=== PATIENT | female | born 1955 | race Caucasian/White ===

== ENCOUNTER 2023-03-18 09:25 | Outpatient (OUT) | payer BC, SELFPAY ==
--- NOTE | 2023-03-18 | MM_ITS ---
Patient: TERESSA BUI Exam Date: 03/18/2023 : 1955 Gender:F Ordering : DR Kevin Velasquez D.O. Admission #: [id number] Family : Order #: [id number] CLICK HERE TO VIEW EXAM RADIOLOGY REPORT PROCEDURE: MM TOMOSYNTHESIS SCREENING BI COMPARISON: MG MAMM SCREEN 3D ALBERT CAD, 03/15/2022. MG MAMM SCREEN 3D ALBERT CAD, 03/01/2021. MG MAMM SCREEN ALBERT W CAD, 02/28/2020. MG MAMM ALBERT SCRN W CAD DIG, 09/09/2013. INDICATIONS: Screening Z12.31 Calculator Name NCI Breast Cancer Risk Assessment Tool 5 Year Breast Cancer Risk 1.80% Lifetime Breast Cancer Risk 6.10% Personal Breast Cancer No Personal Ovarian Cancer No Treatments None Family Cancers Sister with endometrial cancer at age 65. LOCATION: The [facility] BREAST COMPOSITION: Scattered areas fibroglandular density. FINDINGS: DIAGNOSTIC CATEGORY 2--BENIGN FINDING: RIGHT BREAST: No significant suspicious finding. Scattered benign-appearing calcifications are present. No significant change has occurred. LEFT BREAST: No significant suspicious finding. Scattered benign-appearing calcifications are present. No significant change has occurred. RECOMMENDATIONS: ROUTINE MAMMOGRAM AND CLINICAL EVALUATION IN 12 MONTHS. PLEASE NOTE: A NORMAL MAMMOGRAM DOES NOT EXCLUDE THE POSSIBILITY OF BREAST CANCER. A CLINICALLY SUSPICIOUS PALPABLE LUMP SHOULD BE BIOPSIED. Dictated by: Javan Wright M.D. on 03/19/2023 at 12:51 Approved by: Javan Wright M.D. on 03/19/2023 at 12:54
[2023-03-18 09:50] LABS: Estimated Average Glucose 146 mg/dL; Glycohemoglobin A1C 6.7 % (4.5-6.2); Microalbumin Urine Random <1.3 mg/dL (<=30.0)
[2023-03-18 09:52] LABS: Basophils Percent Auto 0.5 % (0.2-2.0); Eosinophils Absolute Auto 0.1 10^3/uL (0.0-0.7); Eosinophils Percent Auto 2.5 % (0.9-7.0); Hematocrit 41.4 % (36.0-48.0); Hemoglobin 13.6 g/dL (12.0-16.0); Immature Granulocytes Abs Auto 0.01 10^3/uL (0.00-0.03); Immature Granulocytes Pct Auto 0.2 % (0.0-0.5); Lymphocytes Absolute Auto 2.4 10^3/uL (1.2-3.8); Lymphocytes Percent Auto 43.3 % (20.5-60.0); Mean Corpuscular HGB Conc 32.9 g/dL (29.9-35.2); Mean Corpuscular Volume 85.2 fL (81.0-99.0); Mean Platelet Volume 9.4 fL (9.5-13.5); Monocytes Absolute Auto 0.5 10^3/uL (0.3-0.8); Neutrophils Absolute Auto 2.6 10^3/uL (1.4-6.5); Neutrophils Percent Auto 45.5 % (43.0-75.0); Platelet Count 182 10^3/uL (150-450); Red Blood Count 4.86 10^6/uL (4.20-5.40); Red Cell Distribution Width 14.2 % (11.0-15.0); White Blood Count 5.6 10^3/uL (4.0-11.0)
[2023-03-18 10:01] LABS: Alanine Aminotransferase 50 U/L (14-59); Anion Gap 12.1; BUN Creatinine Ratio 16.4; Calcium 9.7 mg/dL (8.5-10.1); Carbon Dioxide 27.9 mmol/L (21.0-32.0); Chloride 100 mmol/L (98-107); Cholesterol 124 mg/dL (<=200); Estimated GFR (African America >60 (>=60); Estimated GFR (Non-African Ame >60 (>=60); Glucose 127 mg/dL (74-106); HDL Cholesterol 61 mg/dL (40-60); Sodium 136 mmol/L (136-145); Triglycerides 73 mg/dL (<=150); VLDL CHOLESTEROL 14.6 mg/dL
== END 2023-03-18 09:26 | disposition home or self-care (01) ==
LOC: LAB 09:25
PROVIDERS: PCP Internal Medicine; Visit Provider Internal Medicine
DX: Z12.31 Encounter for screening mammogram for malignant neoplasm of breast (principal); E11.65 Type 2 diabetes mellitus with hyperglycemia; E78.00 Pure hypercholesterolemia, unspecified; I10 Essential (primary) hypertension; Z80.8 Family history of malignant neoplasm of other organs or systems
CPT/HCPCS: 36415; 77063; 77067; 80048; 80061; 82043; 83036; 84460; 85025

== ENCOUNTER 2023-11-21 11:08 | Outpatient (OUT) | payer BC, SELFPAY ==
[2023-11-21 12:21] LABS: Estimated Average Glucose 151 mg/dL; Glycohemoglobin A1C 6.9 % (4.5-6.2)
== END 2023-11-21 11:09 | disposition home or self-care (01) ==
LOC: LAB 11:10
PROVIDERS: PCP Internal Medicine; Visit Provider Internal Medicine
DX: E11.65 Type 2 diabetes mellitus with hyperglycemia (principal)
CPT/HCPCS: 36415; 83036

== ENCOUNTER 2024-03-08 10:42 | Outpatient (OUT) | payer BC, SELFPAY ==
--- NOTE | 2024-03-08 11:10 | XR_ITS ---
The [address] [address] Patient Name: TERESSA BUI MRN: [facility]:[id number] date: 1955 Sex: F Assigned Patient Location: LAB Current Patient Location: Accession/Order Number: [id number] Exam Date: 03/08/2024 11:20 Report Date: 03/10/2024 06:56 At the request of: CLARENCE CARDENAS Procedure: XR lumbar spine 2-3V EXAMINATION: XR lumbar spine 2-3V HISTORY: Low Back Pain COMPARISON: No relevant comparison available. FINDINGS: BONES: No significant spondylosis, scoliosis, fracture, or visible bony lesion. DISC SPACES: No significant disc height narrowing, subluxation, or endplate abnormality. PARASPINOUS: Endovascular stenting of left common iliac artery. OTHER: Negative. XR/XR lumbar spine 2-3V IMPRESSION: 1. No appreciable acute abnormality. 2. Minimal degenerative changes of lumbar spine. Electronically authenticated by: SNOW DUENAS Date: 03/10/2024 06:56
[2024-03-08 11:25] LABS: Basophils Percent Auto 0.6 % (0.2-2.0); Eosinophils Absolute Auto 0.1 10^3/uL (0.0-0.7); Eosinophils Percent Auto 2.8 % (0.9-7.0); Hematocrit 40.6 % (36.0-48.0); Hemoglobin 13.3 g/dL (12.0-16.0); Immature Granulocytes Abs Auto 0.01 10^3/uL (0.00-0.03); Immature Granulocytes Pct Auto 0.2 % (0.0-0.5); Lymphocytes Percent Auto 42.1 % (20.5-60.0); Mean Corpuscular HGB Conc 32.8 g/dL (29.9-35.2); Mean Corpuscular Hemoglobin 28.6 pg (26.7-34.0); Mean Corpuscular Volume 87.3 fL (81.0-99.0); Mean Platelet Volume 9.6 fL (9.5-13.5); Monocytes Absolute Auto 0.5 10^3/uL (0.3-0.8); Monocytes Percent Auto 9.7 % (1.7-12.0); Neutrophils Absolute Auto 2.1 10^3/uL (1.4-6.5); Neutrophils Percent Auto 44.6 % (43.0-75.0); Platelet Count 156 10^3/uL (150-450); Red Blood Count 4.65 10^6/uL (4.20-5.40); Red Cell Distribution Width 13.5 % (11.0-15.0); White Blood Count 4.7 10^3/uL (4.0-11.0)
[2024-03-08 11:50] LABS: Estimated Average Glucose 143 mg/dL; Glycohemoglobin A1C 6.6 % (4.5-6.2)
[2024-03-08 12:22] LABS: Alanine Aminotransferase 61 U/L (14-59); Albumin Globulin Ratio 1.1; Albumin Level 3.8 g/dL (3.4-5.0); Alkaline Phosphatase 128 U/L (46-116); Anion Gap 9.5; Aspartate Amino Transferase 42 U/L (15-37); BUN Creatinine Ratio 17.7; Bilirubin Total 0.7 mg/dL (0.2-1.0); Calcium 9.4 mg/dL (8.5-10.1); Carbon Dioxide 29.8 mmol/L (21.0-32.0); Chloride 100 mmol/L (98-107); Cholesterol 121 mg/dL (<=200); Estimated GFR (African America >60 (>=60); Estimated GFR (Non-African Ame >60 (>=60); Globulin 3.6 g/dL; Glucose 123 mg/dL (74-106); HDL Cholesterol 61 mg/dL (40-60); Potassium 4.3 mmol/L (3.5-5.1); Sodium 135 mmol/L (136-145); Total Protein 7.4 g/dL (6.4-8.2); Triglycerides 90 mg/dL (<=150)
[2024-03-09 16:16] LABS: Microalbumin Urine Random <1.3 mg/dL (<=30.0)
== END 2024-03-08 10:43 | disposition home or self-care (01) ==
LOC: LAB 10:44
PROVIDERS: PCP Internal Medicine; Visit Provider Internal Medicine
DX: M54.50 Low back pain, unspecified (principal); E78.00 Pure hypercholesterolemia, unspecified; I10 Essential (primary) hypertension; E11.65 Type 2 diabetes mellitus with hyperglycemia
CPT/HCPCS: 36415; 72100; 80053; 80061; 82043; 83036; 85025

== ENCOUNTER 2024-03-19 07:52 | Outpatient (OUT) | payer BC, SELFPAY ==
--- NOTE | 2024-03-19 08:03 | US_ITS ---
The [address] [address] Patient Name: TERESSA BUI MRN: [id number] date: 1955 Sex: F Assigned Patient Location: US Current Patient Location: US Accession/Order Number: [id number] Exam Date: 03/19/2024 08:06 Report Date: 03/19/2024 09:10 At the request of: CLARENEC CARDENAS Procedure: US right upper quadrant EXAM: US right upper quadrant HISTORY: . Elevated Liver Enzymes, Metabolic Dysfunction . COMPARISON: None. TECHNIQUE: Dixon scale and color imaging was performed FINDINGS: The pancreas is grossly unremarkable. The liver is normal in size. There is mild increased echogenicity of liver consistent with fatty infiltration of the liver. Color-flow is noted in the portal and hepatic veins. The gallbladder appears normal with no stones or sludge identified. No gallbladder wall thickening is noted. Patient had no pain upon scanning over the gallbladder. Common bile duct measured 4 mm. Right kidney measures 10.1 x 3.9 x 5 cm. Color-flow is noted. No solid renal cortical masses or hydronephrosis is noted. No fluid is noted in the right upper quadrant. US/US right upper quadrant IMPRESSION: 1 increased echogenicity of liver consistent with fatty infiltration of liver. 2. The remainder of the right upper quadrant was unremarkable. Electronically authenticated by: GEOFFREY RUSH Date: 03/19/2024 09:10
--- NOTE | 2024-03-19 08:03 | MM_ITS ---
Patient Name: TERESSA BUI MR#: [id number] : 1955 Exam Date: 03/19/2024 Ordering Doctor: DR Kevin Velasquez D.O. RADIOLOGY REPORT PROCEDURE: MM TOMOSYNTHESIS SCREENING BI COMPARISON: MG MAMM SCREEN 3D ALBERT CAD, 03/15/2022. MM TOMOSYNTHESIS SCREENING BI, 03/18/2023. INDICATIONS: Screening Calculator Name NCI Breast Cancer Risk Assessment Tool 5 Year Breast Cancer Risk 1.80% Lifetime Breast Cancer Risk 5.90% Personal Breast Cancer No Personal Ovarian Cancer No Treatments None Family Cancers Sister with endometrial cancer at age 65. LOCATION: The [facility] BREAST COMPOSITION: There are scattered areas of fibroglandular density. FINDINGS: DIAGNOSTIC CATEGORY 2--BENIGN FINDING. NO CHANGE FROM COMPARISON. Scattered benign-appearing calcifications are present. Scattered benign-appearing lymph nodes are present. RIGHT BREAST: No significant suspicious finding. LEFT BREAST: No significant suspicious finding. RECOMMENDATIONS: ROUTINE MAMMOGRAM AND CLINICAL EVALUATION IN 12 MONTHS. PLEASE NOTE: A NORMAL MAMMOGRAM DOES NOT EXCLUDE THE POSSIBILITY OF BREAST CANCER. A CLINICALLY SUSPICIOUS PALPABLE LUMP SHOULD BE BIOPSIED. Dictated by: Flo Torres MD on 03/19/2024 at 11:13 Approved by: Flo Torres MD on 03/19/2024 at 11:14
--- OUTSIDE RECORDS SUMMARY | 2024-03-19 08:14 | XMS_ITS | CCD ---
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 Name Role Phone Dylan Calixto Unavailable [phone] Summer Decker Unavailable RON, DR LIMA Admitting Unavailable RON, DR LIMA Attending Unavailable RON, DR LIMA Primary Care Unavailable RON, DR LIMA Consulting Unavailable RON, DR LIMA Admitting Unavailable RON, DR LIMA Attending Unavailable RON, DR LIMA Primary Care Unavailable RON, DR LIMA Consulting Unavailable RON, DR LIMA Admitting Unavailable RON, DR LIMA Attending Unavailable RON, DR LIMA Primary Care Unavailable RON, DR LIMA Consulting Unavailable HENRIQUE, DR JAVAN Hooker Consulting Unavailable KEVIN VELASQUEZ Primary Care Physician Mariela MENCHACA Unavailable MD Dylan Calixto Attending Provider DO Kevin Velasquez Primary Care Provider [phone] Mariela MENCHACA Attending Unavailable Mariela MENCHACA Admitting Unavailable Kevin Velasquez Primary Care Unavailable Dylan Calixto Attending UnavailDylan Marte Admitting UnavailKevin Addison Unavailable Radha Correa Unavailable Kevin Velasquez MD Primary Care Provider MARIELA MENCHACA Attending Unavailable MARIELA MENCHACA Attending Unavailable Allergies Allergy Classification Reported Allergen(s) Allergy Type Date of Onset Reaction(s) Facility (7 sources) Lisinopril Drug Allergy 09-23-2017 Unknown [facility] Other Medications Current Medications Medication Drug Class(es) Dates Sig (Normalized) Sig (Original) aspirin 325 mg oral tablet (15 sources) Platelet Aggregation Inhibitor, Nonsteroidal Anti-inflammatory Drug Start: 08-12-2019 aspirin 325 mg Tab Refills(s) 0 Start Date: 08/12/19 Status: Ordered take 1 tablet by mouth once petra y Baby Aspirin 81 MG 1 tablet Orally Once a day Active atenolol 50 mg oral tablet (3 sources) beta-Adrenergic Ronda Start: 08-12-2019 atenol ol 50 mg Tab Refills(s) 0 Start Date: 08/12/19 Status: Ordered take 1 tablet by german every twenty-four hours Atenolol 25 MG 1 tablet Orally Once a da y for 30 day(s) Not-Taking atorvastatin 80 mg oral tablet (18 sources) HMG-CoA Reductase Inhibitor Start: 08-12-2019 atorvastatin 80 mg Tab Refills(s) 0 Start Date: 08/12/19 Status: Ordered clopidogrel 75 mg oral tablet (18 sources) P2Y12 Platelet Inhibitor Start: 04-25-2022 take 1 tablet by mouth once daily clopidogrel (Plavix) 75 MG tablet TAKE 1 TABLET BY MOUTH EVERY DAY FOR 30 DAYS 0 11/15/2022 Active doxycycline hyclate 100 mg oral capsule (1 source) Tetracycline-cla ss Drug Start: 06-26-2023 take 1 capsule by mouth every twelve hours Doxycycline Hyclate 100 MG 1 capsule Orally Twice a day for 7 days May, Active esomeprazole 40 mg delayed release oral capsule (4 sources) Proton Pump Inhibitor Start: 03-03-2023 take 1 capsule by mouth once daily Esomeprazole Magnesium 40 MG 1 capsule Orally Once a day, taken on empty stomach followed in 30 minutest by bkfst for 90 days Feb, Active take 1 capsule by mouth before m ealtime esomeprazole (NexIUM) [address] capsule Take 20 mg by mouth in the morning. Take before meals. Do not open capsule.. 0 Active estradiol 0.1 mg/ml vaginal cream (3 sources) Estrogen Start: 01-01-2023 End: 11-12-2023 estradiol (Estrace) 0.1 MG/GM vaginal cream Indications: Presence of pessary Insert 1 g into the vagina 3 (three) times a week. 45 g 2 01/01/2023 11/12/2023 Active losartan potassium 50 mg oral tablet (20 sources) Angiotensin 2 Receptor Ronda Start: 11-22-2022 take 1 tablet by mouth in the morning losartan (Cozaar) 50 MG tablet Take 50 mg by mouth in the morning. 0 11/22/2022 Active take 1 tablet by german th every twenty-four hours Losartan Potassium 25 MG 1 tablet Orally Once a day Active take 1 tablet by mouth once petra y Losartan Potassium 50 MG TAKE 1 TABLET BY MOUTH EVERY DAY for 90 Active metFORMIN hydrochloride 500 mg oral tablet (11 sources) Biguanide Start: 11-22-2022 take 1 tablet by mouth at mealtime metFORMIN (Glucophage) 500 MG tablet Take 500 mg by mouth. Take with food. 0 11/22/2022 Active mupirocin 0.02 mg/mg topical ointment (3 sources) RNA Synthetase Inhibitor Antibacterial Start: 04-08-2023 Mupirocin 2 % 1 application Externally Twice a day for 5 days Mar, Active omeprazole 40 mg delayed release oral capsule (2 sources) Proton Pump Inhibitor take 1 capsule by mouth once daily Omeprazole 40 MG 1 capsule 30 minutes before morning meal Orally Once a day for 90 days Active OneTouch Ultra - (9 sources) D1Guch Ultra - USE TO TEST ONCE A DAY for 30 Active pantoprazole 40 mg delayed release oral tablet (11 sources) Proton Pump Inhibitor Start: 03-06-2023 take 1 tablet by mouth once daily Pantoprazole Sodium 40 MG 1 tablet Orally Once a day on an empty stomach 30 minutes before bkfst for 30 days d/c Omeprazole Feb, Active Pantoprazole Sod ium Active SITagliptin 25 mg oral tablet (18 sources) Dipeptidyl Peptidase 4 Inhibitor Start: 02-04-2023 take 1 tablet by mouth in the morning Januvia 25 MG tablet Take 25 mg by mouth in the morning. 0 02/04/2023 Active Start: 08-26-2022 take 1 tablet by german th in the morning Januvia 50 MG tablet Take 50 mg by mouth in the morning. 0 08/26/2022 Active triamcinolone acetonide 5 mg/ml topical cream (6 sources) Corticosteroid Start: 03-04-2023 Triamcinolone Acetonide 0.5 % 1 application Externally bid as needed for rash for 30 days Feb, Active valACYclovir 1000 mg oral tablet (3 sources) Herpesvirus Nucleoside Analog DNA Polymerase Inhibitor, Herpes Simplex Virus Nucleoside Analog DNA Polymerase Inhibitor, Herpes Zoster Virus Nucleoside Analog DNA Polymerase Inhibitor Start: 04-08-2023 take 1 tablet by mouth every twelve hours valACYclovir HCl 1 GM 1 tablet Orally Twice a day for 7 days Mar, Active 24 hr verapamil hydrochloride 120 mg extended release oral capsule (20 sources) Calcium Channel Ronda Start: 08-12-2019 verapamil 120 mg Cap-ER Refills(s) 0 Start Date: 08/12/19 Status: Ordered take 1 capsule by mo [facility] every twenty-four hours in the morning verapamil ER (Verelan) 120 MG 24 hr capsule Take 120 mg by mouth in the morning. 0 Active Verapamil HCl ER Not-Taking Verapamil HCl ER Active Completed/Discontinued Medications Medication Drug Class(es) Dates Sig (Normalized) Sig (Original) azithromycin 250 mg oral tablet (8 sources) Macrolide Antimicrobial Start: 10-03-2022 Azithromycin 250 MG as directed Orally daily for 5 days Sep, Not-Taking calcium carbonate 1500 mg / cholecalciferol 200 unt oral tablet (2 sources) Vitamin D take 1 tablet by mouth once daily at mealtime Calcium + D 600-200 MG-UNIT 1 tablet with food Orally Once a day for 30 day(s) Not-Taking take 1 tablet by [facility] every twenty-four hours Calcium + D 600-200 MG-UNIT 1 tablet wit h food Orally Once a day for 30 day(s) Not-Taking Suprep Bowel Prep Kit 17.5-3.13-1.6 GM/180ML (2 sources) Start: 03-23-2019 Suprep Bowel P rep Kit 17.5-3.13-1.6 GM/180ML 177 ML DIRECTED AT 4 PM AND ONE AT 11 PM DAY PRIOR Orally Twice a day for 1 day(s) Feb, Not-Taking Problems Active Problems Problem Classification Problem Date Documented Date Episodic/Chronic Acute bronchitis (1 source) Acute bronchitis due to other specified organisms Episodic Allergic reactions (1 source) Dermatitis, unspecified Episodic Diabetes mellitus with complications (20 sources) Type 2 diabetes mellitus with hyperglycemia; Translations: [Type 2 diabetes mellitus] Onset: 07-03-2022 Chronic Disorders of lipid metabolism (11 sources) Hypercholesterolemia; Translations: [Pure hypercholesterolemia, unspecified] Chronic Esophageal disorders (14 sources) Gastro-esophageal reflux disease with esophagitis; Translations: [Gastroesophageal reflux disease with esophagitis without hemorrhage] Chronic Essential hypertension (11 sources) Essential hypertension; Translations: [Essential (primary) hypertension] Chronic Genitourinary symptoms and ill-defined conditions (2 sources) Vaginal pessary in situ; Translations: [Presence of urogenital implants] 09-09-2023 Chronic Headache; including migraine (11 sources) Ophthalmic migraine; Translations: [Migraine with aura, not intractable, without status migrainosus] Chronic Occlusion or stenosis of precerebral arteries (17 sources) Bilateral stenosis of carotid arteries; Translations: [Occlusion and stenosis of bilateral carotid arteries] Onset: 08-23-2021 Resolved: 08-23-2021 Chronic Other aftercare (1 source) Other long term care social worker (current) drug therapy Episodic Other circulatory disease (14 sources) Stenosis of left subclavian artery; Translations: [Stricture of artery] Chronic Other circulatory disease (3 sources) Stricture of artery Onset: 08-23-2021 Resolved: 08-23-2021 Chronic Other liver diseases (7 sources) Abnormal liver function; Translations: [Abnormal liver function] Chronic Other liver diseases (1 source) Fatty (change of) liver, not elsewhere classified; Translations: [FATTY CHANGE LIVER NEC] Onset: 03-18-2022 Chronic Other screening for suspected conditions (not mental disorders or infectious disease) (2 sources) Encounter for screening mammogram for malignant neoplasm of breast; Translations: [ENC SCR MAMMO MALIG NEOPLASM BREAST] Onset: 03-18-2022 Episodic Other upper respiratory infections (1 source) Acute maxillary sinusitis, unspecified Episodic Peripheral and visceral atherosclerosis (20 sources) Atherosclerosis of [place] arteries of extremities with intermittent claudication, left leg; Translations: [Peripheral vascular disease, unspecified] Onset: 08-23-2021 Resolved: 08-23-2021 Chronic Prolapse of female genital organs (2 sources) Relaxation of pelvic floor; Translations: [Other female genital prolapse] 09-09-2023 Chronic Skin and subcutaneous tissue infections (1 source) Impetigo, unspecified Episodic Superficial injury; contusion (1 source) Blister (nonthermal) of oral cavity, initial encounter Episodic Unclassified (1 source) Occlusion and stenosis of bilateral carotid arteries; Translations: [Occlusion and stenosis of bilateral carotid arteries] Onset: 09-04-2022 Past or Other Problems Problem Classification Problem Date Documented Da te Episodic/Chronic Esophageal disorders (2 sources) Esophageal disorders Residual codes; unclassified (1 source) Family history of malignant neoplasm of other organs or systems; Translations: [FAM HX MALIG NEOPLASM OTH ORGN/SYS] Onset: 03-18-2022 Episodic Results Test Name Value Interpretation Reference Range Facility [facility] Vaginitis (VG)on 08-28 A. vaginae DNA HARJEET+probe Ql (Vag fld) Low - [address] [facility] Comment on above: Performed By: #### 1 [id number] #### [facility] [address] [place] [address] Bacterial vaginosis associated bacterium 2 DNA HARJEET+probe Ql (Vag fld) Low - [address] [facility] Comment on above: Performed By: #### 1 [id number] #### [facility] [address] [place] [address] C. albicans DNA HARJEET+probe Ql (Vag fld) Negative Invalid Interpretation Code Negative [facility] Comment on above: Result Comment: This test was developed and its performance characteristics determined by [employer]. It has not been cleared or approved by the Food and Drug Administration. Performed By: #### 1 [id number] #### [facility] [address] [place] [address] C. glabrata DNA HARJEET+probe Ql (Vag fld) Negative Invalid Interpretation Code Negative [facility] Comment on above: Result Comment: This test was developed and its performance characteristics determined by [employer]. It has not been cleared or approved by the Food and Drug Administration. Performed By: #### 1 [id number] #### [facility] [address] [place] [address] Megasphaera sp type 1 DNA HARJEET+probe Ql (Vag fld) Low - [address] [facility] Comment on above: Result Comment: Calc ulate total score by adding the 3 individual bacterial vaginosis (BV) marker scores together. Total score is interpreted as follows: Total score 0-1: Indicates the absence of BV. Total score 2: Indeterminate for BV. Additional clinical data should be evaluated to establish a diagnosis. Total score 3-6: Indicates the presence of BV. This test was developed and its performance characteristics determined by [employer]. It has not been cleared or approved by the Food and Drug Administration. Performed By: #### 1 [id number] #### [facility] [address] [place] [address] T. vaginalis DNA HARJEET+probe Ql (Vag fld) Negative Invalid Interpretation Code Negative [facility] Comment on above: Result Comment: Perf ormed at: =G [facility] [address] [place] Arthur [id number] MD Jj Sagastume Performed By: #### 1 [id number] #### [facility] [address] [place] [address] US ankle/arm indiceson 09-06 US ankle/arm indices [facility] [place] [address] Ultrasound Report Signed Patient: Teressa Bui MR#: [id number] [id number] : 1955 Acct:[id number] Age/Sex: 66 / F ADM Date: 09/04/22 Loc: Room: Type: [facility] Attending Dr: Dylan Calixto MD Ordering Provider: Dylan Calixto MD Date of Service: 09/04/22 US/US ankle/arm indices: I65.23 Copies to: Dylan Calixto MD LOWER EXTREMITY SEGMENTAL ARTERIAL DOPSCAN (PVR) INDICATION: Known peripheral vascular occlusive disease PROCEDURE: Right arm blood pressure is 149 , left is 160 . Pressures at the right ankle are 169 using the posterior tibial artery, and 155 using the dorsalis pedis artery with ankle-brachial index of 1.06 0.97 . Pressures at the left ankle are 154 using the posterior tibial artery, and 150 with ankle- brachial index of 0.96 0.94 . Wave forms by plethysmography are strongly pulsatile bilaterally US/US ankle/arm indices IMPRESSION: NO HEMODYNAMICALLY SIGNIFICANT PERIPHERAL VASCULAR OCCLUSIVE DISEASE AT REST IN EITHER LOWER EXTREMITY. Impression dictated by: Zen Lopez M.D.09/06/2022 10:25 AM Dictation Location: RAD-DOC-04 Tech: Angi Sanchez Transcribed By: RAFAEL 09/06/22 1025 Dictated By: Zen Lopez MD 09/06/22 1024 Signed By: 09/06/22 1025 [facility] US carotid doppler BIon - US carotid doppler BI [facility] [address] [place] [address] [place] [address] Ultrasound Report Signed Patient: Teressa Bui MR#: [id number] : 1955 Acct:[id number] Age/Sex: 66 / F ADM Date: 09/04/22 Loc: Room: Type: [facility] Attending Dr: Dylan Calixto MD Ordering Provider: Dylan Calixto MD Date of Service: 09/04/22 US/US carotid doppler BI: [id number] Copies to: Dylan Calixto MD CAROTID DUPLEX INDICATION: Known carotid occlusive disease PROCEDURE: Color-flow duplex scanning is used to interrogate the extracranial carotid arterial system, as well as both vertebral arteries. Both carotid bifurcations show mild to moderate heterogeneous plaque formation. The proximal right internal carotid artery shows a highest peak systolic velocity of 122 cm/s with an end-diastolic velocity of 32.1 cm/s . The mid internal carotid artery measures 143 cm/s peak systolic and 32.1 cm/s end diastolic. The distal segment measures 84.1 cm/s peak systolic with an end diastolic velocity of 24.3 cm/s . The velocities of the right common carotid artery are 100 cm/s peak systolic and 17.4 cm/s end-diastolic proximally and 108 cm/s peak systolic and 19.9 cm/s end diastolic distally. The peak systolic velocity ratio of the internal to the common carotid artery is 1.32. The right external carotid artery measures 161 cm/s peak systolic. The right vertebral artery is patent at 67.7 cm/s with antegrade flow. The proximal left internal carotid artery shows a highest peak systolic velocity of 114 cm/s with an end-diastolic velocity of 32.9 cm/s . The mid internal carotid artery measures 119 cm/s peak systolic and 29.1 cm/s end diastolic. The distal segment measures 50.2 cm/s peak systolic with an end diastolic velocity of 18 cm/s . The velocities of the left common carotid artery are 107 cm/s peak systolic and 23.5 cm/s end-diastolic proximally and 128 cm/s peak systolic and 25.9 cm/s end diastolic distally. The peak systolic velocity ratio of the internal to the common carotid artery is 0.93 . The left external carotid artery measures 161 cm/s peak systolic. The left vertebral artery is patent at 72.4 cm/s with antegrade flow. US/US carotid doppler BI IMPRESSION: The right carotid bifurcation shows more significant plaque formation but likely has stenosis of less than 50%. Less than 50% stenosis is seen in the left extracranial internal carotid artery. Both vertebral arteries are patent with antegrade flow. Impression dictated by: Zen Lopez M.D.09/06/2022 10:24 AM Dictation Location: [facility] Tech: Angi Sanchez Transcribed By: RAFAEL 09/06/22 1024 Dictated By: Zen Lopez MD 09/06/22 1022 Signed By: 09/06/22 1024 [facility] Coding Summary.on 09-05-2022 Coding Summary. [id number] Gh 0bWw+PGhlYWQ+FZ2RASRrU 17cgIIdfM7FJ8aYRO9HCFM JFUJXGT0LYB1ezHF4QUneL 2VybiAv VopqcOHyJO52XGq0MNE9xR taSJwrqF8auDMwL8f4KpGu ZM48hP41QHveRGYqUfP2Ze ZpbjsgbWFy I5rrLzXkrVLrLwh+PHRhYm xlIHdpZHRoPScxMDAlJyBz xNhgGF6kTo3rGSSoIMPcgK xhcHNlOiBj v0xxKZKoCZrgNL1gzKwnC9 DhlBA2WEZhb8e2Dd58oBZ+ KUEbGFI7zTlbWDeya037Yv Zan5euFAM9 nHFcPJtaUXK1N94os0Q0CU MoGWHyCJF2vIS5nI7xuKpp ttytK4MbzNOaWlG7TJW3lP BufU9yyEzf okirmX3xUly+F11VGD2CDX KPGR4LNmw9N9RoEgjtbJH+ DW69BVFdZS62fMUriWGoc8 lmoQe4VdGj LKMqBGN4sUrbRJzdq8RmAT HhW59yxPOqe4H0MKJdsBne uEUpRqCktIS1bL4yLMwpui lbg2fyxlor Nnpzl8ntlr32kU13U50vDL tuVVWxDTL3RCRfEVAmmLkl cx7loA0hUk5+QNqeo1asb6 luxZd1KcKz AZIsukCubUdwVIG9c9IlIs 57B6IcrSmeg0DpBfa4ze59 yVJil7H6vRQ2BGiaMLUmdA 2dXBnkJaG1 PKAcFnFtfU84cMRmIErcXv 7zpYcgqMtbUL3aUBFkaqcg AQFqgU2nMPFvmNVthVztQY 4wNTBpbjtm x746VmQmLWA1PLCazKLeY8 KmtD4bOfTjCPOmOODuX7Oe fASdFWaiM838NZzyJoU1VT RpjcAtZ6Vi PECprKxwOdK2k5H1Ar1Hw3 OkiczcFQZ5JAknHVIkGwQ6 CcDwBjF7G7SxSwc7MSSfuX nlQV9cH8Hv WNMlreeoosrarWE7QTIlZA IumA67rIDdMLhbZh1us2R2 t474BFMtWHBqdD62Io2kwM ogMTBwdCBU uV4ethkeb4xspghxKjYuNF StKBw7MWs7AUZfhWkdAxTh KIN1AmG6LUQ8jGNeuV6xmO zbezixjV2m Oyc+X22cnV2fSYI1JKZ9fz xdNJAwpvNvYP14BD65C9Kb PjwvdGFibGU+PGRpdiBzdH hvQC7uBjNt g4cyg0VfNGmoD1ScDDAjPN kgOwl6NNHqCLZ6xIH9wG1u JKCcQBola5E4qGZ3F5Znzs Zjms9ao3zm FXNmLFrrG82buLRou9E5IK AgiBQ1XEEstFovGiFrtL11 Oyc+ZZDqlCpdc6IjYlwxs2 oai3wnyJm1 VvTvQTGwbaOneJenFVE4c9 RkYe31E28wZPqdDRChOCEi LIGxYGQncFrkfx5sxJ4oNv 8+PGNvbCB3 wXP9gP1xFMIkWyH5LMynQ7 94TeOmsIJsPtyuf5sng3ob xXi3YfJdXVOzpzNlnNceZA I2b4DcOp68 O80oGKmbAJUbEYNzKRKvHG TpeSzyvm5phY0dUl1+PC9j z1cvyv93oL68uKM+PHRkIH Q2sUzxVKji EEEipY5gSFeuQjY8CBAdTl KqmD63zACoJYhfTu7czSki oGnhKY4hFWJsbtiqb979Pu Pxs8suYIKb nPRdOTadYBX7C74kn4V7TG MpGJPtWGV5kGB7bP2umIfs bjogbGVmdDsgdmVydGljYW lqTSanH219 IHRvcDsnPlBhdGllbnQgTm UgPXs5R0VmFqy5QYMmzPwc WF4tpKFeUYwcZk0npNhilL zdZA1qHQWh feerv357SlTma8fkLDThnI AoZMgyRXU3A81hx4L4QTLo EZSzOKS7hBF2eL6psQjtlj ogbGVmdDsg sqYhvIwmZEoaEJtlA353DW RvcDsnPkJpcnRoIERhdGU6 YM85XZ25hBLsq4N9iCG3P6 BhZGRpbmct htmnlFG9RGXtZJDfuP50Dl 5jmKusIp0qYBMhXAC2MOQy vOXyQ3JqzQ5sLbEyLDHhFR NzD0RqnGWc TBizI906FEncZyT1HGAyxk RsY9YoNFHgfNowMfY5c2R7 Uy0CT2Z8BK95LG76rFRej9 F1yJT8X2Nt YYGnurpslevruRZ9OGXsRL QegU40Jj0mqCipIt9rRQPe TBA6ELZpuZGnB5JbhI2iAo AjMDAwMDAw E6NtuLWxNQnsF486ZKirUg D3OLQbycBvH9WcZCYzwLpy YvP9s3Z2Yw7UTKg7VH06XE 95jNYzl7H2 zIA7Z6CuXNNuwxmtlqbdpC B5TRHvAVUbqW69Gj9wnIme Yc8iRLUpPJQ1HQVbmCKiS8 CxbE4pUvZi ROPfLYPvV9YcgSAtNTteT2 28YNagIkZ7OLQrfkGlX0Tu YHMoxEcxEbU6e7J3Tr1ASY AwRC60CAU2 fRV8NF14NQ83A3QnTefafV FibGU+PHRhYmxlIHdpZHRo OMpwQJGyMpSoiTopUD7xWl 9yZGVyLWNv wNdoiCYeIwBws9udYIUtMX yeZN0bvTupL3EnqOU6BYVr w5i1Ak90V31cP5VirGN+PG PupZX5qKS8 kB4dUtWlHcY8KXwyL310Um YndCDcNuofj5oqe4lpbGe2 PeK1DFYtzlIoeYwrGPD2g7 ZbSk15N63j IHdpZHRoPSIxNSUiIHZhbG lmna4piN0eHe9+PGNvbCB3 bBH5tA3uHhWvWdY0AZsiJ8 49InRvcCIv Jcvbn2crj5kjtJl5WcLzGL HcvzJnlWxuLFG4j5BrKh15 H2QpdAggx7GwQvr8dx84rX Iyy9S8eNR3 D9YpVNLkqhojeQVndPjySR 7jVJIaarzcEZNjnG9qLIAm E4q4AlPyQeD5GJjtU6Zijr C4DDFgnHFc CHgmSQA3N32mg0N2SURhRE NsMUP8hFO5wH1nzReoovjw bGVmdDsgdmVydGljYWwtYW wyM390AHSo nKejEKDydE9iNTIzvFRugV fmOH3eSOJdvwrnZeYGWnNC BtebPHWJIZBFFJf9M1UdLt t4SIDldVpv JF2kcOTdMIvpAh0djJfuvH psWG6lASPqezthJUQjxP2o LQBanNExkVlxVH8cIUOwsy abx987OsTg TBR2WQBwkKDwN8GdwJ7oHi GjDTElDPJmF1BtkJLqCMcr R502QOmuMaL8EWRrrwQlB5 FsLWFsaWdu LlP8e0Y8Pa4nTN7tPV5vGA W9AX72SQ99zPCme0G4fRK5 A0QcPUHkgungypylvRC6IF OgSCGhwW42 hHCiBYpwTj5pq6V5t381XC LqHSOeoO64Cr3dtYdyLZHv jQQOvJ7rvjycx2xozuxuQu AwMDAwMDt0 JFk7ALDzyPqkRrEuYAD9Xn Y4HJS1aNJiqG1tgPsqymsu mQ7nGpy+HcPzBIDnetJ2G6 AxEqj2RPGo eElpBQ2ogFSkALsoDu7anG htkNxnQE2eJXYtnaxnFUPc aR4mTVVndCTyrYsiFB0xWG Nznovde266 RoPbZTX2JMNydEIcR8GbfP 1aCfJnPSGeMRGoX2QezQAp GLrpT353PQwvZiA6LVIifl RbJ6FpKTKj cWouApX0u6C8Bv4FAF0amD J3R1QxPkh9HLQvrCcaBQ7v pLZnETppIj9dzXpybPhiOO 4wNTBpbjtw YIKnpT3sIPKeqZVxwNoeHV 1zBKIinknzm784OdAlFAP8 SQQsfTBwI6AcuS7pCyUpAO UiMDCtE2Do uKOlXRpqB986ODtyDsQ9FB PbtkPzG3SgDFTrfVogRsH3 t1U2Rq3XXTMzBTNavMKrEt N3T9BfGpzl dHI+FV68OLSrKI27ySHppE Voc4jziOq7MtRwWRKfVHU2 qRetIOdgj6FyZSCjQ05xaG Cwc8S7VKGm iHpvhGKaCmUtpQJ0nT2yDZ rxgkdwp8uznqocAihvc7td ya88kQ92G31uQArtKDSsVO IzMCUiIHZh xGyeey9atA3eLp7+PGNvbC V9vPA4uC9sZjSiGdK5XDol O561WmXnvRBoEvnrz7lwc7 ntqAz8HpPl BJMdeaCotRkoIYZ7q5ItZu 52P18tSVysNWYlZIBkXGVj OIQbaSylon1mrO5aKa1+PC 2ki6btpm00 pZ45zZY+VLTlGNX5hFfhNN jeZKTxoG0oKHsdUlD3YHVe FtNjlG09wFJkVTmsWk1pgW tqdNioRS8u VTXcfolsa095ZuFmy4emMV SslFLsUSfiNBE3C08ho8Z6 KQWaSWTzPRR7rXC9bS0spS lnbjogbGVm dDsgdmVydGljYWwtYWxpZ2 88XAGjiCiiOeTrxIVyJ0jx qeBZBK7wKwczhLJ+PHRkIH P9zTveCFln WGKneN7tSFEfS0n4BmBjWk G0UJtxD3JsmqD9LVIllIEw MHBnmCASbH2ppjzdf4zqqu ogIzAwMDAw HYx9XVb6PUFloAlcPiTiID M8CzS6HFG1cRMrkF1suKqa enffsS2zTfy+RklOOjwvdG Q+PHRkIHN0 zMwaWKlmGEHttW6rMNZyH5 c7WmGjArL6XJiuZ4GmwpE4 ZIXfwVOmOJUrbOOYmJ0cqc zcv0pwzwxq ZqBsAQNjSPp1JYz7QMAwnS nkQtFmZIL9HnU5OVS5aLIj wE5zhEjzvlqwvG2eGoj+TV JOOjwvdGQ+ LIUrYHH4bNgsKGtjHTHpxM 1sJHAgG9q3DxQtKfQ1NZyz B9CmqrO0KTGpxLIvYJRosY SEpW3rttjl a0xwmbjmYhFpGPCrFGw6IS c6IDDtnVveArTnWSF4DpI8 KNH7bIMnfW8lrWrmdnossM 9wOyc+UGF5 WRC8YH77CZ08Y4CdXtjfiX FibGU+PHRhYmxlIHdpZHRo WCitUKQjLnTuvSitVU5zGj 9yZGVyLWNv bGxh (more content not included)... Normal [facility] Physician Orderon 09-02-2022 Physician Order [id number] [facility] GLYCOHEMOGLOBIN A1Con 2021 ADA RECOMMENDATION SEE BELOW Normal [facility] Comment on above: Result Comment: ADA RECOMMENDED LIMIT 4.0 - 6.0 ADA THERAPEUTIC TARGET < 7.0 ACTION SUGGESTED > 7.0 Performed By: #### A 1C #### [facility] [address] [place] [id number] Azar Carlin Glucose [Mass/Vol] 137 mg/dL Normal [facility] Comment on above: Performed By: #### A 1C #### [facility] [address] [place] [id number] Azar Carlin HbA1c (Bld) [Mass fraction] 6.4 % Critically high 4.5-6.2 [facility] Comment on above: Performed By: #### A 1C #### [facility] [address] [address] [address] Azar Carlin MICROALBUMIN URINEon 022 Albumin, Urine 3.1 ug/mL Normal Not Estab. [facility] Comment on above: Performed By: #### M ALBLC #### [facility] [address] [place] [address] Dr. Azar Carlin VIT D 25-OH LABCORPon 2021 Vitamin D, 25-Hydroxy 43.0 ng/mL Normal 30.0-100.0 [facility] Comment on above: Result Comment: [place] min D deficiency has been defined by the [place] [employer] and an Endocrine Society practice guideline as a level of serum 25-OH vitamin D less than 20 ng/mL (1,2). The Endocrine Society went on to further define vitamin D insufficiency as a level between 21 and 29 ng/mL (2). 1. IOM ([place] of [employer]). 2010. Dietary reference intakes for calcium and D. [place]: The National Academies Press. 2. Gamaliel MF, Vivian NC, Domingo-Ras YO, et al. Evaluation, treatment, and prevention of vitamin D deficiency: an Endocrine Society clinical practice guideline. JCEM. 2010; 96(7):1911-30. Performed By: #### V ITADLC #### [facility] [address] [place] [address] Dr. Azar Carlin CBC AUTO DIFFon 03-15-2022 BASO # 0.0 103/ul Normal 0.0-0.1 [facility] Comment on above: Performed By: #### C BC #### [facility] [address] [address] [address] Azar Carlin Basophils/100 WBC (Bld) 0.6 % Normal 0.2-2.0 [facility] Comment on above: Performed By: #### C BC #### [facility] [address] [place] [address] Dr. Azar Carlin EO # 0.1 103/ul Normal 0.0-0.7 [facility] Comment on above: Performed By: #### C BC #### [facility] [address] [place] [address] Dr. Azar Carlin Eosinophils/100 WBC (Bld) 2.4 % Normal 0.9-7.0 [facility] Comment on above: Performed By: #### C BC #### [facility] [address] [place] [address] Dr. Azar Carlin Erythrocyte distribution width (RBC) [Ratio] 14.0 % Normal 11.0-15.0 [facility] Comment on above: Performed By: #### C BC #### [facility] [address] [place] [address] Dr. Azar Carlin Hematocrit (Bld) [Volume fraction] 39.9 % Normal 36.0-48.0 [facility] Comment on above: Performed By: #### C BC #### [facility] [address] [place] [address] Dr. Azar Carlin Hemoglobin (Bld) [Mass/Vol] 13.0 g/dL Normal 12.0-16.0 [facility] Comment on above: Performed By: #### C BC #### [facility] [address] [place] [address] Dr. Azar Carlin IG # 0.01 10e3/ul Normal 0.00-0.03 [facility] Comment on above: Performed By: #### C BC #### [facility] [address] [place] [address] Dr. Azar Carlin IG % 0.2 % Normal 0.0-0.5 [facility] Comment on above: Performed By: #### C BC #### [facility] [address] [place] [address] Dr. Azar Carlin LYMPH # 1.7 103/ul Normal 1.2-3.8 [facility] Comment on above: Performed By: #### C BC #### [facility] [address] [place] [address] Dr. Azar Carlin Lymphocytes/100 WBC (Bld) 36.2 % Normal 20.5-60.0 [facility] Comment on above: Performed By: #### C BC #### [facility] [address] [place] [address] Dr. Azar Carlin MANUAL DIFF REQ NO Normal [facility] Comment on above: Performed By: #### C BC #### [facility] [address] [place] [address] Dr. Azar Carlin MCH (RBC) [Entitic mass] 28.1 pg Normal 26.7-34.0 [facility] Comment on above: Performed By: #### C BC #### [facility] [address] [place] [address] Dr. Azar Carlin MCHC (RBC) [Mass/Vol] 32.6 g/dL Normal 29.9-35.2 [facility] Comment on above: Performed By: #### C BC #### [facility] [address] [place] [address] Dr. Azar Carlin MCV (RBC) [Entitic vol] 86.2 fL Normal 81.0-99.0 [facility] Comment on above: Performed By: #### C BC #### [facility] [address] [place] [address] Dr. Azar Carlin MONO # 0.4 103/ul Normal 0.3-0.8 [facility] Comment on above: Performed By: #### C BC #### [facility] [address] [place] [address] Dr. Azar Carlin Monocytes/100 WBC (Bld) 9.3 % Normal 1.7-12.0 [facility] Comment on above: Performed By: #### C BC #### [facility] [address] [place] [address] Dr. Azar Carlin NEUT # 2.4 103/ul Normal 1.4-6.5 [facility] Comment on above: Performed By: #### C BC #### [facility] [address] [place] [address] Dr. Azar Carlin Neutrophils/100 WBC (Bld) 51.3 % Normal 43.0-75.0 [facility] Comment on above: Performed By: #### C BC #### [facility] [address] [address] [address] Azar Carlin Platelet mean volume (Bld) [Entitic vol] 9.4 fL Critically low 9.5-13.5 [facility] Comment on above: Performed By: #### C BC #### [facility] [address] [address] [address] Azar Carlin PLT 184 103/ul Normal 150-450 [facility] Comment on above: Performed By: #### C BC #### [facility] [address] [address] [address] Azar Carlin RBC 4.63 106/ul Normal 4.20-5.40 [facility] Comment on above: Performed By: #### C BC #### [facility] [address] [address] [address] Azar Carlin WBC 4.6 103/ul Normal 4.0-11.0 [facility] Comment on above: Performed By: #### C BC #### [facility] [address] [address] [address] Azar Carlin GLYCOHEMOGLOBIN A1Con 2021 ADA RECOMMENDATION SEE BELOW Normal [facility] Comment on above: Result Comment: ADA RECOMMENDED LIMIT 4.0 - 6.0 ADA THERAPEUTIC TARGET < 7.0 ACTION SUGGESTED > 7.0 Performed By: #### A 1C #### [facility] [address] [place] [address] Dr. Azar Carlin Glucose [Mass/Vol] 137 mg/dL Normal [facility] Comment on above: Performed By: #### A 1C #### [facility] [address] [address] [address] Azar Carlin HbA1c (Bld) [Mass fraction] 6.4 % Critically high 4.5-6.2 [facility] Comment on above: Performed By: #### A 1C #### [facility] [address] [place] [address] Dr. Azar Carlin LIPID PROFILEon 03-15-2022 CHOL-HDL RATIO NORM SEE BELOW Normal [facility] Comment on above: Result Comment: 3.3 - 4.4 LOW RISK 4.4 - 7.1 AVERAGE RISK 7.1 - 11.0 MODERATE RISK >11.0 HIGH RISK Performed By: #### C MP, LIPID #### [facility] [address] [address] [address] Azar Carlin Cholesterol [Mass/Vol] 120 mg/dL Normal <=200 [facility] Comment on above: Performed By: #### C MP, LIPID #### [facility] [address] [address] [address] Azar Carlin Cholesterol in HDL [Mass/Vol] 62 mg/dL Critically high 40-60 [facility] Comment on above: Performed By: #### C MP, LIPID #### [facility] [address] [address] [address] Azar Carlin Cholesterol in LDL [Mass/Vol] 44.4 mg/dL Normal [facility] Comment on above: Performed By: #### C MP, LIPID #### [facility] [address] [address] [address] Azar Carlin Cholesterol.total/C holesterol in HDL [Mass ratio] 1.9 {ratio} Normal [facility] Comment on above: Performed By: #### C MP, LIPID #### [facility] [address] [address] [address] Azar Carlin HDL NORMAL > or = 60 mg/dl - LO W CARDIOVASCULAR RISK <40 mg/dl - HIGH CARDIOVASCULAR RISK Normal [facility] Comment on above: Performed By: #### C MP, LIPID #### [facility] [address] [address] [address] Azar Carlin LDL CALC NORMAL SEE BELOW Normal [facility] Comment on above: Result Comment: <100 mg/dl OPTIMAL 100 - 129 mg/dl NEAR OR ABOVE OPTIMAL 130 - 159 mg/dl BORDERLINE HIGH 160 - 189 mg/dl HIGH >190 mg/dl VERY HIGH Performed By: #### C MP, LIPID #### [facility] [address] [address] [address] Azar Carlin Triglyceride [Mass/Vol] 68 mg/dL Normal <=150 [facility] Comment on above: Performed By: #### C MP, LIPID #### [facility] [address] [address] [address] Azar Carlin VLDL CALC 13.6 mg/dL Normal [facility] Comment on above: Performed By: #### C MP, LIPID #### [facility] [address] [address] [address] Azar Carlin MG MAMM SCREEN 3D ALBERT CADon 03-15-2022 MG MAMM SCREEN 3D ALBERT CAD Patient: TERESSA BUI Exam Date: 03/15/2022 : 1955 Gender:F Ordering : DR KEVIN VELASQUEZ D.O. Admission #: [id number] Family : Order #: [id number] CLICK HERE TO VIEW EXAM RADIOLOGY REPORT PROCEDURE: MAMMOGRAM SCREENING 3D BILATERAL CAD COMPARISON: MG MAMM SCREEN 3D ALBERT CAD, 03/01/2021. MG MAMM SCREEN ALBERT W CAD, 02/28/2020. INDICATIONS: Screening mammography Calculator Name NCI Breast Cancer Risk Assessment Tool 5 Year Breast Cancer Risk 1.80% Lifetime Breast Cancer Risk 6.40% Personal Breast Cancer No Personal Ovarian Cancer No Treatments None Family Cancers Sister with endometrial cancer at age 65. LOCATION: [facility] BREAST COMPOSITION: Scattered areas fibroglandular density. FINDINGS: DIAGNOSTIC CATEGORY 2--BENIGN FINDING: RIGHT BREAST: No significant suspicious finding. Scattered benign-appearing calcifications are present. No significant change has occurred. LEFT BREAST: No significant suspicious finding. Scattered benign-appearing calcifications are present. No significant change has occurred. RECOMMENDATIONS: ROUTINE MAMMOGRAM AND CLINICAL EVALUATION IN 12 MONTHS. PLEASE NOTE: A NORMAL MAMMOGRAM DOES NOT EXCLUDE THE POSSIBILITY OF BREAST CANCER. A CLINICALLY SUSPICIOUS PALPABLE LUMP SHOULD BE BIOPSIED. Dictated by: Javan Wright M.D. on 03/15/2022 at 12:13 Approved by: Javan Wright M.D. on 03/15/2022 at 12:16 Normal [facility] PROF 14(COMP METB)on 022 Albumin [Mass/Vol] 3.9 g/dL Normal 3.4-5.0 [facility] Comment on above: Performed By: #### C MP, LIPID #### [facility] [address] [place] [address] Dr. Azar Carlin Albumin/Globulin [Mass ratio] 1.1 {ratio} Normal [facility] Comment on above: Performed By: #### C MP, LIPID #### [facility] [address] [place] [address] Dr. Azar Carlin ALP [Catalytic activity/Vol] 123 U/L Critically high 46-116 [facility] Comment on above: Performed By: #### C MP, LIPID #### [facility] [address] [place] [address] Dr. Azar Carlin ALT [Catalytic activity/Vol] 51 U/L Normal 14-59 [facility] Comment on above: Performed By: #### C MP, LIPID #### [facility] [address] [place] [address] Dr. Azar Carlin Anion gap [Moles/Vol] 9.3 mmol/L Normal [facility] Comment on above: Performed By: #### C MP, LIPID #### [facility] [address] [place] [address] Dr. Azar Carlin AST [Catalytic activity/Vol] 32 U/L Normal 15-37 [facility] Comment on above: Performed By: #### C MP, LIPID #### [facility] [address] [place] [address] Dr. Azar Carlin Bilirubin [Mass/Vol] 0.5 mg/dL Normal 0.2-1.0 [facility] Comment on above: Performed By: #### C MP, LIPID #### [facility] [address] [place] [address] Dr. Azar Carlin Calcium [Mass/Vol] 9.3 mg/dL Normal 8.5-10.1 [facility] Comment on above: Performed By: #### C MP, LIPID #### [facility] [address] [place] [address] Dr. Azar Carlin Chloride [Moles/Vol] 103 mmol/L Normal 98-107 [facility] Comment on above: Performed By: #### C MP, LIPID #### [facility] [address] [place] [address] Dr. Azar Carlin CO2 [Moles/Vol] 29.9 mmol/L Normal 21.0-32.0 [facility] Comment on above: Performed By: #### C MP, LIPID #### [facility] [address] [place] [address] Dr. Azar Carlin Creatinine [Mass/Vol] 0.66 mg/dL Normal 0.55-1.02 [facility] Comment on above: Performed By: #### C MP, LIPID #### [facility] [address] [place] [address] Dr. Azar Carlin EGFR-AF MACEDONIAN >60 Normal >=60 [facility] Comment on above: Performed By: #### C MP, LIPID #### [facility] [address] [place] [address] Dr. Azar Carlin EGFR-NON AF MACEDONIAN >60 Normal >=60 [facility] Comment on above: Performed By: #### C MP, LIPID #### [facility] [address] [place] [address] Dr. Azar Carlin Globulin (S) [Mass/Vol] 3.7 g/dL Normal [facility] Comment on above: Performed By: #### C MP, LIPID #### [facility] [address] [place] [address] Dr. Azar Carlin Glucose [Mass/Vol] 115 mg/dL Critically high 74-106 [facility] Comment on above: Performed By: #### C MP, LIPID #### [facility] [address] [place] [address] Dr. Azar Carlin Potassium [Moles/Vol] 4.2 mmol/L Normal 3.5-5.1 [facility] Comment on above: Performed By: #### C MP, LIPID #### [facility] [address] [place] [address] Dr. Azar Carlin Protein [Mass/Vol] 7.6 g/dL Normal 6.4-8.2 [facility] Comment on above: Performed By: #### C MP, LIPID #### [facility] [address] [place] [address] Dr. Azar Carlin Sodium [Moles/Vol] 138 mmol/L Normal 136-145 [facility] Comment on above: Performed By: #### C MP, LIPID #### [facility] [address] [address] [address] Azar Carlin Urea nitrogen [Mass/Vol] 10.0 mg/dL Normal 7.0-18.0 [facility] Comment on above: Performed By: #### C MP, LIPID #### [facility] [address] [address] [address] Azar Carlin Urea nitrogen/Creatinine [Mass ratio] 15.2 mg/mg Normal [facility] Comment on above: Performed By: #### C MP, LIPID #### [facility] [address] [place] [address] Dr. Azar Carlin GLYCOHEMOGLOBIN A1Con 2021 ADA RECOMMENDATION ADA THERAPEUTIC TARG ET 6.0 - 7.0 ACTION SUGGESTED > 7.0 Normal [facility] Comment on above: Performed By: #### A 1C #### [facility] [address] [place] [address] Dr. Azar Carlin Glucose [Mass/Vol] 154 mg/dL Normal [facility] Comment on above: Performed By: #### A 1C #### [facility] [address] [place] [address] Dr. Azar Carlin HbA1c (Bld) [Mass fraction] 7.0 % Critically high <=6.0 [facility] Comment on above: Performed By: #### A 1C #### [facility] [address] [place] [address] Dr. Azar Carlin CNOVon 03-29-2021 CNOV Office Visit ([facility] ) TERESSA BUI ([id number]) 1955 F Date Time Provider Department 03/29/21 3:45 PM ELIER ESPINO During your visit today, we recorded the following information about you: Pulse Respiration Blood pressure Weight 79/minute 18/minute 151/72 61.2 kg Elier Espino MD 03/29/2021 1:39 PM Signed [facility] OUTPATIENT VISIT DATE March 29, 2021 OUTPATIENT VISIT TYPE EST PRIMARY CARE PHYSICIAN: Kevin Velasquez ([facility]) [address] [place] [address] REFERRING PHYSICIAN SELF CHIEF COMPLAINT: Patient presents with: Follow Up: Test Results HISTORY OF PRESENT ILLNESS: ? ?Arun ?is a 65 year old female PMH DM, former smoker who is seen today for?follow up s/p left subclavian artery stenting (04/2020)?and left iliac stenting (08/2019). She denies any claudication symptoms in her lower or upper extremities. DUS show patent left iliac stent w/o restenosis, ABIs >1 bilaterally. DUS carotids show right 60-79% and left 20-39% stenoses, left SCA stent patent. ASA, plavix, statin.? ? PAST MEDICAL HISTORY Diagnosis Date - Blurred vision - Diplopia - HTN (hypertension) - Hyperlipidemia - Impaired fasting glucose - Left carotid bruit - Palpitation - Tobacco use PAST SURGICAL HISTORY Procedure Laterality Date - BREAST BIOPSY SOCIAL HISTORY Social History Tobacco Use - Smoking status: Current Every Day Smoker Packs/day: 0.75 Years: 40.00 Pack years: 30.00 - Smokeless tobacco: Never Used Substance Use Topics - Alcohol use: Not on file - Drug use: Not on file No family history on file. ALLERGIES: ALLERGIES No Known Allergies MEDICATIONS: metFORMIN ER (GLUCOPHAGE XR) 500 mg 24 hr tablet Take 500 mg by mouth daily with breakfast. atorvastatin (LIPITOR) 80 mg tablet Take 80 mg by mouth once daily. clopidogrel (PLAVIX) 75 mg tablet Take 1 tablet by mouth once daily. Start 09/03 losartan (COZAAR) 25 mg tablet Take 25 mg by mouth once daily. aspirin, enteric coated (ECOTRIN LOW STRENGTH) 81 mg EC tablet Take 1 tablet by mouth once daily. verapamil ER (VERELAN) 120 mg 24 hr capsule Take 120 mg by mouth daily at bedtime. cephALEXin (KEFLEX) 500 mg capsule Take 1 capsule by mouth four times daily. REVIEW OF SYSTEMS: GENERAL: no acute distress All other ROS: negative I personally interviewed, confirmed and edited the above information as obtained by others. PHYSICAL EXAMINATION: BP 151/72 (BP Site: Right Arm, BP Position: Sitting, BP Cuff Size: Regular Adult) Pulse 79 Resp 18 Wt 61.2 kg (135 lb) BMI 22.47 kg/m? General appearance: alert and cooperative individual, in no acute distress. Neck: no JVD Pulmonary: Lungs clear to auscultation bilaterally. Coronary: regular rate Upper Extremities: palp radial and brachial pulses bilaterally Lower Extremities: palp popliteal pulses bilaterally CARDIOVASCULAR MEDICINE TESTING: I have personally reviewed the GENO, DUS. IMPRESSION/PLAN: ?Arun ?is a 65 year old female s/p iliac and left SCA stenting.? She is doing well. Continue with optimal medical mgt of comorbidities including control of dyslipidemia?and glycemic control. Continue ASA, plavix.?Regular exercise. Follow up in 6 months with repeat noninvasive studies.? Elier Espino MD Referring Provider: SELF [[id number]] Allergies As of Date: 03/29/2021 (No Known Allergies) Date Reviewed: 03/29/2021 Reviewed by: Siena King RN - Fully Assessed Reason for Visit: Follow Up [171] Cmt: Test Results Primary Visit Diagnosis:PAD (peripheral artery disease) (HCC) [I73.9] Order(s):PVR ANK/REYNA/TOE [facility] [[id number]] Order #: [id number] FUTURE US ABD AORTA [facility] [[id number]] Order #: [id number] FUTURE US CAROTID ARTERIES [facility] [[id number]] Order #: [id number] FUTURE clopidogrel (PLAVIX) 75 mg tabletTake 1 tablet by mouth once daily. Start isp: 90 tabletRfl: 3 Prescriptions as of 03/29/2021 - clopidogrel (PLAVIX) 75 mg tablet Take 1 tablet by mouth once daily. Start 09/03 - metFORMIN ER (GLUCOPHAGE XR) 500 mg 24 hr tablet Take 500 mg by mouth daily with breakfast. - atorvastatin (LIPITOR) 80 mg tablet Take 80 mg by mouth once daily. - cephALEXin (KEFLEX) 500 mg capsule Take 1 capsule by mouth four times daily. - losartan (COZAAR) 25 mg tablet Take 25 mg by mouth once daily. - aspirin, enteric coated (ECOTRIN LOW STRENGTH) 81 mg EC tablet Take 1 tablet by mouth once daily. - verapamil ER (VERELAN) 120 mg 24 hr capsule Take 120 mg by mouth daily at bedtime. Problem List As Of Date 03/29/2021 Noted Resolved PAD (peripheral artery disease) (HCC) [I73.9] 08/31/2019 Essential hypertension [I10] 08/31/2019 Ocular migraine [G43.109] 08/31/2019 Mixed hyperlipidemia [E78.2] 08/31/2019 Dep (more content not included)... Normal [facility] CNOVon 12-07-2020 CNOV Office Visit ([facility] ) TERESSA BUI ([id number]) 1955 F Date Time Provider Department 12/07/20 1:30 PM ELIER ESPINO During your visit today, we recorded the following information about you: Pulse Respiration Blood pressure Weight 71/minute 18/minute 133/85 61.2 kg Elier Espino MD 12/07/2020 1:01 PM Signed [facility] OUTPATIENT VISIT DATE December 07, 2020 OUTPATIENT VISIT TYPE EST PRIMARY CARE PHYSICIAN: Kevin Velasquez ([facility]) [address] [place] [address] REFERRING PHYSICIAN SELF CHIEF COMPLAINT: Patient presents with: Follow Up: PAD HISTORY OF PRESENT ILLNESS: ?is a 65 year old female who is seen today for?follow up s/p left subclavian artery stenting (04/2020) and left iliac stenting (08/2019). DUS show patent left iliac stent w/o restenosis, ABIs >1 bilaterally. DUS shows left SCA stent to be patent. She is doing well, without complaints of the legs or arms, is physically active, walking and painting. ASA, plavix, statin. PAST MEDICAL HISTORY Diagnosis Date - Blurred vision - Diplopia - HTN (hypertension) - Hyperlipidemia - Impaired fasting glucose - Left carotid bruit - Palpitation - Tobacco use PAST SURGICAL HISTORY Procedure Laterality Date - BREAST BIOPSY SOCIAL HISTORY Social History Tobacco Use - Smoking status: Current Every Day Smoker Packs/day: 0.75 Years: 40.00 Pack years: 30.00 - Smokeless tobacco: Never Used Substance Use Topics - Alcohol use: Not on file - Drug use: Not on file No family history on file. ALLERGIES: ALLERGIES No Known Allergies MEDICATIONS: metFORMIN ER (GLUCOPHAGE XR) 500 mg 24 hr tablet Take 500 mg by mouth daily with breakfast. atorvastatin (LIPITOR) 80 mg tablet Take 80 mg by mouth once daily. clopidogrel (PLAVIX) 75 mg tablet Take 1 tablet by mouth once daily. Start 09/03 losartan (COZAAR) 25 mg tablet Take 25 mg by mouth once daily. aspirin, enteric coated (ECOTRIN LOW STRENGTH) 81 mg EC tablet Take 1 tablet by mouth once daily. verapamil ER (VERELAN) 120 mg 24 hr capsule Take 120 mg by mouth daily at bedtime. cephALEXin (KEFLEX) 500 mg capsule Take 1 capsule by mouth four times daily. REVIEW OF SYSTEMS: GENERAL: no acute distress All other ROS: negative I personally interviewed, confirmed and edited the above information as obtained by others. PHYSICAL EXAMINATION: BP 133/85 (BP Site: Right Arm, BP Position: Sitting, BP Cuff Size: Regular Adult) Pulse 71 Resp 18 Wt 61.2 kg (135 lb) BMI 22.47 kg/m? General appearance: alert and cooperative individual, in no acute distress. Neck: no bruits Pulmonary: Lungs clear to auscultation bilaterally. Coronary: regular rate and regular rhythm Upper Extremities: palp radial pulses bilaterally Lower Extremities: palp popliteal, DP, PT pulses bilaterally CARDIOVASCULAR MEDICINE TESTING: I have personally reviewed the GENO/PVR, DUS. IMPRESSION/PLAN: ?Arun ?is a 65 year old female s/p iliac and left SCA stenting.? She is doing well. Continue with optimal medical mgt of comorbidities including control of dyslipidemia and glycemic control. Continue ASA, plavix. Regular exercise. Follow up in 3 months with repeat noninvasive studies.? ? ? Elier Espino MD Referring Provider: SELF [[id number]] Allergies As of Date: 12/07/2020 (No Known Allergies) Date Reviewed: 12/07/2020 Reviewed by: Siena King RN - Fully Assessed Reason for Visit: Follow Up [171] Cmt: PAD Primary Visit Diagnosis:PAD (peripheral artery disease) ([facility]) [I73.9] Other Visit Diagnosis:Subclavian arterial stenosis ([facility]) [I77.1] Order(s):PVR ANK/REYNA/TOE [facility] [[id number]] Order #: [id number] FUTURE US ABD AORTA [facility] [[id number]] Order #: [id number] FUTURE US CAROTID ARTERIES [facility] [[id number]] Order #: [id number] FUTURE Prescriptions as of 12/07/2020 Sig: METFORMIN ER 500 MG TABLET,EX* Take 500 mg by mouth daily wi* ATORVASTATIN 80 MG TABLET Take 80 mg by mouth once petra* CLOPIDOGREL 75 MG TABLET Take 1 tablet by mouth once d* LOSARTAN 25 MG TABLET Take 25 mg by mouth once petra* ASPIRIN 81 MG TABLET,DELAYED * Take 1 tablet by mouth once d* VERAPAMIL ER 120 MG 24 HR CAP* Take 120 mg by mouth daily at* CEPHALEXIN 500 MG CAPSULE Take 1 capsule by mouth four * Patient not taking: Reported on 05/25/2020 Problem List As Of Date 12/07/2020 Noted Resolved PAD (peripheral artery disease) ([facility]) [I73.9] 08/31/2019 Essential hypertension [I10] 08/31/2019 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 Follow-up and Disposition History Re (more content not included)... Normal [facility] CNOVon 09-07-2020 CNOV Office Visit ([facility] ) TERESSA BUI ([id number]) 1955 F Date Time Provider Department 09/07/20 2:45 PM ELIER ESPINO During your visit today, we recorded the following information about you: Pulse Respiration Blood pressure Weight 53/minute 18/minute 161/80 62.9 kg Elier Espino MD 09/07/2020 12:28 PM Signed [facility] OUTPATIENT VISIT DATE September 07, 2020 OUTPATIENT VISIT TYPE EST PRIMARY CARE PHYSICIAN: Kevin Velasquez MD ([facility]) [address] [place] [address] REFERRING PHYSICIAN Elier Espino MD [address] [facility] [address] CHIEF COMPLAINT: Patient presents with: Follow Up: PAD/Discuss Test Results HISTORY OF PRESENT ILLNESS: ?is a 64 year old female who is seen today for?follow up s/p left subclavian artery stenting and prior left iliac stenting. Today's studies show: patent left iliac stents w/o restenosis, no stenosis on the right iliac system. Patent left proximal SCA stent. WBI and GENO >1 bilaterally She is without complaints of the legs or arms, is physically active, walking and painting, has gained some weight having quit smoking. Last HgbA1c ~8.3, started on metformin. ASA, plavix, statin. PAST MEDICAL HISTORY Diagnosis Date - Blurred vision - Diplopia - HTN (hypertension) - Hyperlipidemia - Impaired fasting glucose - Left carotid bruit - Palpitation - Tobacco use PAST SURGICAL HISTORY Procedure Laterality Date - BREAST BIOPSY SOCIAL HISTORY Social History Tobacco Use - Smoking status: Current Every Day Smoker Packs/day: 0.75 Years: 40.00 Pack years: 30.00 - Smokeless tobacco: Never Used Substance Use Topics - Alcohol use: Not on file - Drug use: Not on file No family history on file. ALLERGIES: ALLERGIES No Known Allergies MEDICATIONS: metFORMIN ER (GLUCOPHAGE XR) 500 mg 24 hr tablet Take 500 mg by mouth daily with breakfast. atorvastatin (LIPITOR) 80 mg tablet Take 80 mg by mouth once daily. clopidogrel (PLAVIX) 75 mg tablet Take 1 tablet by mouth once daily. Start 09/03 losartan (COZAAR) 25 mg tablet Take 25 mg by mouth once daily. aspirin, enteric coated (ECOTRIN LOW STRENGTH) 81 mg EC tablet Take 1 tablet by mouth once daily. verapamil ER (VERELAN) 120 mg 24 hr capsule Take 120 mg by mouth daily at bedtime. cephALEXin (KEFLEX) 500 mg capsule Take 1 capsule by mouth four times daily. REVIEW OF SYSTEMS: GENERAL: no acute distress All other ROS: negative I personally interviewed, confirmed and edited the above information as obtained by others. PHYSICAL EXAMINATION: BP 161/80 (BP Site: Right Arm, BP Position: Sitting, BP Cuff Size: Regular Adult) Pulse (!) 53 Resp 18 Wt 62.9 kg (138 lb 9.6 oz) BMI 23.06 kg/m? General appearance: well nourished, alert and cooperative individual, in no acute distress. Neck: no bruits Pulmonary: Lungs clear to auscultation bilaterally. Coronary: regular rate and regular rhythm Upper Extremities: palp radial and brachial pulses bilaterally Lower Extremities: palp popliteal, DP pulses bilaterally CARDIOVASCULAR MEDICINE TESTING: I have personally reviewed the GENO/PVR, DUS. IMPRESSION/PLAN: Ms. Bui is a 64 year old female s/p iliac and left SCA stenting. She is doing well. Continue with optimal medical mgt of comorbidities including control of dyslipidemia and glycemic control. Continue ASA, plavix. Regular exercise. Follow up in 3 months with repeat noninvasive studies. ? Elier Espino MD Referring Provider: ELIER ESPINO [[id number]] Allergies As of Date: 09/07/2020 (No Known Allergies) Date Reviewed: 09/07/2020 Reviewed by: Siena (Rn) MORRIS King - Fully Assessed Reason for Visit: Follow Up [171] Cmt: PAD/Discuss Test Results Primary Visit Diagnosis:PAD (peripheral artery disease) ([facility]) [I73.9] Order(s):PVR ANK/REYNA/TOE ALBERT [facility] [[id number]] Order #: [id number] FUTURE US ABD AORTA COMPLETE [facility] [[id number]] Order #: [id number] FUTURE US ARM ARTERIAL UNL [facility] [[id number]] Order #: [id number] FUTURE Prescriptions as of 09/07/2020 Sig: METFORMIN ER 500 MG TABLET,EX* Take 500 mg by mouth daily wi* ATORVASTATIN 80 MG TABLET Take 80 mg by mouth once petra* CLOPIDOGREL 75 MG TABLET Take 1 tablet by mouth once d* LOSARTAN 25 MG TABLET Take 25 mg by mouth once petra* ASPIRIN 81 MG TABLET,DELAYED * Take 1 tablet by mouth once d* VERAPAMIL ER 120 MG 24 HR CAP* Take 120 mg by mouth daily at* CEPHALEXIN 500 MG CAPSULE Take 1 capsule by mouth four * Patient not taking: Reported on 05/25/2020 Medication notes this encounter CEPHALEXIN 500 MG CAPSULE >> Siena King RN, RN 09/07/2020 12:00 PM >> SIENA KING RN [facility] Sep 07, 2020 12:00 PM Not taking. Problem List As Of Date 09/07/2020 Noted Resolved PAD (more content not included)... Normal [facility] APTTon 05-09-2020 aPTT Coag (Bld) [Time] 24.8 s Normal 23.0-32.4 [facility] Comment on above: Result Comment: Unfr actionated Heparin Therapeutic Ranges: Standard Heparin Nomogram: 53 to 78 seconds (anti-Xa level of 0.3 to 0.7 U/ml) Low Dose/ACS Nomogram: 49 to 67 seconds (anti-Xa level of 0.2 to 0.5 U/ml) Stroke Treatment Nomogram: 49 to 67 seconds (anti-Xa level of 0.2 to 0.5 U/ml) Note: The APTT therapeutic range has been determined for the current lot of laboratory APTT reagent in use throughout the [facility]. Performed By: #### B MP, CBC, PTT ####[facility] [address] [place] [phone] Basic Metabolic Panlon 05-09 Anion gap [Moles/Vol] 11 mmol/L Normal 9-18 [facility] Comment on above: Performed By: #### B MP, CBC, PTT ####[facility] [address] [phone] Calcium [Mass/Vol] 9.8 mg/dL Normal 8.5-10.2 [facility] Comment on above: Performed By: #### B MP, CBC, PTT ####[facility] [address] [place] [phone] Chloride [Moles/Vol] 103 mmol/L Normal 97-105 [facility] Comment on above: Performed By: #### B MP, CBC, PTT ####[facility] [address] [place] [phone] CO2 [Moles/Vol] 24 mmol/L Normal 22-30 [facility] Comment on above: Performed By: #### B MP, CBC, PTT ####[facility] L[address]684 [phone] Creatinine [Mass/Vol] 0.57 mg/dL Low 0.58-0.96 [facility] Comment on above: Performed By: #### B MP, CBC, PTT ####[facility] [address] [place] [phone] eGFR- Amer. >60 Normal [facility] Comment on above: Performed By: #### B MP, CBC, PTT ####[facility] [address]5160 GFR/1.73 sq M predicted among non-blacks MDRD (S/P/Bld) [Vol rate/Area] mL/min/{1.73_m2} Normal [facility] Comment on above: Result Comment: eGFR (Estimated GFR) Units of measure: mL/min/1.73 meters squared eGFR is derived from the reexpressed MDRD Study equation using the following parameters: serum creatinine, age, gender and race. The creatinine assay has been calibrated to be traceable to IDMS. An eGFR <60 mL/min/1.73m2 for >3 months is consistent with chronic kidney disease. Refer to KDOQI guidelines for clinical interpretation. In patients with unstable renal function, e.g. those with acute kidney injury, the eGFR may not accurately reflect actual GFR. Performed By: #### B MP, CBC, PTT ####[facility] [phone] Glucose [Mass/Vol] 156 mg/dL High 74-99 [facility] Comment on above: Result Comment: The [place] Diabetes Association (ADA) provides guidance for cutoff values for fasting glucose and random glucose. The ADA defines fasting as no caloric intake for at least 8 hours. Fasting plasma glucose results between 100 to 125 mg/dL indicate increased risk for diabetes (prediabetes). Fasting plasma glucose results greater than or equal to 126 mg/dL meet the criteria for diagnosis of diabetes. In the absence of unequivocal hyperglycemia, results should be confirmed by repeat testing. In a patient with classic symptoms of hyperglycemia or hyperglycemic crisis, random plasma glucose results greater than or equal to 200 mg/dL meet the criteria for diagnosis of diabetes. Reference: Standards of Medical Care in Diabetes 2016, [place] Diabetes Association. Diabetes Care. 2016.39(Suppl 1). Performed By: #### B MP, CBC, PTT ####[place] [address] Potassium [Moles/Vol] 4.3 mmol/L Normal 3.7-5.1 [facility] Comment on above: Performed By: #### B MP, CBC, PTT ####[place] [address] Sodium [Moles/Vol] 138 mmol/L Normal 136-144 [facility] Comment on above: Performed By: #### B MP, CBC, PTT ####[place] [address] Urea nitrogen [Mass/Vol] 9 mg/dL Normal 7-21 [facility] Comment on above: Performed By: #### B MP, CBC, PTT ####[place] [address] CBCon 05-09-2020 Absolute nRBC <0.01 Normal <0.01 [facility] Comment on above: Performed By: #### B MP, CBC, PTT ####[place] [address] Erythrocyte distribution width (RBC) [Ratio] 12.9 % Normal 11.5-15.0 [facility] Comment on above: Performed By: #### B MP, CBC, PTT ####[place] [address] Hematocrit (Bld) [Volume fraction] 39.9 % Normal 36.0-46.0 [facility] Comment on above: Performed By: #### B MP, CBC, PTT ####[place] [address] Hemoglobin (Bld) [Mass/Vol] 13.2 g/dL Normal 11.5-15.5 [facility] Comment on above: Performed By: #### B MP, CBC, PTT ####[phone] MCH (RBC) [Entitic mass] 28.9 pG Normal 26.0-34.0 [facility] Comment on above: Performed By: #### B MP, CBC, PTT ####[facility] [address]cp9356 [phone] MCHC (RBC) [Mass/Vol] 33.1 g/dL Normal 30.5-36.0 [facility] Comment on above: Performed By: #### B MP, CBC, PTT ####[facility] [phone] MCV (RBC) [Entitic vol] 87.5 fL Normal 80.0-100.0 [facility] Comment on above: Performed By: #### B MP, CBC, PTT ####[facility] [address] [place], [place] [phone] Platelet mean volume (Bld) [Entitic vol] 10.1 fL Normal 9.0-12.7 [facility] Comment on above: Performed By: #### B MP, CBC, PTT ####[facility] [address]vg4059 [phone] Platelets (Bld) [#/Vol] 156 10*3/uL Normal 150-400 [facility] Comment on above: Performed By: #### B MP, CBC, PTT ####[facility] [address]ep7758 [phone] RBC (Bld) [#/Vol] 4.56 10*6/uL Normal 3.90-5.20 [facility] Comment on above: Performed By: #### B MP, CBC, PTT ####[facility] [address] [place], [place] [phone] WBC (Bld) [#/Vol] 5.30 10*3/uL Normal 3.70-11.00 [facility] Comment on above: Performed By: #### B MP, CBC, PTT ####[facility] [address]jmww7846 [phone] HISTORY PHYSICALon 0 HISTORY PHYSICAL HNO ID: [id number] Author: Elier Espino Service: Vascular Surgery Author Type: Physician Type: HANDP Filed: 05/09/2020 1:49 PM Note Text: HISTORY AND PHYSICAL EXAMINATION SERVICE DATE: 05/09/2020 SERVICE TIME: 1345 PRIMARY CARE PHYSICIAN: Kevin Velasquez MD Subjective CHIEF COMPLAINT: PAD HPI: Teressa Bui was referred for consultation by ?Dr. Velasquez. ?Opinions and recommendations in this consultation will be transmitted back to the referring physician by Epic notes or via mail. ? ?is a?64?year old female PMH?prediabetes,?forme r?smoker?who is seen today for?left subclavian artery angiography/interventi on for debilitating claudication. No changes from most recent evaluation. Continues to have discomfort of her left arm and shoulder with activities. She continues to be able to?walk everyday?without developing?any?left leg discomfort. Her main complaint today is of discomfort in her left should and arm with day to day activities. 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 She has a known history of left subclavian artery stenosis. No neurologic complaints otherwise. Underwent??CTA at [facility] which showed left SCA stenosis. On?plavix,?ASA, statin.? Former?3/4PPD, 40 years.? PAST MEDICAL HISTORY Diagnosis Date - Blurred vision - Diplopia - HTN (hypertension) - Hyperlipidemia - Impaired fasting glucose - Left carotid bruit - Palpitation - Tobacco use PAST SURGICAL HISTORY Procedure Laterality Date - BREAST BIOPSY No family history on file. Social History Tobacco Use - Smoking status: Current Every Day Smoker Packs/day: 0.75 Years: 40.00 Pack years: 30.00 - Smokeless tobacco: Never Used Substance Use Topics - Alcohol use: Not on file - Drug use: Not on file - losartan (COZAAR) 25 mg tablet, Take 25 mg by mouth once daily., Disp: , Rfl: , 05/09/2020 at 0700 - clopidogrel (PLAVIX) 75 mg tablet, Take 1 tablet by mouth once daily. Start 09/03, Disp: 90 tablet, Rfl: 0, 05/09/2020 at 0700 - aspirin, enteric coated (ECOTRIN LOW STRENGTH) 81 mg EC tablet, Take 1 tablet by mouth once daily., Disp: 90 tablet, Rfl: 3, 05/09/2020 at 0700 - verapamil ER (VERELAN) 120 mg 24 hr capsule, Take 120 mg by mouth daily at bedtime., Disp: , Rfl: , 05/08/2020 at 2100 ALLERGIES No Known Allergies COMPLETE REVIEW OF SYSTEMS: GENERAL: no malaise remainder ROS noncontributory Objective PHYSICAL EXAM: Physical Exam Performed: GENERAL: Alert, no distress, cooperative LUNGS: CTA CARDIAC: RRR EXTREMITIES: weakly palpable left radial and ulnar pulse; palp bilateral femoral, DP, PT pulses The remainder of the physical exam is noncontributory. BP 182/77 Temp (Src) 97.5 (Temporal Artery) Resp 16 SpO2 97% O2 Therapy: Room Air DATA: Diagnostic tests reviewed for today's visit: Most recent labs Assessment/Plan Ms. Bui is a 64 year old female presents for left subclavian angiography/interventi on. Risks and benefits of left upper extremity angiography and intervention were discussed, with risks including but not limited to bleeding at either the access or intervention site, contrast reaction, contrast induced kidney injury and limb ischemia. Understanding this Ms. Bui wished to proceed in an attempt at alleviating her debilitating claudication. ? ? SIGNATURE: Elier Espino MD PATIENT NAME: Teressa Bui DATE: May 09, 2020 TIME: 1:46 PM PAGER/CONTACT #: [facility] NURSING PROGon 05-09-2020 NURSING PROG HNO ID: [id number] Author: Chris BergerRn) MORRIS Wheatley Service: Nursing Author Type: Registered Nurse Type: Nursing Progress Note Filed: 05/09/2020 8:20 PM Note Text: Pt ambulated to bathroom. Returned to bed. r groin soft dressing d/i [facility] NURSING PROG HNO ID: [id number] Author: Chris BergerRn) MORRIS Wheatley Service: Nursing Author Type: Registered Nurse Type: Nursing Progress Note Filed: 05/09/2020 8:19 PM Note Text: Pt dangled at bedside . r groin soft dressing d/i [facility] NURSING PROG HNO ID: [id number] Author: Chris BergerRn) MORRIS Wheatley Service: Nursing Author Type: Registered Nurse Type: Nursing Progress Note Filed: 05/09/2020 7:54 PM Note Text: Hob elevated 45% Normal [facility] OPERATIVE NOon 05-09-2020 OPERATIVE NO HNO ID: [id number] Author: Elier Espino Service: Vascular Surgery Author Type: Physician Type: Operative Report Filed: 05/10/2020 9:41 AM Note Text: [facility] - Operative Report TERESSA BUI : 1955 AGE: 64. SEX: F PATIENT TYPE: A HOSP SVC: [facility] LOCATION: [facility] ATTENDING PHYSICIAN: ELIER ESPINO CSN NUMBER: [id number] DATE OF SURGERY/PROCEDURE: 05/09/2020 INCISION/PROCEDURE START TIME: 2:25 PM INCISION CLOSE/PROCEDURE END TIME: 3:21 PM PREOPERATIVE DIAGNOSIS: Left subclavian artery stenosis, left debilitating arm claudication. POSTOPERATIVE DIAGNOSIS: Left subclavian artery stenosis, left debilitating arm claudication. SURGEON: Elier Espino M.D. PORT PURSER: No Additional Staff SURGERY/PROCEDURE: Ultrasound-guided access of the right common femoral artery, first order catheterization, left subclavian angiogram, stenting of the left proximal subclavian artery, completion angiography. ANESTHESIA: Conscious sedation, local. COMPLICATIONS: None. SPECIMENS: None. IMPLANTS: [employer] 7 x 27 LD balloon expandable stent, inflated to 8 atmospheres. FINDINGS: High-grade stenosis of the proximal left subclavian artery, pre-stent angioplasty performed with 4 x 40 mm balloon, lesion was then treated with a 7 x 27 [employer] [place] [employer] balloon mounted stent with resolution of stenosis post stenting. Angiography of the left upper extremity demonstrated brisk flow down the left brachial, radial, and ulnar arteries filling to the hand. DESCRIPTION OF PROCEDURE: The patient was brought to the earthmoving labourer and placed supine on the table. The patient's bilateral groins were prepped and draped in standard sterile fashion. A time-out was called confirming the patient's identity and type of procedure. Local anesthetic was infiltrated overlying the right common femoral artery and under direct ultrasound guidance, access was established with a micropuncture needle. Wire was advanced and micropuncture sheath and dilator were advanced over the wire. Stiff angled Glidewire was then advanced into the thoracic aorta. Subsequently, a 5-Surinamese sheath was advanced over which an angled Glidecath was used to successfully cannulate the left subclavian artery. The wire was advanced through the left subclavian and axillary, and subsequently brachial artery. The wire had been exchanged for a Glidewire Advantage. A 6-Surinamese x 90 cm sheath was then advanced over the wire. The patient had been systemically heparinized. ACTs were checked throughout the duration of the case and she was maintained in a therapeutic value. Left upper extremity angiograms were performed as needed with the above-noted findings. Decision was made to pre-dilate the lesion. This was performed with a 4 x 40 mm special education educational assistant balloon following which the lesion was treated with a 7 x 27 [employer] [place] [employer] balloon mounted stent with the balloon being inflated and maintained at 8 atmospheres. There was noted to be significant waste present in the mid aspect of the stent in the course of balloon inflation which subsequently dissipated. Completion angiography demonstrated resolution of the stenosis with brisk flow down the left subclavian artery with the stent covering the entire course of the lesion and being just proximal to the vertebral artery. Left upper extremity angiography was performed, which demonstrated appropriate runoff with no filling defects noted and brisk flow noted down the brachial, radial, and ulnar arteries. At this point, procedure did have been successfully completed. The sheath was pulled back and angiogram was performed from the right common femoral artery access site, which confirmed successful access in the common femoral artery with the vessel free of disease. Decision was made to proceed with closure of the site using a Mynx device. A short 6-Surinamese sheath was placed. The patient's heparinization was reversed with protamine and subsequently 6 Mynx device was used to close the arteriotomy. Hemostasis was present on case completion. The patient had a soft right groin with no evidence of hematoma and a palpable left radial pulse as well as palpable pedal pulses. The patient tolerated procedure well and brought to recovery area. Elier Espino M.D. JIMY:[id number] /[id number] Normal [facility] Type and Screenon 05-09-2020 ABO/RH(D) Positive Normal [facility] Comment on above: Performed By: #### T SCR ####[facility] [address] [place], [place] [phone] HOSPon 03-28-2020 HOSP Patient:Rakel Buiit a H MRN: Height:5' 5 (1.651 m) Weight:No patient weight recorded within the last 30 days. Outpatient Medications as of 05/09/20: losartan (COZAAR) 25 mg tablet clopidogrel (PLAVIX) 75 mg tablet aspirin, enteric coated (ECOTRIN LOW STRENGTH) 81 mg EC tablet verapamil ER (VERELAN) 120 mg 24 hr capsule Admission/Clinic Administered Medications as of 05/09/20: Patient has no admission medications. Problem List: PAD (peripheral artery disease) (HCC) [I73.9] Essential hypertension [I10] Ocular migraine [G43.109] Mixed hyperlipidemia [E78.2] Pre-diabetes [R73.03] Allergies: No Known Allergies Date Verified:05/08/20 Lab Values No results within the last 30 days for the following basenames: K,HCT Progress Notes (MANAGER FIELD SERVICE MANAGEMENT): WILLIAMS Valencia Tech 04/20/2020 11:03 AM Addendum COVID COMMUNITY MONITORING PROGRAM Provider Action/FYI: Patient was happy, never get sick and I have no symptoms . Stated she was released yesterday by the [facility]. Monitoring Call: Date of symptoms onset: ] Patient is COVID-19 positive Contact made with patient Yes Patient identified by name and . Discussed care with patient Initial intake? No (Follow-up call) Homer, this is the [facility] calling, may I speak to Teressa Bui I'm calling you to check in and ensure your needs are being met and how we can work together to help you recover? SYMPTOMS: NOTE TO CAREGIVER: ANSWER THE COVID-19 Caregiver Monitoring FLOWSHEET AND COVID Disposition QUESTIONS NOW OUTCOME: COVID-19 Caregiver Adult Monitoring COVID-19 Monitoring 04/20/2020 Caregiver Entered Response Yes Are you feeling short of breath today? No Are you having a cough today? No Are you vomiting? No Are you experiencing diarrhea? No How is your appetite? Same Are you experiencing weakness today? No Highest Temperature - last 24 hours? (Caregiver Entered) 97 Do you have a pulse oximeter / Oxygen Monitor at home No Temperature (Patient Entered) (None) SpO2 (Patient Entered) (None) We would like to make sure you have what you need so that your basic needs are met- including your personal safety, food, housing and medications?? Would you like to speak with a social work steam and gas turbine assembler to help give you support for any of these needs? No It can be normal to feel anxious or down during a time like this. Would you like to talk to a mental health professional about how you have been feeling? No Disposition: Clinical Recovery If you are worsening in any way please call your Primary Care Provider right away. [facility] and NON [facility] patients may call: ? [facility] Nurse desk monitor at [phone] ? Their PCP Office Caregivers may call: ? [facility] Employee Hotline: [phone] Patient verbalizes understanding of information provided. Denies any further questions at this time. Please visit CDC.gov website for any updated information about Coronavirus. You can also find information on the [facility] website. Additional information can be found on the [facility] and [facility] web sites: https://www.cdc.gov/co ronavirus/2019-nCoV/in dex.html https://[facility].org/coronavirus End outreach Previous Version Progress Notes (MANAGER FIELD SERVICE MANAGEMENT): Theresa Varela 04/18/2020 10:33 AM Signed COVID COMMUNITY MONITORING PROGRAM Provider Action/FYI: Follow up-stable feeling good no sx Monitoring Call: Date of symptoms onset: ] Patient is COVID-19 positive Contact made with patient Yes Patient identified by name and . Discussed care with patient Initial intake? No (Follow-up call) Homer, this is the [facility] calling, may I speak to Teressa Bui I'm calling you to check in and ensure your needs are being met and how we can work together to help you recover? SYMPTOMS: NOTE TO CAREGIVER: ANSWER THE COVID-19 Caregiver Monitoring FLOWSHEET AND COVID Disposition QUESTIONS NOW OUTCOME: NOTE TO CAREGIVER: AFTER FLOWSHEET COMPLETION PLEASE PLACE DOT PHRASE: (.COVIDCAREGIVEMONITOR ING) COVID-19 Caregiver Adult Monitoring COVID-19 Monitoring 04/18/2020 Caregiver Entered Response Yes Are you feeling short of breath today? No Are you having a cough today? No Are you vomiting? No Are you experiencing diarrhea? No How is your appetite? Same Are you experiencing weakness today? No Do you have a pulse oximeter / Oxygen Monitor at home No Temperature (Patient Entered) (None) SpO2 (Patient Entered) (None) We would like to make sure you have what you need so that your basic needs are met- including your personal safety, food, housing and medications?? Would you like to speak with a social work steam and gas turbine assembler to help give you support for any of these needs? No It can be normal to feel anxious or down during a time like this. Would you like to talk to a mental health professional about how you have been feeling? No NOTE TO CAREGIVER: AFTER COVID Disposition FLOWSHEET COMPLETION PLEASE PLACE DOT PHRASE: (.COVIDDISPO) Disposition: Stable, continue monitoring If you are worsening in any way please call your Primary Care Provider right away. [facility] and NON [facility] patients may call: ? [facility] Nurse desk monitor at [phone] ? Their PCP Office Caregivers may call: ? [facility] Employee Hotline: [phone] Patient verbalizes understanding of information provided. Denies any further questions at this time. Please visit CDC.gov website for any updated information about Coronavirus. You can also find information on the [facility] website. Additional information can be found on the [facility] and [facility] web sites: https://www.cdc.gov/co ronavirus/2019-nCoV/in dex.html https://[facility].org/coronavirus End outreach Normal [facility] Basic Metabolic Panlon 09-01 Anion gap [Moles/Vol] 10 mmol/L Normal 9-18 [facility] Comment on above: Performed By: #### C BC, BMP ####[facility] Wlgeundvot0971 [address] Calcium [Mass/Vol] 8.8 mg/dL Normal 8.5-10.2 [facility] Comment on above: Performed By: #### C BC, BMP ####[facility] Eigapgbpzj9132 [address]5160 Chloride [Moles/Vol] 109 mmol/L High 97-105 [facility] Comment on above: Performed By: #### C BC, BMP ####[facility] Bfcwrtdcpf8177 [address]5160 CO2 [Moles/Vol] 23 mmol/L Normal 22-30 [facility] Comment on above: Performed By: #### C BC, BMP ####[facility] Fgbhbaggvi5726 [address]5160 Creatinine [Mass/Vol] 0.58 mg/dL Normal 0.58-0.96 [facility] Comment on above: Performed By: #### C BC, BMP ####[facility] [address] [place] [phone] eGFR- Amer. >60 Normal [facility] Comment on above: Performed By: #### C SHELLEY, BMP ####[facility] Yhljsetwct0558 [phone] GFR/1.73 sq M predicted among non-blacks MDRD (S/P/Bld) [Vol rate/Area] mL/min/{1.73_m2} Normal [facility] Comment on above: Result Comment: eGFR (Estimated GFR) Units of measure: mL/min/1.73 meters squared eGFR is derived from the reexpressed MDRD Study equation using the following parameters: serum creatinine, age, gender and race. The creatinine assay has been calibrated to be traceable to IDMS. An eGFR <60 mL/min/1.73m2 for >3 months is consistent with chronic kidney disease. Refer to KDOQI guidelines for clinical interpretation. In patients with unstable renal function, e.g. those with acute kidney injury, the eGFR may not accurately reflect actual GFR. Performed By: #### C SHELLEY, BMP ####[facility] Phkcoplxjj3196 [phone] Glucose [Mass/Vol] 134 mg/dL High 74-99 [facility] Comment on above: Result Comment: The [place] Diabetes Association (ADA) provides guidance for cutoff values for fasting glucose and random glucose. The ADA defines fasting as no caloric intake for at least 8 hours. Fasting plasma glucose results between 100 to 125 mg/dL indicate increased risk for diabetes (prediabetes). Fasting plasma glucose results greater than or equal to 126 mg/dL meet the criteria for diagnosis of diabetes. In the absence of unequivocal hyperglycemia, results should be confirmed by repeat testing. In a patient with classic symptoms of hyperglycemia or hyperglycemic crisis, random plasma glucose results greater than or equal to 200 mg/dL meet the criteria for diagnosis of diabetes. Reference: Standards of Medical Care in Diabetes 2016, [place] Diabetes Association. Diabetes Care. 2016.39(Suppl 1). Performed By: #### C SHELLEY, BMP ####[facility] [address]q5720 [place] [phone] Potassium [Moles/Vol] 4.4 mmol/L Normal 3.7-5.1 [facility] Comment on above: Performed By: #### C SHELLEY, BMP ####[facility] [address] [place] [address] Sodium [Moles/Vol] 142 mmol/L Normal 136-144 [facility] Comment on above: Performed By: #### C SHELLEY, BMP ####[facility] [address] [place] [address] Urea nitrogen [Mass/Vol] 11 mg/dL Normal 7-21 [facility] Comment on above: Performed By: #### C SHELLEY, BMP ####[facility] [address] [place] [address] CBCon 09-01-2019 Erythrocyte distribution width (RBC) [Ratio] 13.0 % Normal 11.5-15.0 [facility] Comment on above: Performed By: #### C SHELLEY, BMP ####[place] [address] Hematocrit (Bld) [Volume fraction] 34.9 % Low 36.0-46.0 [facility] Comment on above: Performed By: #### C SHELLEY, BMP ####[facility] [address] [place] [address] Hemoglobin (Bld) [Mass/Vol] 11.4 g/dL Low 11.5-15.5 [facility] Comment on above: Performed By: #### C SHELLEY, BMP ####[facility] [address] [place] [address] MCH (RBC) [Entitic mass] 29.0 pG Normal 26.0-34.0 [facility] Comment on above: Performed By: #### C SHELLEY, BMP ####[facility] [address] [place] [address] MCHC (RBC) [Mass/Vol] 32.7 g/dL Normal 30.5-36.0 [facility] Comment on above: Performed By: #### C SHELLEY, BMP ####[facility] [address] [place] [address] MCV (RBC) [Entitic vol] 88.8 fL Normal 80.0-100.0 [facility] Comment on above: Performed By: #### C SHELLEY, BMP ####[facility] [address] [place] [address] Platelet mean volume (Bld) [Entitic vol] 10.4 fL Normal 9.0-12.7 [facility] Comment on above: Performed By: #### Deven ROSA, BMP ####[facility] [address]ziblx9835 [place] [address] Platelets (Bld) [#/Vol] 131 10*3/uL Low 150-400 [facility] Comment on above: Performed By: #### Deven ROSA, BMP ####[facility] Djduarfdqn7079 [place] [phone] RBC (Bld) [#/Vol] 3.93 10*6/uL Normal 3.90-5.20 [facility] Comment on above: Performed By: #### Deven ROSA, BMP ####[facility] [address]oj[address]yfo8555 [place] [phone] WBC (Bld) [#/Vol] 5.68 10*3/uL Normal 3.70-11.00 [facility] Comment on above: Performed By: #### Deven ROSA, BMP ####[facility] Wfvohrifou8645 [address]5[address] CNCOon 09-01-2019 CNCO Letter Text [facility] NURSING PROGon 09-01-2019 NURSING PROG HNO ID: [id number] Author: Cecille (Rn) Lani, RN Service: Nursing Author Type: Registered Nurse Type: Nursing Progress Note Filed: 09/01/2019 8:25 AM Note Text: Nursing Progress Note Patient Name: Teressa Bui Patient Location: [place] [id number] [id number]- 1 __ Daily Note: 0800- Spoke with Dr. Espino about giving the patient the ASA. Dr. Espino said to hold the the Asprin for now until he sees the patient. Dr. Espino also said to take off the sandbags off. This note was completed by: Cecille Garibay, RN [facility] NURSING PROG HNO ID: [id number] Author: Bonnie (Rn) MORRIS Guerra Service: Nursing Author Type: Registered Nurse Type: Nursing Progress Note Filed: 09/01/2019 2:06 AM Note Text: 2300-Spoke with dr wise about whether or not sandbags are to be removed at night at all. Stated she would leave them on through the night but to raise the head of bed per dr tavera order of 30 degrees at midnight. Will inform pt and continue to monitor. Both groins have dressings dry and intact with no hematomas noted and BLE with pulses present, <3 sec cap refill, pink and visitor services information assistant color with positive sensation. Will continue to monitor. 0000- pt HOB elevated to 30 degrees without incident. Will continue groin checks every 4 hrs now per order. Will continue to monitor. [facility] PROGRESSon 09-01-2019 PROGRESS HNO ID: [id number] Author: Elier Espino Service: Vascular Surgery Author Type: Physician Type: Progress Notes Filed: 09/01/2019 9:34 AM Note Text: [facility] V[facility]ULAR SURG[facility] POSTOP PROGRESS NOTE POD: 1 S/P SURGERY: left iliac stenting, left lower extremity angiography, intervention Subjective Patient w/o complaints Objective Patient Vitals for the past 24 hrs: BP Temp Temp src Pulse Resp SpO2 Height Weight 09/01/19 0801 157/67 36.8 ?C (98.2 ?F) Temporal 67 18 96 % ? ? 09/01/19 0400 124/55 37.2 ?C (98.9 ?F) Oral (!) 58 18 96 % ? ? 09/01/19 0348 ? 165.1 cm (5' 5 ) 60 kg (132 lb 4.4 oz) 09/01/19 0000 136/63 36.8 ?C (98.2 ?F) Oral 75 18 97 % ? ? 08/31/19 2300 135/61 ? ? 75 ? 08/31/190 143/63 ? ? 82 ? 08/31/19 2100 144/63 ? ? 78 ? 08/31/191999 140/67 ? ? 70 ? 08/31/19 1900 105/59 37.1 ?C (98.7 ?F) Temporal 79 17 97 % ? ? 08/31/19 1626 152/64 36.8 ?C (98.2 ?F) Oral 62 18 99 % ? ? 08/31/19 1600 144/66 ? ? (!) 59 16 96 % ? ? 08/31/19 1545 162/70 ? ? (!) 55 16 96 % ? ? 08/31/19 1530 157/62 ? ? (!) 58 16 96 % ? ? 08/31/19 1515 161/74 ? ? 60 16 98 % ? ? 08/31/19 1456 165/74 36.2 ?C (97.2 ?F) Temporal Art (!) 56 16 98 % ? ? Intake/Output Summary (Last 24 hours) at 09/01/2019 0932 Last data filed at 09/01/2019 0815 Gross per 24 hour Intake 1943 ml Output 1600 ml Net 343 ml Current Weight: Weight: 60 kg (132 lb 4.4 oz) Physical Exam: Neuro: AANDO Cardiac: regular rate Ext: palp femoral and DP, PT pulses bilaterally Toes pink, motor/sensory intact in feet Groins soft, mild ecchymosis of the right groin Invalid input(s): BMP Recent Labs 09/01/19 0513 08/31/19 0800 WBC 5.68 6.69 HB 11.4* 14.6 HCT 34.9* 43.5 PLT 131* 176 MCV 88.8 88.1 MCH 29.0 29.6 MPV 10.4 9.9 RDWCV 13.0 13.4 Assessment/Plan POD1 s/p left iliac stenting, left lower extremity intervention. Stable for discharge. Follow up in 2 weeks in office for re-evaluation with noninvasive studies. SIGNATURE: Elier Espino MD PATIENT NAME: Teressa Bui DATE: September 01, 2019 TIME: 9:32 AM PAGER/CONTACT #: [phone] Normal [facility] Basic Metabolic Panlon 08-31 Anion gap [Moles/Vol] 12 mmol/L Normal 18 [facility] Comment on above: Performed By: #### B MP, CBC ####[facility] [address] [place] [phone] Calcium [Mass/Vol] 10.0 mg/dL Normal 8.5-10.2 [facility] Comment on above: Performed By: #### B MP, CBC ####[facility] [address]zvx[address]jr99[address] [place] [phone] Chloride [Moles/Vol] 105 mmol/L Normal 97-105 [facility] Comment on above: Performed By: #### B MP, CBC ####[facility] [address]bjtovlw7210 [place] [phone] CO2 [Moles/Vol] 25 mmol/L Normal 22-30 [facility] Comment on above: Performed By: #### B MP, CBC ####[facility] [address] [place] [address] Creatinine [Mass/Vol] 0.79 mg/dL Normal 0.58-0.96 [facility] Comment on above: Performed By: #### B MP, CBC ####[facility] Cyxgpbgonh4486 [address]5[address] eGFR- Amer. >60 Normal [facility] Comment on above: Performed By: #### B MP, CBC ####[facility] Club[address]8055 [place] [phone] GFR/1.73 sq M predicted among non-blacks MDRD (S/P/Bld) [Vol rate/Area] mL/min/{1.73_m2} Normal [facility] Comment on above: Result Comment: eGFR (Estimated GFR) Units of measure: mL/min/1.73 meters squared eGFR is derived from the reexpressed MDRD Study equation using the following parameters: serum creatinine, age, gender and race. The creatinine assay has been calibrated to be traceable to IDMS. An eGFR <60 mL/min/1.73m2 for >3 months is consistent with chronic kidney disease. Refer to KDOQI guidelines for clinical interpretation. In patients with unstable renal function, e.g. those with acute kidney injury, the eGFR may not accurately reflect actual GFR. Performed By: #### B MP, CBC ####[facility] [address] [place] [phone] Glucose [Mass/Vol] 130 mg/dL High 74-99 [facility] Comment on above: Result Comment: The [place] Diabetes Association (ADA) provides guidance for cutoff values for fasting glucose and random glucose. The ADA defines fasting as no caloric intake for at least 8 hours. Fasting plasma glucose results between 100 to 125 mg/dL indicate increased risk for diabetes (prediabetes). Fasting plasma glucose results greater than or equal to 126 mg/dL meet the criteria for diagnosis of diabetes. In the absence of unequivocal hyperglycemia, results should be confirmed by repeat testing. In a patient with classic symptoms of hyperglycemia or hyperglycemic crisis, random plasma glucose results greater than or equal to 200 mg/dL meet the criteria for diagnosis of diabetes. Reference: Standards of Medical Care in Diabetes 2016, [place] Diabetes Association. Diabetes Care. 2016.39(Suppl 1). Performed By: #### B MP, CBC ####[place] [address] Potassium [Moles/Vol] 4.8 mmol/L Normal 3.7-5.1 [facility] Comment on above: Performed By: #### B MP, CBC ####[place] [address] Sodium [Moles/Vol] 142 mmol/L Normal 136-144 [facility] Comment on above: Performed By: #### B MP, CBC ####[place] [address] Urea nitrogen [Mass/Vol] 19 mg/dL Normal 7-21 [facility] Comment on above: Performed By: #### B MP, CBC ####[place] [address] CBCon 08-31-2019 Erythrocyte distribution width (RBC) [Ratio] 13.4 % Normal 11.5-15.0 [facility] Comment on above: Performed By: #### B MP, CBC ####[place] [address] Hematocrit (Bld) [Volume fraction] 43.5 % Normal 36.0-46.0 [facility] Comment on above: Performed By: #### B MP, CBC ####[place] [address] Hemoglobin (Bld) [Mass/Vol] 14.6 g/dL Normal 11.5-15.5 [facility] Comment on above: Performed By: #### B MP, CBC ####[facility] [address]or98[address] [place] [address] MCH (RBC) [Entitic mass] 29.6 pG Normal 26.0-34.0 [facility] Comment on above: Performed By: #### B MP, CBC ####[facility] [address] [place] [address] MCHC (RBC) [Mass/Vol] 33.6 g/dL Normal 30.5-36.0 [facility] Comment on above: Performed By: #### B MP, CBC ####[facility] [address] [place] [address] MCV (RBC) [Entitic vol] 88.1 fL Normal 80.0-100.0 [facility] Comment on above: Performed By: #### B MP, CBC ####[facility] [address] [place] [address] Platelet mean volume (Bld) [Entitic vol] 9.9 fL Normal 9.0-12.7 [facility] Comment on above: Performed By: #### B MP, CBC ####[facility] [address] [place] [address] Platelets (Bld) [#/Vol] 176 10*3/uL Normal 150-400 [facility] Comment on above: Performed By: #### B MP, CBC ####[facility] [address] [place] [address] RBC (Bld) [#/Vol] 4.94 10*6/uL Normal 3.90-5.20 [facility] Comment on above: Performed By: #### B MP, CBC ####[facility] [address] [place], [place] [phone] WBC (Bld) [#/Vol] 6.69 10*3/uL Normal 3.70-11.00 [facility] Comment on above: Performed By: #### B MP, CBC ####[facility] [address] [place], [place] [phone] Confirm Blood Typeon 020 ABO/RH(D) Positive Normal [facility] Comment on above: Performed By: #### C ONABO #### [facility] [address] [place] [phone] Performed By: #### T SCR ####[facility] [address] [place] [phone] HISTORY PHYSICALon 0 HISTORY PHYSICAL HNO ID: [id number] Author: Elier Espino Service: Vascular Surgery Author Type: Physician Type: HANDP Filed: 08/31/2019 9:54 AM Note Text: HISTORY AND PHYSICAL EXAMINATION SERVICE DATE: 08/31/2019 SERVICE TIME: 845 PRIMARY CARE PHYSICIAN: Kevin Velasquez MD Subjective CHIEF COMPLAINT: PAD, debilitating left lower extremity claudication HPI: Teressa Bui was referred for consultation by ?Dr. Velasquez. ?Opinions and recommendations in this consultation will be transmitted back to the referring physician by Epic notes or via mail. ? Ms.?Arun ?is a?63 year old female PMH?prediabetes,?activ e smoker?who is seen today for intervention. CTA positive for left common and external iliac artery stenosis. She has persistent complaints of left thigh and calf discomfort with?short distances of ambulation.? Onset is with a few blocks, interfering with her ability to ambulate short distances such as when shopping.?No?pain at rest. No longer smoking. GENO/PVR GENO right 0.98 left 0.61; diminished left proximal thigh cuff suggestive of iliac occlusive disease ? On ASA, statin. ? PAST MEDICAL HISTORY Diagnosis Date - Blurred vision - Diplopia - HTN (hypertension) - Hyperlipidemia - Impaired fasting glucose - Left carotid bruit - Palpitation - Tobacco use PAST SURGICAL HISTORY Procedure Laterality Date - BREAST BIOPSY No family history on file. Social History Tobacco Use - Smoking status: Current Every Day Smoker Packs/day: 0.75 Years: 40.00 Pack years: 30.00 - Smokeless tobacco: Never Used Substance Use Topics - Alcohol use: Not on file - Drug use: Not on file verapamil ER (VERELAN) 120 mg 24 hr capsule, Take 120 mg by mouth daily at bedtime., Disp: , Rfl: , 08/30/2019 at 2200 atorvastatin (LIPITOR) 80 mg tablet, Take 80 mg by mouth once daily., Disp: , Rfl: , 08/30/2019 at 1000 atenolol (TENORMIN) 50 mg tablet, Take 50 mg by mouth once daily., Disp: , Rfl: , 08/30/2019 at 1000 aspirin 325 mg tablet, Take 325 mg by mouth once daily., Disp: , Rfl: , 08/30/2019 at 1000 iv contrast (will be provided with radiology test), CTA ABD/PEL LE - No IV access, insert saline lock prior to the sedation, infusion, injection for imaging exam. Discontinue saline lock post exam. If Pt. has a central line or IVAD, may access for administration according to line specific nursing protocol. Once exam is complete flush line and de-access according to line specific nursing protocol in the CT contrast administration guidelines link., Disp: 1 Each, Rfl: 0 lovastatin (MEVACOR) 10 mg tablet, Take 10 mg by mouth daily at bedtime., Disp: , Rfl: amLODIPine (NORVASC) 5 mg tablet, Take 5 mg by mouth once daily., Disp: , Rfl: ALLERGIES No Known Allergies COMPLETE REVIEW OF SYSTEMS: GENERAL: no malaise Remainder ROS as per HPI Objective PHYSICAL EXAM: Physical Exam Performed: GENERAL: Alert, no distress, cooperative LUNGS: CTA CARDIAC: RRR BP 174/74 Pulse 57 Temp (Src) 96.8 (Temporal Artery) Resp 16 SpO2 98% O2 Therapy: Room Air DATA: Diagnostic tests reviewed for today's visit: Most recent labs Assessment/Plan Ms. Bui is a 63 year old female with left iliac occlusive disease and left lower extremity debilitating claudication. Risks and benefits of left iliac angiography and intervention were discussed with patient and her family, with risks including but not limited to bleeding at either the access or intervention site, contrast reaction, contrast induced kidney injury. Understanding this Ms. Bui wished to proceed in an attempt at resolving her debilitating claudication symptoms. SIGNATURE: Elier Espino MD PATIENT NAME: Teressa Bui DATE: August 31, 2019 TIME: 9:51 AM PAGER/CONTACT #: Normal [facility] Lipid Panel, [place] 020 Cholesterol [Mass/Vol] 152 mg/dL Normal <200 [facility] Comment on above: Performed By: #### L IPB ####[facility] [address] [place] [phone] Cholesterol in HDL [Mass/Vol] 61 mg/dL Normal >39 [facility] Comment on above: Performed By: #### L IPB ####[facility] Uknnavnlze6494 [phone] Cholesterol in LDL [Mass/Vol] 27 mg/dL Normal <100 [facility] Comment on above: Performed By: #### L IPB ####[facility] [address] [place] [address] Fasting Time Unknown Normal [facility] Comment on above: Performed By: #### L IPB ####[facility] [address] [place] [address] LDL:HDL Ratio 0.44 Normal <2.54 [facility] Comment on above: Result Comment: Refe sarah beth: 1. National Cholesterol Education Program ATP III Guideline At-A-Glance Quick Desk Reference: National Heart, Lung, and Blood [place]. National Institutes of Health. 2001: NIH Publication No. 01-3305. 2. An International Atherosclerosis Society position paper: global recommendations for the management of dyslipidemia: executive summary, Atherosclerosis. 2014: 232(2):410-413. Performed By: #### L IPB ####[facility] [address]a6[address] [place] [address] Non HDL Cholesterol 91 mg/dL Normal <130 [facility] Comment on above: Performed By: #### L IPB ####[facility] [address]ks[address]eap9797 [place] [address] TC:HDL Ratio 2.49 Normal <5.10 [facility] Comment on above: Performed By: #### L IPB ####[facility] [address]yel[address]rf4145 [place] [address] Triglyceride [Mass/Vol] 321 mg/dL High <150 [facility] Comment on above: Performed By: #### L IPB ####[facility] [address]jh[address]ht4708 [place] [address] VLDL Cholesterol 64 mg/dL High <30 [facility] Comment on above: Performed By: #### L IPB ####[facility] [address]tl[address]r4465 [place] [address] NURSING PROGon 08-31-2019 NURSING PROG HNO ID: [id number] Author: Mary (Rn) MORRIS Zhu Service: ? Author Type: Registered Nurse Type: Nursing Progress Note Filed: 08/31/2019 5:28 PM Note Text: Nursing Progress Note Patient Name: Teressa Bui [facility]/[id number]- 1 __ Daily Note: 1720 notified by primary RN that patient's incision is still bleeding after holding pressure for 15 minutes, call placed to Dr. Espino to notify. This note was completed by: Mary Zhu RN Normal [facility] OPERATIVE NOon 08-31-2019 OPERATIVE NO HNO ID: [id number] Author: Elier Espino Service: Vascular Surgery Author Type: Physician Type: Operative Report Filed: 09/02/2019 12:54 PM Note Text: [facility] - Operative Report TERESSA BUI : 1955 AGE: 63. SEX: F PATIENT TYPE: I HOSP SVC: [facility] LOCATION: [address] ATTENDING PHYSICIAN: ELIER ESPINO CSN NUMBER: [id number] DATE OF SURGERY/PROCEDURE: 08/31/2019 INCISION/PROCEDURE START TIME: 10:23 AM INCISION CLOSE/PROCEDURE END TIME: 2:47 PM PREOPERATIVE DIAGNOSIS: Peripheral arterial disease, debilitating left lower extremity claudication, left iliac stenosis. POSTOPERATIVE DIAGNOSIS: Peripheral arterial disease, debilitating left lower extremity claudication, left iliac stenosis. SURGEON: Elier Espino M.D. PORT PURSER: No Additional Staff SURGERY/PROCEDURE: Aortoiliac angiography, stenting of the left common and external iliac arteries, post stenting angioplasty, left lower extremity angiography, percutaneous pharmacomechanical thrombectomy and balloon angioplasty of the left anterior and posterior tibial arteries, completion angiography. ANESTHESIA: Procedural sedation. ESTIMATED BLOOD LOSS: 0 cc. SPECIMENS: None. COMPLICATIONS: None. FINDINGS: High-grade stenosis of the left distal common and proximal external iliac arteries. The left common and external iliac arteries were treated with an 8 x 60 and 7 x 60 [employer] [place] [employer] self-expanding stent. Post-stenting angioplasty being performed of the left common iliac artery with 7 mm balloon and the left external iliac artery with a 6 mm balloon at its proximal aspect and a 5 mm balloon at its midportion. On completion angiography of the left lower extremity, there was delayed filling into the left tibial vessels on completion angiography concerning for possible embolic phenomena. Percutaneous pharmacomechanical thrombectomy of the left posterior tibial and anterior tibial arteries was performed with an Angiojet device with a total of 5 mg of alteplase being distributed between these 2 vessels and for total run time of 332 seconds of a thrombectomy mode. The posterior tibial artery was treated with a 2x220 balloon and the anterior tibial with a 1.5x150 balloon. Completion angiography demonstrated preservation of flow via the anterior tibial and posterior tibial arteries. On case completion, the patient had palpable bilateral DP and posterior tibial pulses. DESCRIPTION OF PROCEDURE: The patient was brought into the earthmoving labourer suite and placed supine on the table. The patient's bilateral groins were prepped and draped in a standard sterile fashion. A time-out was called, confirming the patient's identity and type of procedure. Local anesthetic was infiltrated overlying the left common femoral artery and under direct ultrasound guidance, access was established in the left common femoral artery in a retrograde direction. The vessel was noted to be diminutive in size; however, access was appropriately established. The micropuncture wire was advanced followed by placement of micropuncture sheath and dilator. Stiff-angled Glidewire was advanced into the left external, left common iliac artery and subsequently aorta after appropriately navigating the site of the lesions. At this point, the patient was systemically heparinized. A 6-Surinamese 25 cm sheath was brought onto the field and was advanced and was used to dotter the lesion and angiogram was then performed, which demonstrated brisk flow through the distal aorta; however, preferential flow through the right iliac system as the sheath was occlusive in nature on the left side. At this point, an oblique angulation angiogram was performed with the sheath withdrawn, which demonstrated the stenosis within the distal left common iliac artery, which extended into the proximal external iliac artery. At this point, decision was made to proceed with intervention and the left common to the external iliac artery was treated with an 8 x 60 self-expanding stent. The portion deployed within the common iliac artery was treated with 7 mm balloon while the remnant segment within the external iliac artery was treated with a 6 x 40 mm balloon. Angiography was then performed, which demonstrated what appeared to be narrowing from the site of the stent into the patient's untreated left external iliac artery and thus, the site was then treated with an extended 7 x 60 self-expanding stent from the recently deployed 8 x 60 mm stent. This was deployed for an additional 5 cm into the mid distal external iliac artery. This site was then treated with a 5 mm balloon. Completion angiography demonstrated brisk flow through this location. Runoff angiography was then performed on the left lower extremity from the 6-Surinamese sheath and this demonstrated brisk flow through the superficial femoral artery. However, at the level of the mid leg, despite having flow through the proximal tibial arteries, there appeared to be delayed filling beyond this. Decision was made to proceed with further evaluation of the distal vasculature. Under direct ultrasound guidance, access was established in the right common femoral artery in an antegrade direction with micropuncture needle. The wire from the micropuncture kit was then advanced. Micropuncture sheath and dilator were advanced over the wire. Stiff-angled Glidewire was advanced into the distal aorta. A 5-Surinamese sheath was placed and the aortic bifurcation was successfully crossed with the Omni Flush catheter and a stiff- angled Glidewire. Stiff-angled Glidewire was successfully navigated into the superficial femoral artery and over this, a 5-Surinamese x 90 sheath was advanced. This was placed into the popliteal artery. Additional angiograms were performed as needed. The right posterior tibial artery was successfully catheterized using the V- 14 wire and then 0.018 support catheter. An Angiojet was brought onto the field and was deployed over the wire into the posterior tibial artery. Approximately 2.5 mg of alteplase was deployed into the vessel, was allowed to instill followed by balloon angioplasty of the right posterior tibial artery with a long 2 mm balloon. Thrombectomy was then performed. Additional angiography was performed and this demonstrated flow through the distal posterior tibial arteries into the vessels in the foot. Decision was made to evaluate the left anterior tibial artery in a similar fashion. The vessel was cannulated with the V-14 0.018 support catheter combination. The vessel was instilled with an additional 2.5 mg of alteplase and subsequently ballooned with 1.5 mm balloon. After allowing the alteplase to instill for approximately an additional 20 minutes, thrombectomy was performed. Completion angiography demonstrated preservation of runoff through this vessel. At this point, the procedure was deemed to have been successfully completed. The patient's heparinization was reversed with 50 mg of protamine. The sheaths were subsequently removed. Pressure was held in the bilateral groins for approximately 30 minutes. Hemostasis was present and on case completion, the patient had palpable bilateral DP and posterior tibial pulses appreciated. Patient was brought to recovery area in stable condition. Elier Espino M.D. JIMY:[id number] /[id number] [facility] PROGRESSon 08-31-2019 PROGRESS HNO ID: [id number] Author: Dina James Service: Hospital Medicine Author Type: Physician Type: Progress Notes Filed: 08/31/2019 8:11 PM Note Text: SERVICE DATE: 08/31/2019 SERVICE TIME: 8:10 PM HOSPITAL MEDICINE PROGRESS NOTE NIGHT AND WEEKEND COVERAGE: Nights: Please contact pager [phone]. Hospital Medicine/Primary Attending: Dina James MD Subjective HPI: 63 yr old female with past medical history significant for HTN, HLD, prediabetes who is a current smoker has been experiencing left leg pain on walking for short distances and had an outpatient work up done with Dr Espino and was found to have high grade stenosis of the left Common iliac artery and was admitted to undergo elective left iliac?angiography and intervention with Dr Espino. She underwent Left common and external iliac artery stenting X 2 and post stenting angioplasty oDelayed filling into the left tibial vessels on completion angiography and Percutaneous pharmacomechanical thrombectomy of the left posterior tibial and anterior tibial arteries. Medicine team has been consulted for medical management of her medical conditions. She us currently on bedrest, appears comfortable is not complaining of any pain. Interval Events: on bed rest, pain is controlled, has to lie flat for 6 hours post intervention Objective BP 105/59 Pulse 79 Temp (Src) 98.7 (Temporal) Resp 17 SpO2 97% O2 Therapy: Room Air Physical Exam Performed: GENERAL: : well appearing, alert and in no acute distress HEART: : regular rate and rhythm, no murmer, gallop or rub, normal, S1, S2, no lifts, heaves, or thrills, PMI not displaced LUNGS: : clear to percussion and auscultation and no rales ABDOMEN: : Soft, nontender, bowel sounds normal, no palpable organomegaly, no bruits. EXTREMITY: bilateral groin site healing well, no evidence of hematoma. Normal exam of the extremities. No clubbing, cyanosis, Lines, Drains, and Airways Line Peripheral 08/31/19 0818 Right Forearm 20 Gauge less than 1 day Reviewed lines and needs to be continued: REASONS: Intravenous fluids Medications: Reviewed Diagnostic tests reviewed: Most recent labs Recent Labs 08/31/19 0800 WBC 6.69 RBC 4.94 HB 14.6 HCT 43.5 PLT 176 MCV 88.1 MCH 29.6 MPV 9.9 Recent Labs 08/31/19 0800 08/05/19 1145 GLUC 130* -- NA 142 -- K 4.8 -- CHLOR 105 -- CO2 25 -- CREAT 0.79 0.63 BUN 19 -- ANION 12 -- CA 10.0 -- Most recent labs Assessment AND Plan Active Hospital Problems as of 08/31/2019 Noted - Resolved Hospital PAD (peripheral artery disease) (HCC) 08/31/2019 - Present Current Assessment AND Plan Continue aspirin And statin. S/p left common iliac artery stenting 08/31/2019. Monitor for signs of bleeding Bedrest overnight. Activity as per vascular recommendation.? Essential hypertension 08/31/2019 - Present Current Assessment AND Plan Takes atenolol 50 mg at home Resume home medication Mixed hyperlipidemia 08/31/2019 - Present Current Assessment AND Plan No lipid panel in epic for review Will check lipid panel in am Resume home atorvastatin Ocular migraine 08/31/2019 - Present Current Assessment AND Plan Takes verapamil at home Resume medication. Pre-diabetes 08/31/2019 - Present Current Assessment AND Plan Check [id number] Carb controlled diet for now. Dependence on nicotine from cigarettes 08/31/2019 - Present Current Assessment AND Plan counseled on cessation Medication and Non-Pharmacologic VTE Prophylaxis/Anticoagul ants VTE Prophylaxis: VTE prophylaxis appropriate Plan of care discussed with: Patient, Family/Significant Other: multiple family member at bedside. and RN SIGNATURE: Dina James MD PATIENT NAME: Teressa Bui DATE: August 31, 2019 TIME: 8:10 PM PAGER/CONTACT #: [phone] [facility] PT EDon 08-31-2019 PT ED HNO ID: [id number] Author: Ivan Martinez) MORRIS Babb Service: Nursing Author Type: Registered Nurse Type: Patient Education Filed: 08/31/2019 8:09 AM Note Text: PRE OP LEARNING ASSESSMENT PROCEDURE/SURGERY: SURGERY: angiogram READINESS TO LEARN COGNITIVE ABILITY: Alert and oriented MOTIVATION TO LEARN: Eager FAMILY SUPPORT: High - Very involved in pt care PATIENT LEARNS BEST BY: Individual Instruction Verbal Instruction FACTORS AFFECTING LEARNING: None PHYSICAL LIMITATIONS AFFECTING LEARNING: None Electronically Signed By: Ivan Babb RN In Department: [facility] HOSPon 08-23-2019 HOSP Patient:Regina Bui MRN: Height:5' 5 (1.651 m) Weight:129 lb 3.2 oz (58.605 kg) Outpatient Medications as of 08/31/19: verapamil ER (VERELAN) 120 mg 24 hr capsule atorvastatin (LIPITOR) 80 mg tablet iv contrast (will be provided with radiology test) lovastatin (MEVACOR) 10 mg tablet atenolol (TENORMIN) 50 mg tablet amLODIPine (NORVASC) 5 mg tablet aspirin 325 mg tablet Admission/Clinic Administered Medications as of 08/31/19: Patient has no admission medications. Problem List: No problem list on file for this patient. Allergies: No Known Allergies Date Verified:08/19/19 Lab Values No results within the last 30 days for the following basenames: K,HCT Progress Notes ([facility]): Elier Espino MD 08/19/2019 12:35 PM Signed [facility] [place] OUTPATIENT VISIT DATE August 19, 2019 OUTPATIENT VISIT TYPE ESTABLISHED PRIMARY CARE PHYSICIAN: Kevin Velasquez MD ([facility]) [address] [place] [address] REFERRING PHYSICIAN SELF CHIEF COMPLAINT: No chief complaint on file. HISTORY OF PRESENT ILLNESS: Teressa Bui was referred for consultation by Dr. Velasquez. Opinions and recommendations in this consultation will be transmitted back to the referring physician by [facility] notes or via mail. ? Ms. Bui is a 63 year old female [facility] prediabetes, active smoker who is seen today for follow up evaluation of left iliac occlusive disease. She has persistent complaints of left thigh and calf discomfort with short distances of ambulation. Onset is with a few blocks, interfering with her ability to ambulate short distances such as when shopping. No pain at rest. She has quit smoking since her last evaluation. Studies performed at [facility] and [facility] show: Bilateral ICA 50-69% stenoses. GENO/PVR GENO right 0.98 left 0.61; diminished left proximal thigh cuff suggestive of iliac occlusive disease CTA reviewed, High grade stenosis of the distal left IDA; 3 vessel runoff to the feet bilaterally, PT dominate In course of workup including DUS carotids, she was found to have a left subclavian artery stenosis. She notes intermittent tiredness in the left arm with prolonged when the arm is above the level of her head. Denies any episodes of lightheadedness, no visual complaints, no neurologic complaints. Underwent CTA at [facility] which showed left SCA stenosis. On ASA, statin. 3/4PPD, 40 years. PAST MEDICAL HISTORY Diagnosis Date - Blurred vision - Diplopia - HTN (hypertension) - Hyperlipidemia - Impaired fasting glucose - Left carotid bruit - Palpitation - Tobacco use PAST SURGICAL HISTORY Procedure Laterality Date - BREAST BIOPSY SOCIAL HISTORY Social History Tobacco Use - Smoking status: Current Every Day Smoker Packs/day: 0.75 Years: 40.00 Pack years: 30.00 - Smokeless tobacco: Never Used Substance Use Topics - Alcohol use: Not on file - Drug use: Not on file No family history on file. ALLERGIES: ALLERGIES No Known Allergies MEDICATIONS: verapamil ER (VERELAN) 120 mg 24 hr capsule Take 120 mg by mouth daily at bedtime. atorvastatin (LIPITOR) 80 mg tablet Take 80 mg by mouth once daily. iv contrast (will be provided with radiology test) CTA ABD/PEL LE - No IV access, insert saline lock prior to the sedation, infusion, injection for imaging exam. Discontinue saline lock post exam. If Pt. has a central line or IVAD, may access for administration according to line specific nursing protocol. Once exam is complete flush line and de-access according to line specific nursing protocol in the CT contrast administration guidelines link. lovastatin (MEVACOR) 10 mg tablet Take 10 mg by mouth daily at bedtime. atenolol (TENORMIN) 50 mg tablet Take 50 mg by mouth once daily. amLODIPine (NORVASC) 5 mg tablet Take 5 mg by mouth once daily. aspirin 325 mg tablet Take 325 mg by mouth once daily. REVIEW OF SYSTEMS: GENERAL: no acute distress All other ROS: negative I personally interviewed, confirmed and edited the above information as obtained by others. PHYSICAL EXAMINATION: There were no vitals taken for this visit. General appearance: alert and cooperative individual, in no acute distress. Pulmonary: Lungs clear to auscultation bilaterally. Coronary: regular rate and regular rhythm Upper Extremities: palp radial pulses b/l CARDIOVASCULAR MEDICINE TESTING: I have personally reviewed the CTA, GENO/PVR, DUS. IMPRESSION/PLAN: Ms. Bui is a 63 year old female with left iliac occlusive disease and left lower extremity debilitating claudication. Risks and benefits of left iliac angiography and intervention were discussed, with risks including but not limited to bleeding at either the access or intervention site, contrast reaction, contrast induced kidney injury. Understanding this Ms. Bui wished to proceed in an attempt at resolving her debilitating claudication symptoms. Elier Espino MD Progress Notes ([facility]): Isela Rand Ralph 08/18/2019 10:01 AM Signed Pt has an appointment tomorrow and she was supposed to have an US, PVR, and CTA prior to this appointment, all orders are in the system. Please call and schedule these for patient prior to appointment or please reschedule appointment until after all tests are completed. Thank you. Isela Gutierresfarooq Rosas 08/18/2019 1:55 PM Signed Looks like pt had these tests done at [facility], scanned into system. [facility] Vital Signs Date Time Vital Sign Value Performing Clinician Facility 09-09-2023 10:34-0500 Body height 165.1 cm Mariela Menchaca NP Work Phone: [facility] 09-09-2023 10:34-0500 Body mass index (BMI) [Ratio] 22.8 kg/m2 Mariela Menchaca NP Work Phone: [facility] 09-09-2023 10:34-0500 Body weight 62.14 kg Mariela Menchaca NP Work Phone: [facility] 09-09-2023 10:34-0500 Diastolic blood pressure 78 mm[Hg] Mariela Menchaca [employer]ING [employer] Work Phone: [facility] 09-09-2023 10:34-0500 Systolic blood pressure 124 mm[Hg] Mariela Menchaca NP Work Phone: [facility] 04-08-2023 13:00-0400 Body height 165.1 cm Radha Bradykendall Other [facility] Other 04-08-2023 13:00-0400 Body mass index (BMI) [Ratio] 22.46 kg/m2 Radha Paulsondelores Other [facility] Other 04-08-2023 13:00-0400 Body weight 61.24 kg Radha Paulsondelores Other [facility] Other 04-08-2023 13:00-0400 Diastolic blood pressure 80 mm[Hg] Radha Bradykenadll Other [facility] Other 04-08-2023 13:00-0400 SaO2% (BldA) [Mass fraction] 99 % Radha Bradykendall Other [facility] Other 04-08-2023 13:00-0400 Systolic blood pressure 130 mm[Hg] Radha Paulsondelores Other [facility] Other 03-03-2023 08:30-0400 Body height 165.1 cm Kevin Ball Other [facility] Other 03-03-2023 08:30-0400 Body mass index (BMI) [Ratio] 22.5 kg/m2 Kevin Ball Other [facility] Other 03-03-2023 08:30-0400 Body weight 61.33 kg Kevin Ball Other [facility] Other 03-03-2023 08:30-0400 Diastolic blood pressure 85 mm[Hg] Kevin Ball Other [facility] Other 03-03-2023 08:30-0400 Respiratory rate 12 /min Kevin Ball Other [facility] Other 03-03-2023 08:30-0400 Systolic blood pressure 135 mm[Hg] Kevin Ball Other [facility] Other 11-01-2022 09:30-0400 Body height 165.1 cm Kevin Ball Other [facility] Other 11-01-2022 09:30-0400 Body mass index (BMI) [Ratio] 23.1 kg/m2 Kevin Ball Other [facility] Other 11-01-2022 09:30-0400 Body weight 62.96 kg Kevin Ball Other [facility] Other 11-01-2022 09:30-0400 Diastolic blood pressure 75 mm[Hg] Kevin Ball Other [facility] Other 11-01-2022 09:30-0400 Respiratory rate 12 /min Kevin Ball Other [facility] Other 11-01-2022 09:30-0400 Systolic blood pressure 170 mm[Hg] Kevin Ball Other [facility] Other 09-12-2022 10:45-0500 Body height 165.1 cm Dylan Calixto Other [facility] Other 09-12-2022 10:45-0500 Body mass index (BMI) [Ratio] 22.63 kg/m2 Dylan Calixto Other [facility] Other 09-12-2022 10:45-0500 Body temperature 96.7 [degF] Dylan Calixto Other [facility] Other 09-12-2022 10:45-0500 Body weight 61.69 kg Dylan Calixto Other [facility] Other 09-12-2022 10:45-0500 Diastolic blood pressure 70 mm[Hg] Dylan Calixto Other [facility] Other 09-12-2022 10:45-0500 SaO2% (BldA) [Mass fraction] 97 % Dylan Calixot Other [facility] Other 09-12-2022 10:45-0500 Systolic blood pressure 120 mm[Hg] Dylan Calixto Other [facility] Other 08-23-2021 09:45-0500 Body height 165.1 cm Dylan Calixto Other [facility] Other 08-23-2021 09:45-0500 Body mass index (BMI) [Ratio] 22.63 kg/m2 Dylan Calixto Other [facility] Other 08-23-2021 09:45-0500 Body temperature 97.9 [degF] Dylan Calixto Other [facility] Other 08-23-2021 09:45-0500 Body weight 61.69 kg Dylan Calixto Other [facility] Other 08-23-2021 09:45-0500 Diastolic blood pressure 78 mm[Hg] Dylan Calixto Other [facility] Other 08-23-2021 09:45-0500 SaO2% (BldA) [Mass fraction] 97 % Dylan Calixto Other [facility] Other 08-23-2021 09:45-0500 Systolic blood pressure 158 mm[Hg] Dylan Calixto Other [facility] Other Encounters Encounter Date Encounter Type Care Provider Facility Start: 01-08-2024 End: 01-08-2024 ambulatory MARIELA MENCHACA Not Available Start: 09-09-2023 Bamboo flowsheet Mariela gibbons [employer] Work Phone: [facility] Start: 09-09-2023 Bamboo flowsheet Mariela gibbons [employer] Work Phone: [facility] Start: 09-09-2023 End: 09-09-2023 Office outpatient visit 15 minutes Mariela Menchaca [employer] Work Phone: [facility] Comment on above: Presence of pessary (Primary Dx); Pelvic floor relaxation Start: 09-09-2023 End: 09-09-2023 ambulatory MARIELA MENCHACA Not Available Start: 06-26-2023 End: 06-26-2023 ambulatory Kevin Ron Other [facility] Other Start: 06-26-2023 Office outpatient vi sit 15 minutes Kevin Velasquez [facility] Start: 06-04-2023 End: 06-04-2023 ambulatory Kevin Ron Other [facility] Other Start: 06-04-2023 Telephone encounter Kevin Velasquez [facility] Start: 04-08-2023 End: 04-08-2023 ambulatory Radha Correa Other [facility] Other Start: 04-08-2023 Office outpatient vi sit 15 minutes Radha Correa [facility] Start: 03-18-2023 End: 03-18-2023 ambulatory Kevin Velasquez Other [facility] Other Start: 03-18-2023 Telephone encounter Kevin Velasquez [facility] Start: 03-04-2023 End: 03-04-2023 ambulatory Kevin Velasquez Other [facility] Other Start: 03-04-2023 Telephone encounter Kevin Velasquez [facility] Start: 03-03-2023 End: 03-03-2023 ambulatory Kevin Velasquez Other [facility] Other Start: 03-03-2023 Patient encounter procedure Kevin Ball [facility] Start: 12-02-2022 End: 12-02-2022 ambulatory Kevin Velasquez Other [facility] Other Start: 12-02-2022 Telephone encounter Kevin Velasquez [facility] Start: 11-01-2022 End: 11-01-2022 ambulatory Kevin Velasquez Other [facility] Other Start: 11-01-2022 Office outpatient vi sit 25 minutes Kevin Ball [facility] Start: 10-03-2022 End: 10-03-2022 ambulatory Kevin Velasquez Other [facility] Other Start: 10-03-2022 Office outpatient vi sit 15 minutes Kevin Velasquez [facility] Start: 09-12-2022 End: 09-12-2022 ambulatory Dylan Calixto Other [facility] Other Start: 09-12-2022 Office outpatient vi sit 25 minutes Dylan Calixto [facility] Start: 09-04-2022 End: 09-04-2022 ambulatory Kevin Velasquez Facility:[facility] Start: 09-04-2022 End: 09-04-2022 ambulatory DO Kevin Ball Work Phone: [facility] Work Phone: Start: 09-04-2022 End: 09-04-2022 Patient encounter procedure DO Kevin Ball Work Phone: [facility] [place] Work Phone: Start: 09-02-2022 End: 09-03-2022 ambulatory Mariela MENCHACA Facility:[facility] Start: 09-02-2022 End: 09-02-2022 Lab Drop off Mariela MENCHACA [facility] Start: 07-26-2022 End: 07-26-2022 ambulatory Kevin Velasquez Other [facility] Other Start: 07-26-2022 Telephone encounter Kevin Velasquez [facility] Start: 07-03-2022 End: 07-04-[address] KEVIN VELASQUEZ Facility:[facility] Start: 04-25-2022 End: 04-25-2022 ambulatory Summer Decker Other [facility] Other Start: 04-25-2022 Telephone encounter Summer Decker [facility] Start: 03-18-2022 Encounter for genera l adult medical examination without abnormal findings DR KEVIN VELASQUEZ [facility] Start: 03-15-2022 End: 03-16-[address] KEVIN VELASQUEZ Facility:[facility] Start: 03-15-2022 End: 03-16-2022 Encounter for general adult medical examination without abnormal findings DR KEVIN VELASQUEZ Facility:[facility] Start: 08-23-2021 End: 08-23-2021 ambulatory Dylan Calixto Other [facility] Other Start: 08-23-2021 Office outpatient ne w 60 minutes Dylan Calixto [facility] Start: 08-21-2021 End: 08-22-[address] KEVIN VELASQUEZ Facility:[facility] Procedures Date Procedure Procedure Detail Performing Clinician Start: 05-09-2020 Antibody screen Comment on above: Performed By: #### T SCR ####[place] [id number] Start: 08-31-2019 Antibody screen Comment on above: Performed By: #### T SCR ####[facility] [id number] [place], [place] [phone] Plan of Treatment Date Care Activity Detail Author Start: 09-09-2023 End: 09-09-2023 Patient encounter procedure 09/09/2023 10:40 AM EST Office Visit [facility] [address] [phone] Mariela Menchaca NP [address] [place] [id number] Arrived [facility] Comment on above: Arrived Start: 09-04-2022 Ankle brachial press ure index [facility] Start: 09-04-2022 Doppler ultrasonogra phy of bilateral carotid arteries US carotid doppler BI [facility] Start: 09-04-2022 US.doppler Carotid arteries - bilateral [facility] Start: 1995 Screening for malign ant neoplasm of breast Mammogram [facility] Start: 1955 Screening for malign ant neoplasm of colon [facility] Immunizations Immunization Date Immunization Notes Care Provider Fa cility 05-08-2022 influenza, high dose seasonal, preservative-free Kevin Velasquez Other [facility] Other 02-28-2022 Prevnar 20 Kevin Velasquez Other [facility] Other 04-29-2021 pneumococcal polysaccharide vaccine, 23 valent Kevin Velasquez Other [facility] Other 05-18-2020 influenza virus vaccine, split virus (incl. purified surface antigen) Kevin Velasquez Other [facility] Other 05-06-2018 influenza virus vaccine, split virus (incl. purified surface antigen) Kevin Velasquez Other [facility] Other 04-04-2017 tetanus and diphther ia toxoids, adsorbed, preservative free, for adult use (5 Lf of tetanus toxoid and 2 Lf of diphtheria toxoid) Kevin Velasquez Other [employer] Other 04-17-2015 influenza virus vaccine, split virus (incl. purified surface antigen) Kevin Velasquez Other [employer] Other Payers Date Payer Category Payer Unknown 2021 Self-pay [id number] 1959 Private Health Insurance [id number] 1959 Unknown [id number] 1955 Unknown [id number] 1955 Unknown [id number] 1955 Unknown [id number] 1955 Unknown [id number] 1955 Unknown [id number] 1955 Unknown [id number] Medicare Medicare-OP No Part B [id number] Private Health Insurance [id number] Private Health Insurance [facility] [employer] [id number] Unknown [id number] Social History Date Type Detail Facility Start: 12-31-2022 End: 09-09-2023 Sex Assigned At [facility] Tobacco smoking status No Smokin g Status Entered [facility] Start: 1955 Sex Assigned At Female F [facility] Start: 12-31-2022 Tobacco smoking stat NHIS Never smoked tobacco [facility] Start: 12-31-2022 Tobacco use and exposure Smokeless tobacco non-user [facility] Start: 05-05-2023 End: 09-09-2023 Alcohol intake Lifetime non-drinker (finding) [facility] Start: 12-31-2022 End: 09-09-2023 History of Social function [facility] How often to you hav e a drink containing alcohol? Monthly or less [facility] How many standard drinks containing alcohol do you have on a typical day? 1 or 2 [facility] How often do you hav e 6 or more drinks on 1 occasion? Never [facility] Start: 1955 Sex Assigned At Not on file [facility] Medical Equipment Procedure Code Equipment Code Equipment Origin al Text Equipment Identifier Dates [id number], [id number] Start: 11-27-2022 Clinical Notes 09-07-2020 to 09-09-2023 Mariela Menchaca NP - 09/09/2023 10:40 AM EST Note Date & Type Note Facility 09-09-2023 History of Presen t illness Narrative Name: Teressa Bui Date/Time of Service:09/09/2023 11:06 AM :1955 Age: 67 y.o. SUBJECTIVE: History of Present Illness Teressa Bui is a 67 y.o. here for pessary maintenance. She is not having any problems. She denies symptoms of vaginal infection or vaginal bleeding. Size 6 pessary. She has not been using her estrace cream. Past Medical History: Diagnosis Date Hypertension (CMS/HCC) Ocular migraine (CMS/HCC) Type 2 diabetes mellitus (CMS/HCC) Review of Systems All others negative except those mentioned in HPI. Past Medical / Surgical History Past Medical History: Diagnosis Date Hypertension (CMS/HCC) Ocular migraine (CMS/HCC) Type 2 diabetes mellitus (CMS/HCC) Past Surgical History: Procedure Laterality Date CATARACT EXTRACTION cataract surgery OTHER SURGICAL HISTORY stents in iliac artery SUBCLAVIAN ARTERY STENT Left Family History Family History Problem Relation Name Age of Onset Endometrial cancer Sister Heart disease Other Stroke Other Social History reports that she has never smoked. She has never used smokeless tobacco. She reports that she does not drink alcohol and does not use drugs. MEDICATIONS: Current Outpatient Medications on File Prior to Visit Medication Sig Dispense Refill atorvastatin (Lipitor) 80 MG tablet Take 80 mg by mouth at bedtime. clopidogrel (Plavix) 75 MG tablet TAKE 1 TABLET BY MOUTH EVERY DAY FOR 30 DAYS esomeprazole (NexIUM) [address] capsule Take 20 mg by mouth in the morning. Take before meals. Do not open capsule.. estradiol (Estrace) 0.1 MG/GM vaginal cream Insert 1 g into the vagina 3 (three) times a week. 45 g 2 Januvia 25 MG tablet Take 25 mg by mouth in the morning. Januvia 50 MG tablet Take 50 mg by mouth in the morning. Lancets ([employer] Delica Plus Lanthh97B) [facility] [place] 1 LANCET USE TO TEST HOME BLOOD SUGAR ONCE DAILY 90 losartan (Cozaar) 50 MG tablet Take 50 mg by mouth in the morning. metFORMIN (Glucophage) 500 MG tablet Take 500 mg by mouth. Take with food. D1Guch Ultra test strip USE TO TEST ONCE A DAY verapamil ER (Verelan) 120 MG 24 hr capsule Take 120 mg by mouth in the morning. No current facility-administered medications on file prior to visit. No Known Allergies PHYSICAL EXAM: Vitals: 09/09/23 1034 BP: 124/78 Body mass index is 22.8 kg/m . Physical Exam Constitutional: Appearance: Normal appearance. Genitourinary: Vulva, bladder and urethral meatus normal. Vagina: no discharge present, no bleeding noted, no lesions, no masses present, atrophic vaginal tissue, decreased rugae pattern. Bladder: non-tender Pelvic floor relaxation. Psychiatric: Mood and Affect: Mood normal. Behavior: Behavior normal. Pessary removed, cleaned, and replaced without difficulty. No evidence of erosion, lesion, or infection. ASSESSMENT / PLAN Pt doing well follow up in 4 months for maintenance of pessary. Diagnosis Plan 1. Presence of pessary 2. Pelvic floor relaxation Follow up in about 4 months (around 01/08/2024) for Pessary maintenance. documented in this encounter [facility] 06-26-2023 Evaluation note Encounter Date Diagnosis Assessment Notes May, Acute bronchitis due to other specified organisms (ICD-10 - J20.8) Instructed to use Robitussin or Mucinex for cough, saline or Flonase NS for congestion, Tylenol for pain and fever. May, Type 2 diabetes mellitus with hyperglycemia , without long-term current use of insulin (ICD-10 - E11.65) BS will increase w/ intercurrent infection No treatment necessary, will resolve w/ treatment of infection [employer] Other 09-12-2023 Evaluation note* Encounter Date Diagnosis Assessment Notes Treatment Notes Treatment Clinical Notes Mar, Blister (nonthermal) of oral cavity, initial encounter (ICD-10 - S00.522A) Antiviral, take as prescribed. Place ice or a cool, wet towel on the sores 3 times a day for 20 minute incriments. It may help to reduce redness and swelling. Do not share silverware, towels or toothbrushs. Mar, Impetigo (ICD-10 - L01.00) Discussed diagnosis with patient. Instructed to apply Rx ointment as directed. Keep rash clean and dry. Discussed that this is contagious and good hand hygeine is needed. Wash all linens and clothing that has been in contact with area. F/U with PCP if s/s persist or worsen. Pt verbalizes understanding and agrees with tx plan. [employer] Other 08-08-2023 Evaluation note* Encounter Date Diagnosis Assessment Notes Treatment Notes Treatment Clinical Notes Feb, Gastroesophageal ref lux disease with esophagitis without hemorrhage (ICD-10 - K21.00) [employer] Other 08-08-2023 Evaluation note* Encounter Date Diagnosis Assessment Notes Treatment Notes Treatment Clinical Notes Feb, Eczema, unspecified type (ICD-10 - L30.9) [employer] Other 08-07-2023 Evaluation note* Encounter Date Diagnosis Assessment Notes Treatment Notes Treatment Clinical Notes Feb, Type 2 diabetes mellitus with hyperglycemia, without long-term current use of insulin (ICD-10 - E11.65) This patient is following a comprehensive diabetic treatment plan. They are checking their feet daily for calluses and nonhealing ulcers. They are being seen for yearly dilated eye examinations. Goals: SBP less than 130, LDL less than 100, FBS less than 140, AC and A1C less than 7%. They are checking their BS daily, will which are reviewed at the office visit. Continue regular routine monitoring of A1C,] Microalbumin, Dilated eye exam and Foot exam Feb, Medicare annual wellness visit, subsequent (ICD-10 - Z00.00) Personalized health advice was given to the beneficiary including a written plan for screenings discussed and provided. Advanced care planning reviewed and/or information given as requested. Additional counseling was provided here today in regards to, [ ]. The above visit was performed by [ ], under direct supervision of [ ]. Document reviewed and amended by provider signed below. Healthy diet and exercise. Reviewed age-appropriate preventive testing recommended. 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 Feb, Primary hypertension (ICD-10 - I10) This patient is instructed to consume a healthy, low-fat, low-salt diet. They are also encouraged to continue exercise to achieve/maintain a normal BMI. Feb, Elevated cholesterol (ICD-10 - E78.00) Instructed on diet and exercise with continued statin therapy.Discussed the beneficial effects of lowering cholesterol in reducing the risk for cerebrovascular and cardiovascular disease. 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 Continue secondary prevention measures Walk daily Feb, Asymptomatic bilateral carotid artery stenosis (ICD-10 - I65.23) Continue secondary prevention measures. f/u Vascular surgery Feb, Stenosis of left subclavian artery (ICD-10 - I77.1) s/p stent placement Continue secondary prevention measures Feb, Ocular migraine (ICD-10 - G43.109) Continue preventive treatment. Frequency rare w/o change in symptoms Feb, Gastroesophageal reflux disease with esophagitis without hemorrhage (ICD-10 - K21.00) Diet instructions: Smaller portions, avoid eating and laying flat, avoid eating or drinking prior to bedtime. Weight loss. Feb, Screening mammogram for breast cancer (ICD-10 - Z12.31) Monthly SBE and yearly mammogram Feb, High risk medication use (ICD-10 - Z79.899) [employer] Other 04-07-2023 Evaluation note* Encounter Date Diagnosis Assessment Notes Treatment Notes Treatment Clinical Notes Oct, Type 2 diabetes mellitus with hyperglycemia, without long-term current use of insulin (ICD-10 - E11.65) This patient is following a comprehensive diabetic treatment plan. They are checking their feet daily for calluses and nonhealing ulcers. They are being seen for yearly dilated eye examinations. Goals: SBP less than 130, LDL less than 100, FBS less than 140, AC and A1C less than 7%. They are checking their BS daily, will which are reviewed at the office visit. A1C: Oct, Type 2 diabetes mellitus with diabetic peripheral angiopathy and gangrene, without long-term current use of insulin (ICD-10 - E11.52) Inspect feet daily for cuts and calluses.Recommend diabetic shoes and inserts to prevent callus formation.Fall precautions. Oct, Primary hypertension (ICD-10 - I10) This patient is instructed to consume a healthy, low-fat, low-salt diet. They are also encouraged to continue exercise to achieve/maintain a normal BMI. Oct, Elevated cholesterol (ICD-10 - E78.00) Diet and exercise with continued statin therapy. 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 f/u Vascular surgery Reviewed symptoms of CVA w/ instructions to report to ER if symptoms develop Oct, Stenosis of left subclavian artery (ICD-10 - I77.1) Continue seconary prevention measure Oct, Ocular migraine (ICD-10 - G43.109) Infrequent episodes that have duration < minute. Continue Verapamil No f/u w/ Neurology necessary [employer] Other 03-09-2023 Evaluation note* Encounter Date Diagnosis Assessment Notes Treatment Notes Treatment Clinical Notes Sep, Acute non-recurrent maxillary sinusitis (ICD-10 - J01.00) Instructed to use Robitussin or Mucinex for cough, saline or Flonase NS for congestion, Tylenol for pain and fever. Sep, Type 2 diabetes mellitus with hyperglycemia, without long-term current use of insulin (ICD-10 - E11.65) This patient is following a comprehensive diabetic treatment plan. They are checking their feet daily for calluses and nonhealing ulcers. They are being seen for yearly dilated eye examinations. Goals: SBP less than 130, LDL less than 100, FBS less than 140, AC and A1C less than 7%. They are checking their BS daily, will which are reviewed at the office visit. No change in treatment necessary despite likely increase in BS [employer] Other 02-16-2023 Evaluation note* Encounter Date Diagnosis Assessment Notes Treatment Notes Treatment Clinical Notes Aug, PAD (peripheral artery disease) (ICD-10 - I73.9) The patient is not currently symptomatic from her PAD. It looks as though some of this is if her subclavian and iliac stents are doing just fine. Her bilateral extremity blood pressure is normal which indicates this. She is excellent blood supply to her feet and the legs. She should continue nonoperative conservative management right now with risk factor modification and reduction. She is to quit smoking and continue to take her aspirin and statin for life we will see her back in 1 or 2 years. All of her questions were addressed. She understands agrees the plan. [employer] Other 02-08-2023 NoteMicrobiology PROCEDURE: Gynecological Culture [R1] SOURCE: Cerv BODY SITE: COLLECTED DATE/TIME: 09/02/2022 09:40 EST RECEIVED DATE/TIME: 09/02/2022 20:53 EST START DATE/TIME: 09/02/2022 20:53 EST FREE TEXT SOURCE: Mariela NARAYANAN Stephanie FINAL REPORTS Final Report [] Verified Date/Time: 09/04/2022 14:24 EST 1+ Escherichia coli ESBL 2+ Normal vaginal lynsey isolated SUSCEPTIBILITY RESULTS LEGEND: S=Susceptible, N/R=Not Reported, Blank=Data not available, or drug not advisable or tested, I=Intermediate, ESBL=Extended spectrum beta-lactamase, R=Resistant, TFG=Thymidine-dependent strain, DARRIN=Beta-lactamase positive, ANDRAE=mcg/m;(mg/L), S*=Predicted susceptible interp, R*=Predicted resistant interp ECESBL Antibiotic ANDRAE Dilutn ANDRAE Interp Amikacin <=16 S Ampicillin >16 R* Ampicillin/ <=8/4 S Sulbactam Aztreonam 16 ESBL Cefazolin >16 R* Cefepime 16 R* Cefoxitin <=8 S Ceftazidime 8 ESBL Ceftazidime/ <=8 S Avibactam Ceftriaxone >32 ESBL Ciprofloxacin >2 R Ertapenem <=0.5 S Gentamicin >8 R Levofloxacin 4 I Meropenem <=1 S Nitrofurantoin <=32 Piperacillin/ <=16 S Tazobactam Tetracycline >8 R Tigecycline <=2 S Tobramycin >8 R Trimethoprim/ <=2/38 S Sulfa Performing Locations R1: This test was performed at: [facility], [address] [place] [address], [address]- , , [facility] above:Performed By: #### [id number] #### [facility] [address] [place], [place] [id number] Evaluation + Plan note Diagnostic Tests Pending * Gynecological Culture 09/02/22 * NuSwab Vaginitis (VG) 09/02/22 [facility]01-27-2022 Evaluation note* Encounter Date Diagnosis Assessment Notes Treatment Notes Treatment Clinical Notes Jul, Stenosis of left subclavian artery (ICD-10 - I77.1) Jul, Atherosclerosis of lovelock arteries of extremities with intermittent claudication, left leg (ICD-10 - I70.212) This patient is a new patient today. She has had a previous left subclavian stent placed at the origin of the left subclavian artery at [facility]. This was due to left arm symptomatic claudication. Patient is also had an iliac stent in the past due to lower extremity claudication. Patient is also in surveillance protocol for bilateral carotid artery stenoses of between 50 and 69%. Currently I find the patient asymptomatic from all 3 vascular beds. She is on the appropriate pharmacologic regimen for vascular disease at this time. We will continue to survey all 3 vascular beds and see her back in 1 year. This patient does not smoke and she has been compliant with all of her recommendations from vascular surgeons in the past. I expect her to do very well. I doubt she will ever need surgery again in the future. However, she will need lifelong surveillance of all 3 vascular beds. She understands agrees the plan all her questions were addressed. Jul, Asymptomatic bilateral carotid artery stenosis (ICD-10 - I65.23) [employer] Other 09-02-2021 NoteHNO ID: [id number] Author: Elier Espino MD Service: ? Author Type: Physician Type: Progress Notes Filed: 03/29/2021 1:39 PM Note Text: [facility] OUTPATIENT VISIT DATE March 29, 2021 OUTPATIENT VISIT TYPE EST PRIMARY CARE PHYSICIAN: Kevin Velasquez (Jcarlos) [address] [place] [address] REFERRING PHYSICIAN SELF CHIEF COMPLAINT: Patient presents with: Follow Up: Test Results HISTORY OF PRESENT ILLNESS: ? Ms.?Arun ?is a 65 year old female PMH DM, former smoker who is seen today for?follow up s/p left subclavian artery stenting (04/2020)?and left iliac stenting (08/2019). She denies any claudication symptoms in her lower or upper extremities. DUS show patent left iliac stent w/o restenosis, ABIs >1 bilaterally. DUS carotids show right 60-79% and left 20-39% stenoses, left SCA stent patent. ASA, plavix, statin.? ? PAST MEDICAL HISTORY Diagnosis Date - Blurred vision - Diplopia - HTN (hypertension) - Hyperlipidemia - Impaired fasting glucose - Left carotid bruit - Palpitation - Tobacco use PAST SURGICAL HISTORY Procedure Laterality Date - BREAST BIOPSY SOCIAL HISTORY Social History Tobacco Use - Smoking status: Current Every Day Smoker Packs/day: 0.75 Years: 40.00 Pack years: 30.00 - Smokeless tobacco: Never Used Substance Use Topics - Alcohol use: Not on file - Drug use: Not on file No family history on file. ALLERGIES: ALLERGIES No Known Allergies MEDICATIONS: metFORMIN ER (GLUCOPHAGE XR) 500 mg 24 hr tablet Take 500 mg by mouth daily with breakfast. atorvastatin (LIPITOR) 80 mg tablet Take 80 mg by mouth once daily. clopidogrel (PLAVIX) 75 mg tablet Take 1 tablet by mouth once daily. Start 09/03 losartan (COZAAR) 25 mg tablet Take 25 mg by mouth once daily. aspirin, enteric coated (ECOTRIN LOW STRENGTH) 81 mg EC tablet Take 1 tablet by mouth once daily. verapamil ER (VERELAN) 120 mg 24 hr capsule Take 120 mg by mouth daily at bedtime. cephALEXin (KEFLEX) 500 mg capsule Take 1 capsule by mouth four times daily. REVIEW OF SYSTEMS: GENERAL: no acute distress All other ROS: negative I personally interviewed, confirmed and edited the above information as obtained by others. PHYSICAL EXAMINATION: BP 151/72 (BP Site: Right Arm, BP Position: Sitting, BP Cuff Size: Regular Adult) Pulse 79 Resp 18 Wt 61.2 kg (135 lb) BMI 22.47 kg/m? General appearance: alert and cooperative individual, in no acute distress. Neck: no JVD Pulmonary: Lungs clear to auscultation bilaterally. Coronary: regular rate Upper Extremities: palp radial and brachial pulses bilaterally Lower Extremities: palp popliteal pulses bilaterally CARDIOVASCULAR MEDICINE TESTING: I have personally reviewed the GENO, DUS. IMPRESSION/PLAN: Ms.?Ruffing Gamboais a 65 year old female s/p iliac and left SCA stenting.? She is doing well. Continue with optimal medical mgt of comorbidities including control of dyslipidemia?and glycemic control. Continue ASA, plavix.?Regular exercise. Follow up in 6 months with repeat noninvasive studies.? Elier Espino [facility]05-13-2021 NoteHNO ID: [id number] Author: Elier Espino MD Service: ? Author Type: Physician Type: Progress Notes Filed: 12/07/2020 1:01 PM Note Text: [facility] OUTPATIENT VISIT DATE December 07, 2020 OUTPATIENT VISIT TYPE EST PRIMARY CARE PHYSICIAN: Kevin Velasquez ([facility]) [facility] [place] [address] REFERRING PHYSICIAN SELF CHIEF COMPLAINT: Patient presents with: Follow Up: PAD HISTORY OF PRESENT ILLNESS: Ms.?Ruffing Gamboais a 65 year old female who is seen today for?follow up s/p left subclavian artery stenting (04/2020) and left iliac stenting (08/2019). DUS show patent left iliac stent w/o restenosis, ABIs >1 bilaterally. DUS shows left SCA stent to be patent. She is doing well, without complaints of the legs or arms, is physically active, walking and painting. ASA, plavix, statin. PAST MEDICAL HISTORY Diagnosis Date - Blurred vision - Diplopia - HTN (hypertension) - Hyperlipidemia - Impaired fasting glucose - Left carotid bruit - Palpitation - Tobacco use PAST SURGICAL HISTORY Procedure Laterality Date - BREAST BIOPSY SOCIAL HISTORY Social History Tobacco Use - Smoking status: Current Every Day Smoker Packs/day: 0.75 Years: 40.00 Pack years: 30.00 - Smokeless tobacco: Never Used Substance Use Topics - Alcohol use: Not on file - Drug use: Not on file No family history on file. ALLERGIES: ALLERGIES No Known Allergies MEDICATIONS: metFORMIN ER (GLUCOPHAGE XR) 500 mg 24 hr tablet Take 500 mg by mouth daily with breakfast. atorvastatin (LIPITOR) 80 mg tablet Take 80 mg by mouth once daily. clopidogrel (PLAVIX) 75 mg tablet Take 1 tablet by mouth once daily. Start 09/03 losartan (COZAAR) 25 mg tablet Take 25 mg by mouth once daily. aspirin, enteric coated (ECOTRIN LOW STRENGTH) 81 mg EC tablet Take 1 tablet by mouth once daily. verapamil ER (VERELAN) 120 mg 24 hr capsule Take 120 mg by mouth daily at bedtime. cephALEXin (KEFLEX) 500 mg capsule Take 1 capsule by mouth four times daily. REVIEW OF SYSTEMS: GENERAL: no acute distress All other ROS: negative I personally interviewed, confirmed and edited the above information as obtained by others. PHYSICAL EXAMINATION: BP 133/85 (BP Site: Right Arm, BP Position: Sitting, BP Cuff Size: Regular Adult) Pulse 71 Resp 18 Wt 61.2 kg (135 lb) BMI 22.47 kg/m? General appearance: alert and cooperative individual, in no acute distress. Neck: no bruits Pulmonary: Lungs clear to auscultation bilaterally. Coronary: regular rate and regular rhythm Upper Extremities: palp radial pulses bilaterally Lower Extremities: palp popliteal, DP, PT pulses bilaterally CARDIOVASCULAR MEDICINE TESTING: I have personally reviewed the GENO/PVR, DUS. IMPRESSION/PLAN: Ms.?Ruffing Gamboais a 65 year old female s/p iliac and left SCA stenting.? She is doing well. Continue with optimal medical mgt of comorbidities including control of dyslipidemia and glycemic control. Continue ASA, plavix. Regular exercise. Follow up in 3 months with repeat noninvasive studies.? ? ? Elier Espino [facility]02-11-2021 NoteHNO ID: [id number] Author: Elier Espino Service: ? Author Type: Physician Type: Progress Notes Filed: 09/07/2020 12:28 PM Note Text: [facility] OUTPATIENT VISIT DATE September 07, 2020 OUTPATIENT VISIT TYPE EST PRIMARY CARE PHYSICIAN: Kevin Velasquez MD ([facility]) [address] [place] [address] REFERRING PHYSICIAN Elier Espino MD [address] [facility] [address] CHIEF COMPLAINT: Patient presents with: Follow Up: PAD/Discuss Test Results HISTORY OF PRESENT ILLNESS: Ms.?Ruffing Gamboais a 64 year old female who is seen today for?follow up s/p left subclavian artery stenting and prior left iliac stenting. Today's studies show: patent left iliac stents w/o restenosis, no stenosis on the right iliac system. Patent left proximal SCA stent. WBI and GENO >1 bilaterally She is without complaints of the legs or arms, is physically active, walking and painting, has gained some weight having quit smoking. Last HgbA1c ~8.3, started on metformin. ASA, plavix, statin. PAST MEDICAL HISTORY Diagnosis Date - Blurred vision - Diplopia - HTN (hypertension) - Hyperlipidemia - Impaired fasting glucose - Left carotid bruit - Palpitation - Tobacco use PAST SURGICAL HISTORY Procedure Laterality Date - BREAST BIOPSY SOCIAL HISTORY Social History Tobacco Use - Smoking status: Current Every Day Smoker Packs/day: 0.75 Years: 40.00 Pack years: 30.00 - Smokeless tobacco: Never Used Substance Use Topics - Alcohol use: Not on file - Drug use: Not on file No family history on file. ALLERGIES: ALLERGIES No Known Allergies MEDICATIONS: metFORMIN ER (GLUCOPHAGE XR) 500 mg 24 hr tablet Take 500 mg by mouth daily with breakfast. atorvastatin (LIPITOR) 80 mg tablet Take 80 mg by mouth once daily. clopidogrel (PLAVIX) 75 mg tablet Take 1 tablet by mouth once daily. Start / losartan (COZAAR) 25 mg tablet Take 25 mg by mouth once daily. aspirin, enteric coated (ECOTRIN LOW STRENGTH) 81 mg EC tablet Take 1 tablet by mouth once daily. verapamil ER (VERELAN) 120 mg 24 hr capsule Take 120 mg by mouth daily at bedtime. cephALEXin (KEFLEX) 500 mg capsule Take 1 capsule by mouth four times daily. REVIEW OF SYSTEMS: GENERAL: no acute distress All other ROS: negative I personally interviewed, confirmed and edited the above information as obtained by others. PHYSICAL EXAMINATION: BP 161/80 (BP Site: Right Arm, BP Position: Sitting, BP Cuff Size: Regular Adult) Pulse (!) 53 Resp 18 Wt 62.9 kg (138 lb 9.6 oz) BMI 23.06 kg/m? General appearance: well nourished, alert and cooperative individual, in no acute distress. Neck: no bruits Pulmonary: Lungs clear to auscultation bilaterally. Coronary: regular rate and regular rhythm Upper Extremities: palp radial and brachial pulses bilaterally Lower Extremities: palp popliteal, DP pulses bilaterally CARDIOVASCULAR MEDICINE TESTING: I have personally reviewed the GENO/PVR, DUS. IMPRESSION/PLAN: Ms. Bui is a 64 year old female s/p iliac and left SCA stenting. She is doing well. Continue with optimal medical mgt of comorbidities including control of dyslipidemia and glycemic control. Continue ASA, plavix. Regular exercise. Follow up in 3 months with repeat noninvasive studies. ? Elier Espino, [facility] noteNo InformationNortChan [facility] [employer] [place] Other Evaluation noteNo assessment information available [facility] Work Phone: Evaluation note* Diagnosis Presence of pessary- Primary Pelvic floor relaxation documented in this encounter [facility] Narrative - Reported* Type Description Date Medical History carotid artery stenosis Medical History hypertension Medical History migraine headaches Medical History acid reflux Surgical History tubual ligation Surgical History cataract surgery Surgical History stent in left subclavian Surgical History stent in left iliac [facility] [employer] [place] Other History general Narrative - Reported* Type Description Date Medical History carotid artery stenosis Medical History hypertension Medical History migraine headaches Medical History acid reflux Medical History PAD Surgical History tubual ligation Surgical History cataract surgery Surgical History stent in left subclavian Surgical History stent in left iliac Hospitalization History See Above [employer] Other Hospital course Narrative No data available for this section [facility] No data available for this section [facility] No data available for this section [facility] Summary Purpose Family History No Family History Records FoundNo Family History Records FoundNo Family History Records FoundNo Family History Records FoundNo Family History Records FoundNo Family History Records Found Advance Directives No Advanced Directives Records Found Advance Directive Response Recorded Date/ Time Advance Directives No August 30, 2022 12:54pm Procedure Findings Note HNO ID: [id number] Author: Liv Espino Service: Vascular Surgery Author Type: Physician Type: Brief Op Note Filed: 08/31/2019 8:22 PM Note Text: BRIEF OPERATIVE / PROCEDURE NOTE LOG ID: [id number] SURGERY/PROCEDURE DATE: 08/31/2019 INCISION/PROCEDURE START TIME: 10:23 AM INCISION CLOSE/PROCEDURE END TIME: 2:47 PM SURGEON(S)/PROCEDURALIST(S) AND PORT PURSER(S): Surgeon(s) and Role: * Elier Espino - Primary No Additional Staff SURGERY/PROCEDURE(S): Aortoiliac angiography, stenting of the left common and external iliac artery, post stenting angioplasty, left lower extremity angiography, percutaneous pharmacomechanical thrombectomy and balloon angioplasty of the left anterior and posterior tibial arteries, completion angiography ANESTHESIA: Procedural Sedation FINDINGS: High grade stenoses of the left distal common and proximal external iliac artery. Left common and external iliac artery treated with 8x60 and 7x60 [employer] self expandable stent, post stenting angioplasty of the lef (more content not included)... Note HNO ID: [id number] Author: Liv Espino Service: Vascular Surgery Author Type: Physician Type: Brief Op Note Filed: 05/09/2020 3:31 PM Note Text: BRIEF OPERATIVE / PROCEDURE NOTE LOG ID: [id number] SURGERY/PROCEDURE DATE: 05/09/2020 INCISION/PROCEDURE START TIME: 2:25 PM INCISION CLOSE/PROCEDURE END TIME: 3:21 PM SURGEON(S)/PROCEDURALIST(S) AND PORT PURSER(S): Surgeon(s) and Role: * Elier Espino - Primary No Additional Staff SURGERY/PROCEDURE(S): Ultrasound guided access of the right common femoral artery, left subclavian angiogram, stenting of the left proximal subclavian artery, completion angiography ANESTHESIA: Procedural Sedation FINDINGS: High grade stenosis of the proximal left subclavian artery, prestent angioplasty w/ 4x40mm balloon, lesion treated with 7x27 [employer] balloon mounted stent. Resolution of stenosis post stenting. ESTIMATED BLOOD LOSS: 0 ml SPECIMENS: None COMPLICATIONS: None IMPLANTS: [employer] 7x27 LD balloon expandable stent, inflated to 8atm (more content not included)... Chief Complaint and Reason for Visit Chief Complaint i65.23 i70.213 Additional Source Comments INFORMATION SOURCE (unrecogn ized section and content) DATE CREATED AUTHOR 05/10/2020 [facility] DATE CREATED AUTHOR AUTHOR'S ORGANIZ ATION 08/31/2021 [facility] DATE CREATED AUTHOR AUTHOR'S ORGANIZ ATION 07/06/2022 [facility] DATE CREATED AUTHOR AUTHOR'S ORGANIZ ATION 09/06/2022 [facility] DATE CREATED AUTHOR AUTHOR'S ORGANIZ ATION 09/13/2022 [facility] DATE CREATED AUTHOR AUTHOR'S ORGANIZ ATION 01/09/2024 [facility]ists EPIC REASON FOR VISIT (unrecogniz ed section and content) left leg claudication, subcl martha artery stenosis left ref from Dr. Mcwilliams RefillMessaAfsaneh ON CAROTID BP ON LEGScold [phone] MONTH FOLLOW UPrefillWellness examNo InformationNo InformationLab ResultsSore on mouthCold [phone] possible sinus infection Patient Care team informatio n (unrecognized section and content) Team Status: Inactive Member Role Status Dates Dylan Calixto MD Attending Provider Active Kevin Velasquez , Primary Care Provider Active Team Status: Active Member Role Status Dates Kevin Velasquez , Primary Care Provider Active [employer] Relationship Specialty Start Date End Date Kevin Velasquez MD [address] [place] [address] PCP - General Internal Medicine 12/31/22 [employer] Relationship Specialty Start Date End Date Kevin Velasquez MD [address] [place] [address] PCP - General Internal Medicine 12/31/22 Goals (unrecognized section and content) Goals may be documented in a n alternate section FOR RECORDS PERTAINING TO PATIENTS WHO ARE OR HAVE BEEN ENROLLED IN A CHEMICAL DEPENDENCY/SUBSTANCEABUSE PROGRAM, SOME INFORMATION MAY BE OMITTED. This clinical summary was aggregated from multiple sources. Caution should be exercised in using it in the provision of clinical care. This summary normalizes information from multiple sources, and as a consequence, information in this document may materially change the coding, format and clinical context of patient data. In addition, data may be omitted in some cases. CLINICAL DECISIONS SHOULD BE BASED ON THE PRIMARY CLINICAL RECORDS. [employer] provides no warranty or guarantee of the accuracy or completeness of information in this document.
--- NOTE | 2024-03-19 08:53 | XR_ITS ---
The [address] [address] Patient Name: TERESSA BUI MRN: [facility]:[id number] date: 1955 Sex: F Assigned Patient Location: Current Patient Location: LAB Accession/Order Number: [id number] Exam Date: 03/19/2024 08:45 Report Date: 03/19/2024 09:55 At the request of: CLARENCE CARDENAS Procedure: XR DEXA axial skeleton EXAMINATION: XR DEXA axial skeleton, 03/19/2024 8:45 AM EDT HISTORY: Menopause Present Z78.0 COMPARISON: None. TECHNIQUE: Dual-energy X-ray absorptiometry (DEXA) bone density study performed for the axial skeleton. FINDINGS: Bone mineral density AP spine L1-L4 measures 1.085 g/sq cm. T score -0.8. Normal. Lowest bone mineral density right femoral trochanter measures 0.536 g/sq cm. T score -2.7. Osteoporosis XR/XR DEXA axial skeleton IMPRESSION: Osteoporosis. High fracture risk Pharmacologic treatment recommendations * No uniform recommendation applies to all patients. Management plans must be individualized. * Consider initiating pharmacologic treatment in postmenopausal women and men >= 50 years of age who have the following: Primary fracture prevention: * T-score <= - 2.5 at the femoral neck, total hip, lumbar spine, 33% radius (some uncertainty with existing data) by DXA. * Low bone mass (osteopenia: T-score between - 1.0 and - 2.5) at the femoral neck or total hip by DXA with a 10-year hip fracture risk >= 3% or a 10-year major osteoporosis-related fracture risk >= 20% (i.e., clinical vertebral, hip, forearm, or proximal humerus) based on the [place]-adapted FRAXregistered model. Secondary fracture prevention: * Fracture of the hip or vertebra regardless of BMD [4, 5]. * Fracture of proximal humerus, pelvis, or distal forearm in persons with low bone mass (osteopenia: T-score between - 1.0 and - 2.5). The decision to treat should be individualized in persons with a fracture of the proximal humerus, pelvis, or distal forearm who do not have osteopenia or low BMD [12, 13]. Jamie MS, Anabella SL, Tenzin KL, Latricia EM, Savannah KG, AJ, Kusum ES. The clinician's guide to prevention and treatment of osteoporosis. Osteoporos Int. 2021;33(10):0589-7790. doi: 10.1007/m29259-004-22713-f. Epub 2021Nov 22. Erratum in: Osteoporos Int. 2021Feb 21;: PMID: [id number]; PMCID: [id number]. Electronically authenticated by: GEOFFREY REARDON Date: 03/19/2024 09:55
== END 2024-03-19 07:53 | disposition home or self-care (01) ==
LOC: US 07:53
PROVIDERS: PCP Internal Medicine; Visit Provider Internal Medicine
DX: Z12.31 Encounter for screening mammogram for malignant neoplasm of breast (principal); Z78.0 Asymptomatic menopausal state; R74.8 Abnormal levels of other serum enzymes; K76.0 Fatty (change of) liver, not elsewhere classified; E11.65 Type 2 diabetes mellitus with hyperglycemia; I10 Essential (primary) hypertension; E78.00 Pure hypercholesterolemia, unspecified; Z80.49 Family history of malignant neoplasm of other genital organs; M81.0 Age-related osteoporosis without current pathological fracture
CPT/HCPCS: 36415; 76705; 77063; 77067; 77080; 82728; 86038; 86317; 86704; 86708; 87340

== ENCOUNTER 2024-03-19 09:11 | Outpatient (OUT) | payer BC, SELFPAY ==
--- OUTSIDE RECORDS SUMMARY | 2024-03-19 09:32 | XMS_ITS | CCD ---
Author Organization [facility] Care Team Providers Care Spud Sorter Name Role Phone Dylan Calixto Unavailable [phone] Summer Decker Unavailable RON, DR LIMA Admitting Unavailable RON, DR LIMA Attending Unavailable RON, DR LIMA Primary Care Unavailable RON, DR LIMA Consulting Unavailable RON, DR LMIA Admitting Unavailable RON, DR LIMA Attending Unavailable [...] Provider DO Kevin Velasquez Primary Care Provider Mariela MENCHACA Attending Unavailable Mariela MENCHACA Admitting Unavailable Kevin Velasquez Primary Care Unavailable Dylan Calixto Attending UnavailDylan Marte Admitting UnavailKevin Addison Unavailable Radha Correa Unavailable Kevin Velasquez MD Primary Care Provider MARIELA MENCHACA Attending Unavailable MARIELA MENCHACA Attending Unavailable Allergies Allergy Classification Reported Allergen(s) Allergy Type Date of Onset Reaction(s) Facility (7 sources) Lisinopril Drug Allergy 09-23-2017 Unknown [facility] Other Medications Current Medications Medication Drug Class(es) [...] days Active OneTouch Ultra - (9 sources) [employer] Videouch Ultra - USE TO TEST ONCE A [...] Status: Ordered take 1 capsule by mo [facility] every twenty-four hours in the morning verapamil [...] 30 day(s) Not-Taking take 1 tablet by [facility] every twenty-four hours Calcium + D [...] 08-23-2021 Chronic Other aftercare (1 source) 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 vaginae DNA HARJEET+probe Ql (Vag fld) Low - 0 Invalid Interpretation Code [facility] Comment on above: Performed By: #### 1 [id number] #### [facility] [address] [place] [address] Bacterial vaginosis associated bacterium 2 DNA HARJEET+probe Ql (Vag fld) Low - 0 Invalid Interpretation Code [facility] Comment on above: Performed By: #### 1 [id number] #### [facility] [address] [place] [address] C. albicans DNA HARJEET+probe Ql (Vag fld) Negative Invalid Interpretation Code Negative [facility] Comment on above: Result Comment: This test was developed and its performance characteristics determined by [employer]. It has not been cleared or approved by the Food and Drug Administration. Performed By: #### 1 [id number] #### [facility] [address] [place] [address] C. glabrata DNA HARJEET+probe Ql (Vag fld) Negative Invalid Interpretation Code Negative [facility] Comment on above: Result Comment: This test was developed and its performance characteristics determined by [employer]. It has not been cleared or approved by the Food and Drug Administration. Performed By: #### 1 [id number] #### [facility] [address] [place] [address] Megasphaera sp type 1 DNA HARJEET+probe Ql (Vag fld) Low - 0 Invalid Interpretation Code [facility] Comment on above: Result Comment: Calc ulate [...] developed and its performance characteristics determined by [employer]. It has not been cleared or approved by the Food and Drug Administration. Performed By: #### 1 [id number] #### [facility] [address] [place] [address] T. vaginalis DNA HARJEET+probe Ql (Vag fld) Negative Invalid Interpretation Code Negative [facility] Comment on above: Result Comment: Perf ormed at: =G [facility] [address] [place] Arthur [id number] MD Jj Sagastume Performed By: #### 1 [id number] #### [facility] [address] [place] [address] US ankle/arm indiceson 09-06 US ankle/arm indices [facility] [place] [address] Ultrasound Report Signed Patient: Teressa Bui MR#: [id number] [id number] : 1955 Acct:[id number] Age/Sex: 66 / F ADM Date: 09/04/22 Loc: Room: Type: [facility] Attending Dr: Dylan Calixto MD Ordering Provider: [...] MD 09/06/22 1024 Signed By: 09/06/22 1025 [facility] US carotid doppler BIon - US carotid doppler BI [facility] Main [place] [address] [place] [address] Ultrasound Report Signed Patient: Teressa Bui MR#: [id number] : 1955 Acct:[id number] Age/Sex: 66 / F ADM Date: 09/04/22 Loc: Room: Type: [facility] Attending Dr: Dylan Calixto MD Ordering Provider: Dylan Calixto MD Date of Service: 09/04/22 US/US carotid doppler BI: [id number] Copies to: Dylan Calixto MD CAROTID DUPLEX [...] MD 09/06/22 1022 Signed By: 09/06/22 1024 [facility] Coding Summary.on 09-05-2022 Coding Summary. CD:[id number] Gh 0bWw+PGhlYWQ+TJ5XKPHvV 25qmWDgvC6IZ9bRES9KTUD MULHJRP4CLO8aqRM0QXugV 2VybiAv WpamyGKlQT22ZYk6RIU6lQ smTCbraL8owSNwU2b8UlUa NU52wT23XRgpIZLwBnE8Kw ZpbjsgbWFy I8heDkAspTXgXns+PHRhYm xlIHdpZHRoPScxMDAlJyBz gPinAE2mMy5tBROhJCJdbE xhcHNlOiBj s6idHZQgPRpaOW3yhLwuE2 NrrSK6HHWvq1k0Zc40kQU+ OBAcJKA6jPlrNSgbv745Nz Knr6dzMQS4 lGXmPFvvOLK2H64cq5K7MS ZkSFHcSPB4wZV8wL4ycDyf tfljX9PirJOdQlV7FIQ8wL IrlT1rkIva cesvwX6rBcy+S99WXU4CLD WECT1PSuv8F2BoXznaqMR+ SO54CHDkJV70wRXjyRVxh4 gvaFu1RxPt YVFgJFY2bCxkMEtuh2FdYX LlJ24dqNNde2E4DRPjuRey oCXySfDzyNX0gQ2iVEfnjo xmf1odgwgb Ypwbr4djkv25hX38B95uDI veJMGxCTE7AUGgELJuzIbr cf5dwY2iRn9+TBgiu5mhk8 yxbEn9OcBf TZVfmsUryXcxPOW1n5PbUs 63G3BwiPlga0EgCnv0fn23 pSWht8G7rNV0XRbiZOHubS 1hTQoeQbE1 UHFpMiIowE32jEOtKWnsGg 4sbUflcCmmAJ4rGPPwyjzf TAOuwB1hPLSgbSQgwQikGT 4wNTBpbjtm o107BqLhPAE0EBZqvDFgW9 TssE1rHtShTSSpMVHvZ1Mr nSHiGYerD212VLhdTcK6SX BkhzHoU7Wx RYCvzRbyGqA9m7D0Tg9Vi9 SgtkbnGYA5BEiaYHQwQyJ7 EbOcOvZ9C8OhKkk4YZVsgS jpXM8mC4Fx IHZxbddoqfsokWP2YAPbXR KehO55vXYvVLsqJh1wu1J5 f223PDRuQPWpoK17Wf0mdK ogMTBwdCBU jA9ciaeko8cuulkcVsLtQJ NzFQh5ENm1DXUfoRhwBrDo ZQY8HuB2QIM1bSAfjT4fwJ dfiyxraU8c Oyc+X01ljF1bNFF2UQT7ac etBGHpgzBpZS66LP19D9Kz PjwvdGFibGU+PGRpdiBzdH blYK9vYzKb s7jwg7CwHDqgN8ZjYEAaXA ibRve3SMGhBAV8fJN9eN2k QDVbDKwnv8S6sYR8K5Qauu Shzr3xe7bs WCMoPOtyG20tjFOte7L4RC BbgTT5VMTqpGhzIaCfpA03 Oyc+LYMpbIinr0NhFruxo3 tff5owrWi3 KiSuMQPzqnXxuOlgXLD8y7 MrTi71U06sEHkkKOIiERWm ZJJyPAOwpUwdva0erX4kSe 8+PGNvbCB3 kDT1fZ0eZVXbHsV5WMpfW9 45ElWlwUWaKyftz4fwg1km bIu6FuFxLXIzpfTrtOywCL F2f3TgUb42 J12rEXvdIFQhGECxGUOsSU TjiCwuez9woY1oBj5+PC9j e1wvfx63vD42zWO+PHRkIH R9uNwkVPug QKGszB7bTEuwEgN6TIGjKb FtsL89pHEcCPkjPf8gfBtx hXjxUK9cLSNuzlphs180Eu Srk7acPROn uIOfIEkhOBK6J06xn1M0VD CbQYJcGCA1iVD0qK5sdNyq bjogbGVmdDsgdmVydGljYW rhJVcpI018 IHRvcDsnPlBhdGllbnQgTm LzEGf6J3JqZzr3EVTelEnb SA9asATuPGabSs3tjKqtvD efSK7nRKGi dxhve172RaJjq7dmYPMemK TzRYphDEP1Q90ba6V0EBYj SFLaKMU4xVN7iJ7naZrmle ogbGVmdDsg kxZzcEivABswRXkkQ308NF RvcDsnPkJpcnRoIERhdGU6 ZS19RF72rGYio3G8ySN5Y4 BhZGRpbmct pelwdEG3NQKtDOYemE97Vb 8hxDkxKx0rNNCqIGI3ERLm hRRyP9JxeP6iVgDrJOHxXB ScW3LfkBNf GIzzJ379UQmyWmT7COZwxp RuR4DxIRLnqCzvEzP4c7E9 Sb9WF7D9PF64MV89nHXlq1 Q4gQO5O2Lg LRSixruixsfphMM4KUQbBX GliK14Wu0zqOcsSk1uRUSo ZJX8XAShlJMcE1YqiB0nBf AjMDAwMDAw H4TzcSPdAZjjY534DQhaTr C0OYTsnnXcW1PaJINxdLpl RnG9s0C6By0RFUb9XT91QT 14wRGwz7R9 cAI1L3OdWUFsdmdrbycgyV U7DPNcTXCdqL62Nk8ojDzc Ck4sHBYcBRS4ZFXkxSRvX6 DxtC0hLyOn OWAdSXUkS4KncTDrMKbzN1 77GZwjCqL0KVYjiqReL2Yb CZNozBmnZwH1v8K5Ne5OKL QbSW66PGV0 tDX3XM00GG13M0FsGlnkaT FibGU+PHRhYmxlIHdpZHRo MFcuXWJjClVvvPisQH1yMl 9yZGVyLWNv wRcdsZWvCtEhg3qkTWMcVX ytOU0gbKdmT9TbvMG3CDJv j3e6Uu09M08yS8QerOQ+PG WbvOS7eOX0 hY8tOrIqSjT3ZZmqC448Yw EnxLPsPvkoa2mbb6dgaXp6 ZpZ5HIQtnfMqkFfmZNQ5x4 BlSp82H23l IHdpZHRoPSIxNSUiIHZhbG dqgr9hkI7zAc6+PGNvbCB3 nNX5fD2xBuNyOfG7INxlR1 49InRvcCIv Ekoow0nwl0wobSh9HbTuPG JvteUjpLmbDWG4n9ZaLj26 G5DamLuoa2UmZyd6tl36fJ Lkh7J1uFK1 A4RrTSDdazhxmSWdvXptEK 2bSTPvtqdsWCGuoQ1vZDEx Q0y6RiBfHpQ5TMleY0Cmwg B8FRAzvZUp MObvSDH4J37qq1O3HCEeKB KkIXB9aPP5cK0quHvdmisc bGVmdDsgdmVydGljYWwtYW ewF040XHRf uKrvIJPvcX4yGOEptICsbJ rbMF2eIBZvzvrwUeEKHkGF SzblVTZBFFBVYFl6N6JqBq k4GYTzjNca YL8wzJYgPFzbVe6htIuwhH ebBP6kLYProxsiAXSvqN9j JDOumHBufWqaFU2oELTzto blr942VaVn TVQ0PCLmdLPgO4BwnM3wQc ZrJBFyFBTqL9DpwERxGTny R094RVbfZxK1NYBfdxZvW2 FsLWFsaWdu XvM5s0I6Tn5iTW7gET8cZE Y1ZN42SK39mEHdi1J2bZB4 D6JwRUDeesdqqvnfoXL6MC StZVOuuO71 fYVsUHnpZm7rm8A3y014DT YaIPVftE97Zj5rlRhvHPPk zODJkU4hpwtbi2lmlrsmLv AwMDAwMDt0 LOl9ALMkjOmhQkIrYLV4Xz B9JNL0eAWnwI7svJgomucq cH6iAaq+SuJjTJIavyM3G6 NzUes6HGCu nQyqWG2fsSEdGAinWu5fsL urqByhUT5vMMZpffxwBGNq mA5aVYPqbUZgaAunJL3tJI Rmcqtoi585 SlBzXLS3DSBzkCZlI3AdyK 6eOlWyJRVmUJOfY6YiaXLu AQetH809AEkvTrA5RHDkun EaZ4KkWEFj rFsvCwK9x6W3Qx4JVO3eyH U3N7DfXdz1DXIpgUrlEM3u fHPcEEevFf7ygRtiaUaeJO 4wNTBpbjtw PGXdzE3eEWFefNKulPhdNJ 2kJKPlopton276WnVuUCF2 QBLmfYJhX5ZfbV8oDsVbNW DvRZTxB3Ws rMTsIXbeN753KBzqYdH1XV GwrnIpZ1LcVLQgcSevPjY6 z7L5Kf7IRCEjHGVpgRAbCn H6G9IcMhyd dHI+FA46DFEuNN38aNYnbI Kut7njlXs9GoBhTBScBSM3 iBhdZLjss8MhELJyX43udN Jyz9A9JQHv pKibkAKfNbBokZQ0nV4qRB kgkwwvv9amocudNyyvs5yw jg16cP00F97yRKjmGMOcHX IzMCUiIHZh wAdcjg2ioC5mKx3+PGNvbC H1xZK1zO4oUxKhCuP0UAlv Y485BnMqrKRbOrsbd6jnx6 wahVi9SwFm VUDlnbRzjJaxEQM2n7YkPl 06A42lTMhdNICmHXLhBNZl FLDwkUgjce3spV6bRw9+PC 7af0oubd06 cL40vYT+QRWxFVT2kEsoKT aqCAMdaB3cRZyzHsB7XJVp WkUnnN22zXRyBYjiLm3loJ mgrZncXJ4r UXPvvzurp437EzWbu4jxHL IgzFRsYJxzNVH2N93ht1P4 EDJdXPAbZRY1gDQ5qL2jbZ lnbjogbGVm dDsgdmVydGljYWwtYWxpZ2 76NXLiuLruFtRwkTLhL9ip hoIJMF2nYiwkqBJ+PHRkIH Z9yFrsHTdm UCWidJ9mRTMaH4l8SpRjKo J8ZFjlF8KygjK9IRCzlGRx ULXhuAVStH7moqxij1heod ogIzAwMDAw GYx6GWc8JCBqoDdaOoQbBC D9RiR5WIS0aSBrpB2nxSfp tnrdnQ6pSry+RklOOjwvdG Q+PHRkIHN0 hLgwXZyqQCSfnO8oMXTnU4 l2QyJaJxL4PSzoI2OzseT9 ZGUveUTzIUXkuSUWqE6aon rei7lmfmjd GlDtHWPzLNc7YCm3EGXzpJ ocSqKhKUO9PmD7FRY4dOYm jY1mpSlowlbcsW8aBfi+TV JOOjwvdGQ+ LAYyBJI8vVhlBTaaMCJxkZ 1gEKOuI9k0XeHzEbL0NMfo U2GjhqR8LWPquUBmNYFcdJ NJdH8iahvi k8kpvlzmYdUiTLLeDXe2NR d2EKZonAhkGeSyHNZ3KdL2 FNR0yYKkeY9yfDbmxorfuN 9wOyc+UGF5 DDZ7SL64HZ23L4SfBxapxS FibGU+PHRhYmxlIHdpZHRo ZIipRPIpUkHxzHluZB9pEy 9yZGVyLWNv bGxh (more content not included)... Normal [facility] Physician Orderon 09-02-2022 Physician Order [id number] Normal [facility] GLYCOHEMOGLOBIN A1Con 2021 ADA RECOMMENDATION SEE BELOW Normal [facility] Comment on above: Result Comment: ADA RECOMMENDED LIMIT 4.0 - 6.0 ADA THERAPEUTIC TARGET < 7.0 ACTION SUGGESTED > 7.0 Performed By: #### A 1C #### [facility] [address] [place] [address] Azar Carlin Glucose [Mass/Vol] 137 mg/dL Normal [facility] Comment on above: Performed By: #### A 1C #### [facility] [address] [place] [id number] Azar Carlin HbA1c (Bld) [Mass fraction] 6.4 % Critically high 4.5-6.2 [facility] Comment on above: Performed By: #### A 1C #### [facility] [address] [address] [address] Azar Carlin MICROALBUMIN URINEon 022 Albumin, Urine 3.1 ug/mL Normal Not Estab. [facility] Comment on above: Performed By: #### M ALBLC #### [facility] [address] [place] [address] Dr. Azar Carlin VIT D 25-OH LABCORPon 2021 Vitamin D, 25-Hydroxy 43.0 ng/mL Normal 30.0-100.0 [facility] Comment on above: Result Comment: [place] min D deficiency has been defined by the [place] of [employer] and an Endocrine Society practice guideline as a level of serum 25-OH vitamin D less than 20 ng/mL (1,2). The Endocrine Society went on to further define vitamin D insufficiency as a level between 21 and 29 ng/mL (2). 1. IOM ([place] of [employer]). 2010. Dietary reference intakes for calcium and D. [place]: The National Academies Press. 2. Gamaliel MF, Vivian NC, Domingo-Ras YO, et al. Evaluation, treatment, and prevention of vitamin D deficiency: an Endocrine Society clinical practice guideline. JCEM. 2010; 96(7):1911-30. Performed By: #### V ITADLC #### [facility] [address] [place] [address] Dr. Azar Carlin CBC AUTO DIFFon 03-15-2022 BASO # 0.0 103/ul Normal 0.0-0.1 [facility] Comment on above: Performed By: #### C BC #### [facility] [address] [address] [address] Azar Carlin Basophils/100 WBC (Bld) 0.6 % Normal 0.2-2.0 [facility] Comment on above: Performed By: #### C BC #### [facility] [address] [place] [address] Dr. Azar Carlin EO # 0.1 103/ul Normal 0.0-0.7 [facility] Comment on above: Performed By: #### C BC #### [facility] [address] [place] [address] Dr. Azar Carlin Eosinophils/100 WBC (Bld) 2.4 % Normal 0.9-7.0 [facility] Comment on above: Performed By: #### C BC #### [facility] [address] [place] [address] Dr. zAar Carlin Erythrocyte distribution width (RBC) [Ratio] 14.0 % Normal 11.0-15.0 [facility] Comment on above: Performed By: #### C BC #### [facility] [address] [place] [address] Dr. Azar Carlin Hematocrit (Bld) [Volume fraction] 39.9 % Normal 36.0-48.0 [facility] Comment on above: Performed By: #### C BC #### [facility] [address] [place] [address] Dr. Azar Carlin Hemoglobin (Bld) [Mass/Vol] 13.0 g/dL Normal 12.0-16.0 [facility] Comment on above: Performed By: #### C BC #### [facility] [address] [place] [address] Dr. Azar Carlin IG # 0.01 10e3/ul Normal 0.00-0.03 [facility] Comment on above: Performed By: #### C BC #### [facility] [address] [place] [address] Dr. Azar Carlin IG % 0.2 % Normal 0.0-0.5 [facility] Comment on above: Performed By: #### C BC #### [facility] [address] [place] [address] Dr. Azar Carlin LYMPH # 1.7 103/ul Normal 1.2-3.8 [facility] Comment on above: Performed By: #### C BC #### [facility] [address] [place] [address] Dr. Azar Carlin Lymphocytes/100 WBC (Bld) 36.2 % Normal 20.5-60.0 [facility] Comment on above: Performed By: #### C BC #### [facility] [address] [place] [address] Dr. Azar Carlin MANUAL DIFF REQ NO Normal [facility] Comment on above: Performed By: #### C BC #### [facility] [address] [place] [address] Dr. Azar Carlin MCH (RBC) [Entitic mass] 28.1 pg Normal 26.7-34.0 [facility] Comment on above: Performed By: #### C BC #### [facility] [address] [place] [address] Dr. Azar Carlin MCHC (RBC) [Mass/Vol] 32.6 g/dL Normal 29.9-35.2 [facility] Comment on above: Performed By: #### C BC #### [facility] [address] [place] [address] Dr. Azar Carlin MCV (RBC) [Entitic vol] 86.2 fL Normal 81.0-99.0 [facility] Comment on above: Performed By: #### C BC #### [facility] [address] [place] [address] Dr. Azar Carlin MONO # 0.4 103/ul Normal 0.3-0.8 [facility] Comment on above: Performed By: #### C BC #### [facility] [address] [place] [address] Dr. Azar Carlin Monocytes/100 WBC (Bld) 9.3 % Normal 1.7-12.0 [facility] Comment on above: Performed By: #### C BC #### [facility] [address] [place] [address] Dr. Azar Carlin NEUT # 2.4 103/ul Normal 1.4-6.5 [facility] Comment on above: Performed By: #### C BC #### [facility] [address] [place] [address] Dr. Azar Carlin Neutrophils/100 WBC (Bld) 51.3 % Normal 43.0-75.0 [facility] Comment on above: Performed By: #### C BC #### [facility] [address] [address] [address] Azar Carlin Platelet mean volume (Bld) [Entitic vol] 9.4 fL Critically low 9.5-13.5 [facility] Comment on above: Performed By: #### C BC #### [facility] [address] [address] [address] Azar Carlin PLT 184 103/ul Normal 150-450 [facility] Comment on above: Performed By: #### C BC #### [facility] [address] [address] [address] Azar Carlin RBC 4.63 106/ul Normal 4.20-5.40 [facility] Comment on above: Performed By: #### C BC #### [facility] [address] [address] [address] Azar Carlin WBC 4.6 103/ul Normal 4.0-11.0 [facility] Comment on above: Performed By: #### C BC #### [facility] [address] [address] [address] Azar Carlin GLYCOHEMOGLOBIN A1Con 2021 ADA RECOMMENDATION SEE BELOW Normal [facility] Comment on above: Result Comment: ADA RECOMMENDED LIMIT 4.0 - 6.0 ADA THERAPEUTIC TARGET < 7.0 ACTION SUGGESTED > 7.0 Performed By: #### A 1C #### [facility] [address] [place] [address] Dr. Azar Carlin Glucose [Mass/Vol] 137 mg/dL Normal [facility] Comment on above: Performed By: #### A 1C #### [facility] [address] [address] [address] Azar Carlin HbA1c (Bld) [Mass fraction] 6.4 % Critically high 4.5-6.2 [facility] Comment on above: Performed By: #### A 1C #### [facility] [address] [place] [address] Dr. Azar Carlin LIPID PROFILEon 03-15-2022 CHOL-HDL RATIO NORM SEE BELOW Normal [facility] Comment on above: Result Comment: 3.3 - 4.4 LOW RISK 4.4 - 7.1 AVERAGE RISK 7.1 - 11.0 MODERATE RISK >11.0 HIGH RISK Performed By: #### C MP, LIPID #### [facility] [address] [address] [address] Azar Carlin Cholesterol [Mass/Vol] 120 mg/dL Normal <=200 [facility] Comment on above: Performed By: #### C MP, LIPID #### [facility] [address] [address] [address] Azar Carlin Cholesterol in HDL [Mass/Vol] 62 mg/dL Critically high 40-60 [facility] Comment on above: Performed By: #### C MP, LIPID #### [facility] [address] [address] [address] Azar Carlin Cholesterol in LDL [Mass/Vol] 44.4 mg/dL Normal [facility] Comment on above: Performed By: #### C MP, LIPID #### [facility] [address] [address] [address] Azar Carlin Cholesterol.total/C holesterol in HDL [Mass ratio] 1.9 {ratio} Normal [facility] Comment on above: Performed By: #### C MP, LIPID #### [facility] [address] [address] [address] Azar Carlin HDL NORMAL > or = 60 mg/dl - LO W CARDIOVASCULAR RISK <40 mg/dl - HIGH CARDIOVASCULAR RISK Normal [facility] Comment on above: Performed By: #### C MP, LIPID #### [facility] [address] [address] [address] Azar Carlin LDL CALC NORMAL SEE BELOW Normal [facility] Comment on above: Result Comment: <100 mg/dl OPTIMAL 100 - 129 mg/dl NEAR OR ABOVE OPTIMAL 130 - 159 mg/dl BORDERLINE HIGH 160 - 189 mg/dl HIGH >190 mg/dl VERY HIGH Performed By: #### C MP, LIPID #### [facility] [address] [address] [address] Azar Carlin Triglyceride [Mass/Vol] 68 mg/dL Normal <=150 [facility] Comment on above: Performed By: #### C MP, LIPID #### [facility] [address] [address] [address] Azar Carlin VLDL CALC 13.6 mg/dL Normal [facility] Comment on above: Performed By: #### C MP, LIPID #### [facility] [address] [address] [address] Azar Carlin MG MAMM SCREEN 3D ALBERT CADon 03-15-2022 MG MAMM SCREEN 3D ALBERT CAD Patient: TERESSA BUI Exam Date: 03/15/2022 : 1955 Gender:F Ordering : DR KEVIN VELASQUEZ D.O. Admission #: [id number] Family : Order #: [id number] CLICK HERE TO VIEW EXAM RADIOLOGY REPORT [...] endometrial cancer at age 65. LOCATION: [facility] BREAST COMPOSITION: Scattered areas fibroglandular density. [...] M.D. on 03/15/2022 at 12:16 Normal [facility] PROF 14(COMP METB)on 022 Albumin [Mass/Vol] 3.9 g/dL Normal 3.4-5.0 [facility] Comment on above: Performed By: #### C MP, LIPID #### [facility] [address] [place] [address] Dr. Azar Carlin Albumin/Globulin [Mass ratio] 1.1 {ratio} Normal [facility] Comment on above: Performed By: #### C MP, LIPID #### [facility] [address] [place] [address] Dr. Azar Carlin ALP [Catalytic activity/Vol] 123 U/L Critically high 46-116 [facility] Comment on above: Performed By: #### C MP, LIPID #### [facility] [address] [place] [address] Dr. Azar Carlin ALT [Catalytic activity/Vol] 51 U/L Normal 14-59 [facility] Comment on above: Performed By: #### C MP, LIPID #### [facility] [address] [place] [address] Dr. Azar Carlin Anion gap [Moles/Vol] 9.3 mmol/L Normal [facility] Comment on above: Performed By: #### C MP, LIPID #### [facility] [address] [place] [address] Dr. Azar Carlin AST [Catalytic activity/Vol] 32 U/L Normal 15-37 [facility] Comment on above: Performed By: #### C MP, LIPID #### [facility] [address] [place] [address] Dr. Azar Carlin Bilirubin [Mass/Vol] 0.5 mg/dL Normal 0.2-1.0 [facility] Comment on above: Performed By: #### C MP, LIPID #### [facility] [address] [place] [address] Dr. Azar Carlin Calcium [Mass/Vol] 9.3 mg/dL Normal 8.5-10.1 [facility] Comment on above: Performed By: #### C MP, LIPID #### [facility] [address] [place] [address] Dr. Azar Carlin Chloride [Moles/Vol] 103 mmol/L Normal 98-107 [facility] Comment on above: Performed By: #### C MP, LIPID #### [facility] [address] [place] [address] Dr. Azar Carlin CO2 [Moles/Vol] 29.9 mmol/L Normal 21.0-32.0 [facility] Comment on above: Performed By: #### C MP, LIPID #### [facility] [address] [place] [address] Dr. Azar Carlin Creatinine [Mass/Vol] 0.66 mg/dL Normal 0.55-1.02 [facility] Comment on above: Performed By: #### C MP, LIPID #### [facility] [address] [place] [address] Dr. Azar Carlin EGFR-AF [place]I >60 Normal >=60 [facility] Comment on above: Performed By: #### C MP, LIPID #### [facility] [address] [place] [address] Dr. Azar Carlin EGFR-NON AF [place]I >60 Normal >=60 [facility] Comment on above: Performed By: #### C MP, LIPID #### [facility] [address] [place] [address] Dr. Azar Carlin Globulin (S) [Mass/Vol] 3.7 g/dL Normal [facility] Comment on above: Performed By: #### C MP, LIPID #### [facility] [address] [place] [address] Dr. Azar Carlin Glucose [Mass/Vol] 115 mg/dL Critically high 74-106 [facility] Comment on above: Performed By: #### C MP, LIPID #### [facility] [address] [place] [address] Dr. Azar Carlin Potassium [Moles/Vol] 4.2 mmol/L Normal 3.5-5.1 [facility] Comment on above: Performed By: #### C MP, LIPID #### [facility] [address] [place] [address] Dr. Azar Carlin Protein [Mass/Vol] 7.6 g/dL Normal 6.4-8.2 [facility] Comment on above: Performed By: #### C MP, LIPID #### [facility] [address] [place] [address] Dr. Azar Carlin Sodium [Moles/Vol] 138 mmol/L Normal 136-145 [facility] Comment on above: Performed By: #### C MP, LIPID #### [facility] [address] [address] [address] Azar Carlin Urea nitrogen [Mass/Vol] 10.0 mg/dL Normal 7.0-18.0 [facility] Comment on above: Performed By: #### C MP, LIPID #### [facility] [address] [address] [address] Azar Carlin Urea nitrogen/Creatinine [Mass ratio] 15.2 mg/mg Normal [facility] [facility] Comment on above: Performed By: #### C MP, LIPID #### [facility] [address] [place] [address] Dr. Azar Carlin GLYCOHEMOGLOBIN A1Con 2021 ADA RECOMMENDATION ADA THERAPEUTIC TARG ET 6.0 - 7.0 ACTION SUGGESTED > 7.0 Normal [facility] Comment on above: Performed By: #### A 1C #### [facility] [address] [place] [address] Dr. Azar Carlin Glucose [Mass/Vol] 154 mg/dL Normal [facility] Comment on above: Performed By: #### A 1C #### [facility] [address] [place] [address] Dr. Azar Carlin HbA1c (Bld) [Mass fraction] 7.0 % Critically high <=6.0 [facility] Comment on above: Performed By: #### A 1C #### [facility] [address] [place] [address] Dr. Azar Carlin CNOVon 03-29-2021 CNOV Office Visit (VASSST ) TERESSA BUI ([id number]) 1955 F Date Time Provider Department 03/29/21 3:45 PM ELIER ESPINO During your visit today, we recorded the following information about you: Pulse Respiration Blood pressure Weight 79/minute 18/minute 151/72 61.2 kg Elier Espino MD 03/29/2021 1:39 PM Signed [facility] OUTPATIENT VISIT DATE March 29, 2021 OUTPATIENT VISIT TYPE EST PRIMARY CARE PHYSICIAN: Kevin Velasquez ([facility]) [address] [place] [address] REFERRING PHYSICIAN SELF CHIEF COMPLAINT: Patient presents [...] (HCC) [I73.9] Order(s):PVR ANK/REYNA/TOE [facility] [[id number]] Order #: [id number] FUTURE US ABD AORTA COMPLETE [facility] [[id number]] Order #: [id number] FUTURE US CAROTID ARTERIES [facility] [[id number]] Order #: [id number] FUTURE clopidogrel (PLAVIX) 75 mg tabletTake 1 [...] 08/31/2019 Dep (more content not included)... Normal [facility] CNOVon 12-07-2020 CNOV Office Visit (VASSST ) TERESSA BUI ([id number]) 1955 F Date Time Provider Department 12/07/20 1:30 PM ELIER ESPINO During your visit today, we recorded the following information about you: Pulse Respiration Blood pressure Weight 71/minute 18/minute 133/85 61.2 kg Elier Espino MD 12/07/2020 1:01 PM Signed [facility] OUTPATIENT VISIT DATE December 07, 2020 OUTPATIENT VISIT TYPE EST PRIMARY CARE PHYSICIAN: Kevin Velasquez ([facility]) [address] [place] [address] REFERRING PHYSICIAN SELF CHIEF COMPLAINT: Patient presents [...] PAD Primary Visit Diagnosis:PAD (peripheral artery disease) ([facility]) [I73.9] Other Visit Diagnosis:Subclavian arterial stenosis ([facility]) [I77.1] Order(s):PVR ANK/REYNA/TOE [facility] [[id number]] Order #: [id number] FUTURE US ABD AORTA COMPLETE [facility] [[id number]] Order #: [id number] FUTURE US CAROTID ARTERIES [facility] [[id number]] Order #: [id number] FUTURE Prescriptions as of 12/07/2020 Sig: METFORMIN [...] 12/07/2020 Noted Resolved PAD (peripheral artery disease) ([facility]) [I73.9] 08/31/2019 Essential hypertension [I10] 08/31/2019 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 Follow-up and Disposition History Re (more content not included)... Normal [facility] CNOVon 09-07-2020 CNOV Office Visit (VASSST ) TERESSA BUI ([id number]) 1955 F Date Time Provider Department 09/07/20 2:45 PM ELIER ESPINO During your visit today, we recorded the following information about you: Pulse Respiration Blood pressure Weight 53/minute 18/minute 161/80 62.9 kg Elier Espino MD 09/07/2020 12:28 PM Signed [facility] OUTPATIENT VISIT DATE September 07, 2020 OUTPATIENT VISIT TYPE EST PRIMARY CARE PHYSICIAN: Kevin Velasquez MD ([facility]) [address] [place] [address] REFERRING PHYSICIAN Elier Espino MD [address] [facility] [address] CHIEF COMPLAINT: Patient presents with: Follow Up: [...] ? Elier Espino MD Referring Provider: ELIER ESPNIO [[id number]] Allergies As of Date: 09/07/2020 (No Known Allergies) Date Reviewed: 09/07/2020 Reviewed by: Siena (Rn) MORRIS King - Fully Assessed Reason for Visit: Follow Up [171] Cmt: PAD/Discuss Test Results Primary Visit Diagnosis:PAD (peripheral artery disease) ([facility]) [I73.9] Order(s):PVR ANK/REYNA/TOE [facility] [[id number]] Order #: [id number] FUTURE US ABD AORTA COMPLETE [facility] [[id number]] Order #: [id number] FUTURE US ARM ARTERIAL UNL [facility] [[id number]] Order #: [id number] FUTURE Prescriptions as of 09/07/2020 Sig: METFORMIN [...] 09/07/2020 12:00 PM >> SIENA KING RN [facility] Sep 07, 2020 12:00 PM Not taking. Problem List As Of Date 09/07/2020 Noted Resolved PAD (more content not included)... Normal [facility] APTTon 05-09-2020 aPTT Coag (Bld) [Time] 24.8 s Normal 23.0-32.4 [facility] Comment on above: Result Comment: Unfr actionated [...] laboratory APTT reagent in use throughout the [facility]. Performed By: #### B MP, CBC, PTT ####[facility] [address] [place] [phone] Basic Metabolic Panlon 05-09 Anion gap [Moles/Vol] 11 mmol/L Normal 9-18 [facility] Comment on above: Performed By: #### B MP, CBC, PTT ####[facility] Iawrvvwabu7341 [phone] Calcium [Mass/Vol] 9.8 mg/dL Normal 8.5-10.2 [facility] Comment on above: Performed By: #### B MP, CBC, PTT ####[facility] Hzuoidxsxc8259 [place] [phone] Chloride [Moles/Vol] 103 mmol/L Normal 97-105 [facility] Comment on above: Performed By: #### B MP, CBC, PTT ####[facility] Unp[address]xs75[address] [place] [phone] CO2 [Moles/Vol] 24 mmol/L Normal 22-30 [facility] Comment on above: Performed By: #### B MP, CBC, PTT ####[facility] Lnnkjntiuo5782 [phone] Creatinine [Mass/Vol] 0.57 mg/dL Low 0.58-0.96 [facility] Comment on above: Performed By: #### B MP, CBC, PTT ####[facility] [address]38[address] [place] 503681-5[address] eGFR- Amer. >60 Normal [facility] Comment on above: Performed By: #### B MP, CBC, PTT ####[facility] Ggqbdzjnuw1823 [address]5160 GFR/1.73 sq M predicted among non-blacks MDRD (S/P/Bld) [Vol rate/Area] mL/min/{1.73_m2} Normal [facility] Comment on above: Result Comment: eGFR (Estimated [...] Performed By: #### B MP, CBC, PTT ####[facility] Pbkbbvnmgq4887 [phone] Glucose [Mass/Vol] 156 mg/dL High 74-99 [facility] Comment on above: Result Comment: The [place] [employer] (ADA) provides guidance for cutoff [...] Standards of Medical Care in Diabetes 2016, [place] [employer]. Diabetes Care. 2016.39(Suppl 1). Performed By: #### B MP, CBC, PTT ####[place] [address] Potassium [Moles/Vol] 4.3 mmol/L Normal 3.7-5.1 [facility] Comment on above: Performed By: #### B MP, CBC, PTT ####[place] [address] Sodium [Moles/Vol] 138 mmol/L Normal 136-144 [facility] Comment on above: Performed By: #### B MP, CBC, PTT ####[place] [address] Urea nitrogen [Mass/Vol] 9 mg/dL Normal 7-21 [facility] Comment on above: Performed By: #### B MP, CBC, PTT ####[place] [address] CBCon 05-09-2020 Absolute nRBC <0.01 Normal <0.01 [facility] Comment on above: Performed By: #### B MP, CBC, PTT ####[place] [address] Erythrocyte distribution width (RBC) [Ratio] 12.9 % Normal 11.5-15.0 [facility] Comment on above: Performed By: #### B MP, CBC, PTT ####[place] [address] Hematocrit (Bld) [Volume fraction] 39.9 % Normal 36.0-46.0 [facility] Comment on above: Performed By: #### B MP, CBC, PTT ####[place] [address] Hemoglobin (Bld) [Mass/Vol] 13.2 g/dL Normal 11.5-15.5 [facility] Comment on above: Performed By: #### B MP, CBC, PTT ####[phone] MCH (RBC) [Entitic mass] 28.9 pG Normal 26.0-34.0 [facility] Comment on above: Performed By: #### B MP, CBC, PTT ####[facility] Xkiqozyklv4867 [phone] MCHC (RBC) [Mass/Vol] 33.1 g/dL Normal 30.5-36.0 [facility] Comment on above: Performed By: #### B MP, CBC, PTT ####[facility] Fdkvffwwia1801 [phone] MCV (RBC) [Entitic vol] 87.5 fL Normal 80.0-100.0 [facility] Comment on above: Performed By: #### B MP, CBC, PTT ####[facility] [address] [place], [place] [phone] Platelet mean volume (Bld) [Entitic vol] 10.1 fL Normal 9.0-12.7 [facility] Comment on above: Performed By: #### B MP, CBC, PTT ####[facility] Ymngmdoeyp9768 [phone] Platelets (Bld) [#/Vol] 156 10*3/uL Normal 150-400 [facility] Comment on above: Performed By: #### B MP, CBC, PTT ####[facility] Naaifmdnku0971 [phone] RBC (Bld) [#/Vol] 4.56 10*6/uL Normal 3.90-5.20 [facility] Comment on above: Performed By: #### B MP, CBC, PTT ####[facility] [address] [place], [place] [phone] WBC (Bld) [#/Vol] 5.30 10*3/uL Normal 3.70-11.00 [facility] Comment on above: Performed By: #### B MP, CBC, PTT ####[facility] Ntyoxfbotz7297 [phone] HISTORY PHYSICALon 0 HISTORY PHYSICAL HNO ID: [id number] Author: Elier Espino Service: Vascular Surgery Author [...] activities. 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 She has a known history of left subclavian artery stenosis. No neurologic complaints otherwise. Underwent??CTA at [facility] which showed left SCA stenosis. On?plavix,?ASA, statin.? [...] 09, 2020 TIME: 1:46 PM PAGER/CONTACT #: [facility] NURSING PROGon 05-09-2020 NURSING PROG HNO ID: [id number] Author: Chris BergerRn) MORRIS Wheatley Service: Nursing Author Type: Registered Nurse Type: Nursing Progress Note Filed: 05/09/2020 8:20 PM Note Text: Pt ambulated to bathroom. Returned to bed. r groin soft dressing d/i [facility] NURSING PROG HNO ID: [id number] Author: Chris BergerRn) MORRIS Wheatley Service: Nursing Author Type: Registered Nurse Type: Nursing Progress Note Filed: 05/09/2020 8:19 PM Note Text: Pt dangled at bedside . r groin soft dressing d/i [facility] NURSING PROG HNO ID: [id number] Author: Chris BergerRn) MORRIS Wheatley Service: Nursing Author Type: Registered Nurse Type: Nursing Progress Note Filed: 05/09/2020 7:54 PM Note Text: Hob elevated 45% Normal [facility] OPERATIVE NOon 05-09-2020 OPERATIVE NO HNO ID: [id number] Author: Elier Espino Service: Vascular Surgery Author Type: Physician Type: Operative Report Filed: 05/10/2020 9:41 AM Note Text: [facility] - Operative Report TERESSA BUI : 1955 AGE: 64. SEX: F PATIENT TYPE: A HOSP SVC: KAYDEN LOCATION: [facility] ATTENDING PHYSICIAN: ELIER ESPINO CSN NUMBER: [id number] DATE OF SURGERY/PROCEDURE: 05/09/2020 INCISION/PROCEDURE START TIME: 2:25 PM INCISION CLOSE/PROCEDURE END TIME: 3:21 PM PREOPERATIVE DIAGNOSIS: Left subclavian artery stenosis, left debilitating arm claudication. POSTOPERATIVE DIAGNOSIS: Left subclavian artery stenosis, left debilitating arm claudication. SURGEON: Elier Espino M.D. INTEGRATION TECHNICIAN: No Additional Staff SURGERY/PROCEDURE: Ultrasound-guided access of the right common femoral artery, first order catheterization, left subclavian angiogram, stenting of the left proximal subclavian artery, completion angiography. ANESTHESIA: Conscious sedation, local. COMPLICATIONS: None. SPECIMENS: None. IMPLANTS: [employer] 7 x 27 LD balloon expandable stent, inflated to 8 atmospheres. FINDINGS: High-grade stenosis of the proximal left subclavian artery, pre-stent angioplasty performed with 4 x 40 mm balloon, lesion was then treated with a 7 x 27 [employer] balloon mounted stent with resolution of stenosis post stenting. Angiography of the left upper extremity demonstrated brisk flow down the left brachial, radial, and ulnar arteries filling to the hand. DESCRIPTION OF PROCEDURE: The patient was brought to the laborer chemical processing and placed supine on the table. The [...] advanced into the thoracic aorta. Subsequently, a 5-Bruneian sheath was advanced over which an angled Glidecath was used to successfully cannulate the left subclavian artery. The wire was advanced through the left subclavian and axillary, and subsequently brachial artery. The wire had been exchanged for a Glidewire Advantage. A 6-Bruneian x 90 cm sheath was then advanced over the wire. The patient had been systemically heparinized. ACTs were checked throughout the duration of the case and she was maintained in a therapeutic value. Left upper extremity angiograms were performed as needed with the above-noted findings. Decision was made to pre-dilate the lesion. This was performed with a 4 x 40 mm sampler pickup balloon following which the lesion was treated with a 7 x 27 [employer] balloon mounted stent with the balloon [...] site using a Mynx device. A short 6-Bruneian sheath was placed. The patient's heparinization was [...] brought to recovery area. Elier Espino M.D. JIMY:[id number] /[id number] Normal [facility] Type and Screenon 05-09-2020 ABO/RH(D) Positive Normal [facility] Comment on above: Performed By: #### T SCR ####[facility] [address] [place], [place] [phone] HOSPon 03-28-2020 HOSP Patient:Rakel Buiit a H [...] for the following basenames: K,HCT Progress Notes (CLAIMS COORDINATOR MANAGEMENT): WILLIAMS Valencia Tech 04/20/2020 11:03 AM [...] No (Follow-up call) Homer, this is the [facility] calling, may I speak to [...] to speak with a social work steam turbine assembler to help give you support [...] [facility] patients may call: ? [facility] Nurse vision impaired teacher at [phone] ? Their PCP Office Caregivers may call: ? [facility] Employee Hotline: [phone] Patient verbalizes understanding of information provided. Denies any further questions at this time. Please visit CDC.gov website for any updated information about Coronavirus. You can also find information on the [facility] website. Additional information can be found on the [facility] and [facility] web sites: https://www.cdc.gov/co ronavirus/2019-nCoV/in dex.html https://[email or web address]/coronavirus End outreach Previous Version Progress Notes (CLAIMS COORDINATOR MANAGEMENT): Theresa Varela 04/18/2020 10:33 AM Signed COVID COMMUNITY MONITORING PROGRAM Provider Action/FYI: Follow up-stable feeling good no sx Monitoring Call: Date of symptoms onset: ] Patient is COVID-19 positive Contact made with patient Yes Patient identified by name and . Discussed care with patient Initial intake? No (Follow-up call) Homer, this is the [facility] calling, may I speak to [...] to speak with a social work steam turbine assembler to help give you support [...] [facility] patients may call: ? [facility] Nurse vision impaired teacher at [phone] ? Their PCP Office Caregivers may call: ? [facility] Employee Hotline: 632.529.9015 Patient verbalizes understanding of information provided. Denies any further questions at this time. Please visit CDC.gov website for any updated information about Coronavirus. You can also find information on the [facility] website. Additional information can be found on the [facility] and [facility] web sites: https://www.cdc.gov/co ronavirus/2019-nCoV/in dex.html [email or web address]/coronavirus End outreach Normal [facility] Basic Metabolic Panlon 09-01 Anion gap [Moles/Vol] 10 mmol/L Normal 9-18 [facility] Comment on above: Performed By: #### C BC, BMP ####[facility] Uxouhkkhei1509 [address]5160 Calcium [Mass/Vol] 8.8 mg/dL Normal 8.5-10.2 [facility] Comment on above: Performed By: #### C BC, BMP ####[facility] Hwigpqpinp1727 [address]5160 Chloride [Moles/Vol] 109 mmol/L High 97-105 [facility] Comment on above: Performed By: #### C BC, BMP ####[facility] Agmwgcadxr1318 [address]5160 CO2 [Moles/Vol] 23 mmol/L Normal 22-30 [facility] Comment on above: Performed By: #### C BC, BMP ####[facility] Ussokffcgo5086 [address]5160 Creatinine [Mass/Vol] 0.58 mg/dL Normal 0.58-0.96 [facility] Comment on above: Performed By: #### C BC, BMP ####[facility] Uwpzbys[address]uj8204 [place] [phone] eGFR- Amer. >60 Normal [facility] Comment on above: Performed By: #### C SHELLEY, BMP ####[facility] Ibyjaepmfn7885 [phone] GFR/1.73 sq M predicted among non-blacks MDRD (S/P/Bld) [Vol rate/Area] mL/min/{1.73_m2} Normal [facility] Comment on above: Result Comment: eGFR (Estimated [...] GFR. Performed By: #### C SHELLEY, BMP ####[facility] Rxeziugdye8607 [phone] Glucose [Mass/Vol] 134 mg/dL High 74-99 [facility] Comment on above: Result Comment: The [place] Diabetes Association (ADA) provides guidance for cutoff [...] Standards of Medical Care in Diabetes 2016, [place] [employer]. Diabetes Care. 2016.39(Suppl 1). Performed By: #### C SHELLEY, BMP ####[facility] [address] [place] [phone] Potassium [Moles/Vol] 4.4 mmol/L Normal 3.7-5.1 [facility] Comment on above: Performed By: #### C SHELLEY, BMP ####[facility] [address] [place] [address] Sodium [Moles/Vol] 142 mmol/L Normal 136-144 [facility] Comment on above: Performed By: #### C SHELLEY, BMP ####[facility] Lnb[address] [place] [address] Urea nitrogen [Mass/Vol] 11 mg/dL Normal 7-21 [facility] Comment on above: Performed By: #### C SHELLEY, BMP ####[facility] [address] [place] [address] CBCon 09-01-2019 Erythrocyte distribution width (RBC) [Ratio] 13.0 % Normal 11.5-15.0 [facility] Comment on above: Performed By: #### C SHELLEY, BMP ####[place] [address] Hematocrit (Bld) [Volume fraction] 34.9 % Low 36.0-46.0 [facility] Comment on above: Performed By: #### C SHELLEY, BMP ####[facility] X[address] [place] [address] Hemoglobin (Bld) [Mass/Vol] 11.4 g/dL Low 11.5-15.5 [facility] Comment on above: Performed By: #### C SHELLEY, BMP ####[facility] [address]yz[address] [place] [address] MCH (RBC) [Entitic mass] 29.0 pG Normal 26.0-34.0 [facility] Comment on above: Performed By: #### C SHELLEY, BMP ####[facility] [address]fv[address] [place] [address] MCHC (RBC) [Mass/Vol] 32.7 g/dL Normal 30.5-36.0 [facility] Comment on above: Performed By: #### C SHELLEY, BMP ####[facility] R[address] [place] [address] MCV (RBC) [Entitic vol] 88.8 fL Normal 80.0-100.0 [facility] Comment on above: Performed By: #### C SHELLEY, BMP ####[facility] [address]ftyf[address] [place] [address] Platelet mean volume (Bld) [Entitic vol] 10.4 fL Normal 9.0-12.7 [facility] Comment on above: Performed By: #### Deven ROSA, BMP ####[facility] Ewjhpnzgjd6956 [place] [address] Platelets (Bld) [#/Vol] 131 10*3/uL Low 150-400 [facility] Comment on above: Performed By: #### Deven ROSA, BMP ####[facility] Dsnoudgfcb4793 [place] [phone] RBC (Bld) [#/Vol] 3.93 10*6/uL Normal 3.90-5.20 [facility] Comment on above: Performed By: #### Deven ROSA, BMP ####[facility] Ksjtszfzla0624 [place] [phone] WBC (Bld) [#/Vol] 5.68 10*3/uL Normal 3.70-11.00 [facility] Comment on above: Performed By: #### Deven ROSA, BMP ####[facility] Mzbixgesub5615 [address]5160 CNCOon 09-01-2019 CNCO Letter Text [facility] NURSING PROGon 09-01-2019 NURSING PROG HNO ID: [id number] Author: Cecille (Rn) Lani, RN Service: Nursing Author Type: Registered Nurse Type: Nursing Progress Note Filed: 09/01/2019 8:25 AM Note Text: Nursing Progress Note Patient Name: Teressa Bui Patient Location: [place] [address]/[place] [address]- 1 __ Daily Note: 0800- Spoke with Dr. Espino about giving the patient the ASA. Dr. Espino said to hold the the Asprin for now until he sees the patient. Dr. Espino also said to take off the sandbags off. This note was completed by: Cecille Garibay, RN [facility] NURSING PROG HNO ID: [id number] Author: Bonnie (Rn) MORRIS Guerra Service: Nursing [...] present, <3 sec cap refill, pink and aerial photograph interpreter color with positive sensation. Will continue to monitor. 0000- pt HOB elevated to 30 degrees without incident. Will continue groin checks every 4 hrs now per order. Will continue to monitor. [facility] PROGRESSon 09-01-2019 PROGRESS HNO ID: [id number] Author: Elier Espino Service: Vascular Surgery Author [...] 01, 2019 TIME: 9:32 AM PAGER/CONTACT #: [phone] Normal [facility] Basic Metabolic Panlon 08-31 Anion gap [Moles/Vol] 12 mmol/L Normal 18 [facility] Comment on above: Performed By: #### B MP, CBC ####[facility] [address] [place] [phone] Calcium [Mass/Vol] 10.0 mg/dL Normal 8.5-10.2 [facility] Comment on above: Performed By: #### B MP, CBC ####[facility] Xndxzstzos3970 [place] [phone] Chloride [Moles/Vol] 105 mmol/L Normal 97-105 [facility] Comment on above: Performed By: #### B MP, CBC ####[facility] Hodqtgeqae1807 [place] [phone] CO2 [Moles/Vol] 25 mmol/L Normal 22-30 [facility] Comment on above: Performed By: #### B MP, CBC ####[facility] Nwcevipnyg1206 [place] [address] Creatinine [Mass/Vol] 0.79 mg/dL Normal 0.58-0.96 [facility] Comment on above: Performed By: #### B MP, CBC ####[facility] Ionpecufad9274 [address]5160 eGFR- Amer. >60 Normal [facility] Comment on above: Performed By: #### B MP, CBC ####[facility] Xgwnvilmpw1210 [place] [phone] GFR/1.73 sq M predicted among non-blacks MDRD (S/P/Bld) [Vol rate/Area] mL/min/{1.73_m2} Normal [facility] Comment on above: Result Comment: eGFR (Estimated [...] GFR. Performed By: #### B MP, CBC ####[facility] Tguywtejqo4001 [place] [phone] Glucose [Mass/Vol] 130 mg/dL High 74-99 [facility] Comment on above: Result Comment: The [place] Diabetes Association (ADA) provides guidance for cutoff [...] Standards of Medical Care in Diabetes 2016, [place] [employer]. Diabetes Care. 2016.39(Suppl 1). Performed By: #### B MP, CBC ####[place] [address] Potassium [Moles/Vol] 4.8 mmol/L Normal 3.7-5.1 [facility] Comment on above: Performed By: #### B MP, CBC ####[place] [address] Sodium [Moles/Vol] 142 mmol/L Normal 136-144 [facility] Comment on above: Performed By: #### B MP, CBC ####[place] [address] Urea nitrogen [Mass/Vol] 19 mg/dL Normal 7-21 [facility] Comment on above: Performed By: #### B MP, CBC ####[place] [address] CBCon 08-31-2019 Erythrocyte distribution width (RBC) [Ratio] 13.4 % Normal 11.5-15.0 [facility] Comment on above: Performed By: #### B MP, CBC ####[place] [address] Hematocrit (Bld) [Volume fraction] 43.5 % Normal 36.0-46.0 [facility] Comment on above: Performed By: #### B MP, CBC ####[place] [address] Hemoglobin (Bld) [Mass/Vol] 14.6 g/dL Normal 11.5-15.5 [facility] Comment on above: Performed By: #### B MP, CBC ####[facility] [address]upso[address] [place] [address] MCH (RBC) [Entitic mass] 29.6 pG Normal 26.0-34.0 [facility] Comment on above: Performed By: #### B MP, CBC ####[facility] B[address]ew[address] [place] [address] MCHC (RBC) [Mass/Vol] 33.6 g/dL Normal 30.5-36.0 [facility] Comment on above: Performed By: #### B MP, CBC ####[facility] [address] [place] [address] MCV (RBC) [Entitic vol] 88.1 fL Normal 80.0-100.0 [facility] Comment on above: Performed By: #### B MP, CBC ####[facility] [address] [place] [address] Platelet mean volume (Bld) [Entitic vol] 9.9 fL Normal 9.0-12.7 [facility] Comment on above: Performed By: #### B MP, CBC ####[facility] [address] [place] [address] Platelets (Bld) [#/Vol] 176 10*3/uL Normal 150-400 [facility] Comment on above: Performed By: #### B MP, CBC ####[facility] [address] [place] [address] RBC (Bld) [#/Vol] 4.94 10*6/uL Normal 3.90-5.20 [facility] Comment on above: Performed By: #### B MP, CBC ####[facility] [address] [place], [place] [id number] WBC (Bld) [#/Vol] 6.69 10*3/uL Normal 3.70-11.00 [facility] Comment on above: Performed By: #### B MP, CBC ####[facility] [address] [place], [place] [phone] Confirm Blood Typeon 020 ABO/RH(D) Positive Normal [facility] Comment on above: Performed By: #### C ONABO #### [facility] [address] [place] [phone] Performed By: #### T SCR ####[facility] [address] [place] [phone] HISTORY PHYSICALon 0 HISTORY PHYSICAL HNO ID: [id number] Author: Elier Espino Service: Vascular Surgery Author [...] 2019 TIME: 9:51 AM PAGER/CONTACT #: Normal [facility] Lipid Panel, [place] 020 Cholesterol [Mass/Vol] 152 mg/dL Normal <200 [facility] Comment on above: Performed By: #### L IPB ####[facility] [address] [place] [phone] Cholesterol in HDL [Mass/Vol] 61 mg/dL Normal >39 [facility] Comment on above: Performed By: #### L IPB ####[facility] Qbiqpvsocc9564 [phone] Cholesterol in LDL [Mass/Vol] 27 mg/dL Normal <100 [facility] Comment on above: Performed By: #### L IPB ####[facility] [address] [place] [address] Fasting Time Unknown Normal [facility] Comment on above: Performed By: #### L IPB ####[facility] [address] [place] [address] LDL:HDL Ratio 0.44 Normal <2.54 [facility] Comment on above: Result Comment: Refe sarah beth: 1. National Cholesterol Education Program ATP III Guideline At-A-Glance Quick Desk Reference: National Heart, Lung, and Blood [place]. National Institutes of Health. 2001: NIH Publication No. 01-3305. 2. An International Atherosclerosis Society position paper: global recommendations for the management of dyslipidemia: executive summary, Atherosclerosis. 2014: 232(2):410-413. Performed By: #### L IPB ####[facility] [address] [place] [address] Non HDL Cholesterol 91 mg/dL Normal <130 [facility] Comment on above: Performed By: #### L IPB ####[facility] [address] [place] [address] TC:HDL Ratio 2.49 Normal <5.10 [facility] Comment on above: Performed By: #### L IPB ####[facility] [address] [place] [address] Triglyceride [Mass/Vol] 321 mg/dL High <150 [facility] Comment on above: Performed By: #### L IPB ####[facility] [address] [place] [address] VLDL Cholesterol 64 mg/dL High <30 [facility] Comment on above: Performed By: #### L IPB ####[facility] [address] [place] [address] NURSING PROGon 08-31-2019 NURSING PROG HNO ID: [id number] Author: Mary (Rn) MORRIS Zhu Service: ? Author Type: Registered Nurse Type: Nursing Progress Note Filed: 08/31/2019 5:28 PM Note Text: Nursing Progress Note Patient Name: Teressa uBi Patient [facility]/ME-2N-[id number]- 1 __ Daily Note: 1720 notified by primary RN that patient's incision is still bleeding after holding pressure for 15 minutes, call placed to Dr. Espino to notify. This note was completed by: Mary Zhu RN Normal [facility] OPERATIVE NOon 08-31-2019 OPERATIVE NO HNO ID: [id number] Author: Elier Espino Service: Vascular Surgery Author Type: Physician Type: Operative Report Filed: 09/02/2019 12:54 PM Note Text: [facility] - Operative Report TERESSA BUI : 1955 AGE: 63. SEX: F PATIENT TYPE: I HOSP SVC: [facility] LOCATION: [address] ATTENDING PHYSICIAN: ELIER ESPINO CSN NUMBER: [id number] DATE OF SURGERY/PROCEDURE: 08/31/2019 INCISION/PROCEDURE START TIME: 10:23 AM INCISION CLOSE/PROCEDURE END TIME: 2:47 PM PREOPERATIVE DIAGNOSIS: Peripheral arterial disease, debilitating left lower extremity claudication, left iliac stenosis. POSTOPERATIVE DIAGNOSIS: Peripheral arterial disease, debilitating left lower extremity claudication, left iliac stenosis. SURGEON: Elier Espino M.D. INTEGRATION TECHNICIAN: No Additional Staff SURGERY/PROCEDURE: Aortoiliac angiography, stenting [...] 8 x 60 and 7 x 60 [employer] self-expanding stent. Post-stenting angioplasty being performed [...] PROCEDURE: The patient was brought into the laborer chemical processing suite and placed supine on the table. [...] point, the patient was systemically heparinized. A 6-Bruneian 25 cm sheath was brought onto the [...] on the left lower extremity from the 6-Bruneian sheath and this demonstrated brisk flow through [...] was advanced into the distal aorta. A 5-Bruneian sheath was placed and the aortic bifurcation was successfully crossed with the Omni Flush catheter and a stiff- angled Glidewire. Stiff-angled Glidewire was successfully navigated into the superficial femoral artery and over this, a 5-Bruneian x 90 sheath was advanced. This was [...] area in stable condition. Elier Espino M.D. JIMY:[id number] Normal [facility] PROGRESSon 08-31-2019 PROGRESS HNO ID: [id number] Author: Dina James Service: Hospital Medicine Author Type: Physician Type: Progress Notes Filed: 08/31/2019 8:11 PM Note Text: SERVICE DATE: 08/31/2019 SERVICE TIME: 8:10 PM HOSPITAL MEDICINE PROGRESS NOTE NIGHT AND WEEKEND COVERAGE: Nights: Please contact pager [phone]. Hospital Medicine/Primary Attending: Dina James MD Subjective [...] 31, 2019 TIME: 8:10 PM PAGER/CONTACT #: [phone] [facility] PT EDon 08-31-2019 PT ED HNO ID: [id number] Author: Ivan Martinez) MORRIS Babb Service: Nursing [...] Signed By: Ivan Babb RN In Department: [facility] HOSTESS HOST Normal [facility] HOSPon 08-23-2019 HOSP Patient:Regina Bui MRN: Height:5' [...] for the following basenames: K,HCT Progress Notes ([facility]): Elier Espino MD 08/19/2019 12:35 PM Signed [facility] [place] [facility] OUTPATIENT VISIT DATE August 19, 2019 OUTPATIENT VISIT TYPE ESTABLISHED PRIMARY CARE PHYSICIAN: Kevin Velasquez MD ([facility]) [address] [place] [address] REFERRING PHYSICIAN SELF CHIEF COMPLAINT: No chief complaint on file. HISTORY OF PRESENT ILLNESS: Teressa Bui was referred for consultation by Dr. Velasquez. Opinions and recommendations in this consultation will be transmitted back to the referring physician by [facility] notes or via mail. ? Ms. Bui is a 63 year old female [facility] prediabetes, active smoker who is seen today [...] since her last evaluation. Studies performed at [facility] and [facility] show: Bilateral ICA 50-69% stenoses. GENO/PVR [...] complaints, no neurologic complaints. Underwent CTA at [facility] which showed left SCA stenosis. On ASA, [...] symptoms. Elier Espino MD Progress Notes ([facility]): Isela Rand Ralph 08/18/2019 10:01 AM [...] like pt had these tests done at [facility], scanned into system. Normal [facility] Vital Signs Date Time Vital Sign Value Performing Clinician Facility 09-09-2023 10:34-0500 Body height 165.1 cm Mariela Menchaca NP Work Phone: [facility] 09-09-2023 10:34-0500 Body mass index (BMI) [Ratio] 22.8 kg/m2 Mariela Menchaca NP Work Phone: [facility] 09-09-2023 10:34-0500 Body weight 62.14 kg Mariela Menchaca NP Work Phone: [facility] 09-09-2023 10:34-0500 Diastolic blood pressure 78 mm[Hg] Mariela Menchaca RN ADMISSIONS Work Phone: [facility] 09-09-2023 10:34-0500 Systolic blood pressure 124 mm[Hg] Mariela Menchaca NP Work Phone: [facility] 04-08-2023 13:00-0400 Body height 165.1 cm Radha Bradykendall Other [facility] Other 04-08-2023 13:00-0400 Body mass index (BMI) [Ratio] 22.46 kg/m2 Radha Paulsondelores Other [facility] Other 04-08-2023 13:00-0400 Body weight 61.24 kg Radha Paulsondelores Other [facility] Other 04-08-2023 13:00-0400 Diastolic blood pressure 80 mm[Hg] Radha Bradykendall Other [facility] Other 04-08-2023 13:00-0400 SaO2% (BldA) [Mass fraction] 99 % Radha Bradykendall Other [facility] Other 04-08-2023 13:00-0400 Systolic blood pressure 130 mm[Hg] Radha Paulsondelores Other [facility] Other 03-03-2023 08:30-0400 Body height 165.1 cm Kevin Ball Other [facility] Other 03-03-2023 08:30-0400 Body mass index (BMI) [Ratio] 22.5 kg/m2 Kevin Ball Other [facility] Other 03-03-2023 08:30-0400 Body weight 61.33 kg Kevin Ball Other [facility] Other 03-03-2023 08:30-0400 Diastolic blood pressure 85 mm[Hg] Kevin Ball Other [facility] Other 03-03-2023 08:30-0400 Respiratory rate 12 /min Kevin Ball Other [facility] Other 03-03-2023 08:30-0400 Systolic blood pressure 135 mm[Hg] Kevin Ball Other [facility] Other 11-01-2022 09:30-0400 Body height 165.1 cm Kevin Ball Other [facility] Other 11-01-2022 09:30-0400 Body mass index (BMI) [Ratio] 23.1 kg/m2 Kevin Ball Other [facility] Other 11-01-2022 09:30-0400 Body weight 62.96 kg Kevin Ball Other [facility] Other 11-01-2022 09:30-0400 Diastolic blood pressure 75 mm[Hg] Kevin Ball Other [facility] Other 11-01-2022 09:30-0400 Respiratory rate 12 /min Kevin Ball Other [facility] Other 11-01-2022 09:30-0400 Systolic blood pressure 170 mm[Hg] Kevin Ball Other [facility] Other 09-12-2022 10:45-0500 Body height 165.1 cm Dylan Calixto Other [facility] Other 09-12-2022 10:45-0500 Body mass index (BMI) [Ratio] 22.63 kg/m2 Dylan Calixto Other [facility] Other 09-12-2022 10:45-0500 Body temperature 96.7 [degF] Dylan Calixto Other [facility] Other 09-12-2022 10:45-0500 Body weight 61.69 kg Dylan Calixto Other [facility] Other 09-12-2022 10:45-0500 Diastolic blood pressure 70 mm[Hg] Dylan Calixto Other [facility] Other 09-12-2022 10:45-0500 SaO2% (BldA) [Mass fraction] 97 % Dylan Calixto Other [facility] Other 09-12-2022 10:45-0500 Systolic blood pressure 120 mm[Hg] Dylan Calixto Other [facility] Other 08-23-2021 09:45-0500 Body height 165.1 cm Dylan Calixto Other [facility] Other 08-23-2021 09:45-0500 Body mass index (BMI) [Ratio] 22.63 kg/m2 Dylan Calixto Other [facility] Other 08-23-2021 09:45-0500 Body temperature 97.9 [degF] Dylan Calixto Other [facility] Other 08-23-2021 09:45-0500 Body weight 61.69 kg Dylan Calixto Other [facility] Other 08-23-2021 09:45-0500 Diastolic blood pressure 78 mm[Hg] Dylan Calixto Other [facility] Other 08-23-2021 09:45-0500 SaO2% (BldA) [Mass fraction] 97 % Dylan Calixto Other [facility] Other 08-23-2021 09:45-0500 Systolic blood pressure 158 mm[Hg] Dylan Calixto Other [facility] Other Encounters Encounter Date Encounter Type Care Provider Facility Start: 01-08-2024 End: 01-08-2024 ambulatory MARIELA MENCHACA Not Available Start: 09-09-2023 Bamboo flowsheet Mariela gibbons RN ADMISSIONS Work Phone: [facility] Start: 09-09-2023 Bamboo flowsheet Mariela gibbons RN ADMISSIONS Work Phone: [facility] Start: 09-09-2023 End: 09-09-2023 Office outpatient visit 15 minutes Mariela Menchaca RN ADMISSIONS Work Phone: [facility] Comment on above: Presence of pessary (Primary Dx); Pelvic floor relaxation Start: 09-09-2023 End: 09-09-2023 ambulatory MARIELA MENCHACA Not Available Start: 06-26-2023 End: 06-26-2023 ambulatory Kevin Ron Other [facility] Other Start: 06-26-2023 Office outpatient vi sit 15 minutes Kevin Velasquez [facility] Start: 06-04-2023 End: 06-04-2023 ambulatory Kevin Ron Other [facility] Other Start: 06-04-2023 Telephone encounter Kevin Velasquez [facility] Start: 04-08-2023 End: 04-08-2023 ambulatory Radha Correa Other [facility] Other Start: 04-08-2023 Office outpatient vi sit 15 minutes Radha Correa [facility] Start: 03-18-2023 End: 03-18-2023 ambulatory Kevin Velasquez Other [facility] Other Start: 03-18-2023 Telephone encounter Kevin Velasquez [facility] Start: 03-04-2023 End: 03-04-2023 ambulatory Kevin Velasquez Other [facility] Other Start: 03-04-2023 Telephone encounter Kevin Velasquez [facility] Start: 03-03-2023 End: 03-03-2023 ambulatory Kevin Velasquez Other [facility] Other Start: 03-03-2023 Patient encounter procedure Kevin Ball [facility] Start: 12-02-2022 End: 12-02-2022 ambulatory Kevin Velasquez Other [facility] Other Start: 12-02-2022 Telephone encounter Kevin Velasquez [facility] Start: 11-01-2022 End: 11-01-2022 ambulatory Kevin Velasquez Other [facility] Other Start: 11-01-2022 Office outpatient vi sit 25 minutes Kevin Ball [facility] Start: 10-03-2022 End: 10-03-2022 ambulatory Kevin Velasquez Other [facility] Other Start: 10-03-2022 Office outpatient vi sit 15 minutes Kevin Velasquez [facility] Start: 09-12-2022 End: 09-12-2022 ambulatory Dylan Calixto Other [facility] Other Start: 09-12-2022 Office outpatient vi sit 25 minutes Dylan Calixto [facility] Start: 09-04-2022 End: 09-04-2022 ambulatory Kevin Velasquez Facility:[facility] Start: 09-04-2022 End: 09-04-2022 ambulatory DO Kevin Ball Work Phone: [facility] Work Phone: Start: 09-04-2022 End: 09-04-2022 Patient encounter procedure DO Kevin Ball Work Phone: [facility] [place] Work Phone: Start: 09-02-2022 End: 09-03-2022 ambulatory Mariela MENCHACA Facility:[facility] Start: 09-02-2022 End: 09-02-2022 Lab Drop off Mariela MENCHACA [facility] Start: 07-26-2022 End: 07-26-2022 ambulatory Kevin Velasquez Other [facility] Other Start: 07-26-2022 Telephone encounter Kevin Velas[facility] Start: 07-03-2022 End: 07-04-[address] KEVIN VELASQUEZ Facility:[facility] Start: 04-25-2022 End: 04-25-2022 ambulatory Summer Decker Other [facility] Other Start: 04-25-2022 Telephone encounter [facility] Start: 03-18-2022 Encounter for genera l adult medical examination without abnormal findings DR KEVIN VELASQUEZ [facility] Start: 03-15-2022 End: 03-16-[address] KEVIN VELASQUEZ Facility:[facility] Start: 03-15-2022 End: 03-16-2022 Encounter for general adult medical examination without abnormal findings DR KEVIN VELASQUEZ Facility:[facility] Start: 08-23-2021 End: 08-23-2021 ambulatory Dylan Calixto Other [facility] Other Start: 08-23-2021 Office outpatient ne w 60 minutes Dylan Calixto [facility] V[facility] Start: 08-21-2021 End: 08-22-[address] KEVIN VELASQUEZ Facility:[facility] Procedures Date Procedure Procedure Detail Performing Clinician Start: 05-09-2020 Antibody screen Comment on above: Performed By: #### T SCR ####[place] [phone] Start: 08-31-2019 Antibody screen Comment on above: Performed By: #### T SCR ####[facility] [address] [place], [place] [phone] Plan of Treatment Date Care Activity Detail Author Start: 09-09-2023 End: 09-09-2023 Patient encounter procedure 09/09/2023 10:40 AM EST Office Visit [facility] [address] [phone] Mariela Menchaca NP [address] [place] [id number] Arrived [facility] Comment on above: Arrived Start: 09-04-2022 Ankle brachial press ure index [facility] Start: 09-04-2022 Doppler ultrasonogra phy of bilateral carotid arteries US carotid doppler BI [facility] Start: 09-04-2022 US.doppler Carotid arteries - bilateral [facility] Start: 1995 Screening for malign ant neoplasm of breast Mammogram [facility] Start: 1955 Screening for malign ant neoplasm of colon [facility] Immunizations Immunization Date Immunization Notes Care Provider Fa cility 05-08-2022 influenza, high dose seasonal, preservative-free Kevin Velasquez Other [facility] Other 02-28-2022 Prevnar 20 Kevin Velasquez Other [facility] Other 04-29-2021 pneumococcal polysaccharide vaccine, 23 valent Kevin Velasquez Other [facility] Other 05-18-2020 influenza virus vaccine, split virus (incl. purified surface antigen) Kevin Velasquez Other [facility] Other 05-06-2018 influenza virus vaccine, split virus (incl. purified surface antigen) Kevin Velasquez Other [facility] Other 04-04-2017 tetanus and diphther ia toxoids, adsorbed, preservative free, for adult use (5 Lf of tetanus toxoid and 2 Lf of diphtheria toxoid) Kevin Velasquez Other [facility] Other 04-17-2015 influenza virus vaccine, split virus (incl. purified surface antigen) Kevin Velasquez Other [facility] Other Payers Date Payer Category Payer Unknown 2021 Self-pay [id number] 1959 Private Health Insurance [id number] 1959 Unknown [id number] 1955 Unknown [id number] 1955 Unknown [id number] 1955 Unknown [id number] 1955 Unknown [id number] 1955 Unknown [id number] .1259 1955 Unknown [id number] Medicare Medicare-OP No Part B [id number] Private Health Insurance [id number] Private Health Insurance [facility] [id number] Unknown [id number] Social History Date Type Detail Facility Start: 12-31-2022 End: 09-09-2023 Sex Assigned At [facility] Tobacco smoking status No Smokin g Status Entered [facility] Start: 1955 Sex Assigned At Female F [facility] Start: 12-31-2022 Tobacco smoking stat NHIS Never [...] Equipment Origin al Text Equipment Identifier Dates [id number], [id number] Start: 11-27-2022 Clinical Notes 09-07-2020 to 09-09-2023 [...] mg by mouth in the morning. Lancets (Gladitood Delica Plus Chnomd13F) [facility] USE 1 LANCET USE TO TEST HOME BLOOD SUGAR ONCE DAILY 90 losartan (Cozaar) 50 MG tablet Take 50 mg by mouth in the morning. metFORMIN (Glucophage) 500 MG tablet Take 500 mg by mouth. Take with food. [employer] Videouch Ultra test strip USE TO TEST ONCE [...] for Pessary maintenance. documented in this encounter [facility] 06-26-2023 Evaluation note Encounter Date Diagnosis Assessment [...] necessary, will resolve w/ treatment of infection [facility] Other 09-12-2023 Evaluation note* Encounter Date Diagnosis [...] verbalizes understanding and agrees with tx plan. [facility] Other 08-08-2023 Evaluation note* Encounter Date Diagnosis Assessment Notes Treatment Notes Treatment Clinical Notes Feb, Gastroesophageal ref lux disease with esophagitis without hemorrhage (ICD-10 - K21.00) [facility] Other 08-08-2023 Evaluation note* Encounter Date Diagnosis Assessment Notes Treatment Notes Treatment Clinical Notes Feb, Eczema, unspecified type (ICD-10 - L30.9) [facility] Other 08-07-2023 Evaluation note* Encounter Date Diagnosis [...] cerebrovascular and cardiovascular disease. Feb, Atherosclerosis of lime artery of both lower extremities with intermittent [...] High risk medication use (ICD-10 - Z79.899) [facility] Other 04-07-2023 Evaluation note* Encounter Date Diagnosis [...] with continued statin therapy. Oct, Atherosclerosis of lime artery of both lower extremities with intermittent [...] Continue Verapamil No f/u w/ Neurology necessary [facility] Other 03-09-2023 Evaluation note* Encounter Date Diagnosis [...] treatment necessary despite likely increase in BS [facility] Other 02-16-2023 Evaluation note* Encounter Date Diagnosis [...] were addressed. She understands agrees the plan. [facility] Other 02-08-2023 NoteMicrobiology PROCEDURE: Gynecological Culture [R1] [...] Locations R1: This test was performed at: [facility], [address] [place] [address], [address]- , , [facility]:Performed By: #### [id number] #### [facility] [address] [place], [place] [phone] Evaluation + Plan note Diagnostic Tests Pending * Gynecological Culture 09/02/22 * NuSwab Vaginitis (VG) 09/02/22 [facility]01-27-2022 Evaluation note* Encounter Date Diagnosis Assessment Notes Treatment Notes Treatment Clinical Notes Jul, Stenosis of left subclavian artery (ICD-10 - I77.1) Jul, 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 She has had a previous left subclavian stent placed at the origin of the left subclavian artery at [facility]. This was due to left [...] bilateral carotid artery stenosis (ICD-10 - I65.23) [facility] Other 09-02-2021 NoteHNO ID: [id number] Author: Elier Espino MD Service: ? Author Type: Physician Type: Progress Notes Filed: 03/29/2021 1:39 PM Note Text: [facility] [place] [facility] OUTPATIENT VISIT DATE March 29, 2021 OUTPATIENT VISIT TYPE EST PRIMARY CARE PHYSICIAN: Kevin Velasquez ([facility]) [address] [place] [address] REFERRING PHYSICIAN SELF CHIEF COMPLAINT: Patient presents [...] months with repeat noninvasive studies.? Elier Espino [facility]05-13-2021 NoteHNO ID: [id number] Author: Elier Espino MD Service: ? Author Type: Physician Type: Progress Notes Filed: 12/07/2020 1:01 PM Note Text: [facility] [place] [facility] OUTPATIENT VISIT DATE December 07, 2020 OUTPATIENT VISIT TYPE EST PRIMARY CARE PHYSICIAN: Kevin Velasquez ([facility]) [facility] [place] [address] REFERRING PHYSICIAN SELF CHIEF COMPLAINT: Patient presents [...] repeat noninvasive studies.? ? ? Elier Espino [facility]02-11-2021 NoteHNO ID: [id number] Author: Elier Espino Service: ? Author Type: Physician Type: Progress Notes Filed: 09/07/2020 12:28 PM Note Text: [facility] [place] [facility] OUTPATIENT VISIT DATE September 07, 2020 OUTPATIENT VISIT TYPE EST PRIMARY CARE PHYSICIAN: Kevin Velasquez MD ([facility]) [address] [place] [address] REFERRING PHYSICIAN Eiler Espino MD [address] [facility] [address] CHIEF COMPLAINT: Patient presents with: Follow Up: [...] with repeat noninvasive studies. ? Elier Espino, [facility] noteNo InformationNortLifecare Hospital of [facility] [employer] Other Evaluation noteNo assessment information available [facility] Work Phone: Evaluation note* Diagnosis Presence of pessary- Primary Pelvic floor relaxation documented [facility] Narrative - Reported* Type Description Date Medical History carotid artery stenosis Medical History hypertension Medical History migraine headaches Medical History acid reflux Surgical History tubual ligation Surgical History cataract surgery Surgical History stent in left subclavian Surgical History stent in left iliac [facility] [employer] Other History general Narrative - Reported* Type Description Date Medical History carotid artery stenosis Medical History hypertension Medical History migraine headaches Medical History acid reflux Medical History PAD Surgical History tubual ligation Surgical History cataract surgery Surgical History stent in left subclavian Surgical History stent in left iliac Hospitalization History See Above [facility] Other Hospital course Narrative No data available for this section [facility] No data available for this section [facility] No data available for this section [facility] Summary Purpose Family History No Family History Records FoundNo Family History Records FoundNo Family History Records FoundNo Family History Records FoundNo Family History Records FoundNo Family History Records Found Advance Directives No Advanced Directives Records Found Advance Directive Response Recorded Date/ Time Advance Directives No August 30, 2022 12:54pm Procedure Findings Note HNO ID: [id number] Author: Liv Espino Service: Vascular Surgery Author Type: Physician Type: Brief Op Note Filed: 08/31/2019 8:22 PM Note Text: BRIEF OPERATIVE / PROCEDURE NOTE LOG ID: [id number] SURGERY/PROCEDURE DATE: 08/31/2019 INCISION/PROCEDURE START TIME: 10:23 AM INCISION CLOSE/PROCEDURE END TIME: 2:47 PM SURGEON(S)/PROCEDURALIST(S) AND INTEGRATION TECHNICIAN(S): Surgeon(s) and Role: * Elier Espino - [...] iliac artery treated with 8x60 and 7x60 [employer] self expandable stent, post stenting angioplasty of the lef (more content not included)... Note HNO ID: [id number] Author: Liv Espino Service: Vascular Surgery Author Type: Physician Type: Brief Op Note Filed: 05/09/2020 3:31 PM Note Text: BRIEF OPERATIVE / PROCEDURE NOTE LOG ID: [id number] SURGERY/PROCEDURE DATE: 05/09/2020 INCISION/PROCEDURE START TIME: 2:25 PM INCISION CLOSE/PROCEDURE END TIME: 3:21 PM SURGEON(S)/PROCEDURALIST(S) AND INTEGRATION TECHNICIAN(S): Surgeon(s) and Role: * Elier Espino - Primary No Additional Staff SURGERY/PROCEDURE(S): Ultrasound guided access of the right common femoral artery, left subclavian angiogram, stenting of the left proximal subclavian artery, completion angiography ANESTHESIA: Procedural Sedation FINDINGS: High grade stenosis of the proximal left subclavian artery, prestent angioplasty w/ 4x40mm balloon, lesion treated with 7x27 [employer] balloon mounted stent. Resolution of stenosis post stenting. ESTIMATED BLOOD LOSS: 0 ml SPECIMENS: None COMPLICATIONS: None IMPLANTS: [employer] 7x27 LD balloon expandable stent, inflated to 8atm (more content not included)... Chief Complaint and Reason for Visit Chief Complaint i65.23 i70.213 Additional Source Comments INFORMATION SOURCE (unrecogn ized section and content) DATE CREATED AUTHOR 05/10/2020 [facility] DATE CREATED AUTHOR AUTHOR'S ORGANIZ ATION 08/31/[address] [facility] DATE CREATED AUTHOR AUTHOR'S ORGANIZ ATION 07/06/2022 [facility] DATE CREATED AUTHOR AUTHOR'S ORGANIZ ATION 09/06/2022 [facility] DATE CREATED AUTHOR AUTHOR'S ORGANIZ ATION 09/13/2022 [facility] DATE CREATED AUTHOR AUTHOR'S ORGANIZ ATION 01/09/2024 [facility] EPIC REASON FOR VISIT (unrecogniz ed section and content) left leg claudication, subcl martha artery stenosis left ref from Dr. Mcwilliams RefillMessaAfsaneh ON CAROTID BP ON LEGScold [phone] MONTH FOLLOW UPrefillWellness examNo InformationNo InformationLab ResultsSore on mouthCold [phone] possible sinus infection Patient Care team informatio n (unrecognized section and content) Team Status: Inactive Member Role Status Dates Dylan Calixto MD Attending Provider Active Kevin Velasquez , Primary Care Provider Active Team Status: Active Member Role Status Dates Kevin Velasquez , Primary Care Provider Active [employer] Relationship Specialty Start Date End Date Kevin Velasquez MD [address] [place] [address] PCP - General Internal Medicine 12/31/22 [employer] Relationship Specialty Start Date End Date Kevin Velasquez MD [address] [place] [address] PCP - General Internal Medicine [...] BE BASED ON THE PRIMARY CLINICAL RECORDS. [employer] provides no warranty or guarantee of the accuracy or completeness of information in this document.
[2024-03-20 06:10] LABS: HBsAg Screen Negative (Negative); Hep A Ab, Total Negative (Negative); Hep B Core Ab, Tot Negative (Negative); Hepatitis B Surf Ab Quant <3.5 mIU/mL (Immunity>10)
[2024-03-22 14:08] LABS: ANA Direct Positive (Negative); Anti-DNA (DS) Ab Qn 1 IU/mL (0-9); RNP Antibodies <0.2 AI (0.0-0.9); Sjogren's Anti-SS-B 0.2 AI (0.0-0.9)
== END 2024-03-19 09:12 | disposition home or self-care (01) ==
LOC: LAB 09:12
PROVIDERS: PCP Internal Medicine; Visit Provider Internal Medicine
DX: R74.8 Abnormal levels of other serum enzymes (principal); K76.0 Fatty (change of) liver, not elsewhere classified; E11.65 Type 2 diabetes mellitus with hyperglycemia; I10 Essential (primary) hypertension; E78.00 Pure hypercholesterolemia, unspecified
CPT/HCPCS: 36415; 82728; 86038; 86317; 86704; 86708; 87340

== ENCOUNTER 2024-07-12 07:51 | Outpatient (OUT) | payer BC, SELFPAY ==
--- OUTSIDE RECORDS SUMMARY | 2024-07-12 08:07 | XMS_ITS | CCD ---
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 Role Phone Dylan Calixto Unavailable [phone] Summer Decker Unavailable RON, DR LIMA [...] Care Unavailable RON, DR LIMA Consulting Unavailable ZIEBCHRISTIANO, DR JAVAN Hooker Consulting Unavailable KEVIN VELASQUEZ Primary Care Physician Mariela MENCHACA Unavailable MD Dylan Calixto Attending Provider [phone] DO Kevin Velasquez Primary Care Provider Mariela MENCHACA Attending Unavailable Mariela MENCHACA Admitting Unavailable Kevin Velasquez Primary Care Unavailable Dylan Calixto Attending UnavailDylan Marte Admitting UnavailKevin Addison Unavailable Radha Correa Unavailable Kevin Velasquez MD Primary Care Provider MARIELA MENCHACA Attending Unavailable MARIELA MENCHACA Attending Unavailable MARIELA MENCHACA Attending Unavailable Allergies Allergy Classification Reported Allergen(s) Allergy Type Date of Onset Reaction(s) Facility (7 sources) Lisinopril Drug Allergy 09-23-2017 Unknown [place] Other Medications Current Medications Medication Drug Class(es) [...] Status: Ordered take 1 tablet by german th every twenty-four hours Atenolol 25 MG 1 tablet Orally Once a da y for 30 day(s) Not-Taking atorvastatin 80 mg oral tablet (19 sources) HMG-CoA Reductase Inhibitor Start: 08-12-2019 atorvastatin 80 mg Tab Refills(s) 0 Start Date: 08/12/19 Status: Ordered clopidogrel 75 mg oral tablet (19 sources) P2Y12 Platelet Inhibitor Start: 04-25-2022 take 1 tablet by mouth once daily clopidogrel (Plavix) 75 MG tablet TAKE 1 TABLET BY MOUTH EVERY DAY FOR 30 DAYS 11/15/2022 Active doxycycline hyclate 100 mg oral capsule (1 source) Tetracycline-cla ss Drug Start: 06-26-2023 take 1 capsule by mouth every twelve hours Doxycycline Hyclate 100 MG 1 capsule Orally Twice a day for 7 days May, Active esomeprazole 40 mg delayed release oral capsule (5 sources) Proton Pump Inhibitor Start: 03-03-2023 take [...] Take before meals. Do not open capsule.. Active estradiol 0.1 mg/ml vaginal cream (3 [...] 50 mg by mouth in the morning. 11/22/2022 Active take 1 tablet by german th every twenty-four hours Losartan Potassium 25 MG 1 tablet Orally Once a day Active take 1 tablet by mouth once petra y Losartan Potassium 50 MG TAKE 1 TABLET BY MOUTH EVERY DAY for 90 Active metFORMIN hydrochloride 500 mg oral tablet (12 sources) Biguanide Start: 11-22-2022 take 1 tablet by mouth at mealtime metFORMIN (Glucophage) 500 MG tablet Take 500 mg by mouth. Take with food. 11/22/2022 Active mupirocin 0.02 mg/mg topical ointment [...] days Active OneTouch Ultra - (9 sources) OneTouch Ultra - USE TO TEST ONCE A [...] ium Active SITagliptin 25 mg oral tablet (20 sources) Dipeptidyl Peptidase 4 Inhibitor Start: 02-04-2023 take 1 tablet by mouth in the morning Januvia 25 MG tablet Take 25 mg by mouth in the morning. 02/04/2023 Active Start: 08-26-2022 take 1 tablet by german th in the morning Januvia 50 MG tablet Take 50 mg by mouth in the morning. 08/26/2022 Active triamcinolone acetonide 5 mg/ml topical [...] Status: Ordered take 1 capsule by [facility] every twenty-four hours in the morning verapamil ER (Verelan) 120 MG 24 hr capsule Take 120 mg by mouth in the morning. Active Verapamil HCl ER Not-Taking Verapamil HCl [...] 30 day(s) Not-Taking take 1 tablet by [facility] every twenty-four hours Calcium + D [...] hypertension] Chronic Genitourinary symptoms and ill-defined conditions (3 sources) Vaginal pessary in situ; Translations: [Presence of urogenital implants] 09-09-2023 Chronic Headache; including migraine (11 sources) Ophthalmic migraine; Translations: [Migraine with aura, not intractable, without status migrainosus] Chronic Occlusion or stenosis of precerebral arteries (17 sources) Bilateral stenosis of carotid arteries; Translations: [Occlusion and stenosis of bilateral carotid arteries] Onset: 08-23-2021 Resolved: 08-23-2021 Chronic Other aftercare (1 source) 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 vaginae DNA HARJEET+probe Ql (Vag fld) Low - 0 Invalid Interpretation Code [facility] Comment on above: Performed By: #### 1 [id number] #### [facility] [address] [place] [address] Bacterial vaginosis associated bacterium 2 DNA HARJEET+probe Ql (Vag fld) Low - 0 Invalid Interpretation Code [facility] Comment on above: Performed By: #### 1 [id number] #### [facility] [address] [place] [address] C. albicans DNA HARJEET+probe Ql (Vag fld) Negative Invalid Interpretation Code Negative [facility] Comment on above: Result Comment: This test was developed and its performance characteristics determined by [employer]. It has not been cleared or approved by the Food and Drug Administration. Performed By: #### 1 [id number] #### [facility] [address] [place] [address] C. glabrata DNA HARJEET+probe Ql (Vag fld) Negative Invalid Interpretation Code Negative [facility] Comment on above: Result Comment: This test was developed and its performance characteristics determined by [employer]. It has not been cleared or approved by the Food and Drug Administration. Performed By: #### 1 [id number] #### [facility] [address] [place] [address] Megasphaera sp type 1 DNA HARJEET+probe Ql (Vag fld) Low - 0 Invalid Interpretation Code [facility] Comment on above: Result Comment: Calc [...] developed and its performance characteristics determined by [employer]. It has not been cleared or approved by the Food and Drug Administration. Performed By: #### 1 [id number] #### [facility] [address] [place] [address] T. vaginalis DNA HARJEET+probe Ql (Vag fld) Negative Invalid Interpretation Code Negative [facility] Comment on above: Result Comment: Perf ormed at: =G [facility] [address] ROCK[place] Arthur [id number] MD Jj Sagastume Performed By: #### 1 [id number] #### [facility] [address] [place] [address] US ankle/arm indiceson 09-06 US ankle/arm indices [facility] [place] [address] [place] [address] Ultrasound Report Signed Patient: Teressa Bui MR#: [id number] : 1955 Acct:[id number] Age/Sex: 66 / F ADM Date: 09/04/22 Loc: Room: Type: [facility] Attending Dr: Dylan Calixto MD Ordering [...] Zen Lopez M.D.09/06/2022 10:25 AM [facility] Tech: Angi Sanchez Transcribed By: RAFAEL 09/06/22 1025 Dictated By: Zen Lopez MD 09/06/22 1024 Signed By: 09/06/22 1025 Normal [facility] US carotid doppler BIon 02-1 US carotid doppler BI [facility] [place] [address] [place] [address] Ultrasound Report Signed Patient: Teressa Bui MR#: [id number] : 1955 Acct:[id number] Age/Sex: 66 / F ADM Date: 09/04/22 Loc: Room: Type: [facility] Attending Dr: Dylan Calixto MD Ordering Provider: Dylan Calixto MD Date of Service: 09/04/22 US/US carotid doppler BI: [id number] Copies to: Dylan Calixto MD CAROTID DUPLEX [...] Zen Lopez M.D.09/06/2022 10:24 AM Dictation Location: [place] [address] Tech: Angi Sanchez Transcribed By: RAFAEL 09/06/22 1024 Dictated By: Zen Lopez MD 09/06/22 1022 Signed By: 09/06/22 1024 [facility] Coding Summary.on 09-05-2022 Coding Summary. [id number] Gh 0bWw+PGhlYWQ+IK3XBTOwY 36gnFTtdG2VK4vYUM6IYNI MINWERS9HWP3ruDS9VMheF 2VybiAv TzpxeXHuPE12DWx2FPH4gD kyXCctsJ3zlBXuW7z5KrPk JH15uB02ZDhtPMTsMyA1Ge ZpbjsgbWFy D4lpAoQezPSgMes+PHRhYm xlIHdpZHRoPScxMDAlJyBz tAzuMS9rRr2dYQYrMBDwyI xhcHNlOiBj o9inUFZeZEonSI6tiYjqO2 IfjDS6PBRqd5j0Km63nQY+ ACVsLCN3vSjmQPfvq356Gd Fao0ciGEG2 rARqBXmuQWP9J68pr5P8SL CpLMBuINB6vQY5dX5vdQoq jpzpH3EbuSIhLaE7WXC6mQ XjqM5ytTat tsdlnE2eVar+G58VVL0DRR PJFB1VFzk7S9ZuSzocvCQ+ IO04TDAtTP28mSAviAFhf9 yioVi4OdSm DSRxLFZ6vPbvVItkp8WoNL DtL64vjGWyj0M0IUJnlAdi sYAyCmZpeSC6lU0gECfebc tzp4nwlqvv Ekbfl4xtgc86cH00A15bCF jiNJNmZZS6IKKmFETpjEir dl5dmU3mIw4+DLbow4zaf9 cyyUy2AzSp XXKqhcMujFiwADS8q0CiSm 65L9YabZcnr9ZuLpf3ge16 dWAfb8F0qWN5IRtfMWWhqR 5xVGjgOoI2 GFFpZyQbgW52rBWiKDpzBs 9heAmthMiwAC7vTTCiypeb LZRpyE2gTXYqeKFtgYwfDI 4wNTBpbjtm r749CmMmIPZ2IVIleBSwC2 AlyV8cYjMxRHGvXXUxN7Ui cTFpFFuvH850WKfoNvK5VG BbjrItZ4Je LEXhzZqjCmM6x3F0Oz5Ke2 JmqfalSQA5CTstZAPrXyJ6 IdAfQhE9F2IfGem8PDWipH ulXB3fW4As WOOemzdpsmmvfWD9BXZnOB BgfF57tDPuXCxlTz4ia2T3 e084GGBjIDPtvZ76Zx2svL ogMTBwdCBU xQ5ddnoyw5evwxkoZdDeID FgSQm5YPr8IVLdhDtcTgYv LAM9TvT3VMI6kSQfpY1yyG hdgmlufP4j Oyc+L12jnZ6fNNM2CWB0kx qyZCXokhOsUB91VY73A8Pp PjwvdGFibGU+PGRpdiBzdH xnGH7iBkDq y8ydu1ByUAvyS5OqAJLmTB rdHfj1EFKoSRV1lIY3jQ8i SBOsMHnyi2I0kQN2H7Kavv Vkxz9uf0mn WNAmCYgvV10qkLOku9R6WL NilAC9PMTbxKejCsKzcS19 Oyc+PVBjzInzp7XsTgyth3 pgi8sdaNr0 LoMiMLCnrtAvkBauARI5p1 UpAe61E74cTVdeFLWlQPZk ZQDiNSCwiCvphf7ulO5uMu 8+PGNvbCB3 dZX9oK9nULJyJjT7SSevR4 92DhAouSJsWyvjm4mfe2ff tTo5CxZdKWPqpzPdlEleOT Y6h4XpSc78 I30eGNdrLLDaCRYuDIMjQT EshIsmep4emA1eYh0+PC9j s0bavw47qM45kJR+PHRkIH N2dEejTFrz UADklQ6kZPwzOwL9SCMcGf KttB47vFJcJZnpBs8xrBjy oVspJN8eBALhzenrj371Ed Ymr2blMTVh tDBeQYxaNJE2C12bt8C1KK AsYFHgWMX9rPE4kT5hoAnn bjogbGVmdDsgdmVydGljYW dbZXelN534 IHRvcDsnPlBhdGllbnQgTm RlIIi7S2RlHgi0AGWmxSiq OF5glYKcJKxgXv1hgBrodS xyTS5lFAFv xtdyz328IlPgz5gdKRZjlG LrYJogTWY0B00bx8R6TOOr LCLlGHU9pBM1iL5prSyugr ogbGVmdDsg yhOmiVhtYMyaMDeeS409NN RvcDsnPkJpcnRoIERhdGU6 BS18ZA24xTQjn6L8qMC2B8 BhZGRpbmct omactOV0KAGtDLJkhA70Et 0txCkdAv7dKFRxUEH2PPKw kVXlA2EqbH6bYqGuNGAvIX PiC4ZkfQXv XOuxH034NDtfChF2WTUpzo TxL1IdWABxbEijZgS2o8B8 Zv0LY5M6VR59WZ64fOVji3 G3xOU2O8Wt ZXXyljteimlqwIF8QHEsCH AeeA62Gp0cjTaiIi7sAJFl SKE9GQWyiYZoO3GzvL3sQd AjMDAwMDAw N3TqwONtZNbmN010UKweUa S3CCFmuiUqT2VoYANfmOon BkB6s7O7Mk0RBDd0FN98IT 30xCUae9N4 xHO7J1JwRRNlizqusawylR S6CPWbZNIhmW61Up7bsDot Wv1jEVEzUYP9NPGnhKMtN1 TtzD1gHaYc FGCmPXQnI6UkhMJxCDeqY8 96ISxtToQ3VOWpenIzZ1Ew NEIcnVywLvJ8h2M1Jr7PJD UwJX30AMA3 kAW0TN25WC15K3FxVtxyfO FibGU+PHRhYmxlIHdpZHRo PGipACMjJdOitEhqPU9kAs 9yZGVyLWNv qNklnRIxWrLnw1xcCFInDL ccGK6tpVcxX7LhzUQ5OYMl v2a4Kp85R20xK0VrbYO+PG EncUU0oEO1 yL2xCnEyVlT9CMczL121Hl GokIUbQvqrt4xej2crhIs6 AoB1TTKecmMwwQjhYUJ4v0 JoJe24G44t IHdpZHRoPSIxNSUiIHZhbG lhwm6jfM5rCi9+PGNvbCB3 tKD9jK5lToWnJwG5FOpuC9 49InRvcCIv Fnvoa4kmu7luzXu9JoBnYO HibaLfrXvwZKM5t1JxDk88 T3YapSilx4OgGgs4nf47qM Gal2U6tLU0 T3HxLBPzhjsaeSNoxCtjXQ 1zTSUwzwjiXSVllS1bTLNw D4l2WjMbDaJ3BIxhP7Dqtd W6ZCVmyXPx XWwrLEJ2Q20tx3P8XZFuKN PgUBU0nTE5qE3nyYfgriud bGVmdDsgdmVydGljYWwtYW zqK761VYOk yUlrQPUpkA9jEYSnjAIowM obOC4kZSYwdiqpDlYGDnYV TqqdFVBINIFEPZm8J8DcIj c8ABGpoQzb GP0koACuLPbaKs3mjNkhvT msAV3oEWHkqzdhTHYgmD0l JWLynZZutOmvIC4dALRvem npx368LrKu TCJ1WUYaaTImW2DmkE1hOy IzJVZfFBIhK0NieWMfGIrd Q543DWaiHuG5PBLtvnNkG1 FsLWFsaWdu LpD4o8F8Bp5hEC5kDS7mNA J1KU13LS37jNInh4F7cCC0 E4TyUKEtvvvvbxsrhSS2CI XhVWHahH23 kDNpSTvjCd0tq9T5y310CV BjQIMpbV99Wq1oaNhbQWRe aXCDkY0wffitv3fkccdfEf AwMDAwMDt0 LRt5BQKfnSnjBeCrTPF3Xu X2DEJ5lNQroT5sxFkataie mG1vYsx+HeKdQIScnzE7L9 NwZjz9KCMw zAaeXN5myAAgWEmrPj8skH aawPqgZH2jPBAtytuyUUVv fL8xFONrhREbbAaqSH8dRT Ckkzobk458 AiAaZKL5CKXdePYcQ6LaoA 0iArQgXTKbTWKoH0EelWSx RQpuB785YOyzUnE3CKAttl JdK0VoGKKi gBzrYlN9l4S9Zb9XQB2jrG P3L0JgUfk4FAWekUazNT0y kFRuFAjaIa2anIyenKkhSV 4wNTBpbjtw ZPEntG1dRWSymUSdaIxsLW 3lUYRnbujjg028RjBoLBZ8 ZXFmeBPnP8TbvY3uPvLlUM HdUIFrY0Be zKUuWOmhG688QNgpRiF5EJ VhjbOaJ6WsTLAyjWluJdA1 c0D0Oz0NDXXwQHThzTPiJc Q8W5MvCexm dHI+HK50EAHnPJ23mSUymM Jlg7idnEh4FcTrUKIdXDL0 qCspRKvad2QrBLPfK76olC Kln1A6VHAn wWrqlCCdEpByzLF5hW9cQI qpsxxjf5evacadBiilj2jd xj61cJ92P68iFUjnHJDlML IzMCUiIHZh mMggfe6kzD0wZl2+PGNvbC Q6qFL6aU7mSqZrKsB8FJoq J190AhCukNLiFrwmh5wbw5 kiuZi9ElYs JXLacgPwmMsuHBI2p3ChDe 27Z52lKCapCSXzNBLhALNs ZUZihMjwss8lnH4eXf2+PC 7oj1nlmc48 dZ68jJQ+XXNwVMZ1qMoyZU mvZSIimX5yUTgzJfT9QSIy YgMofN33kUVnDVgqYp6hsP ujnLhmKK0f SKCuzeeti914QtYdo3efXX UknEFqXYdwHMT3C61qg4X6 UPXcZGNpPMI1lDC9vC2qiB lnbjogbGVm dDsgdmVydGljYWwtYWxpZ2 23PFBavYpmBjBqrYZkV0du zeGBLC3tDfmyrEH+PHRkIH J2uYcdZKpk UILuwK5zQTDeU3a8PgZlDs P5LIcwO6DlhmV3EAMddJWj XWUtiONGgS6rrwsja2duve ogIzAwMDAw EOf9NLg7BVQebVfzVlSfPY Y9KuU1BRD7lBDdhU5otFef otsjiE3uVkm+RklOOjwvdG Q+PHRkIHN0 oJohNDceCWSowL5kJQIuZ8 w6CsLhNuZ7SZmqP6ErhbG5 NGRhvXSxDQGsiYLUxA3tad mui2ixgqmd OfKkZLPwARe1CUk4TJZafV rmZfGeVSZ6AnE8BSL8bMAp tJ5svGrldwuooF8gGvc+TV JOOjwvdGQ+ YCNcLNF7oJwfUKewNHKpaR 2vFLAgK5z5DcNiCeH6MIyo E5KaweR0OORtgDCqXPLroA BCzV0aback g7safwdpAqWnDSIbOQq3ZY i0GKYfrCqqArQfVBT6YnS8 QUI5qRVmwQ9syRppetmhkZ 9wOyc+UGF5 XGV3OB53AS17Z5OhDmdmfM FibGU+PHRhYmxlIHdpZHRo PJodOPFwZmImtUnxEL6jVb 9yZGVyLWNv bGxh (more content not included)... Normal [facility] Physician Orderon 09-02-2022 Physician Order [id number]. [id number]:127 Normal [facility] GLYCOHEMOGLOBIN A1Con 2021 ADA RECOMMENDATION SEE BELOW Normal [facility] Comment on above: Result Comment: ADA RECOMMENDED LIMIT 4.0 - 6.0 ADA THERAPEUTIC TARGET < 7.0 ACTION SUGGESTED > 7.0 Performed By: #### A 1C #### [facility] [address] [place] [address] Dr. Azar Carlin Glucose [Mass/Vol] 137 mg/dL Normal [facility] Comment on above: Performed By: #### A 1C #### [facility] [address] [place], [place] [address] Dr. Azar Carlin HbA1c (Bld) [Mass fraction] 6.4 % Critically high 4.5-6.2 [facility] Comment on above: Performed By: #### A 1C #### [facility] [address] [place] [address] [address] Azar Carlin MICROALBUMIN URINEon 022 Albumin, Urine 3.1 ug/mL Normal Not Estab. [facility] Comment on above: Performed By: #### M ALBLC #### [facility] [address] [place] [address] [address] Azar Carlin VIT D 25-OH LABCORPon 2021 Vitamin D, 25-Hydroxy 43.0 ng/mL Normal 30.0-100.0 [facility] Comment on above: Result Comment: [place] min D deficiency has been defined by the Canadian of Medicine and an Endocrine Society practice guideline as a level of serum 25-OH vitamin D less than 20 ng/mL (1,2). The Endocrine Society went on to further define vitamin D insufficiency as a level between 21 and 29 ng/mL (2). 1. IOM (Canadian of Medicine). 2010. Dietary reference intakes for calcium and D. [place]: The National Academies Press. 2. Gamaliel MF, Vivian NC, Mila YO, et al. Evaluation, treatment, and prevention of vitamin D deficiency: an Endocrine Society clinical practice guideline. JCEM. 2010; 96(7):1911-30. Performed By: #### V ITADLC #### [facility] [address] [place] [address] Dr. Azar Carlin CBC AUTO DIFFon 03-15-2022 BASO # 0.0 103/ul Normal 0.0-0.1 [facility] Comment on above: Performed By: #### C BC #### [facility] [address] [place] [address] [address] Azar Carlin Basophils/100 WBC (Bld) 0.6 % Normal 0.2-2.0 [facility] Comment on above: Performed By: #### C BC #### [facility] [address] [place] [address] Dr. Azar Carlin EO # 0.1 103/ul Normal 0.0-0.7 [facility] Comment on above: Performed By: #### C BC #### [facility] [address] [place] [address] Dr. Azar Carlin Eosinophils/100 WBC (Bld) 2.4 % Normal 0.9-7.0 [facility] Comment on above: Performed By: #### C BC #### [facility] [address] [place] [address] Dr. Azar Carlin Erythrocyte distribution width (RBC) [Ratio] 14.0 % Normal 11.0-15.0 [facility] Comment on above: Performed By: #### C BC #### [facility] [address] [place] [address] Dr. Azar Carlin Hematocrit (Bld) [Volume fraction] 39.9 % Normal 36.0-48.0 [facility] Comment on above: Performed By: #### C BC #### [facility] [address] [place] [address] Dr. Azar Carlin Hemoglobin (Bld) [Mass/Vol] 13.0 g/dL Normal 12.0-16.0 [facility] Comment on above: Performed By: #### C BC #### [facility] [address] [place] [address] Dr. Azar Carlin IG # 0.01 10e3/ul Normal 0.00-0.03 [facility] Comment on above: Performed By: #### C BC #### [facility] [address] [place] [address] Dr. Azar Carlin IG % 0.2 % Normal 0.0-0.5 [facility] Comment on above: Performed By: #### C BC #### [facility] [address] [place] [address] Dr. Azar Carlin LYMPH # 1.7 103/ul Normal 1.2-3.8 [facility] Comment on above: Performed By: #### C BC #### [facility] [address] [place] [address] Dr. Azar Carlin Lymphocytes/100 WBC (Bld) 36.2 % Normal 20.5-60.0 [facility] Comment on above: Performed By: #### C BC #### [facility] [address] [place] [address] Dr. Azar Carlin MANUAL DIFF REQ NO Normal [facility] Comment on above: Performed By: #### C BC #### [facility] [address] [place] [address] Dr. Azar Carlin MCH (RBC) [Entitic mass] 28.1 pg Normal 26.7-34.0 [facility] Comment on above: Performed By: #### C BC #### [facility] [address] [place] [address] Dr. Azar Carlin MCHC (RBC) [Mass/Vol] 32.6 g/dL Normal 29.9-35.2 [facility] Comment on above: Performed By: #### C BC #### [facility] [address] [place] [address] Dr. Azar Carlin MCV (RBC) [Entitic vol] 86.2 fL Normal 81.0-99.0 [facility] Comment on above: Performed By: #### C BC #### [facility] [address] [place] [address] Dr. Azar Carlin MONO # 0.4 103/ul Normal 0.3-0.8 [facility] Comment on above: Performed By: #### C BC #### [facility] [address] [place] [address] Dr. Azar Carlin Monocytes/100 WBC (Bld) 9.3 % Normal 1.7-12.0 [facility] Comment on above: Performed By: #### C BC #### [facility] [address] [place] [address] Dr. Azar Carlin NEUT # 2.4 103/ul Normal 1.4-6.5 [facility] Comment on above: Performed By: #### C BC #### [facility] [address] [place] [address] Dr. Azar aCrlin Neutrophils/100 WBC (Bld) 51.3 % Normal 43.0-75.0 [facility] Comment on above: Performed By: #### C BC #### [facility] [address] [place] [address] [address] Azar Carlin Platelet mean volume (Bld) [Entitic vol] 9.4 fL Critically low 9.5-13.5 [facility] Comment on above: Performed By: #### C BC #### [facility] [address] [place] [address] [address] Azar Carlin PLT 184 103/ul Normal 150-450 [facility] Comment on above: Performed By: #### C BC #### [facility] [address] [place] [address] [address] Azar Carlin RBC 4.63 106/ul Normal 4.20-5.40 [facility] Comment on above: Performed By: #### C BC #### [facility] [address] [place] [address] [address] Azar Carlin WBC 4.6 103/ul Normal 4.0-11.0 [facility] Comment on above: Performed By: #### C BC #### [facility] [address] [place] [address] [address] Azar Carlin GLYCOHEMOGLOBIN A1Con 2021 ADA RECOMMENDATION SEE BELOW Normal [facility] Comment on above: Result Comment: ADA RECOMMENDED LIMIT 4.0 - 6.0 ADA THERAPEUTIC TARGET < 7.0 ACTION SUGGESTED > 7.0 Performed By: #### A 1C #### [facility] [address] [place] [address] [address] Azar Carlin Glucose [Mass/Vol] 137 mg/dL Normal [facility] Comment on above: Performed By: #### A 1C #### [facility] [address] [place] [address] [address] Azar Carlin HbA1c (Bld) [Mass fraction] 6.4 % Critically high 4.5-6.2 [facility] Comment on above: Performed By: #### A 1C #### [facility] [address] [place] [address] Dr. Azar Carlin LIPID PROFILEon 03-15-2022 CHOL-HDL RATIO NORM SEE BELOW Normal [facility] Comment on above: Result Comment: 3.3 - 4.4 LOW RISK 4.4 - 7.1 AVERAGE RISK 7.1 - 11.0 MODERATE RISK >11.0 HIGH RISK Performed By: #### C MP, LIPID #### [facility] [address] [address] [address] Azar Carlin Cholesterol [Mass/Vol] 120 mg/dL Normal <=200 [facility] Comment on above: Performed By: #### C MP, LIPID #### [facility] [address] [address] [address] Azar Carlin Cholesterol in HDL [Mass/Vol] 62 mg/dL Critically high 40-60 [facility] Comment on above: Performed By: #### C MP, LIPID #### [facility] [address] [address] [address] Azar Carlin Cholesterol in LDL [Mass/Vol] 44.4 mg/dL Normal [facility] Comment on above: Performed By: #### C MP, LIPID #### [facility] [address] [address] [address] Azar Carlin Cholesterol.total/C holesterol in HDL [Mass ratio] 1.9 {ratio} Normal [facility] Comment on above: Performed By: #### C MP, LIPID #### [facility] [address] [address] [address] Azar Carlin HDL NORMAL > or = 60 mg/dl - LO W CARDIOVASCULAR RISK <40 mg/dl - HIGH CARDIOVASCULAR RISK Normal [facility] Comment on above: Performed By: #### C MP, LIPID #### [facility] [address] [address] [address] Azar Carlin LDL CALC NORMAL SEE BELOW Normal [facility] Comment on above: Result Comment: <100 mg/dl OPTIMAL 100 - 129 mg/dl NEAR OR ABOVE OPTIMAL 130 - 159 mg/dl BORDERLINE HIGH 160 - 189 mg/dl HIGH >190 mg/dl VERY HIGH Performed By: #### C MP, LIPID #### [facility] [address] [address] [address] Azar Carlin Triglyceride [Mass/Vol] 68 mg/dL Normal <=150 [facility] Comment on above: Performed By: #### C MP, LIPID #### [facility] [address] [address] [address] Azar Carlin VLDL CALC 13.6 mg/dL Normal [facility] Comment on above: Performed By: #### C MP, LIPID #### [facility] [address] [place], [place] [address] Dr. Azar Carlin MG MAMM SCREEN 3D ALBERT CADon 03-15-2022 MG MAMM SCREEN 3D ALBERT CAD Patient: TERESSA BUI Exam Date: 03/15/2022 : 1955 Gender:F Ordering : DR KEVIN VELASQUEZ D.O. Admission #: [id number] Family : Order #: [id number] CLICK HERE TO VIEW EXAM RADIOLOGY REPORT [...] endometrial cancer at age 65. LOCATION: [facility] BREAST COMPOSITION: Scattered areas fibroglandular density. FINDINGS: [...] M.D. on 03/15/2022 at 12:16 Normal [facility] PROF 14(COMP METB)on 022 Albumin [Mass/Vol] 3.9 g/dL Normal 3.4-5.0 [facility] Comment on above: Performed By: #### C MP, LIPID #### [facility] [address] [place] [address] Dr. Azar Carlin Albumin/Globulin [Mass ratio] 1.1 {ratio} Normal [facility] Comment on above: Performed By: #### C MP, LIPID #### [facility] [address] [place] [address] [address] Azar Carlin ALP [Catalytic activity/Vol] 123 U/L Critically high 46-116 [facility] Comment on above: Performed By: #### C MP, LIPID #### [facility] [address] [place] [address] Dr. Azar Carlin ALT [Catalytic activity/Vol] 51 U/L Normal 14-59 [facility] Comment on above: Performed By: #### C MP, LIPID #### [facility] [address] [place] [address] Dr. Azar Carlin Anion gap [Moles/Vol] 9.3 mmol/L Normal [facility] Comment on above: Performed By: #### C MP, LIPID #### [facility] [address] [place] [address] Dr. Azar Carlin AST [Catalytic activity/Vol] 32 U/L Normal 15-37 [facility] Comment on above: Performed By: #### C MP, LIPID #### [facility] [address] [place] [address] Dr. Azar Carlin Bilirubin [Mass/Vol] 0.5 mg/dL Normal 0.2-1.0 [facility] Comment on above: Performed By: #### C MP, LIPID #### [facility] [address] [place] [address] Dr. Azar Carlin Calcium [Mass/Vol] 9.3 mg/dL Normal 8.5-10.1 [facility] Comment on above: Performed By: #### C MP, LIPID #### [facility] [address] [place] [address] Dr. Azar Carlin Chloride [Moles/Vol] 103 mmol/L Normal 98-107 [facility] Comment on above: Performed By: #### C MP, LIPID #### [facility] [address] [place], [place] [id number] Dr. Azar Carlin CO2 [Moles/Vol] 29.9 mmol/L Normal 21.0-32.0 [facility] Comment on above: Performed By: #### C MP, LIPID #### [facility] [address] [place] [address] Dr. Azar Carlin Creatinine [Mass/Vol] 0.66 mg/dL Normal 0.55-1.02 [facility] Comment on above: Performed By: #### C MP, LIPID #### [facility] [address] [place] [address] Dr. Azar Carlin EGFR-AF SWISS >60 Normal >=60 [facility] Comment on above: Performed By: #### C MP, LIPID #### [facility] [address] [place] [address] Dr. Azar Carlin EGFR-NON AF SWISS >60 Normal >=60 [facility] Comment on above: Performed By: #### C MP, LIPID #### [facility] [address] [place] [address] Dr. Azar Carlin Globulin (S) [Mass/Vol] 3.7 g/dL Normal [facility] Comment on above: Performed By: #### C MP, LIPID #### [facility] [address] [place] [address] Dr. Azar Carlin Glucose [Mass/Vol] 115 mg/dL Critically high 74-106 [facility] Comment on above: Performed By: #### C MP, LIPID #### [facility] [address] [place] [address] Dr. Azar Carlin Potassium [Moles/Vol] 4.2 mmol/L Normal 3.5-5.1 [facility] Comment on above: Performed By: #### C MP, LIPID #### [facility] [address] [place] [address] Dr. Azar Carlin Protein [Mass/Vol] 7.6 g/dL Normal 6.4-8.2 [facility] Comment on above: Performed By: #### C MP, LIPID #### [facility] [address] [place] [address] Dr. Azar Carlin Sodium [Moles/Vol] 138 mmol/L Normal 136-145 [facility] Comment on above: Performed By: #### C MP, LIPID #### [facility] [address] [place] [address] [address] Azar Carlin Urea nitrogen [Mass/Vol] 10.0 mg/dL Normal 7.0-18.0 [facility] Comment on above: Performed By: #### C MP, LIPID #### [facility] [address] [place] [address] Dr. Azar Carlin Urea nitrogen/Creatinine [Mass ratio] 15.2 mg/mg Normal [facility] Comment on above: Performed By: #### C MP, LIPID #### [facility] [address] [place] [address] Dr. Azar Carlin GLYCOHEMOGLOBIN A1Con 2021 ADA RECOMMENDATION ADA THERAPEUTIC TARG ET 6.0 - 7.0 ACTION SUGGESTED > 7.0 Normal [facility] Comment on above: Performed By: #### A 1C #### [facility] [address] [place] [address] Dr. Azar Carlin Glucose [Mass/Vol] 154 mg/dL Normal [facility] Comment on above: Performed By: #### A 1C #### [facility] [address] [place] [address] Dr. Azar Carlin HbA1c (Bld) [Mass fraction] 7.0 % Critically high <=6.0 [facility] Comment on above: Performed By: #### A 1C #### [facility] [address] [place] [address] Dr. Azar Carlin CNOVon 03-29-2021 CNOV Office Visit (VASSST ) TERESSA BUI ([id number]) 1955 F Date Time Provider Department 03/29/21 3:45 PM ELIER ESPINO During your visit today, we recorded the following information about you: Pulse Respiration Blood pressure Weight 79/minute 18/minute 151/72 61.2 kg Elier Espino MD 03/29/2021 1:39 PM Signed [facility] OUTPATIENT VISIT DATE March 29, 2021 OUTPATIENT VISIT TYPE EST PRIMARY CARE PHYSICIAN: Kevin Velasquez ([facility]) [address] [place] [address] REFERRING PHYSICIAN SELF CHIEF COMPLAINT: Patient presents [...] Results Primary Visit Diagnosis:PAD (peripheral artery disease) ([facility]) [I73.9] Order(s):PVR ANK/REYNA/TOE [facility] [[id number]] Order #: [id number] FUTURE US ABD AORTA COMPLETE [facility] [[id number]] Order #: [id number] FUTURE US CAROTID ARTERIES [facility] [[id number]] Order #: [id number] FUTURE clopidogrel (PLAVIX) 75 mg tabletTake 1 [...] 08/31/2019 Dep (more content not included)... Normal [facility] CNOVon 12-07-2020 CNOV Office Visit (VASSST ) TERESSA BUI ([id number]) 1955 F Date Time Provider Department 12/07/20 1:30 PM ELIER ESPINO During your visit today, we recorded the following information about you: Pulse Respiration Blood pressure Weight 71/minute 18/minute 133/85 61.2 kg Elier Espino MD 12/07/2020 1:01 PM Signed [facility] OUTPATIENT VISIT DATE December 07, 2020 OUTPATIENT VISIT TYPE EST PRIMARY CARE PHYSICIAN: Kevin Velasquez ([facility]) [address] [place] [address] REFERRING PHYSICIAN SELF CHIEF COMPLAINT: Patient presents [...] PAD Primary Visit Diagnosis:PAD (peripheral artery disease) ([facility]) [I73.9] Other Visit Diagnosis:Subclavian arterial stenosis ([facility]) [I77.1] Order(s):PVR ANK/REYNA/TOE [facility] [[id number]] Order #: [id number] FUTURE US ABD AORTA COMPLETE [facility] [[id number]] Order #: [id number] FUTURE US CAROTID ARTERIES [facility] [[id number]] Order #: [id number] FUTURE Prescriptions as of 12/07/2020 Sig: METFORMIN [...] 12/07/2020 Noted Resolved PAD (peripheral artery disease) ([facility]) [I73.9] 08/31/2019 Essential hypertension [I10] 08/31/2019 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 Follow-up and Disposition History Re (more content not included)... Normal [facility] CNOVon 09-07-2020 CNOV Office Visit (VASSST ) TERESSA BUI ([id number]) 1955 F Date Time Provider Department 09/07/20 2:45 PM ELIER ESPINO During your visit today, we recorded the following information about you: Pulse Respiration Blood pressure Weight 53/minute 18/minute 161/80 62.9 kg Elier Espino MD 09/07/2020 12:28 PM Signed [facility] OUTPATIENT VISIT DATE September 07, 2020 OUTPATIENT VISIT TYPE EST PRIMARY CARE PHYSICIAN: Kevin Velasquez MD ([facility]) [address] [place] [address] REFERRING PHYSICIAN Elier Espino MD [address] [facility] [address] CHIEF COMPLAINT: Patient presents with: Follow Up: [...] Elier Espino MD Referring Provider: ELIER ESPINO [[id number]] Allergies As of Date: 09/07/2020 (No Known Allergies) Date Reviewed: 09/07/2020 Reviewed by: Siena (Rn) MORRIS King - Fully Assessed Reason for Visit: Follow Up [171] Cmt: PAD/Discuss Test Results Primary Visit Diagnosis:PAD (peripheral artery disease) ([facility]) [I73.9] Order(s):PVR ANK/REYNA/TOE [facility] [[id number]] Order #: [id number] FUTURE US ABD AORTA COMPLETE [facility] [[id number]] Order #: [id number] FUTURE US ARM ARTERIAL [facility]L [facility] [[id number]] Order #: [id number] FUTURE Prescriptions as of 09/07/2020 Sig: METFORMIN [...] 09/07/2020 12:00 PM >> SIENA KING RN [facility] Sep 07, 2020 12:00 PM Not taking. Problem List As Of Date 09/07/2020 Noted Resolved PAD (more content not included)... Normal [facility] APTTon 05-09-2020 aPTT Coag (Bld) [Time] 24.8 s Normal 23.0-32.4 [facility] Comment on above: Result Comment: Unfr [...] laboratory APTT reagent in use throughout the [facility]. Performed By: #### B MP, CBC, PTT ####[facility] [address] [place] [phone] Basic Metabolic Panlon 05-09 Anion gap [Moles/Vol] 11 mmol/L Normal 9-18 [facility] Comment on above: Performed By: #### B MP, CBC, PTT ####[facility] Cxk[address]cwb1778 [phone] Calcium [Mass/Vol] 9.8 mg/dL Normal 8.5-10.2 [facility] Comment on above: Performed By: #### B MP, CBC, PTT ####[facility] [address] [place] [phone] Chloride [Moles/Vol] 103 mmol/L Normal 97-105 [facility] Comment on above: Performed By: #### B MP, CBC, PTT ####[facility] Rb[address]so8828 [address]721-5160 CO2 [Moles/Vol] 24 mmol/L Normal 22-30 [facility] Comment on above: Performed By: #### B MP, CBC, PTT ####[facility] Gkxwe[address]re9024 [address]721-5160 Creatinine [Mass/Vol] 0.57 mg/dL Low 0.58-0.96 [facility] Comment on above: Performed By: #### B MP, CBC, PTT ####[facility] [address] [place] [phone] eGFR- Amer. >60 Normal [facility] Comment on above: Performed By: #### B MP, CBC, PTT ####[facility] Ouetcsodou9289 [address] GFR/1.73 sq M predicted among non-blacks MDRD (S/P/Bld) [Vol rate/Area] mL/min/{1.73_m2} Normal [facility] Comment on above: Result Comment: eGFR [...] Performed By: #### B MP, CBC, PTT ####[facility] Z[address]fe[address]dnco9521 [address]721-5160 Glucose [Mass/Vol] 156 mg/dL High 74-99 [facility] Comment on above: Result Comment: The [place] [employer] Association (ADA) provides guidance for cutoff [...] Standards of Medical Care in Diabetes 2016, [place] [employer]. Diabetes Care. 2016.39(Suppl 1). Performed By: #### B MP, CBC, PTT ####[place] [address] Potassium [Moles/Vol] 4.3 mmol/L Normal 3.7-5.1 [facility] Comment on above: Performed By: #### B MP, CBC, PTT ####[place] [address] Sodium [Moles/Vol] 138 mmol/L Normal 136-144 [facility] Comment on above: Performed By: #### B MP, CBC, PTT ####[place] [address] Urea nitrogen [Mass/Vol] 9 mg/dL Normal 7-21 [facility] Comment on above: Performed By: #### B MP, CBC, PTT ####[place] [address] CBCon 05-09-2020 Absolute nRBC <0.01 Normal <0.01 [facility] Comment on above: Performed By: #### B MP, CBC, PTT ####[place] [address] Erythrocyte distribution width (RBC) [Ratio] 12.9 % Normal 11.5-15.0 [facility] Comment on above: Performed By: #### B MP, CBC, PTT ####[place] [address] Hematocrit (Bld) [Volume fraction] 39.9 % Normal 36.0-46.0 [facility] Comment on above: Performed By: #### B MP, CBC, PTT ####[place] [address] Hemoglobin (Bld) [Mass/Vol] 13.2 g/dL Normal 11.5-15.5 [facility] Comment on above: Performed By: #### B MP, CBC, PTT ####[place] [phone] MCH (RBC) [Entitic mass] 28.9 pG Normal 26.0-34.0 [facility] Comment on above: Performed By: #### B MP, CBC, PTT ####[facility] [address] [place] [phone] MCHC (RBC) [Mass/Vol] 33.1 g/dL Normal 30.5-36.0 [facility] Comment on above: Performed By: #### B MP, CBC, PTT ####[facility] [address] [place] [phone] MCV (RBC) [Entitic vol] 87.5 fL Normal 80.0-100.0 [facility] Comment on above: Performed By: #### B MP, CBC, PTT ####[facility] [address] [place] [phone] Platelet mean volume (Bld) [Entitic vol] 10.1 fL Normal 9.0-12.7 [facility] Comment on above: Performed By: #### B MP, CBC, PTT ####[facility] W[address]qwn1283 [phone] Platelets (Bld) [#/Vol] 156 10*3/uL Normal 150-400 [facility] Comment on above: Performed By: #### B MP, CBC, PTT ####[facility] [address] [place] [phone] RBC (Bld) [#/Vol] 4.56 10*6/uL Normal 3.90-5.20 [facility] Comment on above: Performed By: #### B MP, CBC, PTT ####[facility] [address]suy[address]67 [phone] WBC (Bld) [#/Vol] 5.30 10*3/uL Normal 3.70-11.00 [facility] Comment on above: Performed By: #### B MP, CBC, PTT ####[facility] [address] [place] [phone] HISTORY PHYSICALon 0 HISTORY PHYSICAL HNO ID: [id number] Author: Elier Espino Service: Vascular Surgery Author [...] activities. 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 She has a known history of left subclavian artery stenosis. No neurologic complaints otherwise. Underwent??CTA at [place] which showed left SCA stenosis. On?plavix,?ASA, statin.? [...] 09, 2020 TIME: 1:46 PM PAGER/CONTACT #: [facility] NURSING PROGon 05-09-2020 NURSING PROG HNO ID: [id number] Author: Chris BergerRn) MORRIS Wheatley Service: Nursing Author Type: Registered Nurse Type: Nursing Progress Note Filed: 05/09/2020 8:20 PM Note Text: Pt ambulated to bathroom. Returned to bed. r groin soft dressing d/i [facility] NURSING PROG HNO ID: [id number] Author: Chris BergerRn) MORRIS Wheatley Service: Nursing Author Type: Registered Nurse Type: Nursing Progress Note Filed: 05/09/2020 8:19 PM Note Text: Pt dangled at bedside . r groin soft dressing d/i [facility] NURSING PROG HNO ID: [id number] Author: Chris BergerRn) Corry RN Service: Nursing Author Type: Registered Nurse Type: Nursing Progress Note Filed: 05/09/2020 7:54 PM Note Text: Hob elevated 45% Normal [facility] OPERATIVE NOon 05-09-2020 OPERATIVE NO HNO ID: [id number] Author: Elier Espino Service: Vascular Surgery Author Type: Physician Type: Operative Report Filed: 05/10/2020 9:41 AM Note Text: [facility] - Operative Report TERESSA BUI : 1955 AGE: 64. SEX: F PATIENT TYPE: A HOSP SVC: KAYDEN LOCATION: [facility] ATTENDING PHYSICIAN: ELIER ESPINO CSN NUMBER: [id number] DATE OF SURGERY/PROCEDURE: 05/09/2020 INCISION/PROCEDURE START TIME: 2:25 PM INCISION CLOSE/PROCEDURE END TIME: 3:21 PM PREOPERATIVE DIAGNOSIS: Left subclavian artery stenosis, left debilitating arm claudication. POSTOPERATIVE DIAGNOSIS: Left subclavian artery stenosis, left debilitating arm claudication. SURGEON: Elier Espino M.D. CUSTOMER TECHNICAL SERVICES MANAGER: No Additional Staff SURGERY/PROCEDURE: Ultrasound-guided access of the right common femoral artery, first order catheterization, left subclavian angiogram, stenting of the left proximal subclavian artery, completion angiography. ANESTHESIA: Conscious sedation, local. COMPLICATIONS: None. SPECIMENS: None. IMPLANTS: [employer] 7 x 27 LD balloon expandable stent, inflated to 8 atmospheres. FINDINGS: High-grade stenosis of the proximal left subclavian artery, pre-stent angioplasty performed with 4 x 40 mm balloon, lesion was then treated with a 7 x 27 [employer] balloon mounted stent with resolution of stenosis post stenting. Angiography of the left upper extremity demonstrated brisk flow down the left brachial, radial, and ulnar arteries filling to the hand. DESCRIPTION OF PROCEDURE: The patient was brought to the calibration laboratory technician and placed supine on the table. The [...] advanced into the thoracic aorta. Subsequently, a 5-Kosovan sheath was advanced over which an angled Glidecath was used to successfully cannulate the left subclavian artery. The wire was advanced through the left subclavian and axillary, and subsequently brachial artery. The wire had been exchanged for a Glidewire Advantage. A 6-Kosovan x 90 cm sheath was then advanced over the wire. The patient had been systemically heparinized. ACTs were checked throughout the duration of the case and she was maintained in a therapeutic value. Left upper extremity angiograms were performed as needed with the above-noted findings. Decision was made to pre-dilate the lesion. This was performed with a 4 x 40 mm furnace charger balloon following which the lesion was treated with a 7 x 27 [employer] [place] [employer] balloon mounted stent with the balloon [...] site using a Mynx device. A short 6-Kosovan sheath was placed. The patient's heparinization was [...] brought to recovery area. Elier Espino M.D. JIMY:[id number] /[id number] Normal [facility] Type and Screenon 05-09-2020 ABO/RH(D) Positive Normal [facility] Comment on above: Performed By: #### T SCR ####[facility] [address] [place] [employer], [place] [phone] HOSPon 03-28-2020 HOSP Patient:Regina Bui H MRN: Height:5' 5 (1.651 m) Weight:No [...] medications. Problem List: PAD (peripheral artery disease) ([facility]) [I73.9] Essential hypertension [I10] Ocular migraine [G43.109] Mixed hyperlipidemia [E78.2] Pre-diabetes [R73.03] Allergies: No Known Allergies Date Verified:05/08/20 Lab Values No results within the last 30 days for the following basenames: K,HCT Progress Notes (SENIOR DOT NET DEVELOPER MANAGEMENT): WILLIAMS Valencia Tech 04/20/2020 11:03 AM [...] No (Follow-up call) Homer, this is the [facility] calling, may I speak to Teressa Bui [...] like to speak with a social work prepared foods team leader to help give you support for any [...] [facility] patients may call: ? [facility] Nurse surgical product sales consultant at [phone] ? Their PCP Office Caregivers may call: ? [facility] Employee Hotline: [phone] Patient verbalizes understanding of information provided. Denies any further questions at this time. Please visit CDC.gov website for any updated information about Coronavirus. You can also find information on the [facility] website. Additional information can be found on the [facility] and [facility] web sites: https://www.cdc.gov/co ronavirus/2019-nCoV/in dex.html https://[facility].org/coronavirus End outreach Previous Version Progress Notes (SENIOR DOT NET DEVELOPER MANAGEMENT): Theresa Varela 04/18/2020 10:33 AM Signed COVID COMMUNITY MONITORING PROGRAM Provider Action/FYI: Follow up-stable feeling good no sx Monitoring Call: Date of symptoms onset: ] Patient is COVID-19 positive Contact made with patient Yes Patient identified by name and . Discussed care with patient Initial intake? No (Follow-up call) Homer, this is the [facility] calling, may I speak to Teressa Bui [...] like to speak with a social work prepared foods team leader to help give you support for any [...] [facility] patients may call: ? [facility] Nurse surgical product sales consultant at [phone] ? Their PCP Office Caregivers may call: ? [facility] Employee Hotline: [phone] Patient verbalizes understanding of information provided. Denies any further questions at this time. Please visit CDC.gov website for any updated information about Coronavirus. You can also find information on the [facility] website. Additional information can be found on the [facility] and [facility] web sites: https://www.cdc.gov/co ronavirus/2019-nCoV/in dex.html https://[facility].org/coronavirus End outreach Normal [facility] Basic Metabolic Panlon 09-01 Anion gap [Moles/Vol] 10 mmol/L Normal 9-18 [facility] Comment on above: Performed By: #### C BC, BMP ####[facility] [address] [place] [address] Calcium [Mass/Vol] 8.8 mg/dL Normal 8.5-10.2 [facility] Comment on above: Performed By: #### C BC, BMP ####[facility] [address] [place] [address] Chloride [Moles/Vol] 109 mmol/L High 97-105 [facility] Comment on above: Performed By: #### C BC, BMP ####[facility] Zasizamzcj9741 [address]5[address] CO2 [Moles/Vol] 23 mmol/L Normal 22-30 [facility] Comment on above: Performed By: #### C BC, BMP ####[facility] [address] [place] [address] Creatinine [Mass/Vol] 0.58 mg/dL Normal 0.58-0.96 [facility] Comment on above: Performed By: #### C BC, BMP ####[facility] [address] [place] [phone] eGFR- Amer. >60 Normal [facility] Comment on above: Performed By: #### C SHELLEY, BMP ####[facility] [address] [place] [phone] GFR/1.73 sq M predicted among non-blacks MDRD (S/P/Bld) [Vol rate/Area] mL/min/{1.73_m2} Normal [facility] Comment on above: Result Comment: eGFR [...] GFR. Performed By: #### C SHELLEY, BMP ####[facility] [address] [place] [phone] Glucose [Mass/Vol] 134 mg/dL High 74-99 [facility] Comment on above: Result Comment: The [place] Diabetes Association (ADA) provides guidance for cutoff [...] Standards of Medical Care in Diabetes 2016, [place] [employer] Association. Diabetes Care. 2016.39(Suppl 1). Performed By: #### C SHELLEY, BMP ####[facility] [address] [place] [phone] Potassium [Moles/Vol] 4.4 mmol/L Normal 3.7-5.1 [facility] Comment on above: Performed By: #### C SHELLEY, BMP ####[facility] [address] [place] [address] Sodium [Moles/Vol] 142 mmol/L Normal 136-144 [facility] Comment on above: Performed By: #### C SHELLEY, BMP ####[facility] R[address] [place] [address] Urea nitrogen [Mass/Vol] 11 mg/dL Normal 7-21 [facility] Comment on above: Performed By: #### C SHELLEY, BMP ####[facility] [address] [place] [address] CBCon 09-01-2019 Erythrocyte distribution width (RBC) [Ratio] 13.0 % Normal 11.5-15.0 [facility] Comment on above: Performed By: #### C SHELLEY, BMP ####[place] [address] Hematocrit (Bld) [Volume fraction] 34.9 % Low 36.0-46.0 [facility] Comment on above: Performed By: #### C SHELLEY, BMP ####[facility] [address] [place] [address] Hemoglobin (Bld) [Mass/Vol] 11.4 g/dL Low 11.5-15.5 [facility] Comment on above: Performed By: #### C SHELLEY, BMP ####[place] [address] MCH (RBC) [Entitic mass] 29.0 pG Normal 26.0-34.0 [facility] Comment on above: Performed By: #### C SHELLEY, BMP ####[facility] [address] [place] [address] MCHC (RBC) [Mass/Vol] 32.7 g/dL Normal 30.5-36.0 [facility] Comment on above: Performed By: #### C SHELLEY, BMP ####[place] [address] MCV (RBC) [Entitic vol] 88.8 fL Normal 80.0-100.0 [facility] Comment on above: Performed By: #### C SHELLEY, BMP ####[facility] [address] [place], [place] [id number] Platelet mean volume (Bld) [Entitic vol] 10.4 fL Normal 9.0-12.7 [facility] Comment on above: Performed By: #### C SHELLEY, BMP ####[facility] [address] [place] [address] Platelets (Bld) [#/Vol] 131 10*3/uL Low 150-400 [facility] Comment on above: Performed By: #### C SHELLEY, BMP ####[facility] [address] [place] [id number] RBC (Bld) [#/Vol] 3.93 10*6/uL Normal 3.90-5.20 [facility] Comment on above: Performed By: #### Deven ROSA, BMP ####[facility] [address] [place], [place] [phone] WBC (Bld) [#/Vol] 5.68 10*3/uL Normal 3.70-11.00 [facility] Comment on above: Performed By: #### Deven ROSA, BMP ####[facility] [address] [place] [address] CNCOon 09-01-2019 CNCO Letter Text Normal [facility] NURSING PROGon 09-01-2019 NURSING PROG HNO ID: [id number] Author: Cecille (Rn) MORRIS Garibay Service: Nursing Author Type: Registered Nurse Type: Nursing Progress Note Filed: 09/01/2019 8:25 AM Note Text: Nursing Progress Note Patient Name: Teressa Bui Patient Location: [place] [id number]/[facility]- 1 __ Daily Note: 0800- Spoke with Dr. Espino about giving the patient the ASA. Dr. Espino said to hold the the Asprin for now until he sees the patient. Dr. Espino also said to take off the sandbags off. 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 Will continue to monitor. 0000- pt HOB elevated to 30 degrees without incident. Will continue groin checks every 4 hrs now per order. Will continue to monitor. [facility] PROGRESSon 09-01-2019 PROGRESS HNO ID: [id number] Author: Elier Espino Service: Vascular Surgery Author [...] 01, 2019 TIME: 9:32 AM PAGER/CONTACT #: [phone] Normal [facility] Basic Metabolic Panlon 08-31 Anion gap [Moles/Vol] 12 mmol/L Normal 04-14 [facility] Comment on above: Performed By: #### B MP, CBC ####[facility] [address] [place] [phone] Calcium [Mass/Vol] 10.0 mg/dL Normal 8.5-10.2 [facility] Comment on above: Performed By: #### B MP, CBC ####[facility] [address] [place] [phone] Chloride [Moles/Vol] 105 mmol/L Normal 97-105 [facility] Comment on above: Performed By: #### B MP, CBC ####[facility] [address] [place] [phone] CO2 [Moles/Vol] 25 mmol/L Normal 22-30 [facility] Comment on above: Performed By: #### B MP, CBC ####[facility] [address] [place] [address] Creatinine [Mass/Vol] 0.79 mg/dL Normal 0.58-0.96 [facility] Comment on above: Performed By: #### B MP, CBC ####[facility] Ycng[address]oplb6174 [address]5160 eGFR- Amer. >60 Normal [facility] Comment on above: Performed By: #### B MP, CBC ####[facility] Tkcffadect6613 [address] GFR/1.73 sq M predicted among non-blacks MDRD (S/P/Bld) [Vol rate/Area] mL/min/{1.73_m2} Normal [facility] Comment on above: Result Comment: eGFR [...] GFR. Performed By: #### B MP, CBC ####[facility] [address] [place] [phone] Glucose [Mass/Vol] 130 mg/dL High 74-99 [facility] Comment on above: Result Comment: The [place] Diabetes Association (ADA) provides guidance for cutoff [...] Standards of Medical Care in Diabetes 2016, [place] [employer]. Diabetes Care. 2016.39(Suppl 1). Performed By: #### B MP, CBC ####[facility] [address] [place] [address] Potassium [Moles/Vol] 4.8 mmol/L Normal 3.7-5.1 [facility] Comment on above: Performed By: #### B MP, CBC ####[place] [address] Sodium [Moles/Vol] 142 mmol/L Normal 136-144 [facility] Comment on above: Performed By: #### B MP, CBC ####[facility] [address] [place] [address] Urea nitrogen [Mass/Vol] 19 mg/dL Normal 7-21 [facility] Comment on above: Performed By: #### B MP, CBC ####[place] [address] CBCon 08-31-2019 Erythrocyte distribution width (RBC) [Ratio] 13.4 % Normal 11.5-15.0 [facility] Comment on above: Performed By: #### B MP, CBC ####[place] [address] Hematocrit (Bld) [Volume fraction] 43.5 % Normal 36.0-46.0 [facility] Comment on above: Performed By: #### B MP, CBC ####[facility] [address] [place] [address] Hemoglobin (Bld) [Mass/Vol] 14.6 g/dL Normal 11.5-15.5 [facility] Comment on above: Performed By: #### B MP, CBC ####[facility] [address] [place] [phone] MCH (RBC) [Entitic mass] 29.6 pG Normal 26.0-34.0 [facility] Comment on above: Performed By: #### B MP, CBC ####[facility] [address] [place], [place] [address] MCHC (RBC) [Mass/Vol] 33.6 g/dL Normal 30.5-36.0 [facility] Comment on above: Performed By: #### B MP, CBC ####[facility] [address] [place] [address] MCV (RBC) [Entitic vol] 88.1 fL Normal 80.0-100.0 [facility] Comment on above: Performed By: #### B MP, CBC ####[facility] [address] [place], [place] [phone] Platelet mean volume (Bld) [Entitic vol] 9.9 fL Normal 9.0-12.7 [facility] Comment on above: Performed By: #### B MP, CBC ####[facility] [address] [place], [place] [phone] Platelets (Bld) [#/Vol] 176 10*3/uL Normal 150-400 [facility] Comment on above: Performed By: #### B MP, CBC ####[facility] [address] [place], [place] [phone] RBC (Bld) [#/Vol] 4.94 10*6/uL Normal 3.90-5.20 [facility] Comment on above: Performed By: #### B MP, CBC ####[facility] [address] [place], [place] [phone] WBC (Bld) [#/Vol] 6.69 10*3/uL Normal 3.70-11.00 [facility] Comment on above: Performed By: #### B MP, CBC ####[facility] [address] [place], [place] [phone] Confirm Blood Typeon 020 ABO/RH(D) Positive Normal [facility] Comment on above: Performed By: #### C ONABO #### [facility] Laboratory [address] [place] [phone] Performed By: #### T SCR ####[facility] [address] [place] [phone] HISTORY PHYSICALon 0 HISTORY PHYSICAL HNO ID: [id number] Author: Elier Espino Service: Vascular Surgery Author [...] 2019 TIME: 9:51 AM PAGER/CONTACT #: Normal [facility] Lipid Panel, [place] 020 Cholesterol [Mass/Vol] 152 mg/dL Normal <200 [facility] Comment on above: Performed By: #### L IPB ####[facility] [address] [place] [phone] Cholesterol in HDL [Mass/Vol] 61 mg/dL Normal >39 [facility] Comment on above: Performed By: #### L IPB ####[facility] Iylhfxnwpl9027 [phone] Cholesterol in LDL [Mass/Vol] 27 mg/dL Normal <100 [facility] Comment on above: Performed By: #### L IPB ####[facility] [address] [place] [address] Fasting Time Unknown Normal [facility] Comment on above: Performed By: #### L IPB ####[facility] [address] [place] [address] LDL:HDL Ratio 0.44 Normal <2.54 [facility] Comment on above: Result Comment: Refe rence: 1. National Cholesterol Education Program ATP III Guideline At-A-Glance Quick Desk Reference: National Heart, Lung, and Blood Canadian. National Institutes of Health. 2001: NIH Publication No. 01-3305. 2. An International Atherosclerosis Society position paper: global recommendations for the management of dyslipidemia: executive summary, Atherosclerosis. 2014: 232(2):410-413. Performed By: #### L IPB ####[facility] [address] [place] [address] Non HDL Cholesterol 91 mg/dL Normal <130 [facility] Comment on above: Performed By: #### L IPB ####[facility] [address] [place] [address] TC:HDL Ratio 2.49 Normal <5.10 [facility] Comment on above: Performed By: #### L IPB ####[facility] [address] [place] [address] Triglyceride [Mass/Vol] 321 mg/dL High <150 [facility] Comment on above: Performed By: #### L IPB ####[facility] [address] [place] [address] VLDL Cholesterol 64 mg/dL High <30 [facility] Comment on above: Performed By: #### L IPB ####[facility] [address] [place] [address] NURSING PROGon 08-31-2019 NURSING PROG HNO ID: [id number] Author: Mary (Rn) MORRIS Zhu Service: ? Author Type: Registered Nurse Type: Nursing Progress Note Filed: 08/31/2019 5:28 PM Note Text: Nursing Progress Note Patient Name: Teressa Bui [place] [facility] [place]- 1 __ Daily Note: 1720 notified by primary RN that patient's incision is still bleeding after holding pressure for 15 minutes, call placed to Dr. Espino to notify. This note was completed by: Mary Zhu RN [facility] OPERATIVE NOon 08-31-2019 OPERATIVE NO HNO ID: [id number] Author: Elier Espino Service: Vascular Surgery Author Type: Physician Type: Operative Report Filed: 09/02/2019 12:54 PM Note Text: [facility] - Operative Report TERESSA BUI : 1955 AGE: 63. SEX: F PATIENT TYPE: I HOSP S[facility]: [facility] LOCATION: [address] ATTENDING PHYSICIAN: ELIER ESPINO [facility] NUMBER: [id number] DATE OF SURGERY/PROCEDURE: 08/31/2019 INCISION/PROCEDURE START TIME: 10:23 AM INCISION CLOSE/PROCEDURE END TIME: 2:47 PM PREOPERATIVE DIAGNOSIS: Peripheral arterial disease, debilitating left lower extremity claudication, left iliac stenosis. POSTOPERATIVE DIAGNOSIS: Peripheral arterial disease, debilitating left lower extremity claudication, left iliac stenosis. SURGEON: Elier Espino M.D. CUSTOMER TECHNICAL SERVICES MANAGER: No Additional Staff SURGERY/PROCEDURE: Aortoiliac angiography, stenting [...] 8 x 60 and 7 x 60 [place] [employer] self-expanding stent. Post-stenting angioplasty being performed [...] PROCEDURE: The patient was brought into the calibration laboratory technician suite and placed supine on the table. [...] point, the patient was systemically heparinized. A 6-Kosovan 25 cm sheath was brought onto the [...] on the left lower extremity from the 6-Kosovan sheath and this demonstrated brisk flow through [...] was advanced into the distal aorta. A 5-Kosovan sheath was placed and the aortic bifurcation was successfully crossed with the Omni Flush catheter and a stiff- angled Glidewire. Stiff-angled Glidewire was successfully navigated into the superficial femoral artery and over this, a 5-Kosovan x 90 sheath was advanced. This was [...] area in stable condition. Elier Espino M.D. DK:[id number] /[id number] Normal [facility] PROGRESSon 08-31-2019 PROGRESS HNO ID: [id number] Author: Dina James Service: Hospital Medicine Author Type: Physician Type: Progress Notes Filed: 08/31/2019 8:11 PM Note Text: SERVICE DATE: 08/31/2019 SERVICE TIME: 8:10 PM HOSPITAL MEDICINE PROGRESS NOTE NIGHT AND WEEKEND COVERAGE: Nights: Please contact pager [phone]. Hospital Medicine/Primary Attending: Dina James MD Subjective [...] 31, 2019 TIME: 8:10 PM PAGER/CONTACT #: [phone] [facility] PT EDon 08-31-2019 PT ED HNO ID: [id number] Author: Ivan eBrgerRn) MORRIS Babb Service: Nursing Author Type: Registered [...] Signed By: Ivan Babb RN In Department: [facility] CAN PATCHER Normal [facility] HOSPon 08-23-2019 HOSP Patient:Regina Bui MRN: [...] for the following basenames: K,HCT Progress Notes ([facility]): Elier Espino MD 08/19/2019 12:35 PM Signed [facility] OUTPATIENT VISIT DATE August 19, 2019 OUTPATIENT VISIT TYPE ESTABLISHED PRIMARY CARE PHYSICIAN: Kevin Velasquez MD ([facility]) [address] [place] [address] REFERRING PHYSICIAN SELF CHIEF COMPLAINT: No chief complaint on file. HISTORY OF PRESENT ILLNESS: Teressa Bui was referred for consultation by Dr. Velasquez. Opinions and recommendations in this consultation will be transmitted back to the referring physician by [facility] notes or via mail. ? Ms. Bui is a 63 year old female [facility] prediabetes, active smoker who is seen [...] since her last evaluation. Studies performed at [facility] and [facility] show: Bilateral ICA 50-69% stenoses. GENO/PVR GENO [...] complaints, no neurologic complaints. Underwent CTA at [place] which showed left SCA stenosis. On ASA, [...] symptoms. Elier Espino MD Progress Notes ([facility]): Isela Rand Ralph 08/18/2019 10:01 AM Signed Pt has an appointment tomorrow and she was supposed to have an US, PVR, and CTA prior to this appointment, all orders are in the system. Please call and schedule these for patient prior to appointment or please reschedule appointment until after all tests are completed. Thank you. Isela Rand Ralph 08/18/2019 1:55 PM Signed Looks like pt had these tests done at [facility], scanned into system. Normal [facility] Vital Signs Date Time Vital Sign Value Performing Clinician Facility 05-11-2024 10:02-0400 Body height 165.1 cm Mariela Menchaca NP Work Phone: [facility] 05-11-2024 10:02-0400 Body mass index (BMI) [Ratio] 22.4 kg/m2 Mariela Menchaca [employer] Work Phone: [facility] 05-11-2024 10:02-0400 Body weight 61.05 kg Mariela Menchaca NP Work Phone: [facility] 05-11-2024 10:02-0400 Diastolic blood pressure 76 mm[Hg] Mariela Menchaca [employer] Work Phone: [facility] 05-11-2024 10:02-0400 Systolic blood pressure 120 mm[Hg] Mariela Menchaca [employer] Work Phone: [facility] 09-09-2023 10:34-0500 Body height 165.1 cm Mariela Menchaca [employer] Work Phone: [facility] 09-09-2023 10:34-0500 Body mass index (BMI) [Ratio] 22.8 kg/m2 Mariela Menchaca [employer] Work Phone: [facility] 09-09-2023 10:34-0500 Body weight 62.14 kg Mariela Menchaca [employer] Work Phone: [facility] 09-09-2023 10:34-0500 Diastolic blood pressure 78 mm[Hg] Mariela Menchaca [employer] Work Phone: [facility] 09-09-2023 10:34-0500 Systolic blood pressure 124 mm[Hg] Mariela Menchaca [employer] Work Phone: [facility] 04-08-2023 13:00-0400 Body height 165.1 cm Radha Correa Other [facility] Other 04-08-2023 13:00-0400 Body mass index (BMI) [Ratio] 22.46 kg/m2 Radha Correa Other [facility] Other 04-08-2023 13:00-0400 Body weight 61.24 kg Radha Correa Other [facility] Other 04-08-2023 13:00-0400 Diastolic blood pressure 80 mm[Hg] Radha Correa Other [facility] Other 04-08-2023 13:00-0400 SaO2% (BldA) [Mass fraction] 99 % Radha Correa Other [facility] Other 04-08-2023 13:00-0400 Systolic blood pressure 130 mm[Hg] Radha Correa Other [facility] Other 03-03-2023 08:30-0400 Body height 165.1 cm Kevin Ball Other [facility] Other 03-03-2023 08:30-0400 Body mass index (BMI) [Ratio] 22.5 kg/m2 Kevin Ball Other [facility] Other 03-03-2023 08:30-0400 Body weight 61.33 kg Kevin Ball Other [facility] Other 03-03-2023 08:30-0400 Diastolic blood pressure 85 mm[Hg] Kevin Ball Other [facility] Other 03-03-2023 08:30-0400 Respiratory rate 12 /min Kevin Ball Other [facility] Other 03-03-2023 08:30-0400 Systolic blood pressure 135 mm[Hg] Kevin Ball Other [facility] Other 11-01-2022 09:30-0400 Body height 165.1 cm Kevin Ball Other [facility] Other 11-01-2022 09:30-0400 Body mass index (BMI) [Ratio] 23.1 kg/m2 Kevin Ball Other [facility] Other 11-01-2022 09:30-0400 Body weight 62.96 kg Kevin Ball Other [facility] Other 11-01-2022 09:30-0400 Diastolic blood pressure 75 mm[Hg] Kevin Ball Other [facility] Other 11-01-2022 09:30-0400 Respiratory rate 12 /min Kevin Ball Other [facility] Other 11-01-2022 09:30-0400 Systolic blood pressure 170 mm[Hg] Kevin Velasquez Other [facility] Other 09-12-2022 10:45-0500 Body height 165.1 cm Dylan Calixto Other [facility] Other 09-12-2022 10:45-0500 Body mass index (BMI) [Ratio] 22.63 kg/m2 Dylan Calixto Other [facility] Other 09-12-2022 10:45-0500 Body temperature 96.7 [degF] Dylan Calixto Other [facility] Other 09-12-2022 10:45-0500 Body weight 61.69 kg Dylan Calixto Other [facility] Other 09-12-2022 10:45-0500 Diastolic blood pressure 70 mm[Hg] Dylan Calixto Other [facility] Other 09-12-2022 10:45-0500 SaO2% (BldA) [Mass fraction] 97 % Dylan Calixto Other [facility] Other 09-12-2022 10:45-0500 Systolic blood pressure 120 mm[Hg] Dylan Calixto Other [facility] Other 08-23-2021 09:45-0500 Body height 165.1 cm Dylan Calixto Other [facility] Other 08-23-2021 09:45-0500 Body mass index (BMI) [Ratio] 22.63 kg/m2 Dylan Moodyeric Other [facility] Other 08-23-2021 09:45-0500 Body temperature 97.9 [degF] Dylan Moodyeric Other [facility] Other 08-23-2021 09:45-0500 Body weight 61.69 kg Dylan Durga Other [facility] Other 08-23-2021 09:45-0500 Diastolic blood pressure 78 mm[Hg] Dylan Durga Other [facility] Other 08-23-2021 09:45-0500 SaO2% (BldA) [Mass fraction] 97 % Dylan Durga Other [facility] Other 08-23-2021 09:45-0500 Systolic blood pressure 158 mm[Hg] Dylan Moodyeric Other [facility] Other Encounters Encounter Date Encounter Type Care Provider Facility Start: 05-11-2024 End: 05-11-2024 Office outpatient visit 15 minutes Mariela Menchaca [employer] Work Phone: [facility] Comment on above: Presence of pessary (Primary Dx); Pelvic floor relaxation Start: 05-11-2024 End: 05-11-2024 ambulatory MARIELA F MENCHACA Not Available Start: 01-08-2024 End: 01-08-2024 ambulatory MARIELA F MENCHACA Not Available Start: 09-09-2023 Bamboo flowsheet Mariela gibbons [employer] Work Phone: [facility] Start: 09-09-2023 Bamboo flowsheet Mariela gibbons [employer] Work Phone: [facility] Start: 09-09-2023 End: 09-09-2023 Office outpatient visit 15 minutes Mariela Menchaca [employer] Work Phone: [facility] Comment on above: Presence of pessary (Primary Dx); Pelvic floor relaxation Start: 09-09-2023 End: 09-09-2023 ambulatory MARIELA MENCHACA Not Available Start: 06-26-2023 End: 06-26-2023 ambulatory Kevin Velasquez Other [facility] Other Start: 06-26-2023 Office outpatient vi sit 15 minutes Kevin Ball [facility] Start: 06-04-2023 End: 06-04-2023 ambulatory Kevin Ball Other [facility] Other Start: 06-04-2023 Telephone encounter Kevin Ball [facility] Start: 04-08-2023 End: 04-08-2023 ambulatory Radha Correa Other [facility] Other Start: 04-08-2023 Office outpatient vi sit 15 minutes Radha Correa [facility] Start: 03-18-2023 End: 03-18-2023 ambulatory Kevin Velasquez Other [facility] Other Start: 03-18-2023 Telephone encounter Kevin Ball [facility] Start: 03-04-2023 End: 03-04-2023 ambulatory Kevin Velasquez Other [facility] Other Start: 03-04-2023 Telephone encounter Kevin Ball [facility] Start: 03-03-2023 End: 03-03-2023 ambulatory Kevin Ball Other [facility] Other Start: 03-03-2023 Patient encounter procedure Kevin Ball [facility] Start: 12-02-2022 End: 12-02-2022 ambulatory Kevin Ball Other [facility] Other Start: 12-02-2022 Telephone encounter Kevin Ball [facility] Start: 11-01-2022 End: 11-01-2022 ambulatory Kevin Velasquez Other [facility] Other Start: 11-01-2022 Office outpatient vi sit 25 minutes Kevin Velasquez [facility] Start: 10-03-2022 End: 10-03-2022 ambulatory Kevin Velasquez Other [facility] Other Start: 10-03-2022 Office outpatient vi sit 15 minutes Kevin Velasquez [facility] Start: 09-12-2022 End: 09-12-2022 ambulatory Dylan Durga Other [facility] Other Start: 09-12-2022 Office outpatient vi sit 25 minutes Dylan Calixto [facility] Start: 09-04-2022 End: 09-04-2022 ambulatory Kevin Velasquez Facility:[facility] Start: 09-04-2022 End: 09-04-2022 ambulatory DO Kevin Ron Work Phone: [facility] Work Phone: Start: 09-04-2022 End: 09-04-2022 Patient encounter procedure DO Kevin Ron Work Phone: [facility] [place] Work Phone: Start: 09-02-2022 End: 09-03-2022 ambulatory Mariela MENCHACA Facility:[facility] Start: 09-02-2022 End: 09-02-2022 Lab Drop off Mariela MENCHACA [facility] Start: 07-26-2022 End: 07-26-2022 ambulatory Kevin Velasquez Other [facility] Other Start: 07-26-2022 Telephone encounter Kevin RUEDA [facility] Start: 07-03-2022 End: 07-04-[address] KEVIN VELASQUEZ Facility: Start: 04-25-2022 End: 04-25-2022 ambulatory Summer Ruizsebastian Other [facility] Other Start: 04-25-2022 Telephone encounter Summer Ruizsebastian [facility] Start: 03-18-2022 Encounter for genera l adult medical examination without abnormal findings DR KEVIN VELASQUEZ [facility] Start: 03-15-2022 End: 03-16-[address] KEVIN VELASQUEZ Facility:[facility]1 Start: 03-15-2022 End: 03-16-2022 Encounter for general adult medical examination without abnormal findings DR KEVIN VELASQUEZ Facility:[facility]1 Start: 08-23-2021 End: 08-23-2021 ambulatory Dylan Calixto Other [facility] Start: 08-23-2021 Office outpatient ne w 60 minutes Dylan Calixto [facility] V[facility] Surgery Start: 08-21-2021 End: 08-22-[address] KEVIN VELASQUEZ Facility:[facility]1 Procedures Date Procedure Procedure Detail Performing Clinician Start: 05-09-2020 Antibody screen Comment on above: Performed By: #### T SCR ####[facility] [address] [place], [place] [id number] Start: 08-31-2019 Antibody screen Comment on above: Performed By: #### T SCR ####[facility] Taxupaxccn3914 [address] Plan of Treatment Date Care Activity Detail Author Start: 09-09-2023 End: 09-09-2023 Patient encounter procedure 09/09/2023 10:40 AM EST Office Visit [facility] [address] [address] Mariela Menchaca NP [address] [place] [address] Arrived [facility] Comment on above: Arrived Start: 09-04-2022 Ankle brachial press ure index [facility] Start: 09-04-2022 Doppler ultrasonogra phy of bilateral carotid arteries US carotid doppler BI [facility] Start: 09-04-2022 US.doppler Carotid arteries - bilateral [facility] Start: 1995 Screening for malign ant neoplasm of breast Mammogram [facility] Start: 1955 Screening for malign ant neoplasm of colon [facility] Immunizations Immunization Date Immunization Notes Care Provider Ksenia plunkett 05-08-2022 influenza, high dose seasonal, preservative-free Kevin Ron Other [facility] 02-28-2022 Prevnar 20 Kevin Ron Other [facility] 04-29-2021 pneumococcal polysaccharide vaccine, 23 valent Kevin Velasquez Other [facility] 05-18-2020 influenza virus vaccine, split virus (incl. purified surface antigen) Kevin Ron Other [facility] 05-06-2018 influenza virus vaccine, split virus (incl. purified surface antigen) Kevin Ron Other [facility] Other 04-04-2017 tetanus and diphther ia toxoids, adsorbed, preservative free, for adult use (5 Lf of tetanus toxoid and 2 Lf of diphtheria toxoid) Kevin Ron Other [facility] Other 04-17-2015 influenza virus vaccine, split virus (incl. purified surface antigen) Kevin Ron Other [facility] Other Payers Date Payer Category Payer [facility] er [id number] 2021 Unknown 2021 Self-pay [id number] 1959 Private Health Insurance [id number] 1959 Unknown [id number] 1955 Unknown [id number] .2.593 1955 Unknown [id number] [id number] .2.593 1955 Unknown [id number] [id number] .2.593 1955 Unknown [id number] [id number] .2.727 1955 Unknown [id number] [id number] .2.1259 1955 Unknown [id number] [id number] .2.1259 1955 Unknown [id number] [id number] .2.1259 Medicare Medicare-OP No Part B [id number] Private Health Insurance [id number] Private Health Insurance [facility] coRank [id number] Unknown [id number] .2.531 Social History Date Type Detail Facility Start: 12-31-2022 End: 05-11-2024 Sex Assigned At [facility] Tobacco smoking status No Smokin g Status Entered [facility] Start: 1955 Sex Assigned At Female [facility] Start: 12-31-2022 Tobacco smoking stat NHIS Never smoked tobacco [facility] Start: 12-31-2022 Tobacco use and exposure Smokeless tobacco non-user [facility] Start: 05-05-2023 End: 05-11-2024 Alcohol intake Lifetime non-drinker (finding) [facility] Start: 12-31-2022 End: 05-11-2024 History of Social function [facility] How [...] At Not on file [facility] How many standard drinks containing alcohol do you have on a typical day? Patient does not drink [facility] Medical Equipment Procedure Code Equipment Code Equipment Origin al Text Equipment Identifier Dates [id number], [id number] Start: 11-27-2022 Clinical Notes 09-07-2020 to 05-11-2024 Mariela Menchaca NP - 05/11/2024 10:00 AM Lucero Menchaca NP - 09/09/2023 10:40 AM EST Note Date & Type Note Facility 05-11-2024 History of Presen t illness Narrative Name: Teressa Bui Date/Time of Service:05/11/2024 10:31 AM :1955 Age: 68 y.o. SUBJECTIVE: History of Present Illness Teressa Bui is a 68 y.o. here for pessary maintenance. She is not having any problems. She denies symptoms of vaginal infection or vaginal bleeding. She had UTI about 3 weeks ago. Currently asymptomatic. Size 6 pessary. PCP ordered her mammogram and DEXA scan back in February. Past Medical History: Diagnosis Date Hypertension (CMS/HCC) [...] Take before meals. Do not open capsule.. Januvia 25 MG tablet Take 25 mg by mouth in the morning. Januvia 50 MG tablet Take 50 mg by mouth in the morning. Lancets (LivekickTouch Delica Plus Dfrjug72S) [facility] [place] 1 LANCET USE TO TEST HOME BLOOD SUGAR ONCE DAILY 90 losartan (Cozaar) 50 MG tablet Take 50 mg by mouth in the morning. metFORMIN (Glucophage) 500 MG tablet Take 500 mg by mouth. Take with food. [employer] Ultra test strip USE TO TEST ONCE A DAY verapamil ER (Verelan) 120 MG 24 hr capsule Take 120 mg by mouth in the morning. No current facility-administered medications on file prior to visit. No Known Allergies PHYSICAL EXAM: Vitals: 05/11/24 1002 BP: 120/76 Body mass index is 22.4 kg/m . Physical Exam Constitutional: Appearance: Normal [...] Follow up in about 4 months (around 09/11/2024) for Pessary maintenance. documented in this encounter [facility] 09-09-2023 History of Presen t illness Narrative [...] mg by mouth in the morning. Lancets (CriticalArc Ptyuch Delica Plus Figyxi64S) [facility] [place] 1 LANCET USE TO TEST HOME BLOOD SUGAR ONCE DAILY 90 losartan (Cozaar) 50 MG tablet Take 50 mg by mouth in the morning. metFORMIN (Glucophage) 500 MG tablet Take 500 mg by mouth. Take with food. [employer] Ultra test strip USE TO TEST ONCE [...] for Pessary maintenance. documented in this encounter [facility] 06-26-2023 Evaluation note Encounter Date Diagnosis [...] necessary, will resolve w/ treatment of infection [facility] 09-12-2023 Evaluation note* Encounter Date Diagnosis [...] verbalizes understanding and agrees with tx plan. [facility] 08-08-2023 Evaluation note* Encounter Date Diagnosis Assessment Notes Treatment Notes Treatment Clinical Notes Feb, Gastroesophageal ref lux disease with esophagitis without hemorrhage (ICD-10 - K21.00) [facility] 08-08-2023 Evaluation note* Encounter Date Diagnosis Assessment Notes Treatment Notes Treatment Clinical Notes Feb, Eczema, unspecified type (ICD-10 - L30.9) [facility] 08-07-2023 Evaluation note* Encounter Date Diagnosis [...] cerebrovascular and cardiovascular disease. Feb, Atherosclerosis of tribe artery of both lower extremities with intermittent [...] High risk medication use (ICD-10 - Z79.899) [facility] 04-07-2023 Evaluation note* Encounter Date Diagnosis [...] with continued statin therapy. Oct, Atherosclerosis of tribe artery of both lower extremities with intermittent [...] Continue Verapamil No f/u w/ Neurology necessary [facility] 03-09-2023 Evaluation note* Encounter Date Diagnosis [...] treatment necessary despite likely increase in BS [facility] 02-16-2023 Evaluation note* Encounter Date Diagnosis [...] were addressed. She understands agrees the plan. [facility] 02-08-2023 NoteMicrobiology PROCEDURE: Gynecological Culture [R1] SOURCE: Cerv BODY SITE: COLLECTED DATE/TIME: 09/02/2022 09:40 EST RECEIVED DATE/TIME: 09/02/2022 20:53 EST START DATE/TIME: 09/02/2022 20:53 EST FREE TEXT SOURCE: Mariela NARAYANAN, Mariela FINAL REPORTS Final Report [] Verified Date/Time: [...] Locations R1: This test was performed at: [facility], [address] [place] [address], [id number] , , [facility]jOhio[facility] HospitalComment on above:Performed By: #### [id number] #### [facility] [address] [place] [address] [phone] Evaluation + Plan note Diagnostic Tests Pending * Gynecological Culture 09/02/22 * NuSwab Vaginitis (VG) 09/02/22 [facility]01-27-2022 Evaluation note* Encounter Date Diagnosis Assessment Notes Treatment Notes Treatment Clinical Notes Jul, Stenosis of left subclavian artery (ICD-10 - I77.1) Jul, 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 She has had a previous left subclavian stent placed at the origin of the left subclavian artery at [facility]. This was due to left arm symptomatic [...] bilateral carotid artery stenosis (ICD-10 - I65.23) [facility] 09-02-2021 NoteHNO ID: [id number] Author: Elier Espino MD Service: ? Author Type: Physician Type: Progress Notes Filed: 03/29/2021 1:39 PM Note Text: [facility] OUTPATIENT VISIT DATE March 29, 2021 OUTPATIENT VISIT TYPE EST PRIMARY CARE PHYSICIAN: Kevin Velasquez ([facility]) [address] [place] [address] REFERRING PHYSICIAN SELF CHIEF COMPLAINT: Patient presents [...] have personally reviewed the GENO, DUS. IMPRESSION/PLAN: ?is a 65 year old female s/p iliac and left SCA stenting.? She is doing well. Continue with optimal medical mgt of comorbidities including control of dyslipidemia?and glycemic control. Continue ASA, plavix.?Regular exercise. Follow up in 6 months with repeat noninvasive studies.? Elier Espino [facility]05-13-2021 NoteHNO ID: [id number] Author: Elier Espino MD Service: ? Author Type: Physician Type: Progress Notes Filed: 12/07/2020 1:01 PM Note Text: [facility] OUTPATIENT VISIT DATE December 07, 2020 OUTPATIENT VISIT TYPE EST PRIMARY CARE PHYSICIAN: Kevin Velasquez ([facility]) [address] [place] [address] REFERRING PHYSICIAN SELF CHIEF COMPLAINT: Patient presents [...] have personally reviewed the GENO/PVR, DUS. IMPRESSION/PLAN: ?Prosperrob ?is a 65 year old female s/p iliac and left SCA stenting.? She is doing well. Continue with optimal medical mgt of comorbidities including control of dyslipidemia and glycemic control. Continue ASA, plavix. Regular exercise. Follow up in 3 months with repeat noninvasive studies.? ? ? Elier Espino [facility]02-11-2021 NoteHNO ID: [id number] Author: Elier Espino Service: ? Author Type: Physician Type: Progress Notes Filed: 09/07/2020 12:28 PM Note Text: [facility] OUTPATIENT VISIT DATE September 07, 2020 OUTPATIENT VISIT TYPE EST PRIMARY CARE PHYSICIAN: Kevin Velasquez MD ([facility]) [address] [place] [address] REFERRING PHYSICIAN Elier Espino MD [address] [facility] [address] CHIEF COMPLAINT: Patient presents with: Follow Up: PAD/Discuss Test Results HISTORY OF PRESENT ILLNESS: Ms.?Ruffing ?is a 64 year old female who [...] with repeat noninvasive studies. ? Elier Espino, [facility] Cent[facility] noteNo InformationNortGuthrie [facility] Other Evaluation noteNo assessment information available [facility] Work Phone: Evaluation note* Diagnosis Presence of pessary- Primary Pelvic floor relaxation documented in this encounter [facility] HealthcareEvaluation note* Diagnosis Presence of pessary- Primary Pelvic floor relaxation documented in this encounter [facility] HealthcareHistory general Narrative - Reported* Type Description Date Medical History carotid artery stenosis Medical History hypertension Medical History migraine headaches Medical History acid reflux Surgical History tubual ligation Surgical History cataract surgery Surgical History stent in left subclavian Surgical History stent in left iliac [facility] Other History general Narrative - Reported* Type Description Date Medical History carotid artery stenosis Medical History hypertension Medical History migraine headaches Medical History acid reflux Medical History PAD Surgical History tubual ligation Surgical History cataract surgery Surgical History stent in left subclavian Surgical History stent in left iliac Hospitalization History See Above [facility] Other Hospital course Narrative No data available for this section [facility] instructions No data available for this section [facility] Hospital[facility] note No data available for this section [facility] Summary Purpose Family History No Family History Records FoundNo Family History Records FoundNo Family History Records FoundNo Family History Records FoundNo Family History Records FoundNo Family History Records Found Advance Directives Advance Directive Response Recorded Date/ Time Advance Directives No August 30, 2022 12:54pm Procedure Findings Note HNO ID: [id number] Author: Liv Espino Service: Vascular Surgery Author Type: Physician Type: Brief Op Note Filed: 08/31/2019 8:22 PM Note Text: BRIEF OPERATIVE / PROCEDURE NOTE LOG ID: [id number] SURGERY/PROCEDURE DATE: 08/31/2019 INCISION/PROCEDURE START TIME: 10:23 AM INCISION CLOSE/PROCEDURE END TIME: 2:47 PM SURGEON(S)/PROCEDURALIST(S) AND CUSTOMER TECHNICAL SERVICES MANAGER(S): Surgeon(s) and Role: * Elier Barnard No Additional Staff SURGERY/PROCEDURE(S): Aortoiliac angiography, stenting [...] iliac artery treated with 8x60 and 7x60 [employer] self expandable stent, post stenting angioplasty of the lef (more content not included)... Note HNO ID: [id number] Author: Liv Espino Service: Vascular Surgery Author Type: Physician Type: Brief Op Note Filed: 05/09/2020 3:31 PM Note Text: BRIEF OPERATIVE / PROCEDURE NOTE LOG ID: [id number] SURGERY/PROCEDURE DATE: 05/09/2020 INCISION/PROCEDURE START TIME: 2:25 PM INCISION CLOSE/PROCEDURE END TIME: 3:21 PM SURGEON(S)/PROCEDURALIST(S) AND CUSTOMER TECHNICAL SERVICES MANAGER(S): Surgeon(s) and Role: * Elier Kassavin - Primary No Additional Staff SURGERY/PROCEDURE(S): Ultrasound guided access of the right common femoral artery, left subclavian angiogram, stenting of the left proximal subclavian artery, completion angiography ANESTHESIA: Procedural Sedation FINDINGS: High grade stenosis of the proximal left subclavian artery, prestent angioplasty w/ 4x40mm balloon, lesion treated with 7x27 [employer] balloon mounted stent. Resolution of stenosis post stenting. ESTIMATED BLOOD LOSS: 0 ml SPECIMENS: None COMPLICATIONS: None IMPLANTS: [employer] 7x27 LD balloon expandable stent, inflated to 8atm (more content not included)... Chief Complaint and Reason for Visit Chief Complaint i65.23 i70.213 Additional Source Comments INFORMATION SOURCE (unrecogn ized section and content) DATE CREATED AUTHOR 05/10/2020 [facility] DATE CREATED AUTHOR AUTHOR'S ORGANIZ ATION 08/31/2021 [facility] DATE CREATED AUTHOR AUTHOR'S ORGANIZ ATION 07/06/2022 [facility] DATE CREATED AUTHOR AUTHOR'S ORGANIZ ATION 09/06/2022 Galan Jorge [facility] DATE CREATED AUTHOR AUTHOR'S ORGANIZ ATION 09/13/2022 [facility] DATE CREATED AUTHOR AUTHOR'S ORGANIZ ATION 05/13/2024 [facility] EPIC REASON FOR VISIT (unrecogniz ed section and content) left leg claudication, subcl martha artery stenosis left ref from Dr. 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 [employer] [facility]. provides no warranty or guarantee of the accuracy or completeness of information in this document.
[2024-07-12 08:28] LABS: Estimated Average Glucose 163 mg/dL; Glycohemoglobin A1C 7.3 % (4.5-6.2)
[2024-07-12 08:39] LABS: Alanine Aminotransferase 57 U/L (14-59); Albumin Level 3.6 g/dL (3.4-5.0); Alkaline Phosphatase 116 U/L (46-116); Aspartate Amino Transferase 44 U/L (15-37); BUN Creatinine Ratio 11.7; Bilirubin Total 0.7 mg/dL (0.2-1.0); Calcium 9.1 mg/dL (8.5-10.1); Carbon Dioxide 28.6 mmol/L (21.0-32.0); Chloride 106 mmol/L (98-107); Estimated GFR (African America >60 (>=60 mL/min/1.73m^2); Estimated GFR (Non-African Ame >60 (>=60 mL/min/1.73m^2); Globulin 3.5 g/dL; Glucose 126 mg/dL (74-106); Potassium 4.6 mmol/L (3.5-5.1); Sodium 142 mmol/L (136-145); Total Protein 7.1 g/dL (6.4-8.2)
== END 2024-07-12 07:52 | disposition home or self-care (01) ==
LOC: LAB 07:53
PROVIDERS: PCP Internal Medicine; Visit Provider Internal Medicine
DX: E11.65 Type 2 diabetes mellitus with hyperglycemia (principal); K76.0 Fatty (change of) liver, not elsewhere classified
CPT/HCPCS: 36415; 80053; 83036

== ENCOUNTER 2024-11-26 08:14 | Outpatient (OUT) | payer BC, SELFPAY ==
[2024-11-26 08:43] LABS: Estimated Average Glucose 166 mg/dL; Glycohemoglobin A1C 7.4 % (4.5-6.2)
== END 2024-11-26 08:15 | disposition home or self-care (01) ==
LOC: LAB 08:16
PROVIDERS: PCP Internal Medicine; Visit Provider Internal Medicine
DX: E11.65 Type 2 diabetes mellitus with hyperglycemia (principal)
CPT/HCPCS: 36415; 83036

== ENCOUNTER 2025-04-11 10:20 | Outpatient (OUT) | payer MEDICARE, OTHER, SELFPAY ==
--- NOTE | 2025-04-11 10:29 | MM_ITS ---
Patient Name: TERESSA BUI MR#: [id number] : 1955 Exam Date: 04/11/2025 Ordering Doctor: DR CLARENCE CARDENAS D.O. RADIOLOGY REPORT PROCEDURE: MM TOMOSYNTHESIS SCREENING BI COMPARISON: MM TOMOSYNTHESIS SCREENING BI, 03/19/2024. MM TOMOSYNTHESIS SCREENING BI, 03/18/2023. MG MAMM SCREEN 3D ALBERT CAD, 03/15/2022. MG MAMM ALBERT SCRN W CAD DIG, 09/09/2013. INDICATIONS: Screening Calculator Name NCI Breast Cancer Risk Assessment Tool 5 Year Breast Cancer Risk 1.80% Lifetime Breast Cancer Risk 5.60% Personal Breast Cancer No Personal Ovarian Cancer No Treatments None Family Cancers Sister with endometrial cancer at age 65. LOCATION: [facility] BREAST COMPOSITION: There are scattered areas of fibroglandular density. FINDINGS: RIGHT BREAST: No significant suspicious finding. LEFT BREAST: No significant suspicious finding. DIAGNOSTIC CATEGORY 1--NEGATIVE. RECOMMENDATIONS: ROUTINE MAMMOGRAM AND CLINICAL EVALUATION IN 12 MONTHS. Dictated by: Zen Willis DO on 04/11/2025 at 12:43 Approved by: Zen Willis DO on 04/11/2025 at 12:45
--- OUTSIDE RECORDS SUMMARY | 2025-04-11 10:33 | XMS_ITS | CCD ---
Author Organization [facility] CliniSyin Care Team Providers Care Weed Sprayer Name Role Phone Dylan Calixto Unavailable Summer Decker Unavailable RONALD, DR LIMA Admitting Unavailable RONALD, DR LIMA Attending Unavailable RONALD, DR LIMA Primary Care Unavailable RONALD, DR LIMA Consulting Unavailable RONALD, DR LIMA Admitting Unavailable RONALD, DR LIMA Attending Unavailable RONALD, DR LIMA Primary Care Unavailable RONALD, DR LIMA Consulting Unavailable RONALD, DR LIMA Admitting Unavailable RONALD, DR LIMA Attending Unavailable RONALD, DR LIMA Primary Care Unavailable RONALD, DR LIMA Consulting Unavailable HENRIQUE, DR SNOW Hooker Consulting Unavailable KEVIN VELASQUEZ Primary Care Physician Mariela MENCHACA Unavailable MD Dylan Calixto Attending Provider [phone] DO Kevin Velasquez Primary Care Provider Mariela MENCHACA Attending Unavailable Mariela MENCHACA Admitting Unavailable Kevin Velasquez Unavailable Radha Correa Unavailable Kevin Velasquez MD Primary Care Provider Kevin Velasquez Primary Care Unavailable Dylan Calixto Attending UnavailDylan Marte Admitting UnavailKevin Addison DO Primary Care Provider Mariela Menchaca NP Unavailable MARIELA MENCHACA Attending Unavailable ULICES WISE Attending Unavailable MARIELA MENCHACA Attending Unavailable ULICES WISE Attending Unavailable MARIELA MENCHACA Attending Unavailable ULICES WISE Attending Unavailable Kevin Velasquez DO Primary Care Provider Kevin Velasquez DO Attending Provider Allergies Allergy Classification Reported Allergen(s) Allergy Type Date of Onset Reaction(s) Facility (7 sources) Lisinopril Drug Allergy 09-23-2017 Unknown NuLabel Other (1 source) Lisinopril Drug Allergy 09-15-2024 [facility] Repository Medications Current Medications Medication Drug Class(es) Dates Sig (Normalized) Sig (Original) alendronic acid 70 mg oral tablet (4 sources) Bisphosphonate Start: 03-19-2024 take 1 tablet by mouth every week Alendronate (Fosamax) 70 mg tablet Active 70 MG PO every week 11 22March 19, 2024 12:00am Complies with drug therapy aspirin 81 mg delayed release oral tablet (19 sources) Platelet Aggregation Inhibitor, Nonsteroidal Anti-inflammatory Drug Start: 11-19-2023 Aspirin (Adult Low Dose Aspirin) 81 mg tablet,delayed release (DR/EC) Active 81 MG PO Daily November 19, 2023 12:00am Complies with drug therapy Start: 08-12-2019 aspirin 325 mg Tab Refills(s) 0 Start Date: 08/12/19 Status: Ordered take 1 tablet by german th once daily Baby Aspirin 81 MG 1 tablet Orally Once a day Active atenolol 50 mg oral tablet (3 sources) beta-Adrenergic Ronda Start: 08-12-2019 atenol ol 50 mg Tab Refills(s) 0 Start Date: 08/12/19 Status: Ordered take 1 tablet by german th every twenty-four hours Atenolol 25 MG 1 tablet Orally Once a da y for 30 day(s) Not-Taking atorvastatin 80 mg oral tablet (20 sources) HMG-CoA Reductase Inhibitor Start: 01-16-2024 End: 12-30-2024 take 1 tablet by mouth once daily in the evening Atorvastatin 80 mg tablet Active 0 .ROUTE .COMPLEX December 30, 2024 7:24am TAKE 1 TABLET BY MOUTH EVERY DAY IN THE EVENING Complies with drug therapy Start: 08-12-2019 End: 01-16-2024 take 1 tablet by mouth once daily Atorvastatin 80 mg tablet Discontinued 80 MG PO Daily November 19, 2023 12:00am January 16, 2024 7:26am clopidogrel 75 mg oral tablet (20 sources) [id number] Platelet Inhibitor Start: 07-26-2024 take 1 tablet by mouth once daily Clopidogrel 75 mg tablet Active 0 .ROUTE .COMPLEX July 26, 2024 11:16pm TAKE 1 TABLET BY MOUTH EVERY DAY FOR 30 DAYS Complies with drug therapy Start: 04-25-2022 End: 07-26-2024 take 1 tablet by mouth once daily Clopidogrel 75 mg tablet Discontinued 75 MG PO Daily November 19, 2023 12:00am July 26, 2024 11:16pm esomeprazole 40 mg delayed release oral capsule (13 sources) Proton Pump Inhibitor Start: 03-03-2023 take 1 capsule by mouth once daily Esomeprazole Magnesium 40 MG 1 capsule Orally Once a day, taken on empty stomach followed in 30 minutest by [facility] for 90 days Feb, Active End: 01-18-2025 take 1 capsule by mouth before mealtime esomeprazole (NexIUM) [address] capsule Take 20 mg by mouth in the morning. Take before meals. Do not open capsule.. 01/18/2025 Discontinued estradiol 0.1 mg/ml vaginal cream (3 sources) Estrogen Start: 01-01-2023 End: 11-12-2023 estradiol (Estrace) 0.1 MG/GM vaginal cream Indications: Presence of pessary Insert 1 g into the vagina 3 (three) times a week. 45 g 2 01/01/2023 11/12/2023 Active famotidine 40 mg oral tablet (2 sources) Histamine-2 Receptor Antagonist Start: 11-25-2024 take 1 tablet by mouth once daily Famotidine 40 mg tablet Active 40 MG PO Daily November 25, 2024 12:00am Take daily after supper Complies with drug therapy glimepiride 1 mg oral tablet (1 source) Sulfonylurea Start: 03-30-2025 take 1 tablet by mouth once daily Glimepiride 1 mg tablet Active 1 MG PO Daily March 30, 2025 12:00am Complies with drug therapy losartan potassium 50 mg oral tablet (20 sources) Angiotensin 2 Receptor Ronda Start: 07-26-2024 take 1 tablet by mouth once daily Losartan 50 mg tablet Active 0 .ROUTE .COMPLEX July 26, 2024 11:16pm TAKE 1 TABLET BY MOUTH EVERY DAY Complies with drug therapy Start: 11-22-2022 End: 07-26-2024 take 1 tablet by mouth once daily Losartan 50 mg tablet Discontinued 50 MG PO Daily November 19, 2023 12:00am July 26, 2024 11:16pm take 1 tablet by german th every twenty-four hours Losartan Potassium 25 MG 1 tablet Orally Once a day Active take 1 tablet by german th once daily Losartan Potassium 50 MG TAKE 1 TABLET BY MOUTH EVERY DAY for 90 Active metFORMIN hydrochloride 500 mg oral tablet (20 sources) Biguanide Start: 03-30-2025 take 1 tablet by mouth twice daily Metformin 500 mg tablet Active 500 MG PO Twice daily 180 90 March 30, 2025 9:50am Complies with drug therapy Start: 10-21-2024 End: 03-30-2025 Metformin 500 mg tablet Discontinued 0 .ROUTE .COMPLEX 180 November 29, 2024 4:50pm March 30, 2025 9:51am 1 tablet with breakfast 2 tablets with dinner; Start: 11-07-2023 End: 03-04-2024 take 1 tablet by mouth twice daily at mealtime Metformin 500 mg tablet Discontinued 0 .ROUTE .COMPLEX 180 November 07, 2023 1:25pm March 04, 2024 8:56am TAKE 1 TABLET BY MOUTH TWICE A DAY WITH FOOD Start: 11-22-2022 End: 11-07-2023 take 1 tablet by mouth twice daily at mealtime Metformin 500 mg tablet Discontinued 500 MG PO Twice daily with meals November 07, 2023 12:00am November 07, 2023 1:25pm Start: 11-22-2022 End: 10-21-2024 take 1 tablet by mouth once daily Metformin 500 mg tablet Discontinued 500 MG PO Daily March 04, 2024 8:55am October 21, 2024 6:52am mupirocin 0.02 mg/mg topical ointment (3 sources) [...] Once a day for 90 days Active ondansetron 4 mg disintegrating oral tablet (1 source) Serotonin-3 Receptor Antagonist Start: 11-26-2024 take 1 tablet by mouth every eight hours as needed for nausea and vomiting Ondansetron 4 mg tablet,disintegra ting Active 4 MG PO Every 8 hours as needed for nausea and vomiting 10 November 26, 2024 12:00am Complies with drug therapy OneTouch Ultra - (9 sources) OneTouch Ultra - USE TO TEST ONCE A DAY for 30 Active pantoprazole 40 mg delayed release oral tablet (20 sources) Proton Pump Inhibitor Start: 03-30-2025 take 1 tablet by mouth once daily Pantoprazole 40 mg tablet,delayed release (DR/EC) Active 40 MG PO Daily 90 March 30, 2025 12:00am Complies with drug therapy Start: 04-18-2024 End: 11-25-2024 take 1 tablet by mouth once daily 30 minutes before breakfast Pantoprazole 40 mg tablet,delayed release (DR/EC) Discontinued 0 .ROUTE .COMPLEX April 18, 2024 8:03pm November 25, 2024 10:03am TAKE 1 TABLET BY MOUTH ONCE A DAY ON A EMPTY STOMACH 30 MINUTES BEFORE BREAKFAST 90 Start: 11-19-2023 End: 04-18-2024 take 1 tablet by mouth once daily Pantoprazole 40 mg tablet,delayed release (DR/EC) Discontinued 40 MG PO Daily November 19, 2023 12:00am April 18, 2024 8:03pm Start: 03-06-2023 take 1 tablet by german once daily Pantoprazole Sodium 40 MG 1 tablet Orally Once a day on an empty stomach 30 minutes before bkfst for 30 days d/c Omeprazole Feb, Active Pantoprazole Sod ium Active triamcinolone acetonide 5 mg/ml topical cream (10 sources) Corticosteroid Start: 11-19-2023 Triamcinolone Acetonide 0.5 % cream Active 1 APPLIC TOPICAL Twice daily November 19, 2023 12:00am Complies with drug therapy Start: 03-04-2023 Triamcinolone Acetonide 0.5 % 1 application Externally bid as needed for rash for 30 days Feb, Active 24 hr verapamil hydrochloride 120 mg extended release oral capsule (20 sources) Calcium Channel Ronda Start: 01-23-2024 End: 01-16-2025 take 1 capsule by mouth once daily Verapamil 120 mg capsule,ext rel. pellets 24 hr Active 0 .ROUTE .COMPLEX January 16, 2025 7:50am TAKE 1 CAPSULE BY MOUTH EVERY DAY Complies with drug therapy Start: 11-19-2023 End: 01-23-2024 take 1 capsule by mouth once daily Verapamil 120 mg capsule,ext rel. pellets 24 hr Discontinued 120 MG PO Daily November 19, 2023 12:00am January 23, 2024 7:02am Start: 08-12-2019 verapamil 120 mg Cap-ER Refills(s) 0 Start Date: 08/12/19 Status: Ordered take 1 capsule by [facility] every twenty-four hours in the morning [...] 30 day(s) Not-Taking take 1 tablet by [facility] every twenty-four hours Calcium + D 600-200 MG-UNIT 1 tablet wit h food Orally Once a day for 30 day(s) Not-Taking cefdinir 300 mg oral capsule (4 sources) Cephalosporin Antibacterial Start: 01-14-2024 End: 03-04-2024 take 1 capsule by mouth twice daily Cefdinir 300 mg capsule Discontinued 300 MG PO Twice daily 14 January 14, 2024 12:00am March 04, 2024 8:55am ciprofloxacin 500 mg oral tablet (1 source) Quinolone Antimicrobial Start: 11-26-2024 End: 03-30-2025 take 1 tablet by mouth every twelve hours Ciprofloxacin Hcl 500 mg tablet Discontinued 500 MG PO Every 12 hours 14 November 26, 2024 12:00am March 30, 2025 9:54am Hold Atorvastatin when taking Cipro doxycycline hyclate 100 mg oral capsule (5 sources) Tetracycline-class Drug Start: 04-05-2024 End: 08-06-2024 take 1 capsule by mouth twice daily Doxycycline Hyclate 100 mg capsule Discontinued 100 MG PO Twice daily April 05, 2024 12:00am August 06, 2024 10:24am Start: 06-26-2023 take 1 capsule by [facility] every twelve hours Doxycycline Hyclate 100 MG 1 capsule Orally Twice a day for 7 days May, Active SITagliptin 25 mg oral tablet (20 sources) Dipeptidyl Peptidase 4 Inhibitor Start: 10-30-2023 End: 03-30-2025 take 1 tablet by mouth once daily Sitagliptin Phosphate (Januvia) 25 mg tablet Discontinued 0 .ROUTE .COMPLEX 90 October 28, 2024 6:51am March 30, 2025 9:51am TAKE 1 TABLET BY MOUTH EVERY DAY Start: 02-04-2023 End: 10-30-2023 take 1 tablet by mouth once daily Sitagliptin Phosphate 25 mg tablet Discontinued 25 MG PO Daily October 30, 2023 12:00am October 30, 2023 12:09pm Start: 08-26-2022 End: 01-18-2025 take 1 tablet by mouth in the morning Januvia 50 MG tablet Take 50 mg by mouth in the morning. 08/26/2022 01/18/2025 Discontinued Suprep Bowel Prep Kit 17.5-3.13-1.6 GM/180ML (2 sources) Start: 03-23-2019 Suprep Bowel P rep Kit 17.5-3.13-1.6 GM/180ML 177 ML DIRECTED AT 4 PM AND ONE AT 11 PM DAY PRIOR Orally Twice a day for 1 day(s) Feb, Not-Taking valACYclovir 1000 mg oral tablet (7 sources) Herpesvirus Nucleoside Analog DNA Polymerase Inhibitor, Herpes Simplex Virus Nucleoside Analog DNA Polymerase Inhibitor, Herpes Zoster Virus Nucleoside Analog DNA Polymerase Inhibitor Start: 11-19-2023 End: 08-06-2024 Valacyclovir 1 gram tablet Discontinued 1000 MG PO Twice daily November 19, 2023 12:00am August 06, 2024 10:24am Start: 04-08-2023 take 1 tablet by german th every twelve hours valACYclovir HCl 1 GM 1 tablet Orally Twice a day for 7 days Mar, Active Problems Active Problems Problem Classification Problem Date Documented Date Episodic/Chronic Acute bronchitis (1 source) Acute bronchitis due to other specified organisms Episodic Allergic reactions (1 source) Dermatitis, unspecified Episodic Diabetes mellitus with complications (20 sources) Type 2 diabetes mellitus with hyperglycemia; Translations: [Type 2 diabetes mellitus] Onset: 07-03-2022 Chronic Disorders of lipid metabolism (19 sources) Hypercholesterolemia; Translations: [Pure hypercholesterolemia, unspecified] Chronic Esophageal disorders (20 sources) Gastro-esophageal reflux disease with esophagitis; Translations: [Gastroesophageal reflux disease with esophagitis without hemorrhage] 11-19-2023 Chronic Essential hypertension (19 sources) Essential hypertension; Translations: [Essential (primary) hypertension] Chronic Genitourinary symptoms and ill-defined conditions (6 sources) Vaginal pessary in situ; Translations: [Presence of urogenital implants] 09-09-2023 Chronic Headache; including migraine (19 sources) Ophthalmic migraine; Translations: [Migraine with aura, not intractable, without status migrainosus] Chronic Occlusion or stenosis of precerebral arteries (20 sources) Bilateral stenosis of carotid arteries; Translations: [Occlusion and stenosis of bilateral carotid arteries] Onset: 08-23-2021 Resolved: 08-23-2021 Chronic Comment on above: US: right 60-79% bhavin nosis, left < 50% - 2020 Osteoporosis (5 sources) Osteoporosis; Translations: [Age-related osteoporosis without current pathological fracture] 03-19-2024 Chronic Comment on above: DEXA: hip -2.7, 03/16 24 Other acquired deformities (4 sources) Contracture of joint of right ankle; Translations: [Contracture, right ankle] 01-03-2025 Chronic Other aftercare (1 source) Other intermediate (current) drug therapy Episodic Other circulatory disease (14 sources) Stenosis of left subclavian artery; Translations: [Stricture of artery] Chronic Other circulatory disease (3 sources) Stricture of artery Onset: 08-23-2021 Resolved: 08-23-2021 Chronic Other connective tissue disease (2 sources) Calcaneal spur of right foot; Translations: [Calcaneal spur, right foot] 01-03-2025 Episodic Other connective tissue disease (4 sources) Plantar fasciitis; Translations: [Plantar fascial fibromatosis] 01-03-2025 Episodic Other liver diseases (7 sources) Abnormal liver function; Translations: [Abnormal liver function] Chronic Other liver diseases (5 sources) Fatty (change of) liver, not elsewhere classified; Translations: [Metabolic dysfunction-associate d steatotic liver disease (MASLD)] Onset: 03-18-2022 03-08-2024 Chronic Other screening for suspected conditions (not mental disorders or infectious disease) (7 sources) Encounter for screening mammogram for malignant neoplasm of breast; Translations: [Patient encounter status] Onset: 03-18-2022 Episodic Other upper respiratory infections (1 source) Acute maxillary sinusitis, unspecified Episodic Peripheral and visceral atherosclerosis (20 sources) Atherosclerosis of [place] arteries of extremities with intermittent claudication, left leg; Translations: [Peripheral vascular disease, unspecified] Onset: 08-23-2021 Resolved: 08-23-2021 Chronic Prolapse of female genital organs (6 sources) Relaxation of pelvic floor; Translations: [Other female genital prolapse] 09-09-2023 Chronic Residual codes; unclassified (4 sources) Menopause present; Translations: [Asymptomatic menopausal state] 03-04-2024 Episodic Skin and subcutaneous tissue infections (1 source) Impetigo, unspecified Episodic Spondylosis; intervertebral disc disorders; other back problems (8 sources) Low back pain; Translations: [Low back pain] 03-04-2024 Episodic Superficial injury; contusion (1 source) Blister (nonthermal) of oral cavity, initial encounter Episodic Past or Other Problems Problem Classification Problem Date Documented Da te Episodic/Chronic Esophageal disorders (2 sources) Esophageal disorders Residual codes; unclassified (1 source) Family history of malignant neoplasm of other organs or systems; Translations: [FAM HX MALIG NEOPLASM OTH ORGN/SYS] Onset: 03-18-2022 Episodic Results Test Name Value Interpretation Reference Range Facility US carotid doppler BIon 09-25 US carotid doppler [facility] [address] [place] [address] Ultrasound Report Signed Patient: Teressa Bui MR#: [id number] : 1955 Acct:[id number] Age/Sex: 68 / F ADM Date: 09/15/24 Loc: [facility] Room: Type: [facility] Attending Dr: Dylan Calixto MD Ordering Provider: Dylan Calixto MD Date of Service: 09/15/24 US/US carotid doppler BI: I65.23 - Occlusion and stenosis of bilateral carotid rosita... Copies to: Dylan Calixto MD CAROTID DUPLEX INDICATION: Follow-up known carotid occlusive disease PROCEDURE: Color-flow duplex scanning is used to interrogate the extracranial carotid arterial system, as well as both vertebral arteries. Both carotid bifurcations show mild to moderate heterogeneous plaque formation. The proximal right internal carotid artery shows a highest peak systolic velocity of 243 cm/s with an end-diastolic velocity of 58.9 cm/s . The mid internal carotid artery measures 163 cm/s peak systolic and 35.8 cm/s end diastolic. The distal segment measures 64.8 cm/s peak systolic with an end diastolic velocity of 23.1 cm/s . The velocities of the right common carotid artery are 96.6 cm/s peak systolic and 14.3 cm/s end-diastolic proximally and 148 cm/s peak systolic and 25.1 cm/s end diastolic distally. The peak systolic velocity ratio of the internal to the common carotid artery is 2.53. right external carotid artery measures 229 cm/s peak systolic. The right vertebral artery is patent at 72.4 cm/s with antegrade flow. The proximal left internal carotid artery shows a highest peak systolic velocity of 127 cm/s with an end-diastolic velocity of 37.8 cm/s . The mid internal carotid artery measures 116 cm/s peak systolic and 31.5 cm/s end diastolic. The distal segment measures 100 cm/s peak systolic with an end diastolic velocity of 38.4 cm/s . The velocities of the left common carotid artery are 112 cm/s peak systolic and 22 cm/s end-diastolic proximally and 237 cm/s peak systolic and 42.5 cm/s end diastolic distally. The peak systolic velocity ratio of the internal to the common carotid artery is 0.54 . The left external carotid artery measures 167 cm/s peak systolic. The left vertebral artery is patent at 79 cm/s with antegrade flow. US/US carotid doppler BI IMPRESSION: Moderate plaque formation is noted bilaterally. There is at least 50-69% stenosis of the right extracranial internal carotid artery but this is toward the higher end of that spectrum . The velocities have increased from the prior study of 2022. Less than 50% stenosis is noted in the left extracranial internal carotid artery. Both vertebral arteries are patent with antegrade flow. Impression dictated by: Zen Lopez M.D.10/11/2024 1:21 PM Dictation Location: [place] [address] Tech: Tabatha Ring Transcribed By: RAFAEL 10/11/24 1321 Dictated By: Zen Lopez MD 10/11/24 1314 Signed By: 10/11/24 1321 Normal [facility] US ankle/arm indiceson 09-15 US ankle/arm indices [facility] [address] [place] [id number] Ultrasound Report Signed Patient: Teressa Bui MR#: [id number] : 1955 Acct:[id number] Age/Sex: 68 / F ADM Date: 09/15/24 Loc: [facility] Room: Type: [facility] Attending Dr: Dylan Calixto MD Ordering Provider: Dylan Calixto MD Date of Service: 09/15/24 US/US ankle/arm indices: I70.213 - Atherosclerosis of [place] arteries of extremiti... Copies to: Dylan Calixto MD LOWER EXTREMITY SEGMENTAL ARTERIAL DOPSCAN (PVR) INDICATION: Surveillance study for PAD. PROCEDURE: Right arm blood pressure is 132 , left is 128 . Pressures at the right ankle are 162 using the posterior tibial artery, and 153 using the dorsalis pedis artery with ankle-brachial ind ex of 1.23 1.16 . Pressures at the left ankle are 163 using the posterior tibial artery, and 156 with ankle-brachial index of 1.23 1.18 . Wave forms by plethysmography are normal. US/US ankle/arm indices IMPRESSION: NO HEMODYNAMICALLY SIGNIFICANT PERIPHERAL VASCULAR OCCLUSIVE DISEASE AT REST IN EITHER LOWER EXTREMITY. Impression dictated by: Dylan Calixto MD09/15/2024 1:59 PM Dictation Location: [id number] Tech: Tabatha Ring Transcribed By: RAFAEL 09/15/24 1359 Dictated By: Dylan Calixto MD 09/15/24 1358 Signed By: 09/15/24 1359 Normal [facility] Estimated glomerular filtrat ion rate (GFR) non- Americanon 07-12-2024 GFR/1.73 sq M.predicted among non-blacks MDRD (S/P/Bld) [Vol rate/Area] Estimated glomerular filtration rate (GFR) non- >=60 mL/min/1.73m 2 [facility] Globulin Calc (S) [Mass/Vol] on 07-12-2024 Globulin (S) [Mass/Vol] Serum globulin measurement by calculation (mass/volume) [facility] Glucose mean value [Mass/vol ume] in Blood Estimated from glycated hemoglobinon 07-12-2024 Average glucose Estimated from glycated hemoglobin (Bld) [Mass/Vol] Glucose mean value [Mass/volume] in Blood Estimated from glycated hemoglobin [facility] Laboratory - Chemistry and C hemistry - challengeon 07-12-2024 Albumin [Mass/Vol] 3.6 g/dL 3.4-5.0 [facility] ALP [Catalytic activity/Vol] 116 U/L 46-116 [facility] ALT [Catalytic activity/Vol] 57 U/L 14-59 [facility] AST [Catalytic activity/Vol] 44 U/L High 15-37 [facility] Bilirubin [Mass/Vol] 0.7 mg/dL 0.2-1.0 [facility] Calcium [Mass/Vol] 9.1 mg/dL 8.5-10.1 [facility] Chloride [Moles/Vol] 106 mmol/L 98-107 [facility] CO2 [Moles/Vol] 28.6 mmol/L 21.0-32.0 [facility] Creatinine [Mass/Vol] 0.77 mg/dL 0.55-1.02 [facility] GFR/1.73 sq M.predicted MDRD (S/P/Bld) [Vol rate/Area] mL/min/{1.73_m2} >=60 mL/min/1.73m 2 [facility] Glucose [Mass/Vol] 126 mg/dL High 74-106 [facility] Potassium [Moles/Vol] 4.6 mmol/L 3.5-5.1 [facility] Protein [Mass/Vol] 7.1 g/dL 6.4-8.2 [facility] Sodium [Moles/Vol] 142 mmol/L 136-145 [facility] Urea nitrogen [Mass/Vol] 9.0 mg/dL 7.0-18.0 [facility] Urea nitrogen/Creatinine [Mass ratio] 11.7 mg/mg [facility] Laboratory - Hematology and Cell countson 07-12-2024 HbA1c (Bld) [Mass fraction] 7.3 % High 4.5-6.2 [facility] Comment on above: ADA RECOMMENDED LIMI T 4.0 - 6.0ADA THERAPEUTIC TARGET < 7.0ACTION SUGGESTED> 7.0 Serum or plasma albumin/glob ulin mass ratioon 07-12-2024 Albumin/Globulin [Mass ratio] Serum or plasma albumin/globulin mass ratio [facility] Serum or plasma anion gap de terminationon 07-12-2024 Anion gap [Moles/Vol] Serum or plasma anion gap determination [facility] NuSwab Vaginitis (VG)on 08-28 A. vaginae DNA HARJEET+probe Ql (Vag fld) Low - 0 Invalid Interpretation Code [facility] Comment on above: Performed By: #### 1 [id number] #### [facility] [address] [place] [address] Bacterial vaginosis associated bacterium 2 DNA HARJEET+probe Ql (Vag fld) Low - 0 Invalid Interpretation Code [facility] Comment on above: Performed By: #### 1 [id number] #### [facility] [address] [place] [address] C. albicans DNA HARJEET+probe Ql (Vag fld) Negative Invalid Interpretation Code Negative [facility] Comment on above: Result Comment: This test was developed and its performance characteristics determined by [facility]. It has not been cleared or approved by the Food and Drug Administration. Performed By: #### 1 [id number] #### [facility] [address] [place] [address] C. glabrata DNA HARJEET+probe Ql (Vag fld) Negative Invalid Interpretation Code Negative [facility] [facility] Comment on above: Result Comment: This test was developed and its performance characteristics determined by [facility]. It has not been cleared or approved by the Food and Drug Administration. Performed By: #### 1 [id number] #### [facility] [address] [place] [address] Megasphaera sp type 1 DNA HARJEET+probe Ql (Vag fld) Low - 0 Invalid Interpretation Code [facility] Comment on above: Result Comment: [...] developed and its performance characteristics determined by [facility]. It has not been cleared or approved by the Food and Drug Administration. Performed By: #### 1 [id number] #### [facility] [address] [place] [address] T. vaginalis DNA HARJEET+probe Ql (Vag fld) Negative Invalid Interpretation Code Negative [facility] Comment on above: Result Comment: Perf ormed at: =G [facility] [address] [place] [id number] MD Jj Sagastume Performed By: #### 1 [id number] #### [facility] [address] [place] [address] Coding Summary.on 09-05-2022 Coding Summary. CD:[id number] Gh 0bWw+PGhlYWQ+TW8DATHwQ 67flUYxsX6QP1zVGR1WHEU DKGALFL6JQA4tfUJ2SOngW 2VybiAv BzjcuQSfVU28KRn8BWH4wO cnPBamsN9ytLIoA3j6ZoFv RU12tI31YHnvCLCzEkP1Zb ZpbjsgbWFy F5dqNbUexYBuCyf+PHRhYm xlIHdpZHRoPScxMDAlJyBz tCduQH6aUz1nPPVxQSGrsH xhcHNlOiBj d7cvFNEfIBvqYQ9wlYarB5 MpcDJ6FCSax7z4Hk39vGK+ UZYcXNG8sVjfNGlfz190Ol Luh4dfKCZ2 jKZgHUmqWHS5Z15ht1P8ZZ CsKHEnAUL8jRD3lD1zqIut ypdoO0FogXGnYrP1NJW9oL NkgA0dpHty wbshwA6qYjv+F97BQI0EID HVPR9BOjm5B9OpDlofuDH+ XY92SXEiXN18wXFtzEGqb5 qllGy2FoNd DGWuZUG4cSqrLVnfn3EiMF TlR75ciHEzq7J1RQSqnEvx rPIiPeJakJM6fA0aUFqoss aii2zlayaw Dptyh0znsv19yQ07Y56cDD pjBZEzHLP1IUBpRRBkbCpv cd2lgN5eDn5+PVzpl9hag0 yrgUl6MxFx HQMdnqLinBnzWMV6c0NmTy 47V0JbhMwfb6RdHkr6pt81 dNUpa2N2rMD7EKssHDHmlI 5zDHqcXmQ9 YWOeQeCizM26dHXxKOcoRq 5tlYnvkYziBO7sVNSllxec FZJmfD7bMFJhwUOiyApdIA 4wNTBpbjtm g274WiTsBFD7FPNbyXWdG9 GneY5nZdPaKLGrEIIyB8Fv rCZjDAxoU987VGtuVwM7NZ KckuUqN1Az HOClaYicDzP0c1Y1Ci9Yg6 FdmhcxBZQ4ISwtWCVaOeE3 ZxDiFjB0K3EzZjk4ENJhbO jaCE2mW2Yv HWPdnnczbmtsdOL3EPZuSN EgoO12aALoZUznYn3sy0F6 l246JNVlPJQthP23Zc3btY ogMTBwdCBU aQ2pzthza0wejaopJgGmZJ DySYm2BKr5YZPfdBmfEaAe SJS6HyZ7MVJ1lZLcaJ5hpD ockdmpjG2t Oyc+D08hrI8yYTF2VBA6js yaMVQaueTvPW21TV65H9Qr PjwvdGFibGU+PGRpdiBzdH gkJZ1rFcFv z6sqp8QjPBrzG5CqEWOlBW jsPlk3FHAxQCZ5cZP4bM5z TYHaUDqrk9R3tFK9S1Jizu Kuso5on5lt KQIzZImuV68hqHKyb3C0PI EiyXR7ETQtiFkjOhLmoC18 Oyc+XDBgtWnoi4KzVsaez9 ani8rzfOw8 OyUeIAGqalZftGydEFF9s1 TbNn04P79aSOraXTDzEOYu EIKjOCPjqUakqi5vgL4oJm 8+PGNvbCB3 wFW5kH2mKFVqAtM0TKbuX3 08OtVqnAIyBuwim8pkk3fy eLf5NaWnTGZoofFlzEkqPT Z2p8NzWu67 D78qZFwkQTHhRHRuOAUjOF JlfDdiew0aqI5fYa5+PC9j w3xjun84nD18vTB+PHRkIH H1xZplGMaa FRXpuK5uECojLuS9WGDrBt QmmK79oKFvBBgdTl0ynGio jKblCC4yECXzpltqo809Ax Zqp7lxTXAq fHSeMQobEVO2R47hl4E2PK DmYYOdHGR7tJI9jU2gwKyd bjogbGVmdDsgdmVydGljYW ufDEnoC696 IHRvcDsnPlBhdGllbnQgTm EmUWm3X8TlEbk2JFAvcFjg PN0pvFNwWPyaLd3bzOmshY nfYI0vEAAt dvpqc909CxAtd5cmWOMgcQ GaAStgLUT3W82fl2T6HFRw GUQtDJR6mOA5zF9tpZqefa ogbGVmdDsg zwNlvOzzKIylZVajC274ST RvcDsnPkJpcnRoIERhdGU6 PL53QN61aXAyx1N5vYF3W0 BhZGRpbmct irwzxRH5UFSaYZNguJ25Ce 0shJsxZu7rNGTwPIQ4OFGl wXMuN1VnuX5mDbAbFVKeTV OkB7RqzZIh EYzkB096UYbdJwO6AGAzea CuK2HsRJArjLkdCdB5t2F6 Al2GK5I5GO99MS89pSMbo9 I2gOJ3W8Bv YAWkhdltelyzlMX9WLCmXG RtkJ48Xa7muRluPw8jIXKa IWY0OIDzyCYvF7VaoC1fGc AjMDAwMDAw L6HjcQUtPSdvU799YEntQt J0HSHzwaNbK1RmCQEkrJjf QyS3y9L3Lm8VGOq1LT13RO 86iPHzz3R6 uNC4O2XwELNnumybwbfviN B9MBVxEIGnoX47Br8ovEwk Mo5kQSCyRJB4XPCvqAZgF5 SpsU1gFiVc TALoHKMjG3JmqPEqKZpyB4 28WEugBwN7VBJlffMjY2Ia SGVudJhzDzZ9u2V8Ct6YVW NbES34FQO2 yTP6XM99PL47S1KmJrgnlZ FibGU+PHRhYmxlIHdpZHRo VZsuKQZgQrKhvJggGS6sDk 9yZGVyLWNv eCgkjNAoIjGrv3soPKOlZK tzYH6ydUvcR8GifBK7XSSx x6a4Qg83P76cD5VxuQN+PG YlkJE6rJA3 wI5uPbBkZyU0QXouQ479Yj QguHSmVotje8jzz8jumFa4 LsJ1KRBqncUqeUxxXNL1x7 CfTd41U63b IHdpZHRoPSIxNSUiIHZhbG ymuw5duR5kAq5+PGNvbCB3 tCE3cZ8wEbSaWmQ7VJhjQ9 49InRvcCIv Jzfep6kny9qkaZc2QuMnEY YqjbKfxOcjIJF5m4HkXe77 K4SfvWeqp7OaTrn5gv75cJ Ebp6X9jZX5 K0TvSEHayrexjFIraOeeRW 5jNQVsiqmqRHNanD5fJQTu O9o8FsDhCsB3HOwwE5Zybm K4ODEdmGIz GJtdZZA9O29vw5N1VBHfFJ HvYZY8rOM6wQ7hiOmdsols bGVmdDsgdmVydGljYWwtYW vyK488FSQy tVvaRHFioD1gKAPysYTxmG ktAQ3tGNAjewyzOlECDbGL TqocXAAOZNQFQFr4L5GbBc h7DJRqyOka DT6beNNxXMtmVl1ijEhdxQ xdYR3nXJHflwndHYTjhM7q UEWsqZQmjXlgFF0qIQXhwu fmt523MaIj NJN3YXJlnLLhZ6TudS1uGx FjOWCjNUPkX5KovPWaLCdk W656TVzqWlG5LCHegdVkS7 FsLWFsaWdu XfN3o6A8Bo6tDJ9sIR2dBJ E0OY23PB47wIXiq1G5pQA8 J0DoQGAypeijgtdfgSB3WV DeLQTczJ74 nGXmIUqgNy0pf0J5j760UR EdCZEcdJ56Mz1aeBrlCQLl qMRZhH3pegzwh8mqvrjhKt AwMDAwMDt0 DHo9JNStyAghNcZlPSP7Qg U9PLS2eASntF2yaZkjnkwr kK4jOuc+IdVdCUBohnI8Q6 FwSkn2JVQe oGccQN6jtZHbZAffPx2duO yqhKfjNZ5hFAZduuueTBGs zL6vKURddEWyqTvlIS2mPK Ulsunza636 ZmFkOAQ5UCLyoNZkS1PnvO 2kBwTdUZLmZPFxM7PytNXs LNcrZ737NTbbBbJ0PVMfvs AjU9CrHTHb iUauWwN2r6K8Ve6LFN4krT Q2N5WtTcc7LSYjvAsgFX0w nCOmYYslYx2joQuizZrcKX 4wNTBpbjtw NVPcsF2uEVGbzUEtbGhhPO 4aXWXnkwmhf400WwCzMGQ8 PYKleNMeF3QtuS5rSbKsII IuKYCbE1It mDSiNYheQ519BVvgIoY2DK KcpsHlG9DmLERalPrtUbC1 i4U2Bx4RDRXtVHNxzXVbMm R9T7NxBuoz dHI+HQ32DTTmEK20lBHdzH Nek6irkNq9OxJmOJYuVIF1 qEntIWipk9ElRWApY06hmU Osa3M1CIVi zRzlnRNvJeAcbVL7iE8qEE bmxrxoc4eucaheOcrhu4tq zn75mS06T39vQBcxPJUrVX IzMCUiIHZh vKyvki6mfO5fJk2+PGNvbC O4fIO4sC7oFqOmGaS2GDco Z895GaThnPZiNwihh6omc8 ypbBv4AmLr IXSgrhSwtKbkRCN5j5JbZt 07C22bBJuoQNGvDRZhCDLw IRFdxImbdi7ecV6hYi6+PC 4fx5uhjx84 xF12hCR+BNToLIB3rCkiZY htMWYkdI8kJBhgBwS2VLHu DdWyhT04rIYhNPfiMe5unD skqIjcVU5n LZWrfnxlv765YzHxl1cqTH FnsXQzRDziRVC6K80ef0U7 PXGkYEMrYAM6fRZ3xS2vkI lnbjogbGVm dDsgdmVydGljYWwtYWxpZ2 54QNRynXxgNnGidXIiF7tf zbHWQY0rHsevdNU+PHRkIH Q5wSciRKjr NWSfaC0sTWUeK9k4VoToYy Z4JLubY0SmfsY1XNSuwPNp HBYpvHQIuI1sunaqo0mgza ogIzAwMDAw JXp5KTs8DVPuqBmoSfPqGH M1JfV6EFS6sVGonZ5riHlt osbukD5iMwm+RklOOjwvdG Q+PHRkIHN0 bCcfBCqrJBCncI2lIREqK2 c4MiZgSvG5WZerF5NcyfX5 DOQoxDEbSOOkzVTDdR3nco pni2fapepd FzVsPPElYMs5HLh6UMVxuR wbVsSrSEI6BrL6NZD2hJKr qH6kiBghupascU1zQru+TV JOOjwvdGQ+ NTDoFZD1sOlyNTukCATzfO 6fGBVgS7d8DeKlQiE2PHfs B3GyeeJ9AAUtmAPjADVrsU XHpD0bdovg j7fgohphKiRnQJXgVUi7TK o7KDDbuQpjOiWaVWJ3JdE7 LDZ6zSKrfA1ouNwaaioavB 9wOyc+UGF5 KFR9MH91BT53I1HcWpzstR FibGU+PHRhYmxlIHdpZHRo VSumPQQlWwSxgMbgGS7yGc 9yZGVyLWNv bGxh (more content not included)... Normal [facility] Physician Orderon 09-02-2022 Physician Order [id number]. [id number]:[id number] Normal [facility] GLYCOHEMOGLOBIN A1Con 2021 ADA RECOMMENDATION SEE BELOW Normal [facility] Comment on above: Result Comment: ADA RECOMMENDED LIMIT 4.0 - 6.0 ADA THERAPEUTIC TARGET < 7.0 ACTION SUGGESTED > 7.0 Performed By: #### A 1C #### [facility] [address] [place] [address] Dr. Azar Carlin Glucose [Mass/Vol] 137 mg/dL Normal [facility] Comment on above: Performed By: #### A 1C #### [facility] [address] [address] [address] Azar Carlin HbA1c (Bld) [Mass fraction] 6.4 % Critically high 4.5-6.2 [facility] Comment on above: Performed By: #### A 1C #### [facility] [address] [address] [address] Azar Carlin MICROALBUMIN URINEon 022 Albumin, Urine 3.1 ug/mL Normal Not Estab. [facility] Comment on above: Performed By: #### M ALBLC #### [facility] [address] [address] [address] Azar Carlin VIT D 25-OH LABCORPon 2021 Vitamin D, 25-Hydroxy 43.0 ng/mL Normal 30.0-100.0 [facility] Comment on above: Result Comment: [place] min D deficiency has been defined by the [employer] of Medicine and an Endocrine Society practice guideline as a level of serum 25-OH vitamin D less than 20 ng/mL (1,2). The Endocrine Society went on to further define vitamin D insufficiency as a level between 21 and 29 ng/mL (2). 1. IOM ([employer]ex[employer] of Medicine). 2010. Dietary reference intakes for calcium and D. [place]: The National Academies Press. 2. Gamaliel LAWS, Vivian [place], Mila YO, et al. Evaluation, treatment, and prevention of vitamin D deficiency: an Endocrine Society clinical practice guideline. JCEM. 2010; 96(7):1911-30. Performed By: #### V ITADLC #### [facility] [address] [place] [address] Dr. Azar Carlin CBC AUTO DIFFon 03-15-2022 BASO # 0.0 103/ul Normal 0.0-0.1 [facility] Comment on above: Performed By: #### C BC #### [facility] [address] [address] [address] Azar Carlin Basophils/100 WBC (Bld) 0.6 % Normal 0.2-2.0 [facility] Comment on above: Performed By: #### C BC #### [facility] [address] [place] [address] Dr. Azar Carlin EO # 0.1 103/ul Normal 0.0-0.7 [facility] Comment on above: Performed By: #### C BC #### [facility] [address] [place] [address] Dr. Azar Carlin Eosinophils/100 WBC (Bld) 2.4 % Normal 0.9-7.0 [facility] Comment on above: Performed By: #### C BC #### [facility] [address] [place] [address] Dr. Azar Carlin Erythrocyte distribution width (RBC) [Ratio] 14.0 % Normal 11.0-15.0 [facility] Comment on above: Performed By: #### C BC #### [facility] [address] [place] [address] Dr. Azar Carlin Hematocrit (Bld) [Volume fraction] 39.9 % Normal 36.0-48.0 [facility] Comment on above: Performed By: #### C BC #### [facility] [address] [place] [address] Dr. Azar Carlin Hemoglobin (Bld) [Mass/Vol] 13.0 g/dL Normal 12.0-16.0 [facility] Comment on above: Performed By: #### C BC #### [facility] [address] [place] [address] Dr. Azar Carlin IG # 0.01 10e3/ul Normal 0.00-0.03 [facility] Comment on above: Performed By: #### C BC #### [facility] [address] [place] [address] Dr. Azar Carlin IG % 0.2 % Normal 0.0-0.5 [facility] Comment on above: Performed By: #### C BC #### [facility] [address] [place] [address] Dr. Azar Carlin LYMPH # 1.7 103/ul Normal 1.2-3.8 [facility] Comment on above: Performed By: #### C BC #### [facility] [address] [place] [address] Dr. Azar Carlin Lymphocytes/100 WBC (Bld) 36.2 % Normal 20.5-60.0 [facility] Comment on above: Performed By: #### C BC #### [facility] [address] [place] [address] Dr. Azar Carlin MANUAL DIFF REQ NO Normal [facility] Comment on above: Performed By: #### C BC #### [facility] [address] [place] [address] Dr. Azar Carlin MCH (RBC) [Entitic mass] 28.1 pg Normal 26.7-34.0 [facility] Comment on above: Performed By: #### C BC #### [facility] [address] [place] [address] Dr. Azar Carlin MCHC (RBC) [Mass/Vol] 32.6 g/dL Normal 29.9-35.2 [facility] Comment on above: Performed By: #### C BC #### [facility] [address] [place] [address] Dr. Azar Carlin MCV (RBC) [Entitic vol] 86.2 fL Normal 81.0-99.0 [facility] Comment on above: Performed By: #### C BC #### [facility] [address] [place] [address] Dr. Azar Carlin MONO # 0.4 103/ul Normal 0.3-0.8 [facility] Comment on above: Performed By: #### C BC #### [facility] [address] [place] [address] Dr. Azar Carlin Monocytes/100 WBC (Bld) 9.3 % Normal 1.7-12.0 [facility] Comment on above: Performed By: #### C BC #### [facility] [address] [place] [address] Dr. Azar Carlin NEUT # 2.4 103/ul Normal 1.4-6.5 [facility] Comment on above: Performed By: #### C BC #### [facility] [address] [address] [address] Azar Carlin Neutrophils/100 WBC (Bld) 51.3 % Normal 43.0-75.0 [facility] Comment on above: Performed By: #### C BC #### [facility] [address] [address] [address] Azar Carlin Platelet mean volume (Bld) [Entitic vol] 9.4 fL Critically low 9.5-13.5 [facility] Comment on above: Performed By: #### C BC #### [facility] [address] [address] [address] Azar Carlin PLT 184 103/ul Normal 150-450 [facility] Comment on above: Performed By: #### C BC #### [facility] [address] [place] [address] Dr. Azar Carlin RBC 4.63 106/ul Normal 4.20-5.40 [facility] Comment on above: Performed By: #### C BC #### [facility] [address] [address] [address] Azar Carlin WBC 4.6 103/ul Normal 4.0-11.0 [facility] Comment on above: Performed By: #### C BC #### [facility] [address] [place] [address] Dr. Azar Carlin GLYCOHEMOGLOBIN A1Con 2021 ADA RECOMMENDATION SEE BELOW Normal [facility] Comment on above: Result Comment: ADA RECOMMENDED LIMIT 4.0 - 6.0 ADA THERAPEUTIC TARGET < 7.0 ACTION SUGGESTED > 7.0 Performed By: #### A 1C #### [facility] [address] [place] [address] Dr. Azar Carlin Glucose [Mass/Vol] 137 mg/dL Normal [facility] Comment on above: Performed By: #### A 1C #### [facility] [address] [place] [address] Dr. Azar Carlin HbA1c (Bld) [Mass fraction] 6.4 % Critically high 4.5-6.2 [facility] Comment on above: Performed By: #### A 1C #### [facility] [address] [address] [address] Azar Carlin LIPID PROFILEon 03-15-2022 CHOL-HDL RATIO NORM SEE BELOW Normal [facility] Comment on above: Result Comment: 3.3 - 4.4 LOW RISK 4.4 - 7.1 AVERAGE RISK 7.1 - 11.0 MODERATE RISK >11.0 HIGH RISK Performed By: #### C MP, LIPID #### [facility] [address] [address] [address] Azar Carlin Cholesterol [Mass/Vol] 120 mg/dL Normal <=200 [facility] Comment on above: Performed By: #### C MP, LIPID #### [facility] [address] [address] [address] Azar Carlin Cholesterol in HDL [Mass/Vol] 62 mg/dL Critically high 40-60 [facility] Comment on above: Performed By: #### C MP, LIPID #### [facility] [address] [address] [address] Azar Carlin Cholesterol in LDL [Mass/Vol] 44.4 mg/dL Normal [facility] Comment on above: Performed By: #### C MP, LIPID #### [facility] [address] [address] [address] Azar Carlin Cholesterol.total/C holesterol in HDL [Mass ratio] 1.9 {ratio} Normal [facility] Comment on above: Performed By: #### C MP, LIPID #### [facility] [address] [address] [address] Azar Carlin HDL NORMAL > or = 60 mg/dl - LO W CARDIOVASCULAR RISK <40 mg/dl - HIGH CARDIOVASCULAR RISK Normal [facility] Comment on above: Performed By: #### C MP, LIPID #### [facility] [address] [address] [address] Azar Carlin LDL CALC NORMAL SEE BELOW Normal [facility] Comment on above: Result Comment: <100 mg/dl OPTIMAL 100 - 129 mg/dl NEAR OR ABOVE OPTIMAL 130 - 159 mg/dl BORDERLINE HIGH 160 - 189 mg/dl HIGH >190 mg/dl VERY HIGH Performed By: #### C MP, LIPID #### [facility] [address] [place], [place] [address] Dr. Azar Carlin Triglyceride [Mass/Vol] 68 mg/dL Normal <=150 [facility] Comment on above: Performed By: #### C MP, LIPID #### [facility] [address] [place], [place] [address] Dr. Azar Carlin VLDL CALC 13.6 mg/dL Normal [facility] Comment on above: Performed By: #### C MP, LIPID #### [facility] [address] [place], [place] [address] Dr. Azar Carlin MG MAMM SCREEN 3D ALBERT CADon 03-15-2022 MG MAMM SCREEN 3D ALBERT CAD Patient: TERESSA BUI Exam Date: 03/15/2022 : 1955 Gender:F Ordering : DR KEVIN VELASQUEZ D.O. Admission #: [id number] Family : Order #: [id number] CLICK HERE TO VIEW EXAM RADIOLOGY REPORT [...] endometrial cancer at age 65. LOCATION: [facility] BREAST COMPOSITION: Scattered areas fibroglandular density. [...] PALPABLE LUMP SHOULD BE BIOPSIED. Dictated by: Snow Wright M.D. on 03/15/2022 at 12:13 Approved by: Snow Wright M.D. on 03/15/2022 at 12:16 Normal [facility] PROF 14(COMP METB)on 08-19-2 022 Albumin [Mass/Vol] 3.9 g/dL Normal 3.4-5.0 [facility] Comment on above: Performed By: #### C MP, LIPID #### [facility] [address] [place] [address] Dr. Azar Carlin Albumin/Globulin [Mass ratio] 1.1 {ratio} Normal [facility] Comment on above: Performed By: #### C MP, LIPID #### [facility] [address] [address] [address] Azar Carlin ALP [Catalytic activity/Vol] 123 U/L Critically high 46-116 [facility] Comment on above: Performed By: #### C MP, LIPID #### [facility] [address] [place] [address] Dr. Azar Carlin ALT [Catalytic activity/Vol] 51 U/L Normal 14-59 [facility] Comment on above: Performed By: #### C MP, LIPID #### [facility] [address] [place] [address] Dr. Azar Carlin Anion gap [Moles/Vol] 9.3 mmol/L Normal [facility] Comment on above: Performed By: #### C MP, LIPID #### [facility] [address] [place] [address] Dr. Azar Carlin AST [Catalytic activity/Vol] 32 U/L Normal 15-37 [facility] Comment on above: Performed By: #### C MP, LIPID #### [facility] [address] [place] [address] Dr. Azar Carlin Bilirubin [Mass/Vol] 0.5 mg/dL Normal 0.2-1.0 [facility] Comment on above: Performed By: #### C MP, LIPID #### [facility] [address] [place] [address] Dr. Azar Carlin Calcium [Mass/Vol] 9.3 mg/dL Normal 8.5-10.1 [facility] Comment on above: Performed By: #### C MP, LIPID #### [facility] [address] [place] [address] Dr. Azar Carlin Chloride [Moles/Vol] 103 mmol/L Normal 98-107 [facility] Comment on above: Performed By: #### C MP, LIPID #### [facility] [address] [place] [address] Dr. Azar Carlin CO2 [Moles/Vol] 29.9 mmol/L Normal 21.0-32.0 [facility] Comment on above: Performed By: #### C MP, LIPID #### [facility] [address] [place] [address] Dr. Azar Carlin Creatinine [Mass/Vol] 0.66 mg/dL Normal 0.55-1.02 [facility] Comment on above: Performed By: #### C MP, LIPID #### [facility] [address] [place] [address] Dr. Azar Carlin EGFR-AF COMORAN >60 Normal >=60 [facility] Comment on above: Performed By: #### C MP, LIPID #### [facility] [address] [place] [address] Dr. Azar Carlin EGFR-NON AF COMORAN >60 Normal >=60 [facility] Comment on above: Performed By: #### C MP, LIPID #### [facility] [address] [place] [address] Dr. Azar Carlin Globulin (S) [Mass/Vol] 3.7 g/dL Normal [facility] Comment on above: Performed By: #### C MP, LIPID #### [facility] [address] [place] [address] Dr. Azar Carlin Glucose [Mass/Vol] 115 mg/dL Critically high 74-106 [facility] Comment on above: Performed By: #### C MP, LIPID #### [facility] [address] [place] [address] Dr. Azar Carlin Potassium [Moles/Vol] 4.2 mmol/L Normal 3.5-5.1 [facility] Comment on above: Performed By: #### C MP, LIPID #### [facility] [address] [place] [address] Dr. Azar Carlin Protein [Mass/Vol] 7.6 g/dL Normal 6.4-8.2 [facility] Comment on above: Performed By: #### C MP, LIPID #### [facility] [address] [place] [address] Dr. Azar Carlin Sodium [Moles/Vol] 138 mmol/L Normal 136-145 [facility] Comment on above: Performed By: #### C MP, LIPID #### [facility] [address] [place] [address] Dr. Azar Carlin Urea nitrogen [Mass/Vol] 10.0 mg/dL Normal 7.0-18.0 [facility] Comment on above: Performed By: #### C MP, LIPID #### [facility] [address] [place] [address] Dr. Azar Carlin Urea nitrogen/Creatinine [Mass ratio] 15.2 mg/mg Normal [facility] Comment on above: Performed By: #### C MP, LIPID #### [facility] [address] [place] [address] Dr. Azar Carlin GLYCOHEMOGLOBIN A1Con 2021 ADA RECOMMENDATION ADA THERAPEUTIC TARG ET 6.0 - 7.0 ACTION SUGGESTED > 7.0 Normal [facility] Comment on above: Performed By: #### A 1C #### [facility] [address] [place] [address] Dr. Azar Carlin Glucose [Mass/Vol] 154 mg/dL Normal [facility] Comment on above: Performed By: #### A 1C #### [facility] [address] [place] [address] Dr. Azar Carlin HbA1c (Bld) [Mass fraction] 7.0 % Critically high <=6.0 [facility] Comment on above: Performed By: #### A 1C #### [facility] [address] [place] [address] Dr. Azar Carlin CNOVon 03-29-2021 CNOV Office Visit ([facility] ) TERESSA BUI ([id number]) 1955 F Date Time Provider Department 03/29/21 3:45 PM ELIER ESPINO During your visit today, we recorded the following information about you: Pulse Respiration Blood pressure Weight 79/minute 18/minute 151/72 61.2 kg Elier Espino MD 03/29/2021 1:39 PM Signed [facility] OUTPATIENT VISIT DATE March 29, 2021 OUTPATIENT VISIT TYPE EST PRIMARY CARE PHYSICIAN: Kevin Velasquez ([facility]) [address] [place] [address] REFERRING PHYSICIAN SELF CHIEF COMPLAINT: Patient presents [...] have personally reviewed the GENO, DUS. IMPRESSION/PLAN: ?Ruffing ?is a 65 year old female s/p [...] Results Primary Visit Diagnosis:PAD (peripheral artery disease) ([facility]) [I73.9] Order(s):PVR ANK/REYNA/TOE [facility] [[id number]] Order #: [id number] FUTURE US ABD AORTA COMPLETE [facility] [[id number]] Order #: [id number] FUTURE US CAROTID ARTERIES [facility] [[id number]] Order #: [id number] FUTURE clopidogrel (PLAVIX) 75 mg tabletTake 1 [...] 08/31/2019 Dep (more content not included)... Normal [facility] CNOVon 12-07-2020 CNOV Office Visit ([facility] ) TERESSA BUI ([id number]) 1955 F Date Time Provider Department 12/07/20 1:30 PM ELIER ESPINO During your visit today, we recorded the following information about you: Pulse Respiration Blood pressure Weight 71/minute 18/minute 133/85 61.2 kg Elier Espino MD 12/07/2020 1:01 PM Signed [facility] OUTPATIENT VISIT DATE December 07, 2020 OUTPATIENT VISIT TYPE EST PRIMARY CARE PHYSICIAN: Kevin Velasquez ([facility]) [address] [place] [address] REFERRING PHYSICIAN SELF CHIEF COMPLAINT: Patient presents with: Follow Up: PAD HISTORY OF PRESENT ILLNESS: ?Arun ?is a 65 year old female who [...] PAD Primary Visit Diagnosis:PAD (peripheral artery disease) ([facility]) [I73.9] Other Visit Diagnosis:Subclavian arterial stenosis ([facility]) [I77.1] Order(s):PVR ANK/REYNA/TOE [facility] [[id number]] Order #: [id number] FUTURE US ABD AORTA COMPLETE [facility] [[id number]] Order #: [id number] FUTURE US CAROTID ARTERIES [facility] [[id number]] Order #: [id number] FUTURE Prescriptions as of 12/07/2020 Sig: METFORMIN [...] 12/07/2020 Noted Resolved PAD (peripheral artery disease) ([facility]) [I73.9] 08/31/2019 Essential hypertension [I10] 08/31/2019 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 Follow-up and Disposition History Re (more content not included)... Normal [facility] CNOVon 09-07-2020 CNOV Office Visit (VASSST ) TERESSA BUI ([id number]) 1955 F Date Time Provider Department 09/07/20 2:45 PM ELIER ESPINO During your visit today, we recorded the following information about you: Pulse Respiration Blood pressure Weight 53/minute 18/minute 161/80 62.9 kg Elier Espino MD 09/07/2020 12:28 PM Signed [facility] OUTPATIENT VISIT DATE September 07, 2020 OUTPATIENT VISIT TYPE EST PRIMARY CARE PHYSICIAN: Kevin Velasquez MD ([facility]) [address] [place] [address] REFERRING PHYSICIAN Elier Espino MD [address] [facility] [address] CHIEF COMPLAINT: Patient presents with: Follow Up: [...] Elier Espino MD Referring Provider: ELIER ESPINO [[id number]] Allergies As of Date: 09/07/2020 (No Known Allergies) Date Reviewed: 09/07/2020 Reviewed by: Siena (Rn) MORRIS King - Fully Assessed Reason for Visit: Follow Up [171] Cmt: PAD/Discuss Test Results Primary Visit Diagnosis:PAD (peripheral artery disease) ([facility]) [I73.9] Order(s):PVR ANK/REYNA/[facility] [[id number]] Order #: [id number] FUTURE US ABD AORTA COMPLETE [facility] [[id number]] Order #: [id number] FUTURE US ARM ARTERIAL UNL [facility] [[id number]] Order #: [id number] FUTURE Prescriptions as of 09/07/2020 Sig: METFORMIN [...] 09/07/2020 12:00 PM >> SIENA KING RN [facility] Sep 07, 2020 12:00 PM Not taking. Problem List As Of Date 09/07/2020 Noted Resolved PAD (more content not included)... Normal [facility] APTTon 05-09-2020 aPTT Coag (Bld) [Time] 24.8 s Normal 23.0-32.4 [facility] Comment on above: Result Comment: Unfr actionated [...] laboratory APTT reagent in use throughout the [facility]. Performed By: #### B MP, CBC, PTT ####[facility] U[address]6043 [phone] Basic Metabolic Panlon 05-09 Anion gap [Moles/Vol] 11 mmol/L Normal 9-18 [facility] Comment on above: Performed By: #### B MP, CBC, PTT ####[facility] Hherre[address]rs6008 [phone] Calcium [Mass/Vol] 9.8 mg/dL Normal 8.5-10.2 [facility] Comment on above: Performed By: #### B MP, CBC, PTT ####[facility] [address] [place] [phone] Chloride [Moles/Vol] 103 mmol/L Normal 97-105 [facility] Comment on above: Performed By: #### B MP, CBC, PTT ####[facility] [address] [place] [phone] CO2 [Moles/Vol] 24 mmol/L Normal 22-30 [facility] Comment on above: Performed By: #### B MP, CBC, PTT ####[facility] [address] [place] [phone] Creatinine [Mass/Vol] 0.57 mg/dL Low 0.58-0.96 [facility] Comment on above: Performed By: #### B MP, CBC, PTT ####[facility] [address] [place] [phone] eGFR- Amer. >60 Normal [facility] Comment on above: Performed By: #### B MP, CBC, PTT ####[facility] [address] [place] [phone] GFR/1.73 sq M predicted among non-blacks MDRD (S/P/Bld) [Vol rate/Area] mL/min/{1.73_m2} Normal [facility] Comment on above: Result Comment: eGFR (Estimated [...] #### B MP, CBC, PTT ####[facility] [address] [place] [phone] Glucose [Mass/Vol] 156 mg/dL High 74-99 [facility] Comment on above: Result Comment: The [place] Diabetes Association (ADA) provides guidance for cutoff [...] Standards of Medical Care in Diabetes 2016, [place] Diabetes Association. Diabetes Care. 2016.39(Suppl 1). Performed By: #### B MP, CBC, PTT ####[place] [address] Potassium [Moles/Vol] 4.3 mmol/L Normal 3.7-5.1 [facility] Comment on above: Performed By: #### B MP, CBC, PTT ####[place] [address] Sodium [Moles/Vol] 138 mmol/L Normal 136-144 [facility] Comment on above: Performed By: #### B MP, CBC, PTT ####[place] [address] Urea nitrogen [Mass/Vol] 9 mg/dL Normal 7-21 [facility] Comment on above: Performed By: #### B MP, CBC, PTT ####[place] [address] CBCon 05-09-2020 Absolute nRBC <0.01 Normal <0.01 [facility] Comment on above: Performed By: #### B MP, CBC, PTT ####[place] [address] Erythrocyte distribution width (RBC) [Ratio] 12.9 % Normal 11.5-15.0 [facility] Comment on above: Performed By: #### B MP, CBC, PTT ####[place] [address] Hematocrit (Bld) [Volume fraction] 39.9 % Normal 36.0-46.0 [facility] Comment on above: Performed By: #### B MP, CBC, PTT ####[place] [address] Hemoglobin (Bld) [Mass/Vol] 13.2 g/dL Normal 11.5-15.5 [facility] Comment on above: Performed By: #### B MP, CBC, PTT ####[facility] [address] [place] [phone] MCH (RBC) [Entitic mass] 28.9 pG Normal 26.0-34.0 [facility] Comment on above: Performed By: #### B MP, CBC, PTT ####[facility] [address] [place] [phone] MCHC (RBC) [Mass/Vol] 33.1 g/dL Normal 30.5-36.0 [facility] Comment on above: Performed By: #### B MP, CBC, PTT ####[facility] [address] [place], [place] [phone] MCV (RBC) [Entitic vol] 87.5 fL Normal 80.0-100.0 [facility] Comment on above: Performed By: #### B MP, CBC, PTT ####[facility] [address] [place], [place] [phone] Platelet mean volume (Bld) [Entitic vol] 10.1 fL Normal 9.0-12.7 [facility] Comment on above: Performed By: #### B MP, CBC, PTT ####[facility] [address] [place], [place] [phone] Platelets (Bld) [#/Vol] 156 10*3/uL Normal 150-400 [facility] Comment on above: Performed By: #### B MP, CBC, PTT ####[facility] [address] [place] [phone] RBC (Bld) [#/Vol] 4.56 10*6/uL Normal 3.90-5.20 [facility] Comment on above: Performed By: #### B MP, CBC, PTT ####[facility] [address] [place], [place] [phone] WBC (Bld) [#/Vol] 5.30 10*3/uL Normal 3.70-11.00 [facility] Comment on above: Performed By: #### B MP, CBC, PTT ####[facility] [address] [place], [place] [address] HISTORY PHYSICALon 10-13-202 0 HISTORY PHYSICAL HNO ID: [id number] Author: Elier Espino Service: Vascular Surgery Author [...] notes or via mail. ? Ms.?Arun ?is a?64?year old female PMH?prediabetes,?forme r?smoker?who is [...] activities. 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 She has a known history of left subclavian artery stenosis. No neurologic complaints otherwise. Underwent??CTA at [facility] which showed left SCA stenosis. On?plavix,?ASA, statin.? [...] 09, 2020 TIME: 1:46 PM PAGER/CONTACT #: [facility] NURSING PROGon 05-09-2020 NURSING PROG HNO ID: [id number] Author: Chris Wheatley RN Service: Nursing Author Type: Registered Nurse Type: Nursing Progress Note Filed: 05/09/2020 8:20 PM Note Text: Pt ambulated to bathroom. Returned to bed. r groin soft dressing d/i [facility] NURSING PROG HNO ID: [id number] Author: Chris Martinez) MORRIS Wheatley Service: Nursing Author Type: Registered Nurse Type: Nursing Progress Note Filed: 05/09/2020 8:19 PM Note Text: Pt dangled at bedside . r groin soft dressing d/i [facility] NURSING PROG HNO ID: [id number] Author: Chris Wheatley RN Service: Nursing Author Type: Registered Nurse Type: Nursing Progress Note Filed: 05/09/2020 7:54 PM Note Text: Hob elevated 45% Normal [facility] OPERATIVE NOon 05-09-2020 OPERATIVE NO HNO ID: [id number] Author: Elier Espino Service: Vascular Surgery Author Type: Physician Type: Operative Report Filed: 05/10/2020 9:41 AM Note Text: [facility] - Operative Report TERESSA BUI : 1955 AGE: 64. SEX: F PATIENT TYPE: A HOSP SVC: KAYDEN LOCATION: [facility] ATTENDING PHYSICIAN: ELIER ESPINO CSN NUMBER: [id number] DATE OF SURGERY/PROCEDURE: 05/09/2020 INCISION/PROCEDURE START TIME: 2:25 PM INCISION CLOSE/PROCEDURE END TIME: 3:21 PM PREOPERATIVE DIAGNOSIS: Left subclavian artery stenosis, left debilitating arm claudication. POSTOPERATIVE DIAGNOSIS: Left subclavian artery stenosis, left debilitating arm claudication. SURGEON: Elier Espino M.D. HEEL DIPPER: No Additional Staff SURGERY/PROCEDURE: Ultrasound-guided access of the right common femoral artery, first order catheterization, left subclavian angiogram, stenting of the left proximal subclavian artery, completion angiography. ANESTHESIA: Conscious sedation, local. COMPLICATIONS: None. SPECIMENS: None. IMPLANTS: [employer] 7 x 27 LD balloon expandable stent, inflated to 8 atmospheres. FINDINGS: High-grade stenosis of the proximal left subclavian artery, pre-stent angioplasty performed with 4 x 40 mm balloon, lesion was then treated with a 7 x 27 [employer] balloon mounted stent with resolution of stenosis post stenting. Angiography of the left upper extremity demonstrated brisk flow down the left brachial, radial, and ulnar arteries filling to the hand. DESCRIPTION OF PROCEDURE: The patient was brought to the high density press laborer and placed supine on the table. The [...] advanced into the thoracic aorta. Subsequently, a 5-Cuban sheath was advanced over which an angled Glidecath was used to successfully cannulate the left subclavian artery. The wire was advanced through the left subclavian and axillary, and subsequently brachial artery. The wire had been exchanged for a Glidewire Advantage. A 6-Cuban x 90 cm sheath was then advanced over the wire. The patient had been systemically heparinized. ACTs were checked throughout the duration of the case and she was maintained in a therapeutic value. Left upper extremity angiograms were performed as needed with the above-noted findings. Decision was made to pre-dilate the lesion. This was performed with a 4 x 40 mm performance improvement coordinator balloon following which the lesion was treated with a 7 x 27 [employer] balloon mounted stent with the balloon [...] site using a Mynx device. A short 6-Cuban sheath was placed. The patient's heparinization was [...] brought to recovery area. Elier Espino M.D. JIMY:[id number] /[id number] Normal [facility] Type and Screenon 05-09-2020 ABO/RH(D) Positive Normal [facility] Comment on above: Performed By: #### T SCR ####[facility] [address] [place] [phone] HOSPon 03-28-2020 HOSP Patient:Regina Bui MRN: Height:5' 5 (1.651 m) Weight:No patient [...] medications. Problem List: PAD (peripheral artery disease) ([facility]) [I73.9] Essential hypertension [I10] Ocular migraine [G43.109] Mixed hyperlipidemia [E78.2] Pre-diabetes [R73.03] Allergies: No Known Allergies Date Verified:05/08/20 Lab Values No results within the last 30 days for the following basenames: K,HCT Progress Notes ([employer]): WILLIAMS Valencia Tech 04/20/2020 11:03 AM [...] No (Follow-up call) Homer, this is the [facility] calling, may I speak to Teressa [...] like to speak with a social work boilermaker central steam plant to help give you support for any [...] [facility] patients may call: ? [facility] Nurse bondactor machine operator at [phone] ? Their PCP Office Caregivers may call: ? [facility] Employee Hotline: [phone] Patient verbalizes understanding of information provided. Denies any further questions at this time. Please visit CDC.gov website for any updated information about Coronavirus. You can also find information on the [facility] website. Additional information can be found on the [facility] and [facility] web sites: https://www.cdc.gov/co ronavirus/2019-nCoV/in dex.html https://[email or web address]/coronavirus End outreach Previous Version Progress Notes ([employer]): Theresa Varela 04/18/2020 10:33 AM Signed COVID COMMUNITY MONITORING PROGRAM Provider Action/FYI: Follow up-stable feeling good no sx Monitoring Call: Date of symptoms onset: ] Patient is COVID-19 positive Contact made with patient Yes Patient identified by name and . Discussed care with patient Initial intake? No (Follow-up call) Homer, this is the [facility] calling, may I speak to Teressa [...] like to speak with a social work boilermaker central steam plant to help give you support for any [...] [facility] patients may call: ? [facility] Nurse bondactor machine operator at [phone] ? Their PCP Office Caregivers may call: ? [facility] Employee Hotline: [phone] Patient verbalizes understanding of information provided. Denies any further questions at this time. Please visit CDC.gov website for any updated information about Coronavirus. You can also find information on the [facility] website. Additional information can be found on the [facility] and [facility] web sites: https://www.cdc.gov/co ronavirus/2019-nCoV/in dex.html https://[facility].[email or web address]/coronavirus End outreach Normal [facility] Basic Metabolic Panlon 09-01 Anion gap [Moles/Vol] 10 mmol/L Normal 9-18 [facility] Comment on above: Performed By: #### C BC, BMP ####[facility] [address] [place] [phone] Calcium [Mass/Vol] 8.8 mg/dL Normal 8.5-10.2 [facility] Comment on above: Performed By: #### C BC, BMP ####[facility] [address] [place] [phone] Chloride [Moles/Vol] 109 mmol/L High 97-105 [facility] Comment on above: Performed By: #### C BC, BMP ####[facility] [address] [place] [phone] CO2 [Moles/Vol] 23 mmol/L Normal 22-30 [facility] Comment on above: Performed By: #### C BC, BMP ####[facility] [address]67[address] Creatinine [Mass/Vol] 0.58 mg/dL Normal 0.58-0.96 [facility] Comment on above: Performed By: #### Deven ROSA, PATEL ####[facility] [address] eGFR- Amer. >60 Normal [facility] Comment on above: Performed By: #### Deven ROSA, PATEL ####[facility] [address] [place] [phone] GFR/1.73 sq M predicted among non-blacks MDRD (S/P/Bld) [Vol rate/Area] mL/min/{1.73_m2} Normal [facility] Comment on above: Result Comment: eGFR (Estimated [...] accurately reflect actual GFR. Performed By: #### Deven ROSA, PATEL ####[facility] [address] Glucose [Mass/Vol] 134 mg/dL High 74-99 [facility] Comment on above: Result Comment: The [place] Diabetes Association (ADA) provides guidance for cutoff [...] Standards of Medical Care in Diabetes 2016, [place] Diabetes Association. Diabetes Care. 2016.39(Suppl 1). Performed By: #### C BC, BMP ####[place] [address] Potassium [Moles/Vol] 4.4 mmol/L Normal 3.7-5.1 [facility] Comment on above: Performed By: #### C BC, BMP ####[place] [address] Sodium [Moles/Vol] 142 mmol/L Normal 136-144 [facility] Comment on above: Performed By: #### C BC, BMP ####[place] [address] Urea nitrogen [Mass/Vol] 11 mg/dL Normal 7-21 [facility] Comment on above: Performed By: #### C SHELLEY, BMP ####[place] [address] CBCon 09-01-2019 Erythrocyte distribution width (RBC) [Ratio] 13.0 % Normal 11.5-15.0 [facility] Comment on above: Performed By: #### C SHELLEY, BMP ####[place] [address] Hematocrit (Bld) [Volume fraction] 34.9 % Low 36.0-46.0 [facility] Comment on above: Performed By: #### C SHELLEY, BMP ####[place] [address] Hemoglobin (Bld) [Mass/Vol] 11.4 g/dL Low 11.5-15.5 [facility] Comment on above: Performed By: #### C BC, BMP ####[place] [address] MCH (RBC) [Entitic mass] 29.0 pG Normal 26.0-34.0 [facility] Comment on above: Performed By: #### C BC, BMP ####[place] [address] MCHC (RBC) [Mass/Vol] 32.7 g/dL Normal 30.5-36.0 [facility] Comment on above: Performed By: #### C BC, BMP ####[place] [address] MCV (RBC) [Entitic vol] 88.8 fL Normal 80.0-100.0 [facility] Comment on above: Performed By: #### C BC, BMP ####[facility] [address] [place] [phone] Platelet mean volume (Bld) [Entitic vol] 10.4 fL Normal 9.0-12.7 [facility] Comment on above: Performed By: #### C BC, BMP ####[facility] [address] [place] [address] Platelets (Bld) [#/Vol] 131 10*3/uL Low 150-400 [facility] Comment on above: Performed By: #### C SHELLEY, BMP ####[facility] [address] [place] [address] RBC (Bld) [#/Vol] 3.93 10*6/uL Normal 3.90-5.20 [facility] Comment on above: Performed By: #### C SHELLEY, BMP ####[facility] [address] [place] [phone] WBC (Bld) [#/Vol] 5.68 10*3/uL Normal 3.70-11.00 [facility] Comment on above: Performed By: #### C SHELLEY, BMP ####[facility] [address] [place] [address] CNCOon 09-01-2019 CNCO Letter Text Normal [facility] NURSING PROGon 09-01-2019 NURSING PROG HNO ID: [id number] Author: Cecille (Rn) MORRIS Garibay Service: Nursing Author Type: Registered Nurse Type: Nursing Progress Note Filed: 09/01/2019 8:25 AM Note Text: Nursing Progress Note Patient Name: Treessa Bui [place] [facility] [place] [place] __ Daily Note: 0800- Spoke with Dr. Espino about giving the patient the ASA. Dr. Espino said to hold the the Asprin for now until he sees the patient. Dr. Espino also said to take off the sandbags off. This note was completed by: Cecille Garibay RN [facility] NURSING PROG HNO ID: [id number] Author: Bonnie BergerRn) MORRIS Guerra Service: Nursing Author Type: Registered [...] present, <3 sec cap refill, pink and medical billing assistant color with positive sensation. Will continue to monitor. 0000- pt HOB elevated to 30 degrees without incident. Will continue groin checks every 4 hrs now per order. Will continue to monitor. [facility] PROGRESSon 09-01-2019 PROGRESS HNO ID: [id number] Author: Elier Espino Service: Vascular Surgery Author [...] 08/31/19 2300 135/61 ? ? 75 ? 08/31/19 2200 143/63 ? ? 82 ? 08/31/19 2100 144/63 ? ? 78 ? 08/31/19 2000 140/67 ? ? 70 ? 08/31/19 1900 [...] 01, 2019 TIME: 9:32 AM PAGER/CONTACT #: [phone] Normal [facility] Basic Metabolic Panlon 08-31 Anion gap [Moles/Vol] 12 mmol/L Normal 04-14 [facility] Comment on above: Performed By: #### B MP, CBC ####[facility] [address] [place] [address] Calcium [Mass/Vol] 10.0 mg/dL Normal 8.5-10.2 [facility] Comment on above: Performed By: #### B MP, CBC ####[facility] [address] [place] [address] Chloride [Moles/Vol] 105 mmol/L Normal 97-105 [facility] Comment on above: Performed By: #### B MP, CBC ####[facility] [address] [place] [address] CO2 [Moles/Vol] 25 mmol/L Normal 22-30 [facility] Comment on above: Performed By: #### B RADHA, CBC ####[facility] [address] [place] [phone] Creatinine [Mass/Vol] 0.79 mg/dL Normal 0.58-0.96 [facility] Comment on above: Performed By: #### B RADHA, CBC ####[facility] [address] [place] [phone] eGFR- Amer. >60 Normal [facility] Comment on above: Performed By: #### B RADHA, CBC ####[facility] [place] 1447260 GFR/1.73 sq M predicted among non-blacks MDRD (S/P/Bld) [Vol rate/Area] mL/min/{1.73_m2} Normal [facility] Comment on above: Result Comment: eGFR (Estimated [...] By: #### B MP, CBC ####[facility] [address] [place] [phone] Glucose [Mass/Vol] 130 mg/dL High 74-99 [facility] Comment on above: Result Comment: The [place] Diabetes Association (ADA) provides guidance for cutoff [...] Standards of Medical Care in Diabetes 2016, [place] Diabetes Association. Diabetes Care. 2016.39(Suppl 1). Performed By: #### B RADHA, CBC ####[place] [address] Potassium [Moles/Vol] 4.8 mmol/L Normal 3.7-5.1 [facility] Comment on above: Performed By: #### B MP, CBC ####[place] [address] Sodium [Moles/Vol] 142 mmol/L Normal 136-144 [facility] Comment on above: Performed By: #### B MP, CBC ####[place] [address] Urea nitrogen [Mass/Vol] 19 mg/dL Normal 7-21 [facility] Comment on above: Performed By: #### B MP, CBC ####[facility] [address] [place] [address] CBCon 08-31-2019 Erythrocyte distribution width (RBC) [Ratio] 13.4 % Normal 11.5-15.0 [facility] Comment on above: Performed By: #### B MP, CBC ####[place] [address] Hematocrit (Bld) [Volume fraction] 43.5 % Normal 36.0-46.0 [facility] Comment on above: Performed By: #### B MP, CBC ####[facility] [address] [place] [address] Hemoglobin (Bld) [Mass/Vol] 14.6 g/dL Normal 11.5-15.5 [facility] Comment on above: Performed By: #### B MP, CBC ####[facility] [address] [place] [address] MCH (RBC) [Entitic mass] 29.6 pG Normal 26.0-34.0 [facility] Comment on above: Performed By: #### B MP, CBC ####[facility] [address] [place] [address] MCHC (RBC) [Mass/Vol] 33.6 g/dL Normal 30.5-36.0 [facility] Comment on above: Performed By: #### B MP, CBC ####[facility] [address] [place] [address] MCV (RBC) [Entitic vol] 88.1 fL Normal 80.0-100.0 [facility] Comment on above: Performed By: #### B MP, CBC ####[facility] [address] [place] [address] Platelet mean volume (Bld) [Entitic vol] 9.9 fL Normal 9.0-12.7 [facility] Comment on above: Performed By: #### B MP, CBC ####[facility] [address] [place] [address] Platelets (Bld) [#/Vol] 176 10*3/uL Normal 150-400 [facility] Comment on above: Performed By: #### B MP, CBC ####[facility] [address] [place] [address] RBC (Bld) [#/Vol] 4.94 10*6/uL Normal 3.90-5.20 [facility] Comment on above: Performed By: #### B MP, CBC ####[facility] [address] [place] [address] WBC (Bld) [#/Vol] 6.69 10*3/uL Normal 3.70-11.00 [facility] Comment on above: Performed By: #### B MP, CBC ####[facility] [address] [place] [address] Confirm Blood Typeon 020 ABO/RH(D) Positive Normal [facility] Comment on above: Performed By: #### C ONABO #### [facility] Laboratory [address] [facility] [phone] Performed By: #### T SCR ####[facility] [address] [phone] HISTORY PHYSICALon 0 HISTORY PHYSICAL HNO ID: [id number] Author: Elier Espino Service: Vascular Surgery Author [...] 9:51 AM PAGER/CONTACT #: Normal [facility] Lipid Panel, Basicon 020 Cholesterol [Mass/Vol] 152 mg/dL Normal <200 [facility] Comment on above: Performed By: #### L IPB ####[facility] [address] [place] [phone] Cholesterol in HDL [Mass/Vol] 61 mg/dL Normal >39 [facility] Comment on above: Performed By: #### L IPB ####[facility] [address] [place] [address] Cholesterol in LDL [Mass/Vol] 27 mg/dL Normal <100 [facility] Comment on above: Performed By: #### L IPB ####[facility] [address] [place] [address] Fasting Time Unknown Normal [facility] Comment on above: Performed By: #### L IPB ####[facility] [address] [place] [address] LDL:HDL Ratio 0.44 Normal <2.54 [facility] Comment on above: Result Comment: Chevy burleson: 1. National Cholesterol Education Program ATP III Guideline At-A-Glance Quick Desk Reference: National Heart, Lung, and Blood Dexter. National Institutes of Health. 2001: NIH Publication No. 01-3305. 2. An International Atherosclerosis Society position paper: global recommendations for the management of dyslipidemia: executive summary, Atherosclerosis. 2014: 232(2):410-413. Performed By: #### L IPB ####[facility] [address] [place] [address] Non HDL Cholesterol 91 mg/dL Normal <130 [facility] Comment on above: Performed By: #### L IPB ####[facility] [address] [place] [address] TC:HDL Ratio 2.49 Normal <5.10 [facility] Comment on above: Performed By: #### L IPB ####[facility] [address] [place] [address] Triglyceride [Mass/Vol] 321 mg/dL High <150 [facility] Comment on above: Performed By: #### L IPB ####[facility] [address] [place] [address] VLDL Cholesterol 64 mg/dL High <30 [facility] Comment on above: Performed By: #### L IPB ####[facility] [address] [place] [address] NURSING PROGon 08-31-2019 NURSING PROG HNO ID: [id number] Author: Mary Martinez) MORRIS Zhu Service: ? Author Type: Registered Nurse Type: Nursing Progress Note Filed: 08/31/2019 5:28 PM Note Text: Nursing Progress Note Patient Name: Teressa Bui Patient Location: [id number] __ Daily Note: 1720 notified by primary RN that patient's incision is still bleeding after holding pressure for 15 minutes, call placed to Dr. Espino to notify. This note was completed by: Mary Zhu RN [facility] OPERATIVE NOon 08-31-2019 OPERATIVE NO HNO ID: [id number] Author: Elier Espino Service: Vascular Surgery Author Type: Physician Type: Operative Report Filed: 09/02/2019 12:54 PM Note Text: [facility] - Operative Report TERESSA BUI : 1955 AGE: 63. SEX: F PATIENT TYPE: I HOSP S[facility]: [facility] LOCATION: [facility] ATTENDING PHYSICIAN: ELIER ESPINO CSN NUMBER: [id number] DATE OF SURGERY/PROCEDURE: 08/31/2019 INCISION/PROCEDURE START TIME: 10:23 AM INCISION CLOSE/PROCEDURE END TIME: 2:47 PM PREOPERATIVE DIAGNOSIS: Peripheral arterial disease, debilitating left lower extremity claudication, left iliac stenosis. POSTOPERATIVE DIAGNOSIS: Peripheral arterial disease, debilitating left lower extremity claudication, left iliac stenosis. SURGEON: Elier Espino M.D. HEEL DIPPER: No Additional Staff SURGERY/PROCEDURE: Aortoiliac angiography, stenting [...] 8 x 60 and 7 x 60 [employer] self-expanding stent. Post-stenting angioplasty being performed [...] PROCEDURE: The patient was brought into the high density press laborer suite and placed supine on the table. [...] point, the patient was systemically heparinized. A 6-Cuban 25 cm sheath was brought onto the [...] on the left lower extremity from the 6-Cuban sheath and this demonstrated brisk flow through [...] was advanced into the distal aorta. A 5-Cuban sheath was placed and the aortic bifurcation was successfully crossed with the Omni Flush catheter and a stiff- angled Glidewire. Stiff-angled Glidewire was successfully navigated into the superficial femoral artery and over this, a 5-Cuban x 90 sheath was advanced. This was [...] area in stable condition. Elier Espino M.D. DK:[id number] /[id number] [facility] PROGRESSon 08-31-2019 PROGRESS HNO ID: [id number] Author: Dina James Service: Hospital Medicine Author Type: Physician Type: Progress Notes Filed: 08/31/2019 8:11 PM Note Text: SERVICE DATE: 08/31/2019 SERVICE TIME: 8:10 PM HOSPITAL MEDICINE PROGRESS NOTE NIGHT AND WEEKEND COVERAGE: Nights: Please contact pager [phone]. Hospital Medicine/Primary Attending: Dina James MD Subjective [...] Assessment AND Plan No lipid panel in [facility] for review Will check lipid panel in [...] 31, 2019 TIME: 8:10 PM PAGER/CONTACT #: [phone] [facility] PT EDon 08-31-2019 PT ED HNO ID: [id number] Author: Ivan (Rn) MORRIS Babb Service: Nursing Author Type: Registered [...] By: Ivan Babb RN In Department: [facility] CAR INSPECTION AND REPAIR MANAGER Normal [facility] HOSPon 08-23-2019 HOSP Patient:Regina Bui MRN: Height:5' [...] for the following basenames: K,HCT Progress Notes ([facility]): Elier Espino MD 08/19/2019 12:35 PM Signed [facility] OUTPATIENT VISIT DATE August 19, 2019 OUTPATIENT VISIT TYPE ESTABLISHED PRIMARY CARE PHYSICIAN: Kevin Velasquez MD ([facility]) [address] [place] [address] REFERRING PHYSICIAN SELF CHIEF COMPLAINT: No chief complaint on file. HISTORY OF PRESENT ILLNESS: Teressa Bui was referred for consultation by Dr. Velasquez. Opinions and recommendations in this consultation will be transmitted back to the referring physician by [facility] notes or via mail. ? Ms. Bui is a 63 year old female [facility] prediabetes, active smoker who is seen [...] since her last evaluation. Studies performed at [facility] show: Bilateral ICA 50-69% stenoses. GENO/PVR GENO [...] complaints, no neurologic complaints. Underwent CTA at [facility] which showed left SCA stenosis. On ASA, [...] Elier Espino MD Progress Notes ([facility]): Isela Rand Ralph 08/18/2019 10:01 [...] like pt had these tests done at [facility], scanned into system. Normal [facility] Vital Signs Date Time Vital Sign Value Performing Clinician Facility 03-30-2025 09:41-0400 Body height 165.1 cm [employer] Work Phone: [facility] 03-30-2025 09:41-0400 Body mass index (BMI) [Ratio] 21.9 kg/m2 [employer] Work Phone: [facility] 03-30-2025 09:41-0400 Body weight 59.64 kg [employer] Work Phone: [facility] 03-30-2025 09:41-0400 Diastolic blood pressure 78 mm[Hg] [employer] Work Phone: [facility] 03-30-2025 09:41-0400 Heart rate 68 /min Kevin Ball DO Work Phone: [facility] 03-30-2025 09:41-0400 Respiratory rate 12 /min Kevin Ball DO Work Phone: [facility] 03-30-2025 09:41-0400 Systolic blood pressure 136 mm[Hg] Kevin Ball DO Work Phone: [facility] 01-31-2025 08:51-0400 Body height 165.1 cm Ulices Wise DPM Work Phone: [facility] 01-31-2025 08:51-0400 Body mass index (BMI) [Ratio] 21.97 kg/m2 Ulices Wise DPM Work Phone: [facility] 01-31-2025 08:51-0400 Body weight 59.88 kg Ulices Wise DPM Work Phone: [facility] 01-31-2025 08:51-0400 Respiratory rate 18 /min Ulices Wise DPM Work Phone: [facility] 01-18-2025 09:58-0400 Body height 165.1 cm Mariela Menchaca HOOP PUNCH AND COILER OPERATOR Work Phone: [facility] 01-18-2025 09:58-0400 Body mass index (BMI) [Ratio] 21.97 kg/m2 Mariela Menchaca [employer]OP P[employer]CH AND COILER OPERATOR Work Phone: [facility] 01-18-2025 09:58-0400 Body weight 59.88 kg Mariela Menchaca HOOP P[employer]CH AND COILER OPERATOR Work Phone: [facility] 01-18-2025 09:58-0400 Diastolic blood pressure 80 mm[Hg] Mariela Menchaca HOOP P[employer]CH AND COILER OPERATOR Work Phone: [facility] 01-18-2025 09:58-0400 Systolic blood pressure 130 mm[Hg] Mariela Menchaca HOOP P[employer]CH AND COILER OPERATOR Work Phone: [facility] 01-17-2025 09:39-0400 Body height 165.1 cm Ulices Wise DPM Work Phone: [facility] 01-17-2025 09:39-0400 Body mass index (BMI) [Ratio] 22.8 kg/m2 Ulices Wise DPM Work Phone: [facility] 01-17-2025 09:39-0400 Body weight 62.14 kg Ulices Wise DPM Work Phone: [facility] 01-17-2025 09:39-0400 Respiratory rate 16 /min Ulices Wise DPM Work Phone: [facility] 01-03-2025 11:02-0400 Body height 165.1 cm Ulices Wise DPM Work Phone: [facility] 01-03-2025 11:02-0400 Body mass index (BMI) [Ratio] 22.8 kg/m2 Ulices Wise DPM Work Phone: [facility] 01-03-2025 11:02-0400 Body weight 62.14 kg Ulices Wise DPM Work Phone: [facility] 01-03-2025 11:02-0400 Respiratory rate 18 /min Ulices Wise DPM Work Phone: [facility] 11-25-2024 09:38-0400 Body height 165.1 cm [facility] 11-25-2024 09:38-0400 Body mass index (BMI) [Ratio] 22.8 kg/m2 [facility] 11-25-2024 09:38-0400 Body weight 62.36 kg [facility] 11-25-2024 09:38-0400 Diastolic blood pressure 80 mm[Hg] [facility] 11-25-2024 09:38-0400 Heart rate 74 /min [facility] 11-25-2024 09:38-0400 Respiratory rate 12 /min [facility] 11-25-2024 09:38-0400 Systolic blood pressure 132 mm[Hg] [facility] 09-15-2024 09:33-0500 Body height 165.1 cm [facility] 09-15-2024 09:33-0500 Body mass index (BMI) [Ratio] 22.4 kg/m2 [facility] 09-15-2024 09:33-0500 Body temperature 98.2 [degF] [facility] 09-15-2024 09:33-0500 Body weight 61 kg [facility] 09-15-2024 09:33-0500 Diastolic blood pressure 82 mm[Hg] [facility] 09-15-2024 09:33-0500 Heart rate 79 /min [facility] 09-15-2024 09:33-0500 Respiratory rate 16 /min [facility] 09-15-2024 09:33-0500 SaO2% (BldA) [Mass fraction] 98 % [facility] 09-15-2024 09:33-0500 Systolic blood pressure 124 mm[Hg] [facility] 09-14-2024 09:57-0500 Body height 165.1 cm Mariela Menchaca HOOP P[employer]CH AND COILER OPERATOR Work Phone: [facility] 09-14-2024 09:57-0500 Body mass index (BMI) [Ratio] 22.96 kg/m2 Mariela Menchaca HO[employer] P[employer]CH AND COILER OPERATOR Work Phone: [facility] 09-14-2024 09:57-0500 Body weight 62.6 kg Mariela Menchaca HO[employer] P[employer]CH AND COILER OPERATOR Work Phone: [facility] 09-14-2024 09:57-0500 Diastolic blood pressure 84 mm[Hg] Mariela Menchaca HOOP P[employer]CH AND COILER OPERATOR Work Phone: [facility] 09-14-2024 09:57-0500 Systolic blood pressure 142 mm[Hg] Mariela Menchaca HOOP P[employer]CH AND COILER OPERATOR Work Phone: [facility] 08-06-2024 09:25-0500 Body height 165.1 cm [facility] 08-06-2024 09:25-0500 Body mass index (BMI) [Ratio] 22.4 kg/m2 [facility] 08-06-2024 09:25-0500 Body weight 61.23 kg [facility] 08-06-2024 09:25-0500 Diastolic blood pressure 89 mm[Hg] [facility] 08-06-2024 09:25-0500 Heart rate 79 /min [facility] 08-06-2024 09:25-0500 Respiratory rate 12 /min [facility] 08-06-2024 09:25-0500 Systolic blood pressure 139 mm[Hg] [facility] 05-11-2024 10:02-0400 Body height 165.1 cm Mariela Menchaca HOOP P[employer]CH AND COILER OPERATOR Work Phone: [facility] 05-11-2024 10:02-0400 Body mass index (BMI) [Ratio] 22.4 kg/m2 Marielarolando Spauldingman HOOP P[employer]CH AND COILER OPERATOR Work Phone: [facility] 05-11-2024 10:02-0400 Body weight 61.05 kg Marielarolando Menchaca HOOP P[employer]CH AND COILER OPERATOR Work Phone: [facility] 05-11-2024 10:02-0400 Diastolic blood pressure 76 mm[Hg] Marielarolando Spauldingman [employer] P[employer]CH [employer] COILER OPERATOR Work Phone: [facility] 05-11-2024 10:02-0400 Systolic blood pressure 120 mm[Hg] Marielarolando Spauldingman HOOP P[employer]CH AND COILER OPERATOR Work Phone: [facility] 09-09-2023 10:34-0500 Body height 165.1 cm Marielarolando Spauldingman HOOP P[employer]CH AND COILER OPERATOR Work Phone: [facility] 09-09-2023 10:34-0500 Body mass index (BMI) [Ratio] 22.8 kg/m2 Marielarolando Spauldingman HO[employer] P[employer]CH [employer] COILER OPERATOR Work Phone: [facility] 09-09-2023 10:34-0500 Body weight 62.14 kg Mariela Menchaca HO[employer] P[employer]CH [employer] COILER OPERATOR Work Phone: [facility] 09-09-2023 10:34-0500 Diastolic blood pressure 78 mm[Hg] Mariela Menchaca HO[employer] P[employer]CH AND COILER OPERATOR Work Phone: [facility] 09-09-2023 10:34-0500 Systolic blood pressure 124 mm[Hg] Mariela Menchaca HO[employer] P[employer]CH AND COILER OPERATOR Work Phone: [facility] 04-08-2023 13:00-0400 Body height 165.1 cm Radha Crowellsinan Other [employer] Other 04-08-2023 13:00-0400 Body mass index (BMI) [Ratio] 22.46 kg/m2 Radha Paulsondelores Other [employer] Other 04-08-2023 13:00-0400 Body weight 61.24 kg Radha Bradytiarailyadelores Other [employer] Other 04-08-2023 13:00-0400 Diastolic blood pressure 80 mm[Hg] Radha Bradykendall Other [employer] Other 04-08-2023 13:00-0400 SaO2% (BldA) [Mass fraction] 99 % Radha Bradykendall Other [employer] Other 04-08-2023 13:00-0400 Systolic blood pressure 130 mm[Hg] Radha Correa Other [employer] Other 03-03-2023 08:30-0400 Body height 165.1 cm Kevin Ball Other [employer] Other 03-03-2023 08:30-0400 Body mass index (BMI) [Ratio] 22.5 kg/m2 Kevin Ball Other [employer] Other 03-03-2023 08:30-0400 Body weight 61.33 kg Kevin Ball Other [employer] Other 03-03-2023 08:30-0400 Diastolic blood pressure 85 mm[Hg] Kevin Ball Other [employer] Other 03-03-2023 08:30-0400 Respiratory rate 12 /min Kevin Ball Other [employer] Other 03-03-2023 08:30-0400 Systolic blood pressure 135 mm[Hg] Kevin Ball Other [employer] Other 11-01-2022 09:30-0400 Body height 165.1 cm Kevin Ball Other [employer] Other 11-01-2022 09:30-0400 Body mass index (BMI) [Ratio] 23.1 kg/m2 Kevin Ball Other [employer] Other 11-01-2022 09:30-0400 Body weight 62.96 kg Kevin Ball Other [employer] Other 11-01-2022 09:30-0400 Diastolic blood pressure 75 mm[Hg] Kevin Ball Other [employer] Other 11-01-2022 09:30-0400 Respiratory rate 12 /min Kevin Ball Other [employer] Other 11-01-2022 09:30-0400 Systolic blood pressure 170 mm[Hg] Kevin Ball Other [employer] Other 09-12-2022 10:45-0500 Body height 165.1 cm Dylan aClixto Other [employer] Other 09-12-2022 10:45-0500 Body mass index (BMI) [Ratio] 22.63 kg/m2 Dylan Calixto Other [employer] Other 09-12-2022 10:45-0500 Body temperature 96.7 [degF] Dylan Calixto Other [employer] Other 09-12-2022 10:45-0500 Body weight 61.69 kg Dylan Durga Other [employer] Other 09-12-2022 10:45-0500 Diastolic blood pressure 70 mm[Hg] Dylan Calixto Other [employer] Other 09-12-2022 10:45-0500 SaO2% (BldA) [Mass fraction] 97 % Dylan Durga Other [employer] Other 09-12-2022 10:45-0500 Systolic blood pressure 120 mm[Hg] Dylanmichael Calixto Other [employer] Other 08-23-2021 09:45-0500 Body height 165.1 cm Dylan Durga Other [employer] Other 08-23-2021 09:45-0500 Body mass index (BMI) [Ratio] 22.63 kg/m2 Dylan Durga Other [employer] Other 08-23-2021 09:45-0500 Body temperature 97.9 [degF] Dylan Durga Other [employer] Other 08-23-2021 09:45-0500 Body weight 61.69 kg Dylan Durga Other [employer] Other 08-23-2021 09:45-0500 Diastolic blood pressure 78 mm[Hg] Dylan Calixto Other [employer] Other 08-23-2021 09:45-0500 SaO2% (BldA) [Mass fraction] 97 % Dylan Calixto Other [employer] Other 08-23-2021 09:45-0500 Systolic blood pressure 158 mm[Hg] Dylan Calixto Other [facility] [employer] Other Encounters Encounter Date Encounter Type Care Provider Facility Start: 03-30-2025 End: 03-30-2025 ambulatory Kevin Velasquez DO Work Phone: [facility] Work Phone: Start: 03-30-2025 End: 03-30-2025 Patient encounter procedure Kevin Velasquez DO [facility] Work Phone: Start: 03-30-2025 End: 03-30-2025 Patient encounter status Kevin [facility] Start: 01-31-2025 End: 01-31-2025 Bamboo flowsheet Ulices Wise DPM Work Phone: [facility] Start: 01-31-2025 End: 01-31-2025 Bamboo flowsheet Ulices Wise DPM Work Phone: [facility] Start: 01-31-2025 End: 01-31-2025 Office outpatient visit 15 minutes Ulices Wise DPM Work Phone: [facility] Comment on above: Plantar fasciitis (P rimary Dx); Contracture of right ankle Start: 01-31-2025 End: 01-31-2025 ambulatory ULICES WISE Not Available Start: 01-18-2025 End: 01-18-2025 Bamboo flowsheet Mariela Menchaca HOOP P[employer]CH AND COILER OPERATOR Work Phone: [facility] Start: 01-18-2025 End: 01-18-2025 Bamboo flowsheet Mariela Menchaca HOOP P[employer]CH AND COILER OPERATOR Work Phone: [facility] Start: 01-18-2025 End: 01-18-2025 Office outpatient visit 15 minutes Mariela Menchaca [employer] P[employer]CH AND COILER OPERATOR Work Phone: [facility] Comment on above: Presence of pessary (Primary Dx); Pelvic floor relaxation Start: 01-18-2025 End: 01-18-2025 ambulatory MARIELA MENCHACA Not Available Start: 01-17-2025 End: 01-17-2025 Bamboo flowsheet Ulices Wise DPM Work Phone: [facility] Start: 01-17-2025 End: 01-17-2025 Bamboo flowsheet Ulices Wise DPM Work Phone: [facility] Start: 01-17-2025 End: 01-17-2025 Clinical Support Ulices Wise DPM Work Phone: [facility] Comment on above: Plantar fasciitis (P rimary Dx); Contracture of right ankle Start: 01-03-2025 End: 01-03-2025 Bamboo flowsheet Ulices Wise DPM Work Phone: [facility] Start: 01-03-2025 End: 01-03-2025 Bamboo flowsheet Ulices Wise DPM Work Phone: [facility] Start: 01-03-2025 End: 01-03-2025 ambulatory ULICES WISE Not Available Start: 01-03-2025 End: 01-03-2025 Office outpatient new 30 minutes Ulices Wise DPM Work Phone: [facility] Comment on above: Heel spur, right (Pr imary Dx); Plantar fasciitis; Contracture of right ankle Start: 11-25-2024 End: 11-25-2024 ambulatory [facility] Work Phone: Start: 11-25-2024 End: 11-25-2024 Patient encounter procedure [facility] Physician [facility] Work Phone: Start: 09-15-2024 End: 09-15-2024 Patient encounter procedure [facility] Physician [facility] Work Phone: Start: 09-15-2024 End: 09-15-2024 ambulatory Kevin Velasquez [facility] Work Phone: Start: 09-14-2024 End: 09-14-2024 Office outpatient visit 15 minutes Mariela Menchaca [employer] P[employer]ILER OPERATOR Work Phone: [facility] Comment on above: Presence of pessary (Primary Dx); Pelvic floor relaxation Start: 09-14-2024 End: 09-14-2024 ambulatory MARIELA MENCHACA Not Available Start: 08-06-2024 End: 08-06-2024 Patient encounter procedure [facility] Physician [facility] [facility] Work Phone: Start: 07-12-2024 Non-patient / Non-visit [facility] Physician [facility] [employer] Work Phone: Start: 05-11-2024 End: 05-11-2024 Office outpatient visit 15 minutes Mariela Menchaca [employer] Work Phone: [facility] Comment on above: Presence of pessary (Primary Dx); Pelvic floor relaxation Start: 05-11-2024 End: 05-11-2024 ambulatory MARIELA MENCHACA Not Available Start: 09-09-2023 Bamboo flowsheet Mariela gibbons [employer] OPERATOR Work Phone: [facility] Start: 09-09-2023 Bamboo flowsheet Mariela gibbons [employer] OPERATOR Work Phone: [facility] Start: 09-09-2023 End: 09-09-2023 Office outpatient visit 15 minutes Mariela Menchaca [employer]PERATOR Work Phone: [facility] Comment on above: Presence of pessary (Primary Dx); Pelvic floor relaxation Start: 06-26-2023 End: 06-26-2023 ambulatory Kevin Velasquez Other [employer] Other Start: 06-26-2023 Office outpatient vi sit 15 minutes Kevin Velasquez [facility] Start: 06-04-2023 End: 06-04-2023 ambulatory Kevin Velasquez Other [employer] Other Start: 06-04-2023 Telephone encounter Kevin Velasquez [facility] Start: 04-08-2023 End: 04-08-2023 ambulatory Radha Correa Other [employer] Other Start: 04-08-2023 Office outpatient vi sit 15 minutes Radha Correa [facility] Start: 03-18-2023 End: 03-18-2023 ambulatory Kevin Velasquez Other [employer] Other Start: 03-18-2023 Telephone encounter Kevin RUEDA [facility] Start: 03-04-2023 End: 03-04-2023 ambulatory Kevin Velasquez Other [employer] Other Start: 03-04-2023 Telephone encounter Kevin RUEDA [facility] Start: 03-03-2023 End: 03-03-2023 ambulatory Kevin Velasquez Other [employer] Other Start: 03-03-2023 Patient encounter procedure Kevin Velasquez [facility] Start: 12-02-2022 End: 12-02-2022 ambulatory Kevin Velasquez Other [employer] Other Start: 12-02-2022 Telephone encounter Kevin Velasquez FP [facility] Start: 11-01-2022 End: 11-01-2022 ambulatory Kevin Velasquez Other [employer] Other Start: 11-01-2022 Office outpatient vi sit 25 minutes Kevin Velasquez [facility] Start: 10-03-2022 End: 10-03-2022 ambulatory Kevin Velasquez Other [employer] Other Start: 10-03-2022 Office outpatient vi sit 15 minutes Kevin Velasquez [facility] Start: 09-12-2022 End: 09-12-2022 ambulatory Dylan Calixto Other [employer] Other Start: 09-12-2022 Office outpatient vi sit 25 minutes Dylan Calixto [facility] Vascular Surgery Start: 09-04-2022 End: 09-04-2022 ambulatory DO Kevin Velasquez Work Phone: [facility] Work Phone: Start: 09-04-2022 End: 09-04-2022 Patient encounter procedure DO Kevin Ronald Work Phone: [facility]-Ul[facility] [place] Work Phone: Start: 09-02-2022 End: 09-03-2022 ambulatory Mariela MENCHACA Facility:[facility] Start: 09-02-2022 End: 09-02-2022 Lab Drop off Mariela MENCHACA [facility] Start: 07-26-2022 End: 07-26-2022 ambulatory Kevin Velasquez Other [employer] Other Start: 07-26-2022 Telephone encounter Kevin Velasquez [facility] Start: 07-03-2022 End: 07-04-[address] KEVIN VELASQUEZ Facility:[facility] Start: 04-25-2022 End: 04-25-2022 ambulatory Summer Decker Other [employer] Other Start: 04-25-2022 Telephone encounter [facility] Start: 03-18-2022 Encounter for genera l adult medical examination without abnormal findings DR KEVIN EVLASQUEZ [facility] Start: 03-15-2022 End: 03-16-[address] KEVIN VELASQUEZ Facility:[facility] Start: 03-15-2022 End: 03-16-2022 Encounter for general adult medical examination without abnormal findings DR KEVIN VELASQUEZ Facility:[facility] Start: 08-23-2021 End: 08-23-2021 ambulatory Dylan Calixto Other [employer] Other Start: 08-23-2021 Office outpatient ne w 60 minutes Dylan Calixto [facility] Vascular Surgery Start: 08-21-2021 End: 08-22-[address] KEVIN VELASQUEZ Facility:[facility] Procedures Date Procedure Procedure Detail Performing Clinician Start: 05-09-2020 Antibody screen Comment on above: Performed By: #### T SCR ####[facility] [id number] [place] [address] Start: 08-31-2019 Antibody screen Comment on above: Performed By: #### T SCR ####[facility] [id number] [place] [address] Plan of Treatment Date Care Activity Detail Author Start: 05-23-2025 End: 05-23-2025 Patient encounter procedure 05/23/2025 10:15 AM EDT Office Visit [facility] [address] [phone] Laurel Caballero DO [address] [phone] [facility] Start: 03-28-2025 Influenza vaccination Influenz a Vaccine (#1) [facility] Start: 01-31-2025 End: 01-31-2025 Clinical Support [facility] Comment on above: Plantar fasciitis (P rimary Dx); Contracture of right ankle Start: 01-18-2025 End: 01-18-2025 Patient encounter procedure [facility] Comment on above: Presence of pessary (Primary Dx); Pelvic floor relaxation Start: 01-17-2025 End: 01-17-2025 Clinical Support [facility] Comment on above: Plantar fasciitis (P rimary Dx); Contracture of right ankle Start: 01-12-2025 End: 01-12-2025 Patient encounter procedure 01/12/2025 9:20 AM EDT Office Visit [facility] [address] [facility] [address] [address] Mariela Menchaca NP [address] [place] [address] [facility] Start: 09-09-2023 End: 09-09-2023 Patient encounter procedure 09/09/2023 10:40 AM EST Office Visit [facility] [address] [phone] Mariela Menchaca NP [address] [place] [address] Arrived [facility] Comment on above: Arrived Start: 09-04-2022 Ankle brachial press ure index [facility] Start: 09-04-2022 Doppler ultrasonogra phy of bilateral carotid arteries US carotid doppler BI [facility] Start: 09-04-2022 US.doppler Carotid arteries - bilateral [facility] Start: 1995 Screening for malign ant neoplasm of breast Mammogram [facility] Start: 1955 Screening for malign ant neoplasm of colon [facility] Comprehensive metabo lic 2000 panel - Serum or Plasma [facility] MG Breast - bilatera l Screening [facility] Patient Education Low back pain in adults [facility] Work Phone: [facility] Immunizations Immunization Date Immunization Notes Care Provider [facility] 04-27-2024 influenza virus vaccine, unspecified formulation Ulices Wise DPM Work Phone: [facility] 04-29-2023 Influenza vaccine, quadrivalent, adjuvanted [facility] 05-08-2022 influenza virus vaccine, unspecified formulation [facility] 05-08-2022 influenza, high dose seasonal, preservative-free Kevin Velasquez Other [employer] Other 02-28-2022 Prevnar 20 Kevin Velasquez Other [facility] 06-08-2021 COVID-19 Ad26.COV2.S (Marylu) [facility] 04-29-2021 Influenza vaccine, quadrivalent, adjuvanted [facility] 04-29-2021 pneumococcal polysaccharide vaccine, 23 valent Kevin Velasquez Other [facility] 10-02-2020 COVID-19 Ad26.COV2.S (Marylu) [facility] 05-18-2020 influenza virus vaccine, split virus (incl. purified surface antigen) Kevin Velasquez Other [facility] [employer] Other 05-18-2020 influenza virus vaccine, unspecified formulation [facility] 05-18-2020 influenza, injectabl e, quadrivalent, preservative free [facility] 04-03-2019 influenza, injectabl e, quadrivalent, preservative free [facility] 05-11-2018 Influenza, injectabl e, Madin Isis Canine Kidney, preservative free, quadrivalent [facility] 05-06-2018 influenza virus vaccine, split virus (incl. purified surface antigen) Kevin Velasquez Other [facility] [employer] Other 05-06-2018 influenza virus vaccine, unspecified formulation [facility] 04-04-2017 influenza, injectabl e, quadrivalent, preservative free [facility] 04-04-2017 tetanus and diphther ia toxoids, adsorbed, preservative free, for adult use (5 Lf of tetanus toxoid and 2 Lf of diphtheria toxoid) Kevin Velasquez Other [facility] 04-17-2015 influenza virus vaccine, split virus (incl. purified surface antigen) Kevin Velasquez Other [facility] [employer] Other 04-17-2015 influenza virus vaccine, unspecified formulation [facility] Payers Date Payer Category Payer Self-pay [id number] 2021 [facility] er [id number] 2021 Unknown 1959 Private Health Insurance [id number] 1959 Unknown [id number] 1955 Unknown [id number] .[id number] 1955 Unknown [id number] [id number] .2.593 1955 Unknown [id number] .2.593 1955 Unknown [id number] [id number] .2.727 1955 Unknown [id number] [id number] .2.1259 1955 Unknown [id number] [id number] .2.1259 1955 Unknown [id number] [id number] .2.1259 1955 Unknown [id number] [id number] .2.1259 1955 Unknown [id number] [id number] .2.1259 1955 Unknown [id number] [id number] .2.1259 Medicare [id number] Private Health Insurance [id number] Private Health Insurance [employer] [id number] Private Health Insurance [employer] [place] [id number] Unknown [id number] .[id number] Social History Date Type Detail Facility Start: 12-31-2022 End: 05-11-2024 Sex Assigned At [facility] Tobacco smoking status No Smokin g Status Entered [facility] Start: 1955 Sex Assigned At Female F [facility] Start: 12-31-2022 Tobacco smoking stat [facility] Never smoked tobacco [facility] Start: 12-31-2022 Tobacco use and exposure Smokeless tobacco non-user [facility] Start: 05-05-2023 End: 01-31-2025 Alcohol intake Lifetime non-drinker (finding) [facility] [...] day? Patient does not drink [facility] Start: 09-15-2024 End: 09-15-2024 Tobacco smoking status NHIS Ex-smoker (finding) [facility] Start: 09-15-2024 End: 11-25-2024 Sex Female (finding) [facility] Medical Equipment Procedure Code Equipment Code Equipment Origin al Text Equipment Identifier Dates [id number], [id number] Start: 11-27-2022 Blood Sugar Diagnostic (Onetouch Ultra Test) strip Start: 11-07-2023 Blood Sugar Diagnostic strip Start: 11-07-2023 End: 11-07-2023 Blood Sugar Diagnostic strip Start: 11-07-2023 End: 11-07-2023 Blood Sugar Diagnostic (Onetouch Ultra Test) strip Start: 11-07-2023 Blood Sugar Diagnostic strip Start: 11-07-2023 End: 11-07-2023 Blood Sugar Diagnostic strip Start: 11-07-2023 End: 11-07-2023 Blood Sugar Diagnostic (Onetouch Ultra Test) strip Start: 11-07-2023 Blood Sugar Diagnostic strip Start: 11-07-2023 End: 11-07-2023 Blood Sugar Diagnostic strip Start: 11-07-2023 End: 11-07-2023 Blood Sugar Diagnostic (Onetouch Ultra Test) strip Start: 03-30-2025 Blood Sugar Diagnostic (Onetouch Ultra Test) strip Start: 11-07-2023 End: 03-30-2025 Blood Sugar Diagnostic strip Start: 11-07-2023 End: 11-07-2023 Blood Sugar Diagnostic strip Start: 11-07-2023 End: 11-07-2023 Clinical Notes 09-07-2020 to 01-31-2025 Ulices Wise, MATEO - 01/31/2025 8:50 AM Lucero Menchaca, [employer] OPERATOR - 01/18/2025 10:00 AM Renee Wise DPM - 01/17/2025 9:40 AM Renee Wise DPM - 01/03/2025 10:40 AM EDT Note Date & Type Note Facility 01-31-2025 History of Presen t illness Narrative Patient: Teressa Bui : 1955 PCP: Kevin Velasquez, SUBJECTIVE Patient presents today for follow up of right HSS. Pt has had previous treatment of 2nd steroid injection, nsaids, stretching with minimal relief. Pt states current pain on a 1-10 scale is a 0-1 Pt presents to day for follow up tx. Allergies: No Known Allergies Past Medical History: Past Medical History: Diagnosis Date Difficulty walking May Hypertension Ocular migraine Plantar fasciitis 2024 Type 2 diabetes mellitus (HCC) Medications: Current Outpatient Medications: atorvastatin (Lipitor) 80 MG tablet, Take 80 mg by mouth at bedtime., Disp: , Rfl: clopidogrel (Plavix) 75 MG tablet, TAKE 1 TABLET BY MOUTH EVERY DAY FOR 30 DAYS, Disp: , Rfl: Januvia 25 MG tablet, Take 25 mg by mouth in the morning., Disp: , Rfl: Lancets (OneTouch Delica Plus [id number]) [facility], USE 1 LANCET USE TO TEST HOME BLOOD SUGAR ONCE DAILY 90, Disp: , Rfl: losartan (Cozaar) 50 MG tablet, Take 50 mg by mouth in the morning., Disp: , Rfl: metFORMIN (Glucophage) 500 MG tablet, Take 500 mg by mouth. Take with food., Disp: , Rfl: Lifes[employer]Touch Ultra test strip, USE TO TEST ONCE A DAY, Disp: , Rfl: verapamil ER (Verelan) 120 MG 24 hr capsule, Take 120 mg by mouth in the morning., Disp: , Rfl: Social History: Social History Socioeconomic History Marital status: Spouse name: Not on file Number of children: Not on file Years of education: Not on file Highest education level: Not on file Occupational History Not on file Tobacco Use Smoking status: Never Smokeless tobacco: Never Vaping Use Vaping status: Never Used Substance and Sexual Activity Alcohol use: Never Drug use: Never Sexual activity: Not on file Other Topics Concern Not on file Social History Narrative Not on file Social Drivers of Health Financial Resource Strain: Not on file Food Insecurity: Not on file Transportation Needs: Not on file Physical Activity: Not on file Stress: Not on file Social Connections: Not on file Intimate Partner Violence: Not on file Housing Stability: Not on file ROS: Gastrointestinal: denies abdominal pain, ulcers, or changes in appetite or bowel habits Musculoskeletal: 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 Cardiovascular: denies CP, palpitations, irregular rhythms. Positive history ofleft leg stent OBJECTIVE LE EXAM: DERM: Positive hair growth to b/l feet with good skin turgor noted. Negative openings in skin VASC: Palpable pedal pulsed b/l with warm to cool tibia to toes b/l NEURO: Gross sensation intact digits 1-10 and b/l feet ORTHO: 20 degrees inversion and 10 degrees eversion STJ b/l. Ankle ROM less than 10 degrees b/l. Minimal to no pain on palpation to right medial calcaneal tubercle XRAY: ASSESSMENT 1. Plantar fasciitis 2. Contracture of right ankle PLAN Patient to continue with oral anti - inflammatories as needed for pain and recommended OTC medications such as tylenol or Ibuprofen Patient is to continue with stretching excercizes daily with patient to continue with night stretching splint or manual stretching. Ulices Wise DPM documented in this encounter [facility] 01-18-2025 History of Presen t illness Narrative Name: Teressa Bui Date/Time of Service:01/18/2025 10:06 AM :1955 Age: 69 y.o. SUBJECTIVE: History of Present Illness Teressa Bui is a 69 y.o. here for pessary maintenance. She is not having any problems. She denies symptoms of vaginal infection or vaginal bleeding. Size 6 pessary. Past Medical History: Diagnosis Date Difficulty walking May Hypertension Ocular migraine Plantar fasciitis 2024 Type 2 diabetes mellitus (HCC) Review of Systems All others negative except those mentioned in HPI. Past Medical / Surgical History Past Medical History: Diagnosis Date Difficulty walking May Hypertension Ocular migraine Plantar fasciitis 2024 Type 2 diabetes mellitus (HCC) Past Surgical History: Procedure Laterality Date CATARACT EXTRACTION cataract surgery OTHER SURGICAL HISTORY stents in iliac artery SUBCLAVIAN ARTERY STENT Left Family History Family History Problem Relation Name Age of Onset Endometrial cancer Sister America Castilloo Diabetes Sister America Carrera Heart disease Other Stroke Other Diabetes Mother Willow Cook Cancer Maternal Grandmother Clari Martinez Cancer Sister Christi Daly Diabetes Sister Christi Hire Diabetes Sister Melodie Yates Diabetes Brother Chuck Cook Social History reports that she has never [...] BY MOUTH EVERY DAY FOR 30 DAYS Januvia 25 MG tablet Take 25 mg by mouth in the morning. Lancets (OneTouch Delica Plus [id number]) [facility] USE 1 LANCET USE TO TEST HOME BLOOD SUGAR ONCE DAILY 90 losartan (Cozaar) 50 MG tablet Take 50 mg by mouth in the morning. metFORMIN (Glucophage) 500 MG tablet Take 500 mg by mouth. Take with food. [employer] Ultra test strip USE TO TEST ONCE A DAY verapamil ER (Verelan) 120 MG 24 hr capsule Take 120 mg by mouth in the morning. [DISCONTINUED] esomeprazole (NexIUM) [address] capsule Take 20 mg by mouth in the morning. Take before meals. Do not open capsule.. [DISCONTINUED] Januvia 50 MG tablet Take 50 mg by mouth in the morning. No current facility-administered medications on file prior to visit. No Known Allergies PHYSICAL EXAM: Vitals: 01/18/25 0958 BP: 130/80 Body mass index is 21.97 kg/m . Physical Exam Constitutional: Appearance: Normal [...] Presence of pessary 2. Pelvic floor relaxation No follow-ups on file. documented in this encounter [facility] 01-17-2025 History of Presen t illness Narrative Patient: Teressa Bui : 1955 PCP: Kevin Velasquez DO SUBJECTIVE Patient presents today for follow up of right HSS. Pt has had previous treatment of 1st steroid injection, nsaids, stretching with minimal relief. Pt states current pain on a 1-10 scale is a 8 Pt presents to day for follow up tx. Allergies: No Known Allergies Past Medical History: Past Medical History: Diagnosis Date Hypertension Ocular migraine Type 2 diabetes mellitus (HCC) Medications: Current Outpatient Medications: atorvastatin (Lipitor) 80 MG tablet, Take 80 mg by mouth at bedtime., Disp: , Rfl: clopidogrel (Plavix) 75 MG tablet, TAKE 1 TABLET BY MOUTH EVERY DAY FOR 30 DAYS, Disp: , Rfl: esomeprazole (NexIUM) [address] capsule, Take 20 mg by mouth in the morning. Take before meals. Do not open capsule.., Disp: , Rfl: Januvia 25 MG tablet, Take 25 mg by mouth in the morning., Disp: , Rfl: Januvia 50 MG tablet, Take 50 mg by mouth in the morning., Disp: , Rfl: Lancets (OneTouch Delica Plus [id number]) [facility], USE 1 LANCET USE TO TEST HOME BLOOD SUGAR ONCE DAILY 90, Disp: , Rfl: losartan (Cozaar) 50 MG tablet, Take 50 mg by mouth in the morning., Disp: , Rfl: metFORMIN (Glucophage) 500 MG tablet, Take 500 mg by mouth. Take with food., Disp: , Rfl: LifesumTouch Ultra test strip, USE TO TEST ONCE A DAY, Disp: , Rfl: verapamil ER (Verelan) 120 MG 24 hr capsule, Take 120 mg by mouth in the morning., Disp: , Rfl: Social History: Social History Socioeconomic History Marital status: Spouse name: Not on file Number of children: Not on file Years of education: Not on file Highest education level: Not on file Occupational History Not on file Tobacco Use Smoking status: Never Smokeless tobacco: Never Vaping Use Vaping status: Never Used Substance and Sexual Activity Alcohol use: Never Drug use: Never Sexual activity: Not on file Other Topics Concern Not on file Social History Narrative Not on file Social Drivers of Health Financial Resource Strain: Not on file Food Insecurity: Not on file Transportation Needs: Not on file Physical Activity: Not on file Stress: Not on file Social Connections: Not on file Intimate Partner Violence: Not on file Housing Stability: Not on file ROS: Gastrointestinal: denies abdominal pain, ulcers, or changes in appetite or bowel habits Musculoskeletal: 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 Cardiovascular: denies CP, palpitations, irregular rhythms. Positive history ofleft leg stent OBJECTIVE LE EXAM: DERM: Positive hair growth to b/l feet with good skin turgor noted. Negative openings in skin VASC: Palpable pedal pulsed b/l with warm to cool tibia to toes b/l NEURO: Gross sensation intact digits 1-10 and b/l feet ORTHO: 20 degrees inversion and 10 degrees eversion STJ b/l. Ankle ROM less than 10 degrees b/l. positive pain on palpation to right medial calcaneal tubercle XRAY: ASSESSMENT 1. Plantar fasciitis 2. Contracture of right ankle PLAN Patient to continue with oral anti - inflammatories as needed for pain and recommended OTC medications such as tylenol or Ibuprofen Pt given steroid injection to right medial calcaneal tubercle under US guidance with visualization of injected fluid into area of concern per imaging. Injection of 1cc kenalog 10 and 2cc xylocaine 2% plain. Informed patient of risks and benefits of injection including non resolution of symptoms,steroid flare, tendon damage or rupture. Pt consents to proceed. 2nd injection Patient is to continue with stretching excercizes daily with patient to continue with night stretching splint or manual stretching. Ulices Wise DPM documented in this encounter [facility] 01-03-2025 History of Presen t illness Narrative Patient: Teressa Bui : 1955 PCP: Kevin Velasquez DO SUBJECTIVE This is a 69 y.o. female that presents today for a CC of right heel pain . States pain with 1st steps in the morning and sharp in nature with treatments consisting of anti-inflammatories and shoe gear modifications with negative relief and presents today for treatment. States the pain on a 1-10 scale a 8 Allergies: No Known Allergies Past Medical History: Past Medical History: Diagnosis Date Hypertension (CMS/HCC) Ocular migraine (CMS/HCC) Type 2 diabetes mellitus Medications: Current Outpatient Medications: atorvastatin (Lipitor) 80 MG tablet, Take 80 mg by mouth at bedtime., Disp: , Rfl: clopidogrel (Plavix) 75 MG tablet, TAKE 1 TABLET BY MOUTH EVERY DAY FOR 30 DAYS, Disp: , Rfl: esomeprazole (NexIUM) [address] capsule, Take 20 mg by mouth in the morning. Take before meals. Do not open capsule.., Disp: , Rfl: Januvia 25 MG tablet, Take 25 mg by mouth in the morning., Disp: , Rfl: Januvia 50 MG tablet, Take 50 mg by mouth in the morning., Disp: , Rfl: Lancets (OneTouch Delica Plus [id number]) [facility], USE 1 LANCET USE TO TEST HOME BLOOD SUGAR ONCE DAILY 90, Disp: , Rfl: losartan (Cozaar) 50 MG tablet, Take 50 mg by mouth in the morning., Disp: , Rfl: metFORMIN (Glucophage) 500 MG tablet, Take 500 mg by mouth. Take with food., Disp: , Rfl: OneTouch Ultra test strip, USE TO TEST ONCE A DAY, Disp: , Rfl: verapamil ER (Verelan) 120 MG 24 hr capsule, Take 120 mg by mouth in the morning., Disp: , Rfl: Social History: Social History Socioeconomic History Marital status: Spouse name: Not on file Number of children: Not on file Years of education: Not on file Highest education level: Not on file Occupational History Not on file Tobacco Use Smoking status: Never Smokeless tobacco: Never Vaping Use Vaping status: Never Used Substance and Sexual Activity Alcohol use: Never Drug use: Never Sexual activity: Not on file Other Topics Concern Not on file Social History Narrative Not on file Social Drivers of Health Financial Resource Strain: Not on file Food Insecurity: Not on file Transportation Needs: Not on file Physical Activity: Not on file Stress: Not on file Social Connections: Not on file Intimate Partner Violence: Not on file Housing Stability: Not on file ROS: Gastrointestinal: denies abdominal pain, ulcers, or changes in appetite or bowel habits Musculoskeletal: 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 Cardiovascular: denies CP, palpitations, irregular rhythms. Positive history ofleft leg stent OBJECTIVE LE EXAM: DERM: Positive hair growth to b/l feet with good skin turgor noted. Negative openings in skin VASC: Palpable pedal pulsed b/l with warm to cool tibia to toes b/l NEURO: Gross sensation intact digits 1-10 and b/l feet ORTHO: 20 degrees inversion and 10 degrees eversion STJ b/l. Ankle ROM less than 10 degrees b/l. Positive pain on palpation to right medial calcaneal tubercle XRAY: US: DIAGNOSTIC US REPORT - Verbal order today for imaging today The plantar arch and heel of the right foot were scanned today using a 12MHz linear probe in the transverse and sagittal planes, concerning the plantar fascia. Images were obtained. FINDINGS - US exam demonstrates hypo-echoic thickening of plantar fascia with its origin at the medial plantar tuberosity of the calcaneus. The area of thickening and inflammation is greater than 4mm (norm = 4 mm). Small calcaneal enthesophyte noted to right heel IMPRESSION - Right heel plantar fasciitis with heel spur right ASSESSMENT 1. Heel spur, right 2. Plantar fasciitis 3. Contracture of right ankle PLAN Patient to continue with oral anti - inflammatories as needed for pain and recommended OTC medications such as tylenol or Ibuprofen Reviewed ultrasound today with patient Pt given steroid injection to right medial calcaneal tubercle under US guidance with visualization of injected fluid into area of concern per imaging. Injection of 1cc kenalog 10 and 2cc xylocaine 2% plain. Informed patient of risks and benefits of injection including non resolution of symptoms,steroid flare, tendon damage or rupture. Pt consents to proceed. 1st injection Patient is to continue with stretching excercizes daily with patient to continue with night stretching splint or manual stretching. Ulices Wise DPM documented in this encounter [facility] 09-15-2024 Evaluation note Diagnosis Onset Date Resolution Right-sided extracranial carotid artery stenosis acute September 15, 2024 8:46am Carotid artery stenosis acute 2024 9:23am Elevated cholesterol acute November 25, 2024 9:23am GERD without esophagitis acute November 25, 2024 9:23am Hypertension acute November 25 9:23am Low back pain acute November 25 9:23am Ocular migraine acute November 25, 2024 9:23am Type 2 diabetes mellitus with hyperglycemia acute November 25, 2024 9:23am [facility] Work Phone: 1(603) 877-574902-18-2025 History of Present illness Narrative* Mariela Menchaca NP - 09/14/2024 10:00 AM EST Name: Teressa Bui Date/Time of Service:09/14/2024 10:23 AM :1955 Age: 68 y.o. SUBJECTIVE: History of Present Illness Teressa Bui is a 68 y.o. here for pessary maintenance. She is not having any problems. She denies symptoms of vaginal infection or vaginal bleeding. Size 6 pessary. Going to for wedding in November. Past Medical History: Diagnosis Date Hypertension (CMS/HCC) [...] mg by mouth in the morning. Lancets ([employer] Delica Plus [id number]) [facility] [place] USE 1 LANCET USE TO TEST HOME BLOOD SUGAR ONCE DAILY 90 losartan (Cozaar) 50 MG tablet Take 50 mg by mouth in the morning. metFORMIN (Glucophage) 500 MG tablet Take 500 mg by mouth. Take with food. [employer] Ultra test strip USE TO TEST ONCE A DAY verapamil ER (Verelan) 120 MG 24 hr capsule Take 120 mg by mouth in the morning. No current facility-administered medications on file prior to visit. No Known Allergies PHYSICAL EXAM: Vitals: 09/14/24 0957 BP: 142/84 Body mass index is 22.96 kg/m . Physical Exam Constitutional: Appearance: Normal [...] Follow up in about 4 months (around 01/12/2025) for Pessary maintenance. documented in [facility] encounter[facility] [id number] Evaluation note* Diagnosis Onset Date Resolution Status Admit Date Carotid artery stenosis acute J anuary 2024 9:19am Elevated cholesterol acute 2024 9:19am GERD without esophagitis acute August 06, 2024 9:19am Hypertension acute July 9:19am Low back pain acute July 9:19am Ocular migraine acute July 282024 9:19am Type 2 diabetes mellitus wit h hyperglycemia acute August 06 9:19am [facility] Work Phone: 1(493) 851-934701-10-2025 Evaluation note* Diagnosis Onset Date Resolution Status Admit Date Carotid artery stenosis acute J anuary 2024 9:19am Elevated cholesterol acute 2024 9:19am GERD without esophagitis acute August 06, 2024 9:19am Hypertension acute July 9:19am Low back pain acute July 9:19am Ocular migraine acute July 282024 9:19am Type 2 diabetes mellitus wit h hyperglycemia acute August 06 9:19am Right-sided extracranial carotid artery stenosis acute September 15, 2024 8:46am [facility] Work Phone: 1(400) 526-175910-15-2024 History of Present illness Narrative* Mariela Menchaca NP - 05/11/2024 10:00 AM EDT Name: Teressa Bui Date/Time of Service:05/11/2024 10:31 [...] mg by mouth in the morning. Lancets ([employer] Delica Plus [id number]) [facility] [place] USE 1 LANCET USE TO TEST HOME BLOOD SUGAR ONCE DAILY 90 losartan (Cozaar) 50 MG tablet Take 50 mg by mouth in the morning. metFORMIN (Glucophage) 500 MG tablet Take 500 mg by mouth. Take with food. [employer] Ultra test strip USE TO TEST ONCE [...] 09/11/2024) for Pessary maintenance. documented in this encounterCrossroads [facility] Medical [id number] History of Present illness Narrative* Mariela Menchaca NP - 09/09/2023 10:40 AM EST Name: Teressa Bui Date/Time of Service:09/09/2023 11:06 [...] vagina 3 (three) times a week. 45 g2 Januvia 25 MG tablet Take 25 mg by mouth in the morning. Januvia 50 MG tablet Take 50 mg by mouth in the morning. Lancets (OneTouch Delica Plus [id number]) [facility] [place] USE 1 LANCET USE TO TEST HOME BLOOD SUGAR ONCE DAILY 90 losartan (Cozaar) 50 MG tablet Take 50 mg by mouth in the morning. metFORMIN (Glucophage) 500 MG tablet Take 500 mg by mouth. Take with food. OneTouch Ultra test strip USE TO TEST ONCE [...] 01/08/2024) for Pessary maintenance. documented in this encounterCrossroads [facility] Medical [id number] Evaluation note* Encounter Date Diagnosis Assessment Notes Treatment Notes Treatment Clinical Notes May, Acute bronchitis due to other specified organisms (ICD-10 - J20.8) Instructed to use Robitussin or Mucinex for cough, saline or Flonase NS for congestion, Tylenol for pain and fever. May, Type 2 diabetes mellitus with hyperglycemia, without long-term current use of insulin (ICD-10 - E11.65) BS will increase w/ intercurrent infection No treatment necessary, will resolve w/ treatment of infection [facility] Other 09-12-2023 Evaluation note* Encounter Date Diagnosis [...] verbalizes understanding and agrees with tx plan. [facility] Other 08-08-2023 Evaluation note* Encounter Date Diagnosis Assessment Notes Treatment Notes Treatment Clinical Notes Feb, Gastroesophageal ref lux disease with esophagitis without hemorrhage (ICD-10 - K21.00) [facility] Other 08-08-2023 Evaluation note* Encounter Date Diagnosis Assessment Notes Treatment Notes Treatment Clinical Notes Feb, Eczema, unspecified type (ICD-10 - L30.9) [facility] Other 08-07-2023 Evaluation note* Encounter Date Diagnosis [...] cerebrovascular and cardiovascular disease. Feb, Atherosclerosis of [place] artery of both lower extremities with intermittent [...] High risk medication use (ICD-10 - Z79.899) [facility] Other 04-07-2023 Evaluation note* Encounter Date Diagnosis [...] with continued statin therapy. Oct, Atherosclerosis of [place] artery of both lower extremities with intermittent [...] Continue Verapamil No f/u w/ Neurology necessary [facility] Other 03-09-2023 Evaluation note* Encounter Date Diagnosis [...] treatment necessary despite likely increase in BS [facility] Other 02-16-2023 Evaluation note* Encounter Date Diagnosis [...] were addressed. She understands agrees the plan. [facility] Other 02-08-2023 NoteMicrobiology PROCEDURE: Gynecological Culture [R1] [...] Locations R1: This test was performed at: [facility], [address] [place] [address], [id number] , , RrjfugLicking Memorial HospitalComment on above:Performed By: #### [id number] #### [facility] [address] [place] [address] [id number] Evaluation + Plan note Diagnostic Tests Pending * Gynecological Culture 09/02/22 * NuSwab Vaginitis (VG) 09/02/22 [facility]01-27-2022 Evaluation note* Encounter Date Diagnosis Assessment Notes Treatment Notes Treatment Clinical Notes Jul, Stenosis of left subclavian artery (ICD-10 - I77.1) Jul, Atherosclerosis of [place] arteries of extremities with intermittent claudication, left leg (ICD-10 - I70.212) This patient is a new patient today. She has had a previous left subclavian stent placed at the origin of the left subclavian artery at [facility]. This was due to left [...] bilateral carotid artery stenosis (ICD-10 - I65.23) [facility] Other 09-02-2021 NoteHNO ID: [id number] Author: Elier Espino MD Service: ? Author Type: Physician Type: Progress Notes Filed: 03/29/2021 1:39 PM Note Text: [facility] OUTPATIENT VISIT DATE March 29, 2021 OUTPATIENT VISIT TYPE EST PRIMARY CARE PHYSICIAN: Kevin Velasquez ([facility]) [facility] [place] [address] REFERRING PHYSICIAN SELF CHIEF COMPLAINT: Patient presents with: Follow Up: Test Results HISTORY OF PRESENT ILLNESS: ? Ms.?Ruffing ?is a 65 year old female PMH [...] months with repeat noninvasive studies.? Elier Espino [facility]05-13-2021 NoteHNO ID: [id number] Author: Elier Espino MD Service: ? Author Type: Physician Type: Progress Notes Filed: 12/07/2020 1:01 PM Note Text: [facility] OUTPATIENT VISIT DATE December 07, 2020 OUTPATIENT VISIT TYPE EST PRIMARY CARE PHYSICIAN: Kevin Velasquez ([facility]) [address] [place] [address] REFERRING PHYSICIAN SELF CHIEF COMPLAINT: Patient presents [...] repeat noninvasive studies.? ? ? Elier Espino [facility]02-11-2021 NoteHNO ID: [id number] Author: Elier Espino Service: ? Author Type: Physician Type: Progress Notes Filed: 09/07/2020 12:28 PM Note Text: [facility] OUTPATIENT VISIT DATE September 07, 2020 OUTPATIENT VISIT TYPE EST PRIMARY CARE PHYSICIAN: Kevin Velasquez MD ([facility]) [address] [place] [id number] REFERRING PHYSICIAN Elier Espino MD [address] [facility] [id number] CHIEF COMPLAINT: Patient presents with: Follow Up: [...] with repeat noninvasive studies. ? Elier Espino, [facility] Clinication noteNo InformationNort [employer] Other Evaluation noteNo assessment information available [facility] Work Phone: Evaluation note* Diagnosis Presence of pessary- Primary Pelvic floor relaxation documented in this encounter [facility] HealthcareEvaluation [facility]* Diagnosis Presence of pessary- Primary Pelvic floor relaxation documented in this encounter [facility] HealthcareEvaluation note* Diagnosis Presence of pessary- Primary Pelvic floor relaxation documented in this encounter [facility] HealthcareEvaluation note* Diagnosis Heel spur, right- Primary Plantar fasciitis Plantar fascial fibromatosis Contracture of right ankle documented in this encounter [facility] HealthcareEvaluation note* Diagnosis Plantar fasciitis- Primary Plantar fascial fibromatosis Contracture of right ankle documented in this encounter [facility] HealthcareEvaluation [facility]* Diagnosis Plantar fasciitis- Primary Plantar fascial fibromatosis Contracture of right ankle documented in this encounter [facility] HealthcareEvaluation note* Diagnosis Onset Date Resolution Status Admit Date Carotid artery stenosis acute S epte2024 9:20am Elevated cholesterol acute Mar 9:20am GERD without esophagitis acute March 30, 2025 9:20am Hypertension acute March 9:20am Low back pain acute March 302024 9:20am Ocular migraine acute March 30, 2025 9:20am Osteoporosis acute March 9:20am Screening mammogram for breast cancer acute March 30, 9:20am Type 2 diabetes mellitus with hyperglycemia acute March 9:20am Welcome to Medicare preventive visit noneactive March 30, 2025 9:20am [facility] Work Phone: History general Narrative - Reported* Type Description Date Medical History carotid artery stenosis Medical History hypertension Medical History migraine headaches Medical History acid reflux Surgical History tubual ligation Surgical History cataract surgery Surgical History stent in left subclavian Surgical History stent in left iliac [facility] Other History general Narrative - Reported* Type Description Date Medical History carotid artery stenosis Medical History hypertension Medical History migraine headaches Medical History acid reflux Medical History PAD Surgical History tubual ligation Surgical History cataract surgery Surgical History stent in left subclavian Surgical History stent in left iliac Hospitalization History See Above [facility] Other Hospital course Narrative No data available for this section [facility] No data available for this section [facility] HospitalProgress note No data available for this section [facility] HospitalReason for referral (narrative)No reason for referral information availableBarney [facility]'S [facility] Work Phone: Summary Purpose Family History Relationship Condition Age at Onset Recorded Date/T kellen father Heart disease Unknown Unknown family member Unknown mother History of stroke Unknown Family history of mental disorder Unknown Heart disease Unknown Advance Directives Advance Directive Response Recorded Date/ Time Advance Directives No August 30, 2022 12:54pm Advance Directive Response Recorded Date/ Time Advance Directives No August 06, 2024 10:07am Advance Directive Response Recorded Date/ Time Advance Directives No August 06, 2024 11:07am Procedure Findings Note HNO ID: [id number] Author: Liv Espino Service: Vascular Surgery Author Type: Physician Type: Brief Op Note Filed: 08/31/2019 8:22 PM Note Text: BRIEF OPERATIVE / PROCEDURE NOTE LOG ID: [id number] SURGERY/PROCEDURE DATE: 08/31/2019 INCISION/PROCEDURE START TIME: 10:23 AM INCISION CLOSE/PROCEDURE END TIME: 2:47 PM SURGEON(S)/PROCEDURALIST(S) AND HEEL DIPPER(S): Surgeon(s) and Role: * Elier Barnard No [...] iliac artery treated with 8x60 and 7x60 [employer] self expandable stent, post stenting angioplasty of the lef (more content not included)... Note HNO ID: [id number] Author: Liv Espino Service: Vascular Surgery Author Type: Physician Type: Brief Op Note Filed: 05/09/2020 3:31 PM Note Text: BRIEF OPERATIVE / PROCEDURE NOTE LOG ID: [id number] SURGERY/PROCEDURE DATE: 05/09/2020 INCISION/PROCEDURE START TIME: 2:25 PM INCISION CLOSE/PROCEDURE END TIME: 3:21 PM SURGEON(S)/PROCEDURALIST(S) AND HEEL DIPPER(S): Surgeon(s) and Role: * Elier Barnard No Additional Staff SURGERY/PROCEDURE(S): Ultrasound guided access of the right common femoral artery, left subclavian angiogram, stenting of the left proximal subclavian artery, completion angiography ANESTHESIA: Procedural Sedation FINDINGS: High grade stenosis of the proximal left subclavian artery, prestent angioplasty w/ 4x40mm balloon, lesion treated with 7x27 [employer] balloon mounted stent. Resolution of stenosis post stenting. ESTIMATED BLOOD LOSS: 0 ml SPECIMENS: None COMPLICATIONS: None IMPLANTS: [employer] 7x27 LD balloon expandable stent, inflated to 8atm (more content not included)... Chief Complaint and Reason for Visit Chief Complaint i65.23 i70.213 Chief Complaint Admit Date 4 month f/u August 06, 2024 9 :19am 2 YR F/U; GENO'S, CAROTID 9A August 8:46am Reason for Visit Admit Date Carotid artery stenosis August 06 9:19am Elevated cholesterol August 06, 2024 9:19am GERD without esophagitis August 06 025 9:19am Hypertension August 06, 2024 9 :19am Low back pain August 06, 2024 9 :19am Ocular migraine August 06, 2024 9 :19am Type 2 diabetes mellitus with hyperglyce [facility] August 06, 2024 9:19am Reason for Visit Admit Date Carotid artery stenosis August 06 9:19am Elevated cholesterol August 06, 2024 9:19am GERD without esophagitis August 06 025 9:19am Hypertension August 06, 2024 9 :19am Low back pain August 06, 2024 9 :19am Ocular migraine August 06, 2024 9 :19am Type 2 diabetes mellitus with hyperglyce [facility] August 06, 2024 9:19am Right-sided extracranial carotid artery stenosis September 15, 2024 8:46am Chief Complaint Admit Date 2 YR F/U; GENO'S, CAROTID 9A August 8:46am 4 mo f/u November 25, 2024 9:23am Reason for Visit Admit Date Right-sided extracranial carotid artery stenosis September 15, 2024 8:46am Carotid artery stenosis November 25, 2024 9: 23am Elevated cholesterol November 25, 2024 9:23a m GERD without esophagitis November 25, 2024 9 :23am Hypertension November 25, 2024 9:23am Low back pain November 25, 2024 9:23am Ocular migraine November 25, 2024 9:23am Type 2 diabetes mellitus with hyperglyce [facility] November 25, 2024 9:23am Chief Complaint Admit Date Wellness March 30, 2025 9:20am Reason for Visit Admit Date Carotid artery stenosis March 30 025 9:20am Elevated cholesterol March 30, 2025 9:20am GERD without esophagitis March 30, 2025 9:20am Hypertension March 30, 2025 9:20am Low back pain March 30, 2025 9:20am Ocular migraine March 30, 2025 9:20am Osteoporosis March 30, 2025 9:20am Screening mammogram for breast cancer Se ptember 2024 9:20am Type 2 diabetes mellitus with hyperglyce dwight March 30, 2025 9:20am Welcome to Medicare preventive visit Sep tember 2024 9:20am Additional Source Comments INFORMATION SOURCE (unrecogn ized section and content) DATE CREATED AUTHOR 05/10/2020 [facility] DATE CREATED AUTHOR AUTHOR'S ORGANIZ ATION 08/31/2021 [facility] DATE CREATED AUTHOR AUTHOR'S ORGANIZ ATION 07/06/2022 [facility] DATE CREATED AUTHOR AUTHOR'S ORGANIZ ATION 09/06/2022 Galan Jorge [facility] DATE CREATED AUTHOR AUTHOR'S ORGANIZ ATION 10/13/2024 [facility] DATE CREATED AUTHOR AUTHOR'S ORGANIZ ATION 02/03/2025 [facility] EPIC REASON FOR VISIT (unrecogniz ed section and content) Reason Comments Foot Pain Rt ft pain Reason Comments Follow-up Inj check Patient Care team informatio n (unrecognized section and content) Team Status: Active Member Role Status Dates Kevin Velasquez DO Primary Care Provider Active Team Status: Inactive Member Role Status Dates Kevin Velasquez DO Primary Care Provider Active Start: September 15, 2024 End: September 15, 2024 Dylan Calixto MD Attending Provider Active Start: September 15, 2024 End: September 15, 2024 Team Status: Inactive Member Role Status Dates Kevin Velasquez DO Primary Care Provide r, Attending Provider Active Start: November 25, 2024 End: November 25, 2024 Team Status: Active Member Role Status Shila Velasquez DO Primary Care Provide r, Attending Provider Active Start: July 12, 2024 Team Status: Inactive Member Role Status Shila Velasquez DO Primary Care Provide r, Attending Provider Active Start: August 06, 2024 End: August 06, 2024 Team Status: Inactive Member Role Status Dates Dylan Calixto MD Attending Provider Active Kevin Velasquez DO Primary Care Provider Active Weed Sprayer Relationship Specialty Start Date End Date Kevin Velasquez MD [address] [facility] [place] [address] PCP - General Internal Medicine 12/31/22 Weed Sprayer Relationship Specialty Start Date End Date Kevin Velasquez MD [address] [place] [facility] [phone] PCP - General Internal Medicine 12/31/22 Weed Sprayer Relationship Specialty Start Date End Date Kevin Velasquez MD [address] [place] [facility] [phone] PCP - General Internal Medicine 12/31/22 Weed Sprayer Relationship Specialty Start Date End Date Kevin Velasquez DO [address] [place] [facility] [address] PCP - General Internal Medicine 12/31/22 Weed Sprayer Relationship Specialty Start Date End Date Kevin Velasquez DO [address] [place] [facility] [address] PCP - General Internal Medicine 12/31/22 Weed Sprayer Relationship Specialty Start Date End Date Kevin Velasquez DO [address] [facility] [address] PCP - General Internal Medicine 12/31/22 Weed Sprayer Relationship Specialty Start Date End Date Kevin Velasquez DO [address] [facility] [place] [address] PCP - General Internal Medicine 12/31/22 Weed Sprayer Relationship Specialty Start Date End Date Kevin Velasquez DO [address] [place] [facility] [address] PCP - General Internal Medicine 12/31/22 Weed Sprayer Relationship Specialty Start Date End Date Kevin Velasquez DO [address] [place] [address] PCP - General Internal Medicine 12/31/22 Weed Sprayer Relationship Specialty Start Date End Date Kevin Velasquez DO [address] [place] [phone] PCP - General Internal Medicine 12/31/22 Mariela Menchaca NP [address] [place] [address] PCP Donnie [employer] 12/26/24 Weed Sprayer Relationship Specialty Start Date End Date Kevin Velasquez DO [address] [place] [address] PCP - General Internal Medicine 12/31/22 Mariela Menchaca, [employer] [address] [place] [address] PCP Donnie [employer] 12/26/24 Team Status: Inactive Member Role Status Dates Kevin Velasquez DO Primary Care Provider Active Start: March 30, 2025 End: March 30, 2025 Kevin Velasquez DO Attending Provider Active Sta rt: March 30, 2025 End: March 30, 2025 Goals (unrecognized section and content) Goals may [...] BE BASED ON THE PRIMARY CLINICAL RECORDS. [facility]. provides no warranty or guarantee of the accuracy or completeness of information in this document.
== END 2025-04-11 10:21 | disposition home or self-care (01) ==
LOC: MAMMO 10:23
PROVIDERS: PCP Internal Medicine; Visit Provider Internal Medicine
DX: Z12.31 Encounter for screening mammogram for malignant neoplasm of breast (principal); Z80.8 Family history of malignant neoplasm of other organs or systems
CPT/HCPCS: 77063; 77067

== ENCOUNTER 2025-04-12 07:18 | Outpatient (OUT) | payer MEDICARE, OTHER, SELFPAY ==
--- OUTSIDE RECORDS SUMMARY | 2025-03-30 06:21 | XMS_ITS | Continuity of Care Document ---
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 Name Role Phone Kevin Velasquez DO Primary Care Provider [phone] Kevin Velasquez DO Attending Provider [phone] Care Teams Patient Care Team Team Status: Active Member Role Status Dates Kevin Velasquez DO Primary Care Provider Active Patient Care Team Team Status: Inactive Member Role Status Dates Kevin Velasquez DO Primary Care Provider Active Start: March 30, 2025 End: March 30, 2025 Kevin Velasquez DO Attending Provider Active Sta rt: March 30, 2025 End: March 30, 2025 Chief Complaint and Reason for Visit Chief Complaint Admit Date Wellness March 30, 2025 9:20am Reason for Visit Admit Date Carotid artery stenosis March 30 9:20am Elevated cholesterol March 30, 2025 9:20am GERD without esophagitis March 30, 2025 9:20am Hypertension March 30, 2025 9:20am Low back pain March 30, 2025 9:20am Ocular migraine March 30, 2025 9:20am Osteoporosis March 30, 2025 9:20am Screening mammogram for breast cancer Se ptember 2024 9:20am Type 2 diabetes mellitus with hyperglyce dwight March 30, 2025 9:20am [facility] Allergies, Adverse Reactions, Alerts Allergen Type Severity Reaction Last Updated Verified Status lisinopril Allergy Unknown Cough March 30, 2025 9:26am Ye s Active Social History Smoking Status Status Start Date End Date Date of Observa tion Ex-smoker (finding) September 15, 2024 9:32am Observation Status Observation Response Date of Response Legal Sex Female (finding) Sex Assigned At Female October Family History Relationship Condition Age at Onset Recorded Date/T kellen father Heart disease Unknown Unknown family member Unknown mother History of stroke Unknown Unknown Family history of mental disorder Unknown Heart disease Unknown Problems Active Problems Medical Problem Onset Date Status Comments Metabolic dysfunction-associ ated steatotic liver disease (MASLD) Unknown Active Type 2 diabetes mellitus wit h hyperglycemia Unknown Active Screening mammogram for l[facility] cancer Unknown Active Menopause Unknown Active Carotid artery stenosis Unknown Active US: right 60-79% stenosis, left < 50% - 2020 Low back pain Unknown Active Osteoporosis Unknown Active DEXA: hip -2.7, 02/2024 Elevated cholesterol Unknown Active Ocular migraine Unknown Active Right-sided extracranial car otid artery stenosis Unknown Active GERD without esophagitis Unknown Active Hypertension Unknown Active Medications Medication Status Dose Units Route Directions Qty Days St art Date Stop Date End Date Instructions Adherence Sitagliptin Phosphate (Januvia) 25 mg tablet Discont inued 0 .ROUTE .COMPLEX October 30, 2023 12:09p m October 28, 2024 6:51a m TAKE 1 TABLET BY MOUTH EVERY DAY Blood Sugar Diagnostic ([employer] Ultra Test) strip Discont inued 0 .ROUTE .COMPLEX November 07, 2023 1:25pm Septe 2024 9:48a m USE TO TEST ONCE A DAY Metformin 500 mg tablet Discont inued 0 .ROUTE .COMPLEX November 07, 2023 1:25pm Augus t 2023 8:56a m TAKE 1 TABLET BY MOUTH TWICE A DAY WITH FOOD Atorvastati n 80 mg tablet Discont inued 0 .ROUTE .COMPLEX January 16, 2024 7:26am December 30, 2024 7:24a m TAKE 1 TABLET BY MOUTH EVERY DAY IN THE EVENING Verapamil 120 mg capsule,ext rel. pellets 24 hr Discont inued 0 .ROUTE .COMPLEX January 23, 2024 7:02am January 16, 2025 7:50a m TAKE 1 CAPSULE BY MOUTH EVERY DAY Alendronate (Fosamax) 70 mg tablet Active 70 MG PO every week 11 22March 19, 2024 12:00a m Complies with drug therapy Pantoprazol e 40 mg tablet,kiersten yed release (DR/EC) Discont inued 0 .ROUTE .COMPLEX 90 2023 8:03pm November 25, 2024 10:03 am TAKE 1 TABLET BY MOUTH ONCE A DAY ON A EMPTY STOMACH 30 MINUTES BEFORE BREAKFAST 90 Clopidogrel 75 mg tablet Active 0 .ROUTE .COMPLEX 90 [facility] 2023 11:16p m TAKE 1 TABLET BY MOUTH EVERY DAY FOR 30 DAYS Complies with drug therapy Losartan 50 mg tablet Active 0 .ROUTE .COMPLEX 90 [facility] er 2023 11:16p m TAKE 1 TABLET BY MOUTH EVERY DAY Complies with drug therapy Metformin 500 mg tablet Discont inued 0 .ROUTE .COMPLEX 180 October 21, 2024 6:52am November 29, 2024 4:51p m TAKE 1 TABLET BY MOUTH TWICE A DAY WITH FOOD Sitagliptin Phosphate (Januvia) 25 mg tablet Discont inued 0 .ROUTE .COMPLEX 90 October 28, [facility]24 [facility] 9:[facility]a m TAKE 1 TABLET BY MOUTH EVERY DAY Ciprofloxac in Hcl 500 mg tablet Discont inued 500 MG PO Every 12 hours 14 November 26, 2024 12:00a m [facility] 2024 9:54a m Hold Atorvastatin when taking Cipro Ondansetron 4 mg tablet,disi ntegrating Active 4 MG PO Every 8 hours as needed for nausea and vomiting 10 November 26, 2024 12:00a m Complies with drug therapy Metformin 500 mg tablet Discont inued 0 .ROUTE .COMPLEX 180 November 29, 2024 4:50pm [facility] 2024 9:51a m 1 tablet with breakfast 2 tablets with dinner; Atorvastati n 80 mg tablet Active 0 .ROUTE .COMPLEX 90 December 30, 2024 7:24am TAKE 1 TABLET BY MOUTH EVERY DAY IN THE EVENING Complies with drug therapy Verapamil 120 mg capsule,ext rel. pellets 24 hr Active 0 .ROUTE .COMPLEX 90 January 16, 2025 7:50am TAKE 1 CAPSULE BY MOUTH EVERY DAY Complies with drug therapy Atorvastati n 80 mg tablet Discont inued 80 MG PO Daily November 19, 2023 12:00a m January 16, 2024 7:26a m Aspirin (Adult Low Dose Aspirin) 81 mg tablet,kiersten yed release (DR/EC) Active 81 MG PO Daily November 19, 2023 12:00a m Complies with drug therapy Clopidogrel 75 mg tablet Discont inued 75 MG PO Daily November 19, 2023 12:00a m Dece 2023 11:16 pm Losartan 50 mg tablet Discont inued 50 MG PO Daily November 19, 2023 12:00a m Dece 2023 11:16 pm Pantoprazol e 40 mg tablet,kiersten yed release (DR/EC) Discont inued 40 MG PO Daily November 19, 2023 12:00a m Septe mber 2023 8:03p m Triamcinolo ne Acetonide 0.5 % cream Active 1 APPLIC TOPICA L Twice daily November 19, 2023 12:00a m Complies with drug therapy Valacyclovi r 1 gram tablet Discont inued 1000 MG PO Twice daily November 19, 2023 12:00a m Janua ry 2024 10:24 am Verapamil 120 mg capsule,ext rel. pellets 24 hr Discont inued 120 MG PO Daily November 19, 2023 12:00a m January 23, 2024 7:02a m Blood Sugar Diagnostic strip Discont inued 0 .Route November 07, 2023 12:00a m November 07, 2023 9:41a m As directed Blood Sugar Diagnostic strip Discont inued 0 .Route November 07, 2023 9:40am November 07, 2023 1:25p m use to test at home blood sugar once a day One Touch Ultra Blue Test Strips Metformin 500 mg tablet Discont inued 500 MG PO Twice daily with meals November 07, 2023 12:00a m November 07, 2023 1:25p m Metformin 500 mg tablet Discont inued 500 MG PO Daily March 04, 2024 8:55am October 21, 2024 6:52a m Doxycycline Hyclate 100 mg capsule Discont inued 100 MG PO Twice daily 10 2023 12:00a m Janua ry 2024 10:24 am Famotidine 40 mg tablet Active 40 MG PO Daily 90 November 25, 2024 12:00a m Take daily after supper Complies with drug therapy Sitagliptin Phosphate 25 mg tablet Discont inued 25 MG PO Daily October 30, 2023 12:00a m October 30, 2023 12:09 pm Cefdinir 300 mg capsule Discont inued 300 MG PO Twice daily 14 7 January 14, 2024 12:00a m Augus t 2023 8:55a m Blood Sugar Diagnostic (Onetouch Ultra Test) strip Active 0 .ROUTE .COMPLEX 25 2024 9:48am USE TO TEST ONCE A DAY Metformin 500 mg tablet Active 500 MG PO Twice daily 180 90 2024 9:50am Complies with drug therapy Glimepiride 1 mg tablet Active 1 MG PO Daily 90 90 2024 12:00a m Complies with drug therapy Pantoprazol e 40 mg tablet,kiersten yed release (DR/EC) Active 40 MG PO Daily 90 90 2024 12:00a m Complies with drug therapy Immunizations Immunization Event Date Not Given Reason Dose Number 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 Lot Number Vaccine Information Statement (VIS) Detail Administration Location COVID-19 Ad26.COV2.S ([employer]) October 02, 2020 COVID-19 Ad26.COV2.S ([employer]) June 08, 2021 Influenza vaccine, quadrivalent, adjuvanted April 29, 2021 Influenza vaccine, quadrivalent, adjuvanted April 29, 2023 Influenza Quadrivalent PF MDCK May 11, 2018 influenza, unspecified formulation April 17, 2015 influenza, unspecified formulation May 06, 2018 influenza, unspecified formulation May 18, 2020 influenza, unspecified formulation May 08, 2022 Pneumococcal Conjugate Vaccine, 20 valent February 28, 2022 Pneumococcal Polysacc. Vaccine, 23 valent April 29, 2021 Quadrivalent Influenza April 04, 2017 Quadrivalent Influenza April 03, 2019 Quadrivalent Influenza May 18, 2020 Tetanus, Diphtheria adult, 5 Lf pres free abs April 04, 2017 Vital Signs Vital Reading Result Reference Range Collection Date/Time Height 65 [in_i] March 30, 2025 9:41am Weight 59.64 kg March 30, 2025 9:41am Heart Rate 68 /min 60-100 March 30, 2025 9:41am Respiratory rate 12 /min 12-24 March 302024 9:41am BP Systolic 136 mm[Hg] 100-140 March 30, 2025 9:41am BP Diastolic 78 mm[Hg] 60-100 March 30, 2025 9:41am BMI (Body Mass Index) 21.9 kg/m2 2024 9:41am Advance Directives Advance Directive Response Recorded Date/ Time Advance Directives No August 06, 2024 11:07am Insurance Providers Guarantor Gilda H Arun Address [address] [place] [address] Contact Info. Home Phone: Payer Policy Id Subscriber's Name Subscriber Id Effectiv e Date Expiration Date Donnie ROSA/CATHLEEN [id number] Evan Dias [id number] Medicare [id number] Gilda Dias [id number] Medicare-OP No Part B [id number] Gilda Dias [id number] [employer] [place] [id number] Encounters Encounter Location(s) Arrival/Admit Date Discharge/Depart Date Provider(s) Departed Physician/Prov ider Office Visit -[facility] March 30, 2025 9:20am March 30, 2025 10:20am Kevin Velasquez , DO Recent Diagnosis Onset Date Admit Date Carotid artery stenosis Unknown 2024 9:20am Elevated cholesterol Unknown March 302024 9:20am GERD without esophagitis Unknown 2024 9:20am Hypertension Unknown March 30, 025 9:20am Low back pain Unknown March 30, 025 9:20am Ocular migraine Unknown March 30 9:20am Osteoporosis Unknown March 30, 9:20am Screening mammogram for breast cancer Unknown March 30, 2025 9:20am Type 2 diabetes mellitus with hyperglycemia Unkn own March 30, 2025 9:20am Welcome to Medicare preventive visit Unknown March 30, 2025 9:20am Assessments Diagnosis Onset Date Resolution Status Admit Date Carotid artery stenosis acute S epte2024 9:20am Elevated cholesterol acute Mar 9:20am GERD without esophagitis acute March 30, 2025 9:20am Hypertension acute March 9:20am Low back pain acute March 302024 9:20am Ocular migraine acute March 30, 2025 9:20am Osteoporosis acute March 9:20am Screening mammogram for breast cancer acute March 30 025 9:20am Type 2 diabetes mellitus with hyperglycemia acute March 9:20am Welcome to Medicare preventive visit noneactive March 30, 2025 9:20am Plan of Treatment Author Kevin Velasquez [facility] Authored March 30, 2025 10:12am I have instructed this patie nt to consume a healthy, low-fat, low-salt diet. I have also encouraged them to continue exercise with weight loss to achieve/maintain a BMI < 30. I have instructed this patient on the correct procedure for obtaining home BP measurements: - rest for 5 minutes w/o talking. - positioned w/ feet on floor and arms supported. - average best 2/3 readings w/ goal < 135/85. - update office w/ home readings in 2 weeks. Continue Losartan without interruption I have instructed this patient to follow a comprehensive diabetic treatment plan. I have also instructed them to check their feet daily for calluses and nonhealing ulcers. I have instructed them to have a yearly dilated eye examination. I have reviewed their treatment goals: SBP less than 130, LDL less than 100, FBS less than 140, A1C less than 7%. I have instructed them to maintain a home BS log and bring the results to each of their office visits for review. I have explained the importance of routine monitoring of their A1C, Microalbumin and Lipids. I have explained the benefits of well controlled diabetes in preventing micro and macrovascular complications. Continue Metformin and Januvia without interruption A1C is increased to > 7% - instructed to return to healthy diet Order for A1C printed No s/s of acute, focal neurologic deficits. I have reviewed stroke symptoms and instructed them to go to the ER for any suspicious symptoms. They have been instructed to continue secondary preventive measures. Carotid US: right 50-69%, left < 50% - 08/2024 GENO: 1.23 B/L - 08/2024 f/u Vascular surgery I have instructed this patient to avoid lying flat after eating. I have also recommended to avoid eating 2 hours prior to bedtime. They were also informed that smaller, frequent meals may be better tolerated. I have discussed additional treatment options for persistent symptoms, which includes: weight loss, H2 blockers and PPI. I have also instructed them to notify the office with any pain or difficulty swallowing. Can't take Prilosec or Nexium due to interference w/ Plavix Protonix doesn't suppress her symptoms Trial of Pepcid in evening No improvement, EGD I have instructed this patient on a low fat, high fiber diet and exercise. I have discussed the primary and secondary prevention benefits attributed to lowering LDL cholesterol. I have also discussed the medical treatment of elevated cholesterol, which is based on the 10 year ASCVD risk. Continue Atorvastatin without interruption I have instructed this patient to avoid bending, twisting or lifting. I have also instructed on use of intermittent heat and ice as needed. They may schedule a massage or gentle manipulation. I instructed them on the safe use of Tylenol, Lidocaine and stretching exercises. I informed them of alternative modes of treatment for severe pain, which may include referral to physical therapy or pain management. XR w/ mild degenerative changes Continue stretching exercises and avoid heavy lifting Remains intermittent and infrequent. Continue present treatment w/o interruption. I have instructed this patient on monthly SBE and recommended yearly mammograms. Instructed to continue calcium and vitamin D supplements. Instructed on weight bearing exercises. Monitor w/ DEXA qoy. DEXA: hip -2., 02/2024 I have instructed this patient on the recommended lifestyle changes, which includes a low fat, high fiber diet along with a regular exercise routine. I have also reviewed the recommended age-appropriate preventive testing for this patient. I have also reviewed the recommended vaccines for their age and risk factors. Future Tests Future scheduled test information is unavailable Pending Tests Test Name Ordered Date Scheduled Date Comprehensive Metabolic Panel March 30 10:12am MM screening mammo BI w/CAD March 30, 2025 10:12am Future Visits Future appointment information is unavailable Referrals to Other Providers Referral information is unavailable Future Procedures Procedure Name Ordered Date Scheduled Date A1C with Estimated Average Glu March 30 10:12am Complete Blood Count Auto Diff March 30 10:12am Lipid Panel March 30, 2025 10:12am MicroAlb Creat Ratio,U March 30, 2025 10:12 am Thyroid Stimulating Hormone March 30, 2025 10:12am Future Medications Future medication information is unavailable Patient Instructions Instruction Admit Date Low back pain in adults March 30 025 9:20am
--- OUTSIDE RECORDS SUMMARY | 2025-04-12 07:22 | XMS_ITS | Clinical Summary ---
Author Organization [facility] Address [address] [place] [address] Care Team Providers Care Pinking Machine Operator Name Role Phone Kevin Velasquez DO Primary Care Provider [phone] Allergies No known active allergies Medications atorvastatin (Lipitor) 80 MG tablet Take 80 mg by mouth at bedtime. Active verapamil ER (Verelan) 120 MG 24 hr capsule Take 120 mg by mouth in the morning. Active metFORMIN (Glucophage) 500 MG tablet Take 500 mg by mouth. Take with food. 11/22/2022 Active losartan (Cozaar) 50 MG tablet Take 50 mg by mouth in the morning. 11/22/2022 Active OneTouch Ultra test strip USE TO TEST ONCE A DAY 12/12/2022 Active Lancets (OneTouch Delica Plus [id number]) [facility] [place] USE 1 LANCET USE TO TEST HOME BLOOD SUGAR ONCE DAILY 90 11/27/2022 Active clopidogrel (Plavix) 75 MG tablet TAKE 1 TABLET BY MOUTH EVERY DAY FOR 30 DAYS 11/15/2022 Active Januvia 25 MG tablet Take 25 mg by mouth in the morning. 02/04/2023 Active Active Problems No known active problems Encounters Date Type Department Care Team Description 01/31/2025 8:50 AM EDT Clinical Support [facility] [address] [place] [id number] Ulices Wise, MATEO Plantar fasciitis (Primary Dx); Contracture of right ankle 01/31/2025 Bamboo flowsheet [facility] [address] [place] [address] Ulices Wise DPM 01/25/2025 Travel 01/18/2025 10:00 AM EDT Office Visit [facility] [address] [facility] [address] [place] [address] Mariela Moncada, ZACARIAS Presence of pessary (Primary Dx); Pelvic floor relaxation 01/18/2025 Bamboo flowsheet [facility] [address] [facility] [address] [place] [address] Mariela Moncada, ZACARIAS 01/18/2025 Travel 01/17/2025 9:40 AM EDT Clinical Support [facility] [address] [place] [address] Ulices Wise DPM Plantar fasciitis (Primary Dx); Contracture of right ankle 01/17/2025 Bamboo flowsheet [facility] [address] [place] [address] Ulices Wise DPM 01/11/2025 Travel from Last 3 Months Family History Medical History Relation Name Comments Diabetes Brother Chuck Cook Cancer Maternal Grandmother Clari Martinez Diabetes Mother Willow Cook Heart disease Other Stroke Other Diabetes Sister 1 America Deandre Endometrial cancer Sister 1 America Deandre Cancer Sister 2 Christi Hire Diabetes Sister 2 Christi Hire Diabetes Sister 3 Melodie Yates Relation Name Status Comments Brother Chuck Cook Alive Maternal Grandmother Clari Martinez Alive Mother Willow Cook Alive Other Sister 1 America Deandre Sister 2 Christi Hire Alive Sister 3 Melodie Yates Alive Social History Tobacco Use Types Packs/Day Years Used Date Smoking Tobacco: Never Smokeless Tobacco: Never Tobacco Cessation:Counseling Given: Yes Alcohol Use Standard Drinks/Week Comments Never 0 (1 standard drink = 0.6 oz pur e alcohol) AUDIT-C Answer Date Recorded Q1: How often do you have a drink containing alcohol? Never 05/11/2024 Q2: How many drinks containi ng alcohol do you have on a typical day when you are drinking? Patient does not drink Q3: How often do you have si x or more drinks on one occasion? Never 05/11/2024 PHQ-2 Answer Date Recorded Patient Health Questionnaire-2 Score 0 05/11/2024 Comments No Sex and Gender Information Value Date Recorded Sex Assigned at Not on file Legal Sex Female 11:40 PM EDT Gender Identity Not on file Sexual Orientation Not on file Last Filed Vital Signs Vital Sign Reading Time Taken Comments Blood Pressure 130/80 01/18/2025 9:58 AM EDT Pulse - - Temperature - - Respiratory Rate 18 01/31/2025 8:51 AM EDT Oxygen Saturation - - Inhaled Oxygen Concentration - - Weight 59.9 kg (132 lb) 01/31/2025 8:51 AM EDT Height 165.1 cm (5' 5 ) 01/31/2025 8:51 AM EDT Body Mass Index 21.97 01/31/2025 8:51 AM EDT Plan of Treatment Upcoming Encounters Date Type Department Care Team (Late st Contact Info) Description 05/23/2025 10:15 AM EDT Office Visit [facility] [address] [place] [address] [address] Laurel Caballero DO [address] [phone] Health Maintenance Due Date Last Done Comments CT Colonography 1955 Colonoscopy 1955 Colorectal Cancer Screening 1955 FIT-DNA 1955 FIT 1955 FOBT 1955 Sigmoidoscopy 1955 Mammogram 1995 Influenza Vaccine (#1) 2025 4, 04/29/2023, 04/29/2021, Additional history exists Pneumococcal Vaccine: 65+ Years Completed 2, 04/29/2021 Insurance BCBS Care Teams Pinking Machine Operator Relationship Specialty Start Date End Date Kevin Velasquez DO [address] [facility] [place] [id number] PCP - General Internal Medicine 12/31/22
--- OUTSIDE RECORDS SUMMARY | 2025-04-12 07:22 | XMS_ITS | Encounter Summary ---
Author Organization [facility] Address [address] [place] [address] Care Team Providers Care Shoe Stitcher Name Role Phone Kevin Velasquez Primary Care Provider [phone] Mariela Moncada EDUCATION AND TRAINING MANAGER Unavailable [phone] Encounter Details Date Type Department Care Team (Late st Contact Info) Description 12/28/2022 Abstract [facility] [address] [address] Mariela Moncada EDUCATION AND TRAINING MANAGER [address] [place] [address] Social History Tobacco Use Types Packs/Day Years Used Date Smoking Tobacco: Never Alcohol Use Standard Drinks/Week Comments Never 0 (1 standard drink = 0.6 oz pur e alcohol) AUDIT-C Answer Date Recorded Q1: How often do you have a drink containing alc ohol? Monthly or less 12/31/2022 Q2: How many drinks containi ng alcohol do you have on a typical day when you are drinking? 1 or 2 12/31/2022 Q3: How often do you have si x or more drinks on one occasion? Never 12/31/2022 PHQ-2 Answer Date Recorded Patient Health Questionnaire-2 Score 0 12/31/2022 Comments Unknown Sex and Gender Information Value Date Recorded Sex Assigned at Not on file Legal Sex Female 11:40 PM EDT Gender Identity Not on file Sexual Orientation Not on file documented as of this encounter Functional Status * Audit-C Score Answer Date of Assessment Author 1 12/31/2022 9:26 AM EDT Jesus Epstein LPN * Question Answer Date of Assessment Author Q1: How often do you have a drink containing alcohol? Monthly or less 12/31/2022 9:26 AM TORITOT Starla Epstein L PN Q2: How many drinks containing alcohol do you have on a typical day when you are drinking? 1 or 2 12/31/2022 9:26 AM EDT Starla Epstein L PN Q3: How often do you have six or more drinks on one occasion? Never 12/31/2022 9:26 AM TORITOT Starla Epstein L PN * Over the past 2 weeks, how often have you been bothered by any of the following problems? Question Answer Date of Assessment Author Little interest or pleasure in doing things Not at all 12/31/2022 9:27 AM Starla Miller L PN Feeling down, depressed, or hopeless Not at all 12/31/2022 9:27 AM Starla Miller L PN Patient Health Questionnaire -2 Score 0 12/31/2022 9:27 AM TORITOT Starla Epstein L PN documented as of this encounter Plan of Treatment Upcoming Encounters Date Type Department Care Team (Late st Contact Info) Description 05/23/2025 10:15 AM EDT Office Visit [facility] [address] [address] Laurel Caballero DO [address] [phone] documented as of this encounter Visit Diagnoses Not on filedocumented in this encounter Care Teams Shoe Stitcher Relationship Specialty Start Date End Date Kevin Velasquez DO [address] [place] [phone] PCP - General Internal Medicine 12/31/22 Mariela Moncada NP [address] [place] [address] PCP - [employer] 12/26/24 documented as of this encounter
--- OUTSIDE RECORDS SUMMARY | 2025-04-12 07:26 | XMS_ITS | CCD ---
Author Organization [facility] CliniSyvt Care Team Providers Care [employer] Name Role Phone Dylan Calixto Unavailable [phone] Summer Decker Unavailable RONALD, DR LIMA Admitting Unavailable RONALD, DR LIMA Attending Unavailable RONALD, DR LIMA Primary Care Unavailable RONALD, DR LIMA Consulting Unavailable RONALD, DR LIMA Admitting Unavailable RONALD, DR LIMA Attending Unavailable RONALD, DR LIMA Primary Care Unavailable RONALD, DR LIMA Consulting Unavailable RONALD, DR LIMA Admitting Unavailable RONALD, DR LIMA Attending Unavailable RONALD, DR LIMA Primary Care Unavailable RONALD, DR ILMA Consulting Unavailable HENRIQUE, DR SNOW Hooker Consulting [...] Primary Care Provider Mariela Menchaca NP Unavailable [phone] MARIELA MENCHACA Attending Unavailable ULICES WISE Attending Unavailable MARIELA MENCHACA Attending Unavailable ULICES WISE Attending Unavailable MARIELA MENCHACA Attending Unavailable ULICES WISE Attending Unavailable Kevin Velasquez DO Primary Care Provider [phone] Kevin Velasquez DO Attending Provider Allergies Allergy Classification Reported Allergen(s) Allergy Type Date of Onset Reaction(s) Facility (7 sources) Lisinopril Drug Allergy 09-23-2017 Unknown [facility] Other (1 source) Lisinopril Drug Allergy 09-15-2024 [facility] Medications Current Medications Medication Drug Class(es) [...] empty stomach followed in 30 minutest by [facility] for 90 days Feb, Active End: 01-18-2025 [...] 08/12/19 Status: Ordered take 1 capsule by [facility] every twenty-four hours in the morning verapamil [...] 30 day(s) Not-Taking take 1 tablet by [facility] every twenty-four hours Calcium + [...] 10:24am Start: 06-26-2023 take 1 capsule by [facility] every twelve hours Doxycycline Hyclate 100 MG [...] 01-03-2025 Chronic Other aftercare (1 source) Other [facility]ci (current) drug therapy Episodic Other circulatory disease [...] and visceral atherosclerosis (20 sources) Atherosclerosis of [place] arteries of extremities with intermittent claudication, left [...] carotid doppler BIon 09-25 US carotid doppler [facility] [address] [place] [address] Ultrasound Report Signed Patient: Teressa Bui MR#: [id number] : 1955 Acct:[id number] Age/Sex: 68 / F ADM Date: 09/15/24 Loc: [facility] Room: Type: [facility] Attending Dr: Dylan Calixto MD Ordering [...] Zen Lopez M.D.10/11/2024 1:21 PM Dictation Location: [place] [address] Tech: Tabatha Ring Transcribed By: RAFAEL 10/11/24 1321 Dictated By: Zen Lopez MD 10/11/24 1314 Signed By: 10/11/24 1321 Normal [facility] US ankle/arm indiceson 09-15 US ankle/arm indices [facility] [address] [place] [id number] Ultrasound Report Signed Patient: Teressa Bui MR#: [id number] : 1955 Acct:[id number] Age/Sex: 68 / F ADM Date: 09/15/24 Loc: [facility] Room: Type: [facility] Attending Dr: Dylan Calixto MD Ordering Provider: Dylan Calixto MD Date of Service: 09/15/24 US/US ankle/arm indices: I70.213 - Atherosclerosis of [place] arteries of extremiti... Copies to: Dylan Calixto [...] Dylan Calixto MD09/15/2024 1:59 PM Dictation Location: [id number] Tech: Tabatha Ring Transcribed By: RAFAEL 09/15/24 1359 Dictated By: Dylan Calixto MD 09/15/24 1358 Signed By: 09/15/24 1359 Normal [facility] Estimated glomerular filtrat ion rate (GFR) non- Americanon 07-12-2024 GFR/1.73 sq M.predicted among non-blacks MDRD (S/P/Bld) [Vol rate/Area] Estimated glomerular filtration rate (GFR) non- >=60 mL/min/1.73m 2 [facility] Globulin Calc (S) [Mass/Vol] on 07-12-2024 Globulin (S) [Mass/Vol] Serum globulin measurement by calculation (mass/volume) [facility] Glucose mean value [Mass/vol ume] in Blood Estimated from glycated hemoglobinon 07-12-2024 Average glucose Estimated from glycated hemoglobin (Bld) [Mass/Vol] Glucose mean value [Mass/volume] in Blood Estimated from glycated hemoglobin [facility] - Chemistry and C hemistry - challengeon 07-12-2024 Albumin [Mass/Vol] 3.6 g/dL 3.4-5.0 [facility] ALP [Catalytic activity/Vol] 116 U/L 46-116 [facility] ALT [Catalytic activity/Vol] 57 U/L 14-59 [facility] AST [Catalytic activity/Vol] 44 U/L High 15-37 [facility] Bilirubin [Mass/Vol] 0.7 mg/dL 0.2-1.0 [facility] Calcium [Mass/Vol] 9.1 mg/dL 8.5-10.1 [facility] Chloride [Moles/Vol] 106 mmol/L 98-107 [facility] CO2 [Moles/Vol] 28.6 mmol/L 21.0-32.0 [facility] Creatinine [Mass/Vol] 0.77 mg/dL 0.55-1.02 [facility] GFR/1.73 sq M.predicted MDRD (S/P/Bld) [Vol rate/Area] mL/min/{1.73_m2} >=60 mL/min/1.73m 2 [facility] Glucose [Mass/Vol] 126 mg/dL High 74-106 [facility] Potassium [Moles/Vol] 4.6 mmol/L 3.5-5.1 [facility] Protein [Mass/Vol] 7.1 g/dL 6.4-8.2 [facility] Sodium [Moles/Vol] 142 mmol/L 136-145 [facility] Urea nitrogen [Mass/Vol] 9.0 mg/dL 7.0-18.0 [facility] Urea nitrogen/Creatinine [Mass ratio] 11.7 mg/mg [facility] - Hematology and Cell countson 07-12-2024 HbA1c (Bld) [Mass fraction] 7.3 % High 4.5-6.2 [facility] Comment on above: ADA RECOMMENDED LIMI T 4.0 - 6.0ADA THERAPEUTIC TARGET < 7.0ACTION SUGGESTED> 7.0 Serum or plasma albumin/glob ulin mass ratioon 07-12-2024 Albumin/Globulin [Mass ratio] Serum or plasma albumin/globulin mass ratio [facility] Serum or plasma anion gap de terminationon 07-12-2024 Anion gap [Moles/Vol] Serum or plasma anion gap determination [facility] NuSwab Vaginitis (VG)on 08-28 A. vaginae DNA HARJEET+probe Ql (Vag fld) Low - 0 Invalid Interpretation Code [facility] Comment on above: Performed By: #### 1 [id number] #### [facility] [address] [place] [address] Bacterial vaginosis associated bacterium 2 DNA HARJEET+probe Ql (Vag fld) Low - 0 Invalid Interpretation Code [facility] Comment on above: Performed By: #### 1 [id number] #### [facility] [address] [place] [address] C. albicans DNA HARJEET+probe Ql (Vag fld) Negative Invalid Interpretation Code Negative [facility] Comment on above: Result Comment: This test was developed and its performance characteristics determined by [email or web address]. It has not been cleared or approved by the Food and Drug Administration. Performed By: #### 1 [id number] #### [facility] [address] [place] [address] C. glabrata DNA HARJEET+probe Ql (Vag fld) Negative Invalid Interpretation Code Negative [facility] Comment on above: Result Comment: This test was developed and its performance characteristics determined by [email or web address]. It has not been cleared or approved by the Food and Drug Administration. Performed By: #### 1 [id number] #### [facility] [address] [place] [address] Megasphaera sp type 1 DNA HARJEET+probe Ql (Vag fld) Low - 0 Invalid Interpretation Code [facility] Comment on above: Result Comment: [...] and Drug Administration. Performed By: #### 1 [id number] #### [facility] [address] [place] [address] T. vaginalis DNA HARJEET+probe Ql (Vag fld) Negative Invalid Interpretation Code Negative [facility] Comment on above: Result Comment: Perf ormed at: =G [facility] [address] [place] [id number] MD Jj Sagastume Performed By: #### 1 [id number] #### [facility] [address] [place] [address] Coding Summary.on 09-05-2022 Coding Summary. [id number] Gh 0bWw+PGhlYWQ+SF4DMBGoG 70vbTJdpY5KB8bSOX8VQFE QUZNHEG0END1eiZL6SNyoL 2VybiAv MtrrxAFyRU98ZKo2AQS8mZ uzHPfjqZ7wyUXkW3s8PvYe TB18xT29RIovNHReAhQ7Fe ZpbjsgbWFy Y5iiNoZszFRkIsi+PHRhYm xlIHdpZHRoPScxMDAlJyBz wBgqCG1bQa6eKLMwMGUrgT xhcHNlOiBj s3oxICGfJGiiNV6xxPlfY6 PtgAP4IJOhv9j3Qc66uEG+ GOFaSUY2oHayJKwtr874Iw Orx1cnYJZ2 wKIxKEogNFW6I21mf3Y7RN QnNLKdVYX9wXO2yF9naSfo foydO6PpkYWwFxE4AJY2pA NckV2vcXdv zeqnbZ5xCjq+F60RZZ8ATU LLZP2TGfg5S0PsIjkyvVK+ ZU28UYIqYY39xKFmfVIjw8 vtmUp7OcGi VKObATA0hKguCSrlw3EwWM ClV80uiWDll6Y8OTFrjCwr tIIhDoTayPM8vA7dGZrxcx wje4ifgsec Knygz0uugy43tT26Z25gMV eyFPYgKTM3DPRmUBZdnSse tv4yxL3vDt0+DZxrg8stc5 tlbQj7CfSt CETdhxRjdGkiPUL7w8EgMi 89N4OaqFuvs2VgJca5de50 eYSgb6N5eSD7SFyrDOJsxO 6oGQtbLaL7 LWIbIjLbzV05sXKyZGdrKw 1ekZrxkZuoUR7iLJAjfymo SMUbzZ1jROOclNJmeNynHS 4wNTBpbjtm m628VnKwYSG6CQHqfCKmX2 MxkG1cWrRaKKWuWWHlA0Iz jQUcINkkN730SGvlSuZ2UK EaljMnQ7Ob IJEwaHfnBvO7e2J2Qs6Kx5 IawskjMFJ2TCmfLANxGiF4 VvQiXtT2N0BwFka1JCYnoC zhVH3wH5Br ZYTvkccvqryszMA9FBKfIR IjxU64lPJyTLvsTm2un3Q8 t092CIHiXBSxqW07St0ioJ ogMTBwdCBU rG0zxuaht0wsbwccEiLxLX FcDJw7UYi4TNSvjImfRqLu MQS7UyH3BKZ6sEJkqL3miE eebiafiL0z Oyc+Z04xfF8yGHT5ZOF4nz nlDTOmhgCfRV01ZP38P9Vd PjwvdGFibGU+PGRpdiBzdH hpTN9oNvCq r2dfv3KuVMgyP1JjUFXaHO bfCtq8ENBaUBY4kXJ5rP9f TVXdRPzps0V4xNB9J7Kcuv Dtih8qn6jq KKRcXBgxG18brNJol4F4ER QxqYU7GZGsmZdmFxSpqH90 Oyc+VHCupEjwg4QeBpmzt6 dec9ouvZb0 MlVsGDJknpWigRloOBZ6l3 IdVm46M70bVIjyFCDfPDGv YNGxCQNsiDvpgu6miB2yVo 8+PGNvbCB3 tKS0zI0fKGWpVoR6KCwmU6 81FeKesACvPhtzz0lxb6em xNe1JbFuMJHblgDcmEybLI G9q7NaAy31 Z57sGLurAXOeHUSjFCOvAL OtgGqqnc5wdC1wUn3+PC9j e4uvsb22iJ82eKW+PHRkIH O6iOhdIOsa JTEjvE7oRKwxCnE6JSVyJz RxnF08wTKlIVadPz5clWdi yDkzON9gYUYmqabth486Vy Cnl1rrYWWa bGBrBAiyAMA2X31yt0D5PT DcYVNcRKP1pMX5eS6jaCnf bjogbGVmdDsgdmVydGljYW rlJUyaU611 IHRvcDsnPlBhdGllbnQgTm MxJNy4O3LfRsr3PIZjrFdh VV9mqAJnPZdhOy4eyOsayN qlAK0mKBBy qbdsm879JcFcx8zsHNEjkY PxHMevEJF3X81iw4W3TUSs WCSsJCU1iPB4uW6ghIzeqe ogbGVmdDsg vqOkiQngPHmaDLfrI738TV RvcDsnPkJpcnRoIERhdGU6 QM30KL26eLVmj4P9oBQ4W8 BhZGRpbmct zayxqJD7HVYbVQNmjH91Qj 4zpFcuBd1lAYUtZYT2AIQl eOMnA2EocH2qZvQqNPLoIR LmQ2McwEXh XBgdX260UDvgSeS7ALAmpe CmL2FjTHFauOnuVkX1l8E8 Lb8FZ8C3EG20PF19wMWnn7 B7aXT7V4Ls GHMoyehdrvkgfPM6MOSrZT PrvH51Wc1veImnWx6pINOl UZK1OLSekMGlC1ZvxH9lMx AjMDAwMDAw Z6KlqFUpAUqbL780TXzxLs I0GVKgflJzT7OiRIFljSks MfF5i4F5Np9HRTo2GD56OV 51zFZhq9I6 lFG8M6NvEELgedczdvwocX F9RHFvDPCmtB33By9ojRzd Sr5zZKSvYDI7QBTgyLBwF8 JhrU9pAgWl YRIhRIRxH4NzpJTjYEvdJ2 92KPznPjS9EIWuciTzB4Jp HMPpjGcrQtM7h1D8Zr8YRZ DqLI83CUS1 pHZ8JU27RU66U0QxHasjeH FibGU+PHRhYmxlIHdpZHRo PQaxODEcQkJgxBrwXI5eRf 9yZGVyLWNv aOjvlRMaOmRka3yaOCUlZN vlQC8qbMjiB4LzwEA3QVTu q5t7Am70O66eO4NnfQW+PG RzxGP2wVR2 bP8qZxRyZuP2SHclB361Ps YtnDKeSwwtc5cir9zqvNd4 UkZ2FNVfalOnwDogVCZ9a0 QrLu93H76v IHdpZHRoPSIxNSUiIHZhbG jjep1vsX4dId0+PGNvbCB3 pDG3sE7qJsBsNjT1VDzjJ7 49InRvcCIv Rrjej6ahu9nujLz1RiQhVM FppvKrtHowREV6g3DbQf94 P6UguTsvq6CfGgi6gj72kJ Xsz5T1pQN8 P2TaQNXenyuwpDZrtSapOK 3zTPDlykkkTIJrtC4wSCMh Z1h5VxXtGwE0YBqxX6Yrzv H3TOBqvFTr QDnrOJM6I12mf6X4XAIfSN VcFUX2aNH3sV1paFlundsm bGVmdDsgdmVydGljYWwtYW kaN061RSBq iWefXRHygT0pFWOvsZEogP pnYP5uHDVbnjurGkIABdMV TpfdQAJXVRWNDQc4O4MzBu d8TZTcvAbo WY6byMDrQLdmKd2xtAluhW lmIF8yMNRlfcceVDKeyY9j RFWmaBOpcKigXX4oFNCwny ipz660OlFg DGH9KBBhkSXfG2NkcF1bTc GhVCEyCELlV3DztWGkSGmk J621LSigHkL5AGCrkuJvV5 FsLWFsaWdu UbV0f1W0Qe8yTL5pDO2qXG Y0VJ98WT84vQTlw8F7vXX2 Z4YiHHGdvovhjvlsvTF0XR CfGJOeuA91 jSAtQHqdAc1li0R4m091UT AhRUOnmW27Yk2boAnyTUSa eMPAnX7kytagx0dtijdoXb AwMDAwMDt0 TLh6ZZMsrRpjEbPaBWQ4Xx M9LON7wZQuhG7unOswibro jJ5fDqw+EuLvBATrkfW0Q1 ShLif0QZJp vQykEC8llUNkYLmhCw8hhV lixYcmEG6vLIBcekpcMEVc jG0lTMWkjNJygVflLZ6cLY Bryjsfs874 UgCwMFW2ASBirJFqU8BnzL 4oMjFzOFGnTANsU5DuvNXd WUgxF336AZcnDsM9KUXxob JfL5DgNJMg qUnnEqV5q8Z9Ap9YTV1ipP R9H4XhEnb8HPSznMviLZ2i bJKpYUpjWd5uqRcafIytXY 4wNTBpbjtw JHYelE3pRKEisDJouLfuZG 1qEUPoslbud877PoMkXTM6 UZJkpWCkB0VpdD4fWzOfNG EcCVYlW6Cw rTChNUvoZ790DPvbFdQ6WX OhohUyI4ShGPEkpYsmKfR4 n3K8Sg8NDGFmKUFugRBdEz F4D5EwAqce dHI+WF68LHOaRU62oNCemK Zmq5nqmEz2BeEkREOvDXU7 tKhfQOsod1VbHNUxD74dyG Lei2V3ZCHv vHgvvHRgJaPuyOA0jW4tRO ecomjoa2ezqtiwDjfwb0jg pa15hB31T93qUQzpYOWiTZ IzMCUiIHZh cNcudb1bfL4bQb5+PGNvbC Z2vKB4fM8uHxRuLoO2SYkf L339LdLfkPNpGbrld3ysi2 nkbLy4GhZw SZUgxbRemNwtBTF8w1IyIk 38V62vVCjzLUFuDTDqEDHp VITanScyvc2lbB1hVx4+PC 2iu8egqh65 gK26oWY+AKOkVWT5uMymQI gpZCBdqZ7rXDaqTjN1DIIp IyZhyY49fYRsPRnrLj1iqP bhsRbpSL0h IWWgumckh942CqXeh4ssAA FpbKQmNVyfVWQ4Q29de4N5 RZJcBZAhHKG1pYD4dC8wwU lnbjogbGVm dDsgdmVydGljYWwtYWxpZ2 78MPJrdTjhIcRqcYXvQ7bc qeZJEQ3qXsixzTD+PHRkIH A6iGbtVGjo SZVrwA9aISWaL0f6LnMkYx L6NEdbU1VvyeQ4ZZJglCKs VVJnpUBEoZ1objczl4ullv ogIzAwMDAw SYj1WHm5GUOdqXznIdEmMO Y3PeG6HEP9jBBtcQ8bqRlb mmzezG7oMvi+RklOOjwvdG Q+PHRkIHN0 mQvnNCjkCOGwpX4nZGOuE5 n6DbToDqT6OLgdR7UqucF8 LPFsjPJtWWWnpBNJuB4kva obf5dyscpt AuPcMPOtUVm5PXf2PRViuG vqJiFoLLX9EfS8HTH5gGSx vA7bhAjamezoeM9eIjn+TV JOOjwvdGQ+ QAWhVVC8bYbpHRrcYDLhyX 9cIVNcO3l9WxSzGhF9OUiz S3FzohR4LNKwiQHhMOZtbR TVyC0sfhsv c7rwxlkhVjJuKVQrPRu9FT p7XXAazRteWnEqNYL8KaW7 VVN7qKFzkK0znJppghcaaH 9wOyc+UGF5 XEH3DL56AF88S6XaVojslP FibGU+PHRhYmxlIHdpZHRo JEnxXZTkWtWucCnkVJ6dLn 9yZGVyLWNv bGxh (more content not included)... Normal [facility] Physician Orderon 09-02-2022 Physician Order [id number] Normal [facility] GLYCOHEMOGLOBIN A1Con 2021 ADA RECOMMENDATION SEE BELOW Normal [facility] Comment on above: Result Comment: ADA RECOMMENDED LIMIT 4.0 - 6.0 ADA THERAPEUTIC TARGET < 7.0 ACTION SUGGESTED > 7.0 Performed By: #### A 1C #### [facility] [address] [place] [address] Dr. Azar Carlin Glucose [Mass/Vol] 137 mg/dL Normal [facility] Comment on above: Performed By: #### A 1C #### [facility] [address] [place] [address] [address] Azar Carlin HbA1c (Bld) [Mass fraction] 6.4 % Critically high 4.5-6.2 [facility] Comment on above: Performed By: #### A 1C #### [facility] [address] [place] [address] [address] Azar Carlin MICROALBUMIN URINEon 022 Albumin, Urine 3.1 ug/mL Normal Not Estab. [facility] Comment on above: Performed By: #### M ALBLC #### [facility] [address] [place] [address] [address] Azar Carlin VIT D 25-OH LABCORPon 2021 Vitamin D, 25-Hydroxy 43.0 ng/mL Normal 30.0-100.0 [facility] Comment on above: Result Comment: [place] min D deficiency has been defined by the Hodges of Medicine and an Endocrine Society practice guideline as a level of serum 25-OH vitamin D less than 20 ng/mL (1,2). The Endocrine Society went on to further define vitamin D insufficiency as a level between 21 and 29 ng/mL (2). 1. IOM (Hodges of Medicine). 2010. Dietary reference intakes for calcium and D. [place]: The National Academies Press. 2. Gamaliel LAWS, Vivian [place], Mila YO, et al. Evaluation, treatment, and prevention of vitamin D deficiency: an Endocrine Society clinical practice guideline. JCEM. 2010; 96(7):1911-30. Performed By: #### V ITADLC #### [facility] [address] [place] [address] Dr. Azar Carlin CBC AUTO DIFFon 03-15-2022 BASO # 0.0 103/ul Normal 0.0-0.1 [facility] Comment on above: Performed By: #### C BC #### [facility] [address] [place] [address] [address] Azar Carlin Basophils/100 WBC (Bld) 0.6 % Normal 0.2-2.0 [facility] Comment on above: Performed By: #### C BC #### [facility] [address] [place] [address] Dr. Azar Carlin EO # 0.1 103/ul Normal 0.0-0.7 [facility] Comment on above: Performed By: #### C BC #### [facility] [address] [place] [address] Dr. Azar Carlin Eosinophils/100 WBC (Bld) 2.4 % Normal 0.9-7.0 [facility] Comment on above: Performed By: #### C BC #### [facility] [address] [place] [address] Dr. Azar Carlin Erythrocyte distribution width (RBC) [Ratio] 14.0 % Normal 11.0-15.0 [facility] Comment on above: Performed By: #### C BC #### [facility] [address] [place] [address] Dr. Azar Carlin Hematocrit (Bld) [Volume fraction] 39.9 % Normal 36.0-48.0 [facility] Comment on above: Performed By: #### C BC #### [facility] [address] [place] [address] Dr. Azar Carlin Hemoglobin (Bld) [Mass/Vol] 13.0 g/dL Normal 12.0-16.0 [facility] Comment on above: Performed By: #### C BC #### [facility] [address] [place] [address] Dr. Azar Carlin IG # 0.01 10e3/ul Normal 0.00-0.03 [facility] Comment on above: Performed By: #### C BC #### [facility] [address] [place] [address] Dr. Azar Carlin IG % 0.2 % Normal 0.0-0.5 [facility] Comment on above: Performed By: #### C BC #### [facility] [address] [place] [address] Dr. Azar Carlin LYMPH # 1.7 103/ul Normal 1.2-3.8 [facility] Comment on above: Performed By: #### C BC #### [facility] [address] [place] [address] Dr. Azar Carlin Lymphocytes/100 WBC (Bld) 36.2 % Normal 20.5-60.0 [facility] Comment on above: Performed By: #### C BC #### [facility] [address] [place] [address] Dr. Azar Carlin MANUAL DIFF REQ NO Normal [facility] Comment on above: Performed By: #### C BC #### [facility] [address] [place] [address] Dr. Azar Carlin MCH (RBC) [Entitic mass] 28.1 pg Normal 26.7-34.0 [facility] Comment on above: Performed By: #### C BC #### [facility] [address] [place] [address] Dr. Azar Carlin MCHC (RBC) [Mass/Vol] 32.6 g/dL Normal 29.9-35.2 [facility] Comment on above: Performed By: #### C BC #### [facility] [address] [place] [address] Dr. Azar Carlin MCV (RBC) [Entitic vol] 86.2 fL Normal 81.0-99.0 [facility] Comment on above: Performed By: #### C BC #### [facility] [address] [place] [address] Dr. Azar Carlin MONO # 0.4 103/ul Normal 0.3-0.8 [facility] Comment on above: Performed By: #### C BC #### [facility] [address] [place] [address] Dr. Azar Carlin Monocytes/100 WBC (Bld) 9.3 % Normal 1.7-12.0 [facility] Comment on above: Performed By: #### C BC #### [facility] [address] [place] [address] Dr. Azar Carlin NEUT # 2.4 103/ul Normal 1.4-6.5 [facility] Comment on above: Performed By: #### C BC #### [facility] [address] [address] [address] Azar Carlin Neutrophils/100 WBC (Bld) 51.3 % Normal 43.0-75.0 [facility] Comment on above: Performed By: #### C BC #### [facility] [address] [address] [address] Azar Carlin Platelet mean volume (Bld) [Entitic vol] 9.4 fL Critically low 9.5-13.5 [facility] Comment on above: Performed By: #### C BC #### [facility] [address] [address] [address] Azar Carlin PLT 184 103/ul Normal 150-450 [facility] Comment on above: Performed By: #### C BC #### [facility] [address] [place] [address] Dr. Azar Carlin RBC 4.63 106/ul Normal 4.20-5.40 [facility] Comment on above: Performed By: #### C BC #### [facility] [address] [address] [address] Azar Carlin WBC 4.6 103/ul Normal 4.0-11.0 [facility] Comment on above: Performed By: #### C BC #### [facility] [address] [place] [address] Dr. Azar Carlin GLYCOHEMOGLOBIN A1Con 2021 ADA RECOMMENDATION SEE BELOW Normal [facility] Comment on above: Result Comment: ADA RECOMMENDED LIMIT 4.0 - 6.0 ADA THERAPEUTIC TARGET < 7.0 ACTION SUGGESTED > 7.0 Performed By: #### A 1C #### [facility] [address] [place] [address] Dr. Azar Carlin Glucose [Mass/Vol] 137 mg/dL Normal [facility] Comment on above: Performed By: #### A 1C #### [facility] [address] [place] [address] Dr. Azar Carlin HbA1c (Bld) [Mass fraction] 6.4 % Critically high 4.5-6.2 [facility] Comment on above: Performed By: #### A 1C #### [facility] [address] [address] [address] Azar Carlin LIPID PROFILEon 03-15-2022 CHOL-HDL RATIO NORM SEE BELOW Normal [facility] Comment on above: Result Comment: 3.3 - 4.4 LOW RISK 4.4 - 7.1 AVERAGE RISK 7.1 - 11.0 MODERATE RISK >11.0 HIGH RISK Performed By: #### C MP, LIPID #### [facility] [address] [address] [address] Azar Carlin Cholesterol [Mass/Vol] 120 mg/dL Normal <=200 [facility] Comment on above: Performed By: #### C MP, LIPID #### [facility] [address] [address] [address] Azar Calrin Cholesterol in HDL [Mass/Vol] 62 mg/dL Critically high 40-60 [facility] Comment on above: Performed By: #### C MP, LIPID #### [facility] [address] [address] [address] Azar Carlin Cholesterol in LDL [Mass/Vol] 44.4 mg/dL Normal [facility] Comment on above: Performed By: #### C MP, LIPID #### [facility] [address] [address] [address] Azar Carlin Cholesterol.total/C holesterol in HDL [Mass ratio] 1.9 {ratio} Normal [facility] Comment on above: Performed By: #### C MP, LIPID #### [facility] [address] [address] [address] Azar Carlin HDL NORMAL > or = 60 mg/dl - LO W CARDIOVASCULAR RISK <40 mg/dl - HIGH CARDIOVASCULAR RISK Normal [facility] Comment on above: Performed By: #### C MP, LIPID #### [facility] [address] [address] [address] Azar Carlin LDL CALC NORMAL SEE BELOW Normal [facility] Comment on above: Result Comment: <100 mg/dl OPTIMAL 100 - 129 mg/dl NEAR OR ABOVE OPTIMAL 130 - 159 mg/dl BORDERLINE HIGH 160 - 189 mg/dl HIGH >190 mg/dl VERY HIGH Performed By: #### C MP, LIPID #### [facility] [address] [place], [place] [address] Dr. Azar Carlin Triglyceride [Mass/Vol] 68 mg/dL Normal <=150 [facility] Comment on above: Performed By: #### C MP, LIPID #### [facility] [address] [place], [place] [address] Dr. Azar Carlin VLDL CALC 13.6 mg/dL Normal [facility] Comment on above: Performed By: #### C MP, LIPID #### [facility] [address] [place], [place] [address] Dr. Azar Carlin MG MAMM SCREEN 3D ALBERT CADon 03-15-2022 MG MAMM SCREEN 3D ALBERT CAD Patient: TERESSA BUI Exam Date: 03/15/2022 : 1955 Gender:F Ordering : DR KEVIN VELASQUEZ D.O. Admission #: [id number] Family : Order #: [id number] CLICK HERE TO VIEW EXAM RADIOLOGY REPORT [...] endometrial cancer at age 65. LOCATION: [facility] BREAST COMPOSITION: Scattered areas fibroglandular [...] M.D. on 03/15/2022 at 12:16 Normal [facility] PROF 14(COMP METB)on 08-19-2 022 Albumin [Mass/Vol] 3.9 g/dL Normal 3.4-5.0 [facility] Comment on above: Performed By: #### C MP, LIPID #### [facility] [address] [place] [address] Dr. Azar Carlin Albumin/Globulin [Mass ratio] 1.1 {ratio} Normal [facility] Comment on above: Performed By: #### C MP, LIPID #### [facility] [address] [address] [address] Azar Carlin ALP [Catalytic activity/Vol] 123 U/L Critically high 46-116 [facility] Comment on above: Performed By: #### C MP, LIPID #### [facility] [address] [place] [address] Dr. Azar Carlin ALT [Catalytic activity/Vol] 51 U/L Normal 14-59 [facility] Comment on above: Performed By: #### C MP, LIPID #### [facility] [address] [place] [address] Dr. Azar Carlin Anion gap [Moles/Vol] 9.3 mmol/L Normal [facility] Comment on above: Performed By: #### C MP, LIPID #### [facility] [address] [place] [address] Dr. Azar Carlin AST [Catalytic activity/Vol] 32 U/L Normal 15-37 [facility] Comment on above: Performed By: #### C MP, LIPID #### [facility] [address] [place] [address] Dr. Azar Carlin Bilirubin [Mass/Vol] 0.5 mg/dL Normal 0.2-1.0 [facility] Comment on above: Performed By: #### C MP, LIPID #### [facility] [address] [place] [address] Dr. Azar Carlin Calcium [Mass/Vol] 9.3 mg/dL Normal 8.5-10.1 [facility] Comment on above: Performed By: #### C MP, LIPID #### [facility] [address] [place] [address] Dr. Azar Carlin Chloride [Moles/Vol] 103 mmol/L Normal 98-107 [facility] Comment on above: Performed By: #### C MP, LIPID #### [facility] [address] [place] [address] Dr. Azar Carlin CO2 [Moles/Vol] 29.9 mmol/L Normal 21.0-32.0 [facility] Comment on above: Performed By: #### C MP, LIPID #### [facility] [address] [place] [address] Dr. Azar Carlin Creatinine [Mass/Vol] 0.66 mg/dL Normal 0.55-1.02 [facility] Comment on above: Performed By: #### C MP, LIPID #### [facility] [address] [place] [address] Dr. Azar Carlin EGFR-AF PARAGUAYAN >60 Normal >=60 [facility] Comment on above: Performed By: #### C MP, LIPID #### [facility] [address] [place] [address] Dr. Azar Carlin EGFR-NON AF PARAGUAYAN >60 Normal >=60 [facility] Comment on above: Performed By: #### C MP, LIPID #### [facility] [address] [place] [address] Dr. Azar Carlin Globulin (S) [Mass/Vol] 3.7 g/dL Normal [facility] Comment on above: Performed By: #### C MP, LIPID #### [facility] [address] [place] [address] Dr. Azar Carlin Glucose [Mass/Vol] 115 mg/dL Critically high 74-106 [facility] Comment on above: Performed By: #### C MP, LIPID #### [facility] [address] [place] [address] Dr. Azar Carlin Potassium [Moles/Vol] 4.2 mmol/L Normal 3.5-5.1 [facility] Comment on above: Performed By: #### C MP, LIPID #### [facility] [address] [place] [address] Dr. Azar Carlni Protein [Mass/Vol] 7.6 g/dL Normal 6.4-8.2 [facility] Comment on above: Performed By: #### C MP, LIPID #### [facility] [address] [place] [address] Dr. Azar Carlin Sodium [Moles/Vol] 138 mmol/L Normal 136-145 [facility] Comment on above: Performed By: #### C MP, LIPID #### [facility] [address] [place] [address] Dr. Azar Carlin Urea nitrogen [Mass/Vol] 10.0 mg/dL Normal 7.0-18.0 [facility] Comment on above: Performed By: #### C MP, LIPID #### [facility] [address] [place] [address] Dr. Azar Carlin Urea nitrogen/Creatinine [Mass ratio] 15.2 mg/mg Normal [facility] Comment on above: Performed By: #### C MP, LIPID #### [facility] [address] [place] [address] Dr. Azar Carlin GLYCOHEMOGLOBIN A1Con 2021 ADA RECOMMENDATION ADA THERAPEUTIC TARG ET 6.0 - 7.0 ACTION SUGGESTED > 7.0 Normal [facility] Comment on above: Performed By: #### A 1C #### [facility] [address] [place] [address] Dr. Azar Carlin Glucose [Mass/Vol] 154 mg/dL Normal [facility] Comment on above: Performed By: #### A 1C #### [facility] [address] [place] [address] Dr. Azar Carlin HbA1c (Bld) [Mass fraction] 7.0 % Critically high <=6.0 [facility] Comment on above: Performed By: #### A 1C #### [facility] [address] [place] [address] Dr. Azar Carlin CNOVon 03-29-2021 CNOV Office Visit (VASSST ) TERESSA BUI ([id number]) 1955 F Date Time Provider Department 03/29/21 3:45 PM ELIER ESPINO During your visit today, we recorded the following information about you: Pulse Respiration Blood pressure Weight 79/minute 18/minute 151/72 61.2 kg Elier Espino MD 03/29/2021 1:39 PM Signed [facility] OUTPATIENT VISIT DATE March 29, 2021 OUTPATIENT VISIT TYPE EST PRIMARY CARE PHYSICIAN: Kevin Velasquez ([facility]) [address] [place] [address] REFERRING PHYSICIAN SELF CHIEF COMPLAINT: Patient presents [...] Results Primary Visit Diagnosis:PAD (peripheral artery disease) ([facility]) [I73.9] Order(s):PVR ANK/REYNA/TOE [facility] [[id number]] Order #: [id number] FUTURE US ABD AORTA COMPLETE [facility] [[id number]] Order #: [id number] FUTURE US CAROTID ARTERIES [facility] [[id number]] Order #: [id number] FUTURE clopidogrel (PLAVIX) 75 mg tabletTake 1 [...] 08/31/2019 Dep (more content not included)... Normal [facility] CNOVon 12-07-2020 CNOV Office Visit (VASSST ) TERESSA BUI ([id number]) 1955 F Date Time Provider Department 12/07/20 1:30 PM ELIER ESPINO During your visit today, we recorded the following information about you: Pulse Respiration Blood pressure Weight 71/minute 18/minute 133/85 61.2 kg Elier Espino MD 12/07/2020 1:01 PM Signed [facility] OUTPATIENT VISIT DATE December 07, 2020 OUTPATIENT VISIT TYPE EST PRIMARY CARE PHYSICIAN: Kevin Velasquez ([facility]) [address] [place] [address] REFERRING PHYSICIAN SELF CHIEF COMPLAINT: Patient presents [...] PAD Primary Visit Diagnosis:PAD (peripheral artery disease) ([facility]) [I73.9] Other Visit Diagnosis:Subclavian arterial stenosis ([facility]) [I77.1] Order(s):PVR ANK/REYNA/TOE [facility] [[id number]] Order #: [id number] FUTURE US ABD AORTA [facility]PLE[facility] [[id number]] Order #: [id number] FUTURE US CAROTID ARTERIES [facility] [[id number]] Order #: [id number] FUTURE Prescriptions as of 12/07/2020 Sig: METFORMIN [...] 12/07/2020 Noted Resolved PAD (peripheral artery disease) ([facility]) [I73.9] 08/31/2019 Essential hypertension [I10] 08/31/2019 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 Follow-up and Disposition History Re (more content not included)... Normal [facility] CNOVon 09-07-2020 CNOV Office Visit (VASSST ) TERESSA BUI ([id number]) 1955 F Date Time Provider Department 09/07/20 2:45 PM ELIER ESPINO During your visit today, we recorded the following information about you: Pulse Respiration Blood pressure Weight 53/minute 18/minute 161/80 62.9 kg Elier Espino MD 09/07/2020 12:28 PM Signed [facility] OUTPATIENT VISIT DATE September 07, 2020 OUTPATIENT VISIT TYPE EST PRIMARY CARE PHYSICIAN: Kevin Velasquez MD ([facility]) [address] [place] [address] REFERRING PHYSICIAN Elier Espino MD [address] [facility] [address] CHIEF COMPLAINT: Patient presents with: Follow Up: [...] Elier Espino MD Referring Provider: ELIER ESPINO [[id number]] Allergies As of Date: 09/07/2020 (No Known Allergies) Date Reviewed: 09/07/2020 Reviewed by: Siena (Rn) MORRIS King - Fully Assessed Reason for Visit: Follow Up [171] Cmt: PAD/Discuss Test Results Primary Visit Diagnosis:PAD (peripheral artery disease) ([facility]) [I73.9] Order(s):PVR ANK/REYNA/TOE [facility] [[id number]] Order #: [id number] FUTURE US ABD AORTA [facility]PLE[facility] [[id number]] Order #: [id number] FUTURE US ARM ARTERIAL [facility] [[id number]] Order #: [id number] FUTURE Prescriptions as of 09/07/2020 Sig: METFORMIN [...] 09/07/2020 12:00 PM >> SIENA KING RN [facility] Sep 07, 2020 12:00 PM Not taking. Problem List As Of Date 09/07/2020 Noted Resolved PAD (more content not included)... Normal [facility] APTTon 05-09-2020 aPTT Coag (Bld) [Time] 24.8 s Normal 23.0-32.4 [facility] Comment on above: Result Comment: Unfr [...] laboratory APTT reagent in use throughout the [facility]. Performed By: #### B MP, CBC, PTT ####[facility] Nzbkpjclcw5907 [phone] Basic Metabolic Panlon 05-09 Anion gap [Moles/Vol] 11 mmol/L Normal 9-18 [facility] Comment on above: Performed By: #### B MP, CBC, PTT ####[facility] Ulxsiefmtd4612 [phone] Calcium [Mass/Vol] 9.8 mg/dL Normal 8.5-10.2 [facility] Comment on above: Performed By: #### B MP, CBC, PTT ####[facility] [address] [place] [phone] Chloride [Moles/Vol] 103 mmol/L Normal 97-105 [facility] Comment on above: Performed By: #### B MP, CBC, PTT ####[facility] [address] [place] [phone] CO2 [Moles/Vol] 24 mmol/L Normal 22-30 [facility] Comment on above: Performed By: #### B MP, CBC, PTT ####[facility] [address] [place] [phone] Creatinine [Mass/Vol] 0.57 mg/dL Low 0.58-0.96 [facility] Comment on above: Performed By: #### B MP, CBC, PTT ####[facility] [address] [place] [phone] eGFR- Amer. >60 Normal [facility] Comment on above: Performed By: #### B MP, CBC, PTT ####[facility] [address] [place] [phone] GFR/1.73 sq M predicted among non-blacks MDRD (S/P/Bld) [Vol rate/Area] mL/min/{1.73_m2} Normal [facility] Comment on above: Result Comment: eGFR [...] Performed By: #### B MP, CBC, PTT ####[facility] [address] [place] [phone] Glucose [Mass/Vol] 156 mg/dL High 74-99 [facility] Comment on above: Result Comment: The [place] Diabetes Association (ADA) provides guidance for cutoff [...] Standards of Medical Care in Diabetes 2016, [place] [employer]. Diabetes Care. 2016.39(Suppl 1). Performed By: #### B MP, CBC, PTT ####[place] [address] Potassium [Moles/Vol] 4.3 mmol/L Normal 3.7-5.1 [facility] Comment on above: Performed By: #### B MP, CBC, PTT ####[place] [address] Sodium [Moles/Vol] 138 mmol/L Normal 136-144 [facility] Comment on above: Performed By: #### B MP, CBC, PTT ####[place] [address] Urea nitrogen [Mass/Vol] 9 mg/dL Normal 7-21 [facility] Comment on above: Performed By: #### B MP, CBC, PTT ####[place] [address] CBCon 05-09-2020 Absolute nRBC <0.01 Normal <0.01 [facility] Comment on above: Performed By: #### B MP, CBC, PTT ####[place] [address] Erythrocyte distribution width (RBC) [Ratio] 12.9 % Normal 11.5-15.0 [facility] Comment on above: Performed By: #### B MP, CBC, PTT ####[place] [address] Hematocrit (Bld) [Volume fraction] 39.9 % Normal 36.0-46.0 [facility] Comment on above: Performed By: #### B MP, CBC, PTT ####[place] [address] Hemoglobin (Bld) [Mass/Vol] 13.2 g/dL Normal 11.5-15.5 [facility] Comment on above: Performed By: #### B MP, CBC, PTT ####[facility] [address] [place] [phone] MCH (RBC) [Entitic mass] 28.9 pG Normal 26.0-34.0 [facility] Comment on above: Performed By: #### B MP, CBC, PTT ####[facility] [address] [place] [phone] MCHC (RBC) [Mass/Vol] 33.1 g/dL Normal 30.5-36.0 [facility] Comment on above: Performed By: #### B MP, CBC, PTT ####[facility] [address] [place], [place] [phone] MCV (RBC) [Entitic vol] 87.5 fL Normal 80.0-100.0 [facility] Comment on above: Performed By: #### B MP, CBC, PTT ####[facility] [address] [place], [place] [phone] Platelet mean volume (Bld) [Entitic vol] 10.1 fL Normal 9.0-12.7 [facility] Comment on above: Performed By: #### B MP, CBC, PTT ####[facility] [address] [place], [place] [phone] Platelets (Bld) [#/Vol] 156 10*3/uL Normal 150-400 [facility] Comment on above: Performed By: #### B MP, CBC, PTT ####[facility] [address] [place] [phone] RBC (Bld) [#/Vol] 4.56 10*6/uL Normal 3.90-5.20 [facility] Comment on above: Performed By: #### B MP, CBC, PTT ####[facility] [address] [place], [place] [phone] WBC (Bld) [#/Vol] 5.30 10*3/uL Normal 3.70-11.00 [facility] Comment on above: Performed By: #### B MP, CBC, PTT ####[facility] [address] [place], [place] [phone] HISTORY PHYSICALon 10-13-202 0 HISTORY PHYSICAL HNO ID: [id number] Author: Elier Espino Service: Vascular Surgery Author [...] activities. 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 She has a known history of left subclavian artery stenosis. No neurologic complaints otherwise. Underwent??CTA at [facility] which showed left SCA stenosis. On?plavix,?ASA, statin.? [...] 09, 2020 TIME: 1:46 PM PAGER/CONTACT #: [facility] NURSING PROGon 05-09-2020 NURSING PROG HNO ID: [id number] Author: Chris Wheatley RN Service: Nursing Author Type: Registered Nurse Type: Nursing Progress Note Filed: 05/09/2020 8:20 PM Note Text: Pt ambulated to bathroom. Returned to bed. r groin soft dressing d/i [facility] NURSING PROG HNO ID: [id number] Author: Chris Martinez) MORRIS Wheatley Service: Nursing Author Type: Registered Nurse Type: Nursing Progress Note Filed: 05/09/2020 8:19 PM Note Text: Pt dangled at bedside . r groin soft dressing d/i [facility] NURSING PROG HNO ID: [id number] Author: Chris Wheatley RN Service: Nursing Author Type: Registered Nurse Type: Nursing Progress Note Filed: 05/09/2020 7:54 PM Note Text: Hob elevated 45% Normal [facility] OPERATIVE NOon 05-09-2020 OPERATIVE NO HNO ID: [id number] Author: Elier Espino Service: Vascular Surgery Author Type: Physician Type: Operative Report Filed: 05/10/2020 9:41 AM Note Text: [facility] - Operative Report TERESSA BUI : 1955 AGE: 64. SEX: F PATIENT TYPE: A HOSP SVC: KAYDEN LOCATION: [facility] ATTENDING PHYSICIAN: ELIER ESPINO CSN NUMBER: [id number] DATE OF SURGERY/PROCEDURE: 05/09/2020 INCISION/PROCEDURE START TIME: 2:25 PM INCISION CLOSE/PROCEDURE END TIME: 3:21 PM PREOPERATIVE DIAGNOSIS: Left subclavian artery stenosis, left debilitating arm claudication. POSTOPERATIVE DIAGNOSIS: Left subclavian artery stenosis, left debilitating arm claudication. SURGEON: Elier Espino M.D. OYSTER SORTER: No Additional Staff SURGERY/PROCEDURE: Ultrasound-guided access of the right common femoral artery, first order catheterization, left subclavian angiogram, stenting of the left proximal subclavian artery, completion angiography. ANESTHESIA: Conscious sedation, local. COMPLICATIONS: None. SPECIMENS: None. IMPLANTS: [employer] 7 x 27 LD balloon expandable stent, inflated to 8 atmospheres. FINDINGS: High-grade stenosis of the proximal left subclavian artery, pre-stent angioplasty performed with 4 x 40 mm balloon, lesion was then treated with a 7 x 27 [employer] balloon mounted stent with resolution of stenosis post stenting. Angiography of the left upper extremity demonstrated brisk flow down the left brachial, radial, and ulnar arteries filling to the hand. DESCRIPTION OF PROCEDURE: The patient was brought to the laboratory associate and placed supine on the table. The [...] advanced into the thoracic aorta. Subsequently, a 5-English sheath was advanced over which an angled Glidecath was used to successfully cannulate the left subclavian artery. The wire was advanced through the left subclavian and axillary, and subsequently brachial artery. The wire had been exchanged for a Glidewire Advantage. A 6-English x 90 cm sheath was then advanced over the wire. The patient had been systemically heparinized. ACTs were checked throughout the duration of the case and she was maintained in a therapeutic value. Left upper extremity angiograms were performed as needed with the above-noted findings. Decision was made to pre-dilate the lesion. This was performed with a 4 x 40 mm instant potato processing supervisor balloon following which the lesion was treated with a 7 x 27 [employer] balloon mounted stent with the balloon [...] site using a Mynx device. A short 6-English sheath was placed. The patient's heparinization was [...] brought to recovery area. Elier Espino M.D. JIMY:[id number] /[id number] Normal [facility] Type and Screenon 05-09-2020 ABO/RH(D) Positive Normal [facility] Comment on above: Performed By: #### T SCR ####[facility] [address] [place] [phone] HOSPon 03-28-2020 HOSP Patient:Regina Bui MRN: Height:5' [...] medications. Problem List: PAD (peripheral artery disease) ([facility]) [I73.9] Essential hypertension [I10] Ocular migraine [G43.109] Mixed hyperlipidemia [E78.2] Pre-diabetes [R73.03] Allergies: No Known Allergies Date Verified:05/08/20 Lab Values No results within the last 30 days for the following basenames: K,HCT Progress Notes (COMPLAINT ADJUSTER MANAGEMENT): WILLIAMS Valencia Tech 04/20/2020 11:03 AM [...] No (Follow-up call) Homer, this is the [facility] calling, may I speak to Teressa [...] like to speak with a social work sales team leader to help give you support [...] [facility] patients may call: ? [facility] Nurse engineering manager electronics at [phone] ? Their PCP Office Caregivers may call: ? [facility] Employee Hotline: [phone] Patient verbalizes understanding of information provided. Denies any further questions at this time. Please visit CDC.gov website for any updated information about Coronavirus. You can also find information on the [facility] website. Additional information can be found on the [facility] and [facility] web sites: https://www.cdc.gov/co ronavirus/2019-nCoV/in dex.html https://[facility] c.org/coronavirus End outreach Previous Version Progress Notes (COMPLAINT ADJUSTER MANAGEMENT): Theresa Varela 04/18/2020 10:33 AM Signed COVID COMMUNITY MONITORING PROGRAM Provider Action/FYI: Follow up-stable feeling good no sx Monitoring Call: Date of symptoms onset: ] Patient is COVID-19 positive Contact made with patient Yes Patient identified by name and . Discussed care with patient Initial intake? No (Follow-up call) Homer, this is the [facility] calling, may I speak to Teressa [...] like to speak with a social work sales team leader to help give you support [...] [facility] patients may call: ? [facility] Nurse engineering manager electronics at [phone] ? Their PCP Office Caregivers may call: ? [facility] Employee Hotline: [phone] Patient verbalizes understanding of information provided. Denies any further questions at this time. Please visit CDC.gov website for any updated information about Coronavirus. You can also find information on the [facility] website. Additional information can be found on the [facility] and [facility] web sites: https://www.cdc.gov/co ronavirus/2019-nCoV/in dex.html https://[facility].org/coronavirus End outreach Normal [facility] Basic Metabolic Panlon 09-01 Anion gap [Moles/Vol] 10 mmol/L Normal 9-18 [facility] Comment on above: Performed By: #### C BC, BMP ####[facility] [address] [place] [phone] Calcium [Mass/Vol] 8.8 mg/dL Normal 8.5-10.2 [facility] Comment on above: Performed By: #### C BC, BMP ####[facility] [address] [place] [phone] Chloride [Moles/Vol] 109 mmol/L High 97-105 [facility] Comment on above: Performed By: #### C BC, BMP ####[facility] [address] [place] [phone] CO2 [Moles/Vol] 23 mmol/L Normal 22-30 [facility] Comment on above: Performed By: #### C BC, BMP ####[facility] [address] Creatinine [Mass/Vol] 0.58 mg/dL Normal 0.58-0.96 [facility] Comment on above: Performed By: #### Deven ROSA, PATEL ####[facility] K[address]xk[address]03 [address] eGFR- Amer. >60 Normal [facility] Comment on above: Performed By: #### Deven ROSA, PATEL ####[facility] [address] [place] [phone] GFR/1.73 sq M predicted among non-blacks MDRD (S/P/Bld) [Vol rate/Area] mL/min/{1.73_m2} Normal [facility] Comment on above: Result Comment: eGFR [...] GFR. Performed By: #### Deven ROSA, PATEL ####[facility] Sav[address]14 [address] Glucose [Mass/Vol] 134 mg/dL High 74-99 [facility] Comment on above: Result Comment: The [place] Diabetes [employer] (ADA) provides guidance for cutoff [...] Standards of Medical Care in Diabetes 2016, [place] [employer]. Diabetes Care. 2016.39(Suppl 1). Performed By: #### C BC, BMP ####[place] [address] Potassium [Moles/Vol] 4.4 mmol/L Normal 3.7-5.1 [facility] Comment on above: Performed By: #### C BC, BMP ####[place] [address] Sodium [Moles/Vol] 142 mmol/L Normal 136-144 [facility] Comment on above: Performed By: #### C BC, BMP ####[place] [address] Urea nitrogen [Mass/Vol] 11 mg/dL Normal 7-21 [facility] Comment on above: Performed By: #### C SHELLEY, BMP ####[place] [address] CBCon 09-01-2019 Erythrocyte distribution width (RBC) [Ratio] 13.0 % Normal 11.5-15.0 [facility] Comment on above: Performed By: #### C SHELLEY, BMP ####[place] [address] Hematocrit (Bld) [Volume fraction] 34.9 % Low 36.0-46.0 [facility] Comment on above: Performed By: #### C SHELLEY, BMP ####[place] [address] Hemoglobin (Bld) [Mass/Vol] 11.4 g/dL Low 11.5-15.5 [facility] Comment on above: Performed By: #### C BC, BMP ####[place] [address] MCH (RBC) [Entitic mass] 29.0 pG Normal 26.0-34.0 [facility] Comment on above: Performed By: #### C BC, BMP ####[place] [address] MCHC (RBC) [Mass/Vol] 32.7 g/dL Normal 30.5-36.0 [facility] Comment on above: Performed By: #### C BC, BMP ####[place] [address] MCV (RBC) [Entitic vol] 88.8 fL Normal 80.0-100.0 [facility] Comment on above: Performed By: #### C BC, BMP ####[facility] [address] [place] [phone] Platelet mean volume (Bld) [Entitic vol] 10.4 fL Normal 9.0-12.7 [facility] Comment on above: Performed By: #### C BC, BMP ####[facility] [address] [place] [address] Platelets (Bld) [#/Vol] 131 10*3/uL Low 150-400 [facility] Comment on above: Performed By: #### C SHELLEY, BMP ####[facility] [address] [place] [address] RBC (Bld) [#/Vol] 3.93 10*6/uL Normal 3.90-5.20 [facility] Comment on above: Performed By: #### C SHELLEY, BMP ####[facility] [address] [place] [id number] WBC (Bld) [#/Vol] 5.68 10*3/uL Normal 3.70-11.00 [facility] Comment on above: Performed By: #### C SHELLEY, BMP ####[facility] [address] [place] [address] CNCOon 09-01-2019 CNCO Letter Text Normal [facility] NURSING PROGon 09-01-2019 NURSING PROG HNO ID: [id number] Author: Cecille (Rn) MORRIS Garibay Service: Nursing Author Type: Registered Nurse Type: Nursing Progress Note Filed: 09/01/2019 8:25 AM Note Text: Nursing Progress Note Patient Name: Teressa Bui Patient Location: [facility]- 1 __ Daily Note: 0800- Spoke with Dr. Espino about giving the patient the ASA. Dr. Espino said to hold the the Asprin for now until he sees the patient. Dr. Espino also said to take off the sandbags off. This note was completed by: Cecille Garibay RN [facility] NURSING PROG HNO ID: [id number] Author: Bonnie BergerRn) MORRIS Guerra Service: Nursing [...] present, <3 sec cap refill, pink and demand inspector color with positive sensation. Will continue to monitor. 0000- pt HOB elevated to 30 degrees without incident. Will continue groin checks every 4 hrs now per order. Will continue to monitor. [facility] PROGRESSon 09-01-2019 PROGRESS HNO ID: [id number] Author: Elier Espino Service: Vascular Surgery Author [...] 01, 2019 TIME: 9:32 AM PAGER/CONTACT #: [phone] Normal [facility] Basic Metabolic Panlon 08-31 Anion gap [Moles/Vol] 12 mmol/L Normal 04-14 [facility] Comment on above: Performed By: #### B MP, CBC ####[facility] [address] [place] [address] Calcium [Mass/Vol] 10.0 mg/dL Normal 8.5-10.2 [facility] Comment on above: Performed By: #### B MP, CBC ####[facility] [address] [place] [address] Chloride [Moles/Vol] 105 mmol/L Normal 97-105 [facility] Comment on above: Performed By: #### B MP, CBC ####[facility] [address] [place] [address] CO2 [Moles/Vol] 25 mmol/L Normal 22-30 [facility] Comment on above: Performed By: #### B RADHA, CBC ####[facility] [address] [place] [phone] Creatinine [Mass/Vol] 0.79 mg/dL Normal 0.58-0.96 [facility] Comment on above: Performed By: #### B RADHA, CBC ####[facility] [address] [place] [phone] eGFR- Amer. >60 Normal [facility] Comment on above: Performed By: #### B RADHA, CBC ####[facility] [place] [phone] GFR/1.73 sq M predicted among non-blacks MDRD (S/P/Bld) [Vol rate/Area] mL/min/{1.73_m2} Normal [facility] Comment on above: Result Comment: eGFR [...] GFR. Performed By: #### B MP, CBC ####[facility] [address] [place] [phone] Glucose [Mass/Vol] 130 mg/dL High 74-99 [facility] Comment on above: Result Comment: The [place] Diabetes Association (ADA) provides guidance for cutoff [...] Standards of Medical Care in Diabetes 2016, [place] Diabetes Association. Diabetes Care. 2016.39(Suppl 1). Performed By: #### B RADHA, CBC ####[place] [address] Potassium [Moles/Vol] 4.8 mmol/L Normal 3.7-5.1 [facility] Comment on above: Performed By: #### B MP, CBC ####[place] [address] Sodium [Moles/Vol] 142 mmol/L Normal 136-144 [facility] Comment on above: Performed By: #### B MP, CBC ####[place] [address] Urea nitrogen [Mass/Vol] 19 mg/dL Normal 7-21 [facility] Comment on above: Performed By: #### B MP, CBC ####[facility] [address] [place] [address] CBCon 08-31-2019 Erythrocyte distribution width (RBC) [Ratio] 13.4 % Normal 11.5-15.0 [facility] Comment on above: Performed By: #### B MP, CBC ####[place] [address] Hematocrit (Bld) [Volume fraction] 43.5 % Normal 36.0-46.0 [facility] Comment on above: Performed By: #### B MP, CBC ####[facility] [address] [place] [address] Hemoglobin (Bld) [Mass/Vol] 14.6 g/dL Normal 11.5-15.5 [facility] Comment on above: Performed By: #### B MP, CBC ####[facility] [address] [place] [address] MCH (RBC) [Entitic mass] 29.6 pG Normal 26.0-34.0 [facility] Comment on above: Performed By: #### B MP, CBC ####[facility] [address] [place] [address] MCHC (RBC) [Mass/Vol] 33.6 g/dL Normal 30.5-36.0 [facility] Comment on above: Performed By: #### B MP, CBC ####[facility] [address] [place] [address] MCV (RBC) [Entitic vol] 88.1 fL Normal 80.0-100.0 [facility] Comment on above: Performed By: #### B MP, CBC ####[facility] [address] [place] [address] Platelet mean volume (Bld) [Entitic vol] 9.9 fL Normal 9.0-12.7 [facility] Comment on above: Performed By: #### B MP, CBC ####[facility] [address] [place] [address] Platelets (Bld) [#/Vol] 176 10*3/uL Normal 150-400 [facility] Comment on above: Performed By: #### B MP, CBC ####[facility] [address] [place] [address] RBC (Bld) [#/Vol] 4.94 10*6/uL Normal 3.90-5.20 [facility] Comment on above: Performed By: #### B MP, CBC ####[facility] [address] [place] [address] WBC (Bld) [#/Vol] 6.69 10*3/uL Normal 3.70-11.00 [facility] Comment on above: Performed By: #### B MP, CBC ####[facility] [address] [place] [address] Confirm Blood Typeon 020 ABO/RH(D) Positive Normal [facility] Comment on above: Performed By: #### C ONABO #### [facility] [address] [facility] [phone] Performed By: #### T SCR ####[facility] [address] [phone] HISTORY PHYSICALon 0 HISTORY PHYSICAL HNO ID: [id number] Author: Elier Espino Service: Vascular Surgery Author [...] 2019 TIME: 9:51 AM PAGER/CONTACT #: Normal [facility] Lipid Panel, [place] 020 Cholesterol [Mass/Vol] 152 mg/dL Normal <200 [facility] Comment on above: Performed By: #### L IPB ####[facility] [address] [place] [phone] Cholesterol in HDL [Mass/Vol] 61 mg/dL Normal >39 [facility] Comment on above: Performed By: #### L IPB ####[facility] [address] [place] [address] Cholesterol in LDL [Mass/Vol] 27 mg/dL Normal <100 [facility] Comment on above: Performed By: #### L IPB ####[facility] [address] [place] [address] Fasting Time Unknown Normal [facility] Comment on above: Performed By: #### L IPB ####[facility] [address] [place] [address] LDL:HDL Ratio 0.44 Normal <2.54 [facility] Comment on above: Result Comment: Chevy burleson: 1. National Cholesterol Education Program ATP III Guideline At-A-Glance Quick Desk Reference: National Heart, Lung, and Blood [place]. National Institutes of Health. 2001: NIH Publication No. 01-3305. 2. An International Atherosclerosis Society position paper: global recommendations for the management of dyslipidemia: executive summary, Atherosclerosis. 2014: 232(2):410-413. Performed By: #### L IPB ####[facility] [address] [place] [address] Non HDL Cholesterol 91 mg/dL Normal <130 [facility] Comment on above: Performed By: #### L IPB ####[facility] [address] [place] [address] TC:HDL Ratio 2.49 Normal <5.10 [facility] Comment on above: Performed By: #### L IPB ####[facility] [address] [place] [address] Triglyceride [Mass/Vol] 321 mg/dL High <150 [facility] Comment on above: Performed By: #### L IPB ####[facility] [address] [place] [address] VLDL Cholesterol 64 mg/dL High <30 [facility] Comment on above: Performed By: #### L IPB ####[facility] [address] [place] [address] NURSING PROGon 08-31-2019 NURSING PROG HNO ID: [id number] Author: Mary Martinez) MORRIS Zhu Service: ? Author Type: Registered Nurse Type: Nursing Progress Note Filed: 08/31/2019 5:28 PM Note Text: Nursing Progress Note Patient Name: Teressa Bui Patient Location: [facility]- 1 __ Daily Note: 1720 notified by primary RN that patient's incision is still bleeding after holding pressure for 15 minutes, call placed to Dr. Espino to notify. This note was completed by: Mary Zhu RN [facility] OPERATIVE NOon 08-31-2019 OPERATIVE NO HNO ID: [id number] Author: Elier Espino Service: Vascular Surgery Author Type: Physician Type: Operative Report Filed: 09/02/2019 12:54 PM Note Text: [facility] - Operative Report TERESSA BUI : 1955 AGE: 63. SEX: F PATIENT TYPE: I HOSP SVC: [facility] LOCATION: [facility] ATTENDING PHYSICIAN: ELIER ESPINO CSN NUMBER: [id number] DATE OF SURGERY/PROCEDURE: 08/31/2019 INCISION/PROCEDURE START TIME: 10:23 AM INCISION CLOSE/PROCEDURE END TIME: 2:47 PM PREOPERATIVE DIAGNOSIS: Peripheral arterial disease, debilitating left lower extremity claudication, left iliac stenosis. POSTOPERATIVE DIAGNOSIS: Peripheral arterial disease, debilitating left lower extremity claudication, left iliac stenosis. SURGEON: Elier Espino M.D. OYSTER SORTER: No Additional Staff SURGERY/PROCEDURE: Aortoiliac angiography, stenting [...] 8 x 60 and 7 x 60 [employer] self-expanding stent. Post-stenting angioplasty being performed [...] PROCEDURE: The patient was brought into the laboratory associate suite and placed supine on the table. [...] point, the patient was systemically heparinized. A 6-English 25 cm sheath was brought onto the [...] on the left lower extremity from the 6-English sheath and this demonstrated brisk flow through [...] was advanced into the distal aorta. A 5-English sheath was placed and the aortic bifurcation was successfully crossed with the Omni Flush catheter and a stiff- angled Glidewire. Stiff-angled Glidewire was successfully navigated into the superficial femoral artery and over this, a 5-English x 90 sheath was advanced. This was [...] area in stable condition. Elier Espino M.D. DK:[id number] /[id number] [facility] PROGRESSon 08-31-2019 PROGRESS HNO ID: [id number] Author: Dina James Service: Hospital Medicine Author Type: Physician Type: Progress Notes Filed: 08/31/2019 8:11 PM Note Text: SERVICE DATE: 08/31/2019 SERVICE TIME: 8:10 PM HOSPITAL MEDICINE PROGRESS NOTE NIGHT AND WEEKEND COVERAGE: Nights: Please contact pager [phone]. 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 HISTORY OF PRESENT ILLNESS: Teressa Bui was referred for consultation by Dr. Velasquez. Opinions and recommendations in this consultation will be transmitted back to the referring physician by [facility] notes or via mail. ? Ms. Bui is a 63 year old female [facility] prediabetes, active smoker who is seen [...] since her last evaluation. Studies performed [place] [facility] show: Bilateral ICA 50-69% stenoses. GENO/PVR [...] complaints, no neurologic complaints. Underwent CTA at [facility] which showed left SCA stenosis. On ASA, [...] symptoms. Elier Espino MD Progress Notes ([facility]): Isela Rand Ralph 08/18/2019 10:01 AM [...] like pt had these tests done at [facility], scanned into system. Normal [facility] Vital Signs Date Time Vital Sign Value Performing Clinician Facility 03-30-2025 09:41-0400 Body height 165.1 cm TIMPIK Work Phone: [facility] 03-30-2025 09:41-0400 Body mass index (BMI) [Ratio] 21.9 kg/m2 [facility] Work Phone: [facility] 03-30-2025 09:41-0400 Body weight 59.64 kg [facility] Work Phone: [facility] 03-30-2025 09:41-0400 Diastolic blood pressure 78 mm[Hg] [facility] Work Phone: [facility] 03-30-2025 09:41-0400 Heart rate 68 /min Kevin Ball DO Work Phone: [facility] 03-30-2025 09:41-0400 Respiratory rate 12 /min Kevin Ball DO Work Phone: [facility] 03-30-2025 09:41-0400 Systolic blood pressure 136 mm[Hg] Kevin Ball DO Work Phone: [facility] 01-31-2025 08:51-0400 Body height 165.1 cm Ulices Wise DPM Work Phone: [facility] 01-31-2025 08:51-0400 Body mass index (BMI) [Ratio] 21.97 kg/m2 Ulices Wise DPM Work Phone: [facility] 01-31-2025 08:51-0400 Body weight 59.88 kg Ulices Wise DPM Work Phone: [facility] 01-31-2025 08:51-0400 Respiratory rate 18 /min Ulices Wise DPM Work Phone: [facility] 01-18-2025 09:58-0400 Body height 165.1 cm Mariela Menchaca [employer] Work Phone: [facility] 01-18-2025 09:58-0400 Body mass index (BMI) [Ratio] 21.97 kg/m2 Mariela Menchaca [employer] Work Phone: [facility] 01-18-2025 09:58-0400 Body weight 59.88 kg Mariela Menchaca [employer] Work Phone: [facility] 01-18-2025 09:58-0400 Diastolic blood pressure 80 mm[Hg] Mariela Menchaca [employer] Work Phone: [facility] 01-18-2025 09:58-0400 Systolic blood pressure 130 mm[Hg] Mariela Menchaca [employer] Work Phone: [facility] 01-17-2025 09:39-0400 Body height 165.1 cm Ulices Wise DPM Work Phone: [facility] 01-17-2025 09:39-0400 Body mass index (BMI) [Ratio] 22.8 kg/m2 Ulices Wise DPM Work Phone: [facility] 01-17-2025 09:39-0400 Body weight 62.14 kg Ulices Wise DPM Work Phone: [facility] 01-17-2025 09:39-0400 Respiratory rate 16 /min Ulices Wise DPM Work Phone: [facility] 01-03-2025 11:02-0400 Body height 165.1 cm Ulices Wise DPM Work Phone: [facility] 01-03-2025 11:02-0400 Body mass index (BMI) [Ratio] 22.8 kg/m2 Ulices Wise DPM Work Phone: [facility] 01-03-2025 11:02-0400 Body weight 62.14 kg Ulices Wise DPM Work Phone: [facility] 01-03-2025 11:02-0400 Respiratory rate 18 /min Ulices Wise DPM Work Phone: [facility] 11-25-2024 09:38-0400 Body height 165.1 cm [facility] 11-25-2024 09:38-0400 Body mass index (BMI) [Ratio] 22.8 kg/m2 [facility] 11-25-2024 09:38-0400 Body weight 62.36 kg [facility] 11-25-2024 09:38-0400 Diastolic blood pressure 80 mm[Hg] [facility] 11-25-2024 09:38-0400 Heart rate 74 /min [facility] 11-25-2024 09:38-0400 Respiratory rate 12 /min [facility] 11-25-2024 09:38-0400 Systolic blood pressure 132 mm[Hg] [facility] 09-15-2024 09:33-0500 Body height 165.1 cm [facility] 09-15-2024 09:33-0500 Body mass index (BMI) [Ratio] 22.4 kg/m2 [facility] 09-15-2024 09:33-0500 Body temperature 98.2 [degF] [facility] 09-15-2024 09:33-0500 Body weight 61 kg [facility] 09-15-2024 09:33-0500 Diastolic blood pressure 82 mm[Hg] [facility] 09-15-2024 09:33-0500 Heart rate 79 /min [facility] 09-15-2024 09:33-0500 Respiratory rate 16 /min [facility] 09-15-2024 09:33-0500 SaO2% (BldA) [Mass fraction] 98 % [facility] 09-15-2024 09:33-0500 Systolic blood pressure 124 mm[Hg] [facility] 09-14-2024 09:57-0500 Body height 165.1 cm Mariela Menchaca [employer] Work Phone: [facility] 09-14-2024 09:57-0500 Body mass index (BMI) [Ratio] 22.96 kg/m2 Mariela Menchaca [employer] Work Phone: [facility] 09-14-2024 09:57-0500 Body weight 62.6 kg Mariela Menchaca [employer] Work Phone: [facility] 09-14-2024 09:57-0500 Diastolic blood pressure 84 mm[Hg] Mariela Menchaca [employer] Work Phone: [facility] 09-14-2024 09:57-0500 Systolic blood pressure 142 mm[Hg] Mariela Menchaca [employer] Work Phone: [facility] 08-06-2024 09:25-0500 Body height 165.1 cm [facility] 08-06-2024 09:25-0500 Body mass index (BMI) [Ratio] 22.4 kg/m2 [facility] 08-06-2024 09:25-0500 Body weight 61.23 kg [facility] 08-06-2024 09:25-0500 Diastolic blood pressure 89 mm[Hg] [facility] 08-06-2024 09:25-0500 Heart rate 79 /min [facility] 08-06-2024 09:25-0500 Respiratory rate 12 /min [facility] 08-06-2024 09:25-0500 Systolic blood pressure 139 mm[Hg] [facility] 05-11-2024 10:02-0400 Body height 165.1 cm Mariela Menchaca [employer] Work Phone: [facility] 05-11-2024 10:02-0400 Body mass index (BMI) [Ratio] 22.4 kg/m2 Marielarolando Spauldingman [employer] Work Phone: [facility] 05-11-2024 10:02-0400 Body weight 61.05 kg Marielarolando Menchaca [employer] Work Phone: [facility] 05-11-2024 10:02-0400 Diastolic blood pressure 76 mm[Hg] Marielarolando Spauldingman [employer] Work Phone: [facility] 05-11-2024 10:02-0400 Systolic blood pressure 120 mm[Hg] Marielarolando Spauldingman [employer] Work Phone: [facility] 09-09-2023 10:34-0500 Body height 165.1 cm Marielarolando Spauldingman [employer] Work Phone: [facility] 09-09-2023 10:34-0500 Body mass index (BMI) [Ratio] 22.8 kg/m2 Marielarolando Spauldingman [employer] Work Phone: [facility] 09-09-2023 10:34-0500 Body weight 62.14 kg Mariela Menchaca [employer] Work Phone: [facility] 09-09-2023 10:34-0500 Diastolic blood pressure 78 mm[Hg] Mariela Menchaca [employer] Work Phone: [facility] 09-09-2023 10:34-0500 Systolic blood pressure 124 mm[Hg] Mariela Mencahca [employer] Work Phone: [facility] 04-08-2023 13:00-0400 Body height 165.1 cm Radha Crowellsinan Other [employer] Other 04-08-2023 13:00-0400 Body mass index (BMI) [Ratio] 22.46 kg/m2 Radha Paulsondelores Other [facility] Other 04-08-2023 13:00-0400 Body weight 61.24 kg Radha Bradytiarailyadelores Other [facility] Other 04-08-2023 13:00-0400 Diastolic blood pressure 80 mm[Hg] Radha Bradykendall Other [facility] Other 04-08-2023 13:00-0400 SaO2% (BldA) [Mass fraction] 99 % Radha Bradykendall Other [facility] Other 04-08-2023 13:00-0400 Systolic blood pressure 130 mm[Hg] Radha Correa Other [facility] Other 03-03-2023 08:30-0400 Body height 165.1 cm Kevin Ball Other [facility] Other 03-03-2023 08:30-0400 Body mass index (BMI) [Ratio] 22.5 kg/m2 Kevin Ball Other [facility] Other 03-03-2023 08:30-0400 Body weight 61.33 kg Kevin Ball Other [facility] Other 03-03-2023 08:30-0400 Diastolic blood pressure 85 mm[Hg] Kevin Ball Other [facility] Other 03-03-2023 08:30-0400 Respiratory rate 12 /min Kevin Ball Other [facility] Other 03-03-2023 08:30-0400 Systolic blood pressure 135 mm[Hg] Kevin Ball Other [facility] Other 11-01-2022 09:30-0400 Body height 165.1 cm Kevin Ball Other [facility] Other 11-01-2022 09:30-0400 Body mass index (BMI) [Ratio] 23.1 kg/m2 Kevin Ball Other [facility] Other 11-01-2022 09:30-0400 Body weight 62.96 kg Kevin Ball Other [facility] Other 11-01-2022 09:30-0400 Diastolic blood pressure 75 mm[Hg] Kevin Ball Other [facility] Other 11-01-2022 09:30-0400 Respiratory rate 12 /min Kevin Ball Other [facility] Other 11-01-2022 09:30-0400 Systolic blood pressure 170 mm[Hg] Kevin Ball Other [facility] Other 09-12-2022 10:45-0500 Body height 165.1 cm Dylan Calixto Other [facility] Other 09-12-2022 10:45-0500 Body mass index (BMI) [Ratio] 22.63 kg/m2 Dylan Calixto Other [facility] Other 09-12-2022 10:45-0500 Body temperature 96.7 [degF] Dylan Calixto Other [facility] Other 09-12-2022 10:45-0500 Body weight 61.69 kg Dylan Durga Other [facility] Other 09-12-2022 10:45-0500 Diastolic blood pressure 70 mm[Hg] Dylan Calixto Other [facility] Other 09-12-2022 10:45-0500 SaO2% (BldA) [Mass fraction] 97 % Dylan Durga Other [facility] Other 09-12-2022 10:45-0500 Systolic blood pressure 120 mm[Hg] Dylanmichael Calixto Other [facility] Other 08-23-2021 09:45-0500 Body height 165.1 cm Dylan Durga Other [facility] Other 08-23-2021 09:45-0500 Body mass index (BMI) [Ratio] 22.63 kg/m2 Dylan Durga Other [facility] Other 08-23-2021 09:45-0500 Body temperature 97.9 [degF] Dylan Durga Other [facility] Other 08-23-2021 09:45-0500 Body weight 61.69 kg Dylan Durga Other [facility] Other 08-23-2021 09:45-0500 Diastolic blood pressure 78 mm[Hg] Dylan Calixto Other [facility] Other 08-23-2021 09:45-0500 SaO2% (BldA) [Mass fraction] 97 % Dylan Calixto Other [facility] Other 08-23-2021 09:45-0500 Systolic blood pressure 158 mm[Hg] Dylan Calixto Other [facility] [employer] Other Encounters Encounter Date Encounter Type Care Provider Facility Start: 03-30-2025 End: 03-30-2025 ambulatory Kevin Velasquez DO Work Phone: [facility] Work Phone: Start: 03-30-2025 End: 03-30-2025 Patient encounter procedure Kevin Velasquez DO [facility] Work Phone: Start: 03-30-2025 End: 03-30-2025 Patient encounter status Kevin [facility] Start: 01-31-2025 End: 01-31-2025 Bamboo flowsheet Ulices Wise DPM Work Phone: [facility] Start: 01-31-2025 End: 01-31-2025 Bamboo flowsheet Ulices Wsie DPM Work Phone: [facility] Start: 01-31-2025 End: 01-31-2025 Office outpatient visit 15 minutes Ulices Wise DPM Work Phone: [facility] Comment on above: Plantar fasciitis (P rimary Dx); Contracture of right ankle Start: 01-31-2025 End: 01-31-2025 ambulatory ULICES WISE Not Available Start: 01-18-2025 End: 01-18-2025 Bamboo flowsheet Mariela Menchaca [employer] Work Phone: [facility] Start: 01-18-2025 End: 01-18-2025 Bamboo flowsheet Mariela Menchaca [employer] Work Phone: [facility] Start: 01-18-2025 End: 01-18-2025 Office outpatient visit 15 minutes Mariela Menchaca [employer] Work Phone: [facility] Comment on [...] right ankle Start: 11-25-2024 End: 11-25-2024 ambulatory [facility] Work Phone: Start: 11-25-2024 End: 11-25-2024 Patient encounter procedure [facility] Physician [facility] Work Phone: Start: 09-15-2024 End: 09-15-2024 Patient encounter procedure [facility] Physician [facility] Work Phone: Start: 09-15-2024 End: 09-15-2024 ambulatory Kevin Velasquez [facility] Work Phone: Start: 09-14-2024 End: 09-14-2024 Office outpatient visit 15 minutes Mariela Menchaca [employer] Work Phone: [facility] Comment on above: Presence of pessary (Primary Dx); Pelvic floor relaxation Start: 09-14-2024 End: 09-14-2024 ambulatory MARIELA MENCHACA Not Available Start: 08-06-2024 End: 08-06-2024 Patient encounter procedure Formerly [facility] Physician [facility] Work Phone: Start: 07-12-2024 Non-patient / Non-visit Former[facility] Physician [facility] [employer] Work Phone: Start: 05-11-2024 End: 05-11-2024 Office outpatient visit 15 minutes Mariela Menchaca [employer] Work Phone: [facility] Comment on above: Presence of pessary (Primary Dx); Pelvic floor relaxation Start: 05-11-2024 End: 05-11-2024 ambulatory MARIELA MENCHACA Not Available Start: 09-09-2023 Bamboo flowsheet Mariela gibbons [employer] Work Phone: [facility] Start: 09-09-2023 Bamboo flowsheet Mariela gibbons [employer] Work Phone: [facility] Start: 09-09-2023 End: 09-09-2023 Office outpatient visit 15 minutes Mariela Menchaca [employer] Work Phone: [facility] Comment on above: Presence of pessary (Primary Dx); Pelvic floor relaxation Start: 06-26-2023 End: 06-26-2023 ambulatory Kevin Velasquez Other [facility] Other Start: 06-26-2023 Office outpatient vi sit 15 minutes Kevin Velasquez [facility] Start: 06-04-2023 End: 06-04-2023 ambulatory Kevin Velasquez Other [facility] Other Start: 06-04-2023 Telephone encounter Kevin Velasquez [facility] Start: 04-08-2023 End: 04-08-2023 ambulatory Radha Correa Other [facility] Other Start: 04-08-2023 Office outpatient vi sit 15 minutes Radha Correa [facility] Start: 03-18-2023 End: 03-18-2023 ambulatory Kevin Velasquez Other [facility] Other Start: 03-18-2023 Telephone encounter Kevin RUEDA [facility] Start: 03-04-2023 End: 03-04-2023 ambulatory Kevin Velasquez Other [facility] Other Start: 03-04-2023 Telephone encounter Kevin RUEDA [facility] Start: 03-03-2023 End: 03-03-2023 ambulatory Kevin Velasquez Other [facility] Other Start: 03-03-2023 Patient encounter procedure Kevin Velasquez [facility] Start: 12-02-2022 End: 12-02-2022 ambulatory Kevin Velasquez Other [facility] Other Start: 12-02-2022 Telephone encounter Kevin Velasquez [facility] Start: 11-01-2022 End: 11-01-2022 ambulatory Kevin Velasquez Other [facility] Other Start: 11-01-2022 Office outpatient vi sit 25 minutes Kevin Velasquez [facility] Start: 10-03-2022 End: 10-03-2022 ambulatory Kevin Velasquez Other [facility] Other Start: 10-03-2022 Office outpatient vi sit 15 minutes Kevin Velasquez [facility] Start: 09-12-2022 End: 09-12-2022 ambulatory Dylan Calixto Other [facility] Other Start: 09-12-2022 Office outpatient vi sit 25 minutes Dylan Calixto [facility] Vascular Surgery Start: 09-04-2022 End: 09-04-2022 ambulatory DO Kevin Velasquez Work Phone: [facility] Work Phone: Start: 09-04-2022 End: 09-04-2022 Patient encounter procedure DO Kevin Ronald Work Phone: [facility] Work Phone: Start: 09-02-2022 End: 09-03-2022 ambulatory Mariela MENCHACA [facility] Start: 09-02-2022 End: 09-02-2022 Lab Drop off Mariela MENCHACA [facility] Start: 07-26-2022 End: 07-26-2022 ambulatory Kevin Velasquez Other [facility] Other Start: 07-26-2022 Telephone encounter Kevin Velasquez [facility] Start: 07-03-2022 End: 07-04-[address] KEVIN VELASQUEZ Facility:[facility] Start: 04-25-2022 End: 04-25-2022 ambulatory Summer Decker Other [facility] Other Start: 04-25-2022 Telephone encounter [facility] Start: 03-18-2022 Encounter for genera l adult medical examination without abnormal findings DR KEVIN VELASQUEZ [facility] Start: 03-15-2022 End: 03-16-[address] KEVIN VELASQUEZ Facility:[facility] Start: 03-15-2022 End: 03-16-2022 Encounter for general adult medical examination without abnormal findings DR KEVIN VELASQUEZ Facility:[facility] Start: 08-23-2021 End: 08-23-2021 ambulatory Dylan Calixto Other [facility] Other Start: 08-23-2021 Office outpatient ne w 60 minutes Dylan Calixto [facility] Vascular Surgery Start: 08-21-2021 End: 08-22-[address] KEVIN VELASQUEZ Facility:[facility] Procedures Date Procedure Procedure Detail Performing Clinician Start: 05-09-2020 Antibody screen Comment on above: Performed By: #### T SCR ####[facility] [id number] [place] [address] Start: 08-31-2019 Antibody screen Comment on above: Performed By: #### T SCR ####[facility] [id number] [place] [address] Plan of Treatment Date Care Activity Detail Author Start: 05-23-2025 End: 05-23-2025 Patient encounter procedure 05/23/2025 10:15 AM EDT Office Visit [facility] [address] [employer] [address] [address] Laurel Caballero DO [address] [employer] [address] [facility] Start: 03-28-2025 Influenza vaccination Influenz a Vaccine (#1) [facility] Start: 01-31-2025 End: 01-31-2025 Clinical [...] EDT Office Visit [facility] [address] [place] [employer] [address] [address] Mariela Menchaca NP [address] [place] [address] [facility] Start: 09-09-2023 End: 09-09-2023 Patient encounter procedure 09/09/2023 10:40 AM EST Office Visit [facility] [address] [id number] Mariela Menchaca NP [address] [place] [address] Arrived [facility] Comment on above: Arrived Start: 09-04-2022 Ankle brachial press ure index [facility] Start: 09-04-2022 Doppler ultrasonogra phy of bilateral carotid arteries US carotid doppler BI [facility] Start: 09-04-2022 US.doppler Carotid arteries - bilateral [facility] Start: 1995 Screening for malign ant neoplasm of breast Mammogram [facility] Start: 1955 Screening for malign ant neoplasm of colon [facility] Comprehensive metabo lic 2000 panel - Serum or Plasma [facility] MG Breast - bilatera l Screening [facility] Patient Education Low back pain in adults [facility] Work Phone: [facility] Immunizations Immunization Date Immunization Notes Care Provider [facility] 04-27-2024 influenza virus vaccine, unspecified formulation Ulices Wise DPM Work Phone: [facility] 04-29-2023 Influenza vaccine, quadrivalent, adjuvanted [facility] 05-08-2022 influenza virus vaccine, unspecified formulation [facility] 05-08-2022 influenza, high dose seasonal, preservative-free Kevin Velasquez Other [facility] Other 02-28-2022 Prevnar 20 Kevin Velasquez Other [facility] 06-08-2021 COVID-19 Ad26.COV2.S (Marylu) [facility] 04-29-2021 Influenza vaccine, quadrivalent, adjuvanted [facility] 04-29-2021 pneumococcal polysaccharide vaccine, 23 valent Kevin Velasquez Other [facility] 10-02-2020 COVID-19 Ad26.COV2.S (Marylu) [facility] 05-18-2020 influenza virus vaccine, split virus (incl. purified surface antigen) Kevin Velasquez Other [facility] [employer] Other 05-18-2020 influenza virus vaccine, unspecified formulation [facility] 05-18-2020 influenza, injectabl e, quadrivalent, preservative free [facility] 04-03-2019 influenza, injectabl e, quadrivalent, preservative free [facility] 05-11-2018 Influenza, injectabl e, Madin Isis Canine Kidney, preservative free, quadrivalent [facility] 05-06-2018 influenza virus vaccine, split virus (incl. purified surface antigen) Kevin Velasquez Other [facility] [employer] Other 05-06-2018 influenza virus vaccine, unspecified formulation [facility] 04-04-2017 influenza, injectabl e, quadrivalent, preservative free [facility] 04-04-2017 tetanus and diphther ia toxoids, adsorbed, preservative free, for adult use (5 Lf of tetanus toxoid and 2 Lf of diphtheria toxoid) Kevin Velasquez Other [facility] 04-17-2015 influenza virus vaccine, split virus (incl. purified surface antigen) Kevin Velasquez Other [facility] [employer] Other 04-17-2015 influenza virus vaccine, unspecified formulation [facility] Payers Date Payer Category Payer Self-pay [id number] 2021 [facility] er [id number] 2021 Unknown 1959 Private Health Insurance [id number] 1959 Unknown [id number] 1955 Unknown [id number] [id number] .2.593 1955 Unknown [id number] 2.16.840.1.219512.3.579 .2.593 1955 Unknown [id number] 2.16.840.1.868286.3.579 .2.593 1955 Unknown [id number] 2.16.840.1.657651.3.579 .2.727 1955 Unknown [id number] 2.16.840.1.273590.3.579 .2.1259 1955 Unknown [id number] 2.16.840.1.573079.3.579 .2.1259 1955 Unknown [id number] 2.16.840.1.085282.3.579 .2.1259 1955 Unknown [id number] 2.16.840.1.782874.3.579 .2.1259 1955 Unknown [id number] 2.16.840.1.153874.3.579 .2.1259 1955 Unknown [id number] 2.16.840.1.430589.3.579 .2.1259 Medicare [id number] Private Health Insurance [id number] Private Health Insurance [employer] [id number] Private Health Insurance [employer]) [id number] Unknown [id number] [id number] .2.531 Social History Date Type Detail Facility Start: 12-31-2022 End: 05-11-2024 Sex Assigned At [facility] Tobacco smoking status No Smokin g Status Entered [facility] Start: 1955 Sex Assigned At Female F [facility] Start: 12-31-2022 Tobacco smoking stat [facility] Never smoked tobacco [facility] Start: 12-31-2022 [...] 09-15-2024 Tobacco smoking status NHIS Ex-smoker (finding) [facility] Start: 09-15-2024 End: 11-25-2024 Sex Female (finding) [facility] Medical Equipment Procedure Code Equipment Code Equipment Origin al Text Equipment Identifier Dates [id number], [id number] Start: 11-27-2022 Blood Sugar Diagnostic (Onetouch Ultra [...] MATEO - 01/31/2025 8:50 AM Lucero Menchaca, [employer] - 01/18/2025 10:00 AM Renee Wise DPM [...] Disp: , Rfl: Lancets (OneTouch Delica Plus [id number]) [facility], USE 1 LANCET USE TO TEST HOME BLOOD SUGAR ONCE DAILY 90, Disp: , Rfl: losartan (Cozaar) 50 MG tablet, Take 50 mg by mouth in the morning., Disp: , Rfl: metFORMIN (Glucophage) 500 MG tablet, Take 500 mg by mouth. Take with food., Disp: , Rfl: [employer] Chat[employer] Ultra test strip, USE TO TEST ONCE [...] Ulices Wise DPM documented in this encounter [facility] 01-18-2025 History of Presen t illness Narrative [...] in the morning. Lancets (OneTouch Delica Plus [id number]) [facility] USE 1 LANCET USE TO TEST HOME BLOOD SUGAR ONCE DAILY 90 losartan (Cozaar) 50 MG tablet Take 50 mg by mouth in the morning. metFORMIN (Glucophage) 500 MG tablet Take 500 mg by mouth. Take with food. [employer] Ultra test strip USE TO TEST ONCE [...] follow-ups on file. documented in this encounter [facility] 01-17-2025 History of Presen t illness Narrative [...] Disp: , Rfl: Lancets (OneTouch Delica Plus [id number]) [facility], USE 1 LANCET USE TO TEST HOME BLOOD SUGAR ONCE DAILY 90, Disp: , Rfl: losartan (Cozaar) 50 MG tablet, Take 50 mg by mouth in the morning., Disp: , Rfl: metFORMIN (Glucophage) 500 MG tablet, Take 500 mg by mouth. Take with food., Disp: , Rfl: [employer] Ultra test strip, USE TO TEST ONCE [...] Ulices Wise DPM documented in this encounter [facility] 01-03-2025 History of Presen t illness Narrative [...] Disp: , Rfl: Lancets (OneTouch Delica Plus [id number]) [facility], USE 1 LANCET USE TO TEST HOME [...] Ulices Wise DPM documented in this encounter [facility] 09-15-2024 Evaluation note Diagnosis Onset Date Resolution [...] with hyperglycemia acute November 25, 2024 9:23am [facility] Work Phone: 1(140) 946-562402-18-2025 History of Present illness Narrative* Mariela Menchaca [...] mg by mouth in the morning. Lancets ([employer] Delica Plus [id number]) [facility] USE 1 LANCET USE TO TEST HOME BLOOD SUGAR ONCE DAILY 90 losartan (Cozaar) 50 MG tablet Take 50 mg by mouth in the morning. metFORMIN (Glucophage) 500 MG tablet Take 500 mg by mouth. Take with food. [employer] Ultra test strip USE TO TEST ONCE [...] 01/12/2025) for Pessary maintenance. documented in this encounterKindred [id number] Evaluation note* Diagnosis Onset Date Resolution Status Admit Date Carotid artery stenosis acute J anuary 2024 9:19am Elevated cholesterol acute 2024 9:19am GERD without esophagitis acute August 06, 2024 9:19am Hypertension acute July 9:19am Low back pain acute July 9:19am Ocular migraine acute July 282024 9:19am Type 2 diabetes mellitus wit h hyperglycemia acute August 06 9:19am [facility] Work Phone: 1(410) 319-203601-10-2025 Evaluation note* Diagnosis Onset Date Resolution Status [...] artery stenosis acute September 15, 2024 8:46am [facility] Work Phone: 1(376) 561-617110-15-2024 History of Present illness Narrative* Mariela Menchaca [...] mg by mouth in the morning. Lancets (Userlike Live ChatTouch Delica Plus [id number]) [facility] USE 1 LANCET USE TO TEST HOME BLOOD SUGAR ONCE DAILY 90 losartan (Cozaar) 50 MG tablet Take 50 mg by mouth in the morning. metFORMIN (Glucophage) 500 MG tablet Take 500 mg by mouth. Take with food. [employer] Ultra test strip USE TO TEST ONCE [...] 09/11/2024) for Pessary maintenance. documented in this encounterKindred [id number] History of Present illness Narrative* Mariela Menchaca [...] in the morning. Lancets (OneTouch Delica Plus [id number]) [facility] USE 1 LANCET USE TO TEST HOME [...] 01/08/2024) for Pessary maintenance. documented in this encounterKindred [id number] Evaluation note* Encounter Date Diagnosis Assessment Notes [...] necessary, will resolve w/ treatment of infection [facility] Other 09-12-2023 Evaluation note* Encounter Date Diagnosis [...] verbalizes understanding and agrees with tx plan. [facility] Other 08-08-2023 Evaluation note* Encounter Date Diagnosis Assessment Notes Treatment Notes Treatment Clinical Notes Feb, Gastroesophageal ref lux disease with esophagitis without hemorrhage (ICD-10 - K21.00) [facility] Other 08-08-2023 Evaluation note* Encounter Date Diagnosis Assessment Notes Treatment Notes Treatment Clinical Notes Feb, Eczema, unspecified type (ICD-10 - L30.9) [facility] Other 08-07-2023 Evaluation note* Encounter Date Diagnosis [...] cerebrovascular and cardiovascular disease. Feb, Atherosclerosis of [place] artery of both lower extremities with intermittent [...] High risk medication use (ICD-10 - Z79.899) [facility] Other 04-07-2023 Evaluation note* Encounter Date Diagnosis [...] with continued statin therapy. Oct, Atherosclerosis of [place] artery of both lower extremities with intermittent [...] Continue Verapamil No f/u w/ Neurology necessary [facility] Other 03-09-2023 Evaluation note* Encounter Date Diagnosis [...] treatment necessary despite likely increase in BS [facility] Other 02-16-2023 Evaluation note* Encounter Date Diagnosis [...] were addressed. She understands agrees the plan. [facility] Other 02-08-2023 NoteMicrobiology PROCEDURE: Gynecological Culture [R1] [...] Locations R1: This test was performed at: [facility], [address] [place] [address], [id number] , , RmhqhiLouis [facility] CenterComment on above:Performed By: #### [id number] #### [facility] [address] [place] [address] [id number] Evaluation + Plan note Diagnostic Tests Pending * Gynecological Culture 09/02/22 * NuSwab Vaginitis (VG) 09/02/22 [facility]01-27-2022 Evaluation note* Encounter Date Diagnosis Assessment Notes Treatment Notes Treatment Clinical Notes Jul, Stenosis of left subclavian artery (ICD-10 - I77.1) Jul, Atherosclerosis of [place] arteries of extremities with intermittent claudication, left leg (ICD-10 - I70.212) This patient is a new patient today. She has had a previous left subclavian stent placed at the origin of the left subclavian artery at [facility]. This was due to left arm [...] bilateral carotid artery stenosis (ICD-10 - I65.23) [facility] Other 09-02-2021 NoteHNO ID: [id number] Author: Elier Espino MD Service: ? Author Type: Physician Type: Progress Notes Filed: 03/29/2021 1:39 PM Note Text: [facility] OUTPATIENT VISIT DATE March 29, 2021 OUTPATIENT VISIT TYPE EST PRIMARY CARE PHYSICIAN: Kevin Velasquez ([facility]) [facility] [place] [address] REFERRING PHYSICIAN SELF CHIEF COMPLAINT: Patient presents [...] months with repeat noninvasive studies.? Elier Espino [facility]05-13-2021 NoteHNO ID: [id number] Author: Elier Espino MD Service: ? Author Type: Physician Type: Progress Notes Filed: 12/07/2020 1:01 PM Note Text: [facility] OUTPATIENT VISIT DATE December 07, 2020 OUTPATIENT VISIT TYPE EST PRIMARY CARE PHYSICIAN: Kevin Velasquez ([facility]) [address] [place] [address] REFERRING PHYSICIAN SELF CHIEF COMPLAINT: Patient presents [...] repeat noninvasive studies.? ? ? Elier Espino [facility]02-11-2021 NoteHNO ID: [id number] Author: Elier Espino Service: ? Author Type: Physician Type: Progress Notes Filed: 09/07/2020 12:28 PM Note Text: [facility] OUTPATIENT VISIT DATE September 07, 2020 OUTPATIENT VISIT TYPE EST PRIMARY CARE PHYSICIAN: Kevin Velasquez MD ([facility]) [address] [place] [address] REFERRING PHYSICIAN Elier Espino MD [address] [facility] [id number] CHIEF COMPLAINT: Patient presents with: Follow Up: [...] with repeat noninvasive studies. ? Elier Espino, [facility] Limaation noteNo InformationNort Parakey Other Evaluation noteNo assessment information available [facility] Work Phone: Evaluation note* Diagnosis Presence of pessary- Primary Pelvic floor relaxation documented in this encounter [facility] HealthcareEvaluation note* Diagnosis Presence of pessary- Primary Pelvic floor relaxation documented in this encounter [facility] HealthcareEvaluation note* Diagnosis Presence of pessary- Primary Pelvic floor relaxation documented in this encounter [facility] HealthcareEvaluation note* Diagnosis Heel spur, right- Primary Plantar fasciitis Plantar fascial fibromatosis Contracture of right ankle documented in this encounter [facility] HealthcareEvaluation note* Diagnosis Plantar fasciitis- Primary Plantar fascial fibromatosis Contracture of right ankle documented in this encounter [facility] HealthcareEvaluation note* Diagnosis Plantar fasciitis- Primary Plantar fascial fibromatosis Contracture of right ankle documented in this encounter [facility] HealthcareEvaluation note* Diagnosis Onset Date Resolution [...] preventive visit noneactive March 30, 2025 9:20am [facility] Work Phone: History general Narrative - Reported* Type Description Date Medical History carotid artery stenosis Medical History hypertension Medical History migraine headaches Medical History acid reflux Surgical History tubual ligation Surgical History cataract surgery Surgical History stent in left subclavian Surgical History stent in left iliac [facility] Other History general Narrative - Reported* Type Description Date Medical History carotid artery stenosis Medical History hypertension Medical History migraine headaches Medical History acid reflux Medical History PAD Surgical History tubual ligation Surgical History cataract surgery Surgical History stent in left subclavian Surgical History stent in left iliac Hospitalization History See Above [facility] Other Hospital course Narrative No data available for this section [facility] No data available for this section [facility] No data available for this section [facility] for referral (narrative)No reason for referral information availableOhiohealth Doctors Hospital Work Phone: Summary Purpose Family History Relationship [...] 2024 11:07am Procedure Findings Note HNO ID: [id number] Author: Liv Espino Service: Vascular Surgery Author Type: Physician Type: Brief Op Note Filed: 08/31/2019 8:22 PM Note Text: BRIEF OPERATIVE / PROCEDURE NOTE LOG ID: [id number] SURGERY/PROCEDURE DATE: 08/31/2019 INCISION/PROCEDURE START TIME: 10:23 AM INCISION CLOSE/PROCEDURE END TIME: 2:47 PM SURGEON(S)/PROCEDURALIST(S) AND OYSTER SORTER(S): Surgeon(s) and Role: * Elier Barnard No [...] iliac artery treated with 8x60 and 7x60 [employer] self expandable stent, post stenting angioplasty of the lef (more content not included)... Note HNO ID: [id number] Author: Liv Espino Service: Vascular Surgery Author Type: Physician Type: Brief Op Note Filed: 05/09/2020 3:31 PM Note Text: BRIEF OPERATIVE / PROCEDURE NOTE LOG ID: [id number] SURGERY/PROCEDURE DATE: 05/09/2020 INCISION/PROCEDURE START TIME: 2:25 PM INCISION CLOSE/PROCEDURE END TIME: 3:21 PM SURGEON(S)/PROCEDURALIST(S) AND OYSTER SORTER(S): Surgeon(s) and Role: * Elier Barnard No Additional Staff SURGERY/PROCEDURE(S): Ultrasound guided access of the right common femoral artery, left subclavian angiogram, stenting of the left proximal subclavian artery, completion angiography ANESTHESIA: Procedural Sedation FINDINGS: High grade stenosis of the proximal left subclavian artery, prestent angioplasty w/ 4x40mm balloon, lesion treated with 7x27 [employer] balloon mounted stent. Resolution of stenosis post stenting. ESTIMATED BLOOD LOSS: 0 ml SPECIMENS: None COMPLICATIONS: None IMPLANTS: [employer] 7x27 LD balloon expandable stent, inflated [...] :19am Type 2 diabetes mellitus with hyperglyce [facility] August 06, 2024 9:19am Reason for Visit Admit Date Carotid artery stenosis August 06 9:19am Elevated cholesterol August 06, 2024 9:19am GERD without esophagitis August 06 025 9:19am Hypertension August 06, 2024 9 :19am Low back pain August 06, 2024 9 :19am Ocular migraine August 06, 2024 9 :19am Type 2 diabetes mellitus with hyperglyce [facility] August 06, 2024 9:19am Right-sided extracranial carotid [...] 9:23am Type 2 diabetes mellitus with hyperglyce [facility] November 25, 2024 9:23am Chief Complaint Admit [...] section and content) DATE CREATED AUTHOR 05/10/2020 [facility] DATE CREATED AUTHOR AUTHOR'S ORGANIZ ATION 08/31/2021 [facility] DATE CREATED AUTHOR AUTHOR'S ORGANIZ ATION 07/06/2022 [facility] DATE CREATED AUTHOR AUTHOR'S ORGANIZ ATION 09/06/2022 Galan Jorge [facility] DATE CREATED AUTHOR AUTHOR'S ORGANIZ ATION 10/13/2024 [facility] DATE CREATED AUTHOR AUTHOR'S ORGANIZ ATION 02/03/2025 [facility] dical Specialists EPIC REASON FOR VISIT [...] Kevin Velasquez DO Primary Care Provider Active [employer] Relationship Specialty Start Date End Date Kevin Velasquez MD [address] [facility] [place] [address] PCP - General Internal Medicine 12/31/22 [employer] Relationship Specialty Start Date End Date Kevin Velasquez MD [address] [place] [facility] [id number] PCP - General Internal Medicine 12/31/22 [employer] Relationship Specialty Start Date End Date Kevin Velasquez MD [address] [place] [facility] [address] PCP - General Internal Medicine 12/31/22 [employer] Linen Distributor Relationship Specialty Start Date End Date Kevin Velasquez DO [address] [place] [id number] PCP - General Internal Medicine 12/31/22 Soiled Linen Distributor Relationship Specialty Start Date End Date Kevin Velasquez DO [address] [facility] [place] [address] PCP - General Internal Medicine 12/31/22 Soiled Linen Distributor Relationship Specialty Start Date End Date Kevin Velasquez DO [address] [facility] [place] [id number] PCP - General Internal Medicine 12/31/22 Soiled Linen Distributor Relationship Specialty Start Date End Date Kevin Velasquez DO [address] [facility] [place] [address] PCP - General Internal Medicine 12/31/22 Soiled Linen Distributor Relationship Specialty Start Date End Date Kevin Velasquez DO [address] [place] [facility] [place] [id number] PCP - General Internal Medicine 12/31/22 Soiled Linen Distributor Relationship Specialty Start Date End Date Kevin Velasquez DO [address] [place] [address] PCP - General Internal Medicine 12/31/22 Soiled Linen Distributor Relationship Specialty Start Date End Date Kevin Velasquez DO [address] [place] [phone] PCP - General Internal Medicine 12/31/22 Mariela Menchaca NP [address] [place] [address] PCP [employer]nie [employer] 12/26/24 Soiled Linen Distributor Relationship Specialty Start Date End Date Kevin Velasquez DO [address] [place] [address] PCP - General Internal Medicine 12/31/22 Mariela Menchaca, [employer] [address] [place] [id number] PCP [employer]nie [employer] 12/26/24 Team Status: Inactive [...] BE BASED ON THE PRIMARY CLINICAL RECORDS. [facility]. provides no warranty or guarantee of the accuracy or completeness of information in this document.
[2025-04-12 07:57] LABS: Hematocrit 42.8 % (36.0-48.0); Hemoglobin 14.1 g/dL (12.0-16.0); Immature Granulocytes Abs Auto 0.01 10^3/uL (0.00-0.03); Immature Granulocytes Pct Auto 0.3 % (0.0-0.5); Lymphocytes Absolute Auto 1.5 10^3/uL (1.2-3.8); Mean Corpuscular HGB Conc 32.9 g/dL (29.9-35.2); Mean Corpuscular Hemoglobin 28.6 pg (26.7-34.0); Mean Corpuscular Volume 86.8 fL (81.0-99.0); Platelet Count 175 10^3/uL (150-450); Red Blood Count 4.93 10^6/uL (4.20-5.40); White Blood Count 4.0 10^3/uL (4.0-11.0)
[2025-04-12 08:30] LABS: Alanine Aminotransferase 53 U/L (14-59); Albumin Globulin Ratio 1.1; Albumin Level 4.1 g/dL (3.4-5.0); Alkaline Phosphatase 108 U/L (46-116); Anion Gap 13.1; Aspartate Amino Transferase 44 U/L (15-37); Blood Urea Nitrogen 11.0 mg/dL (7.0-18.0); Calcium 9.2 mg/dL (8.5-10.1); Carbon Dioxide 27.9 mmol/L (21.0-32.0); Chloride 103 mmol/L (98-107); Cholesterol 121 mg/dL (<=200); Estimated GFR (African America >60 (>=60 mL/min/1.73m^2); Estimated GFR (Non-African Ame >60 (>=60 mL/min/1.73m^2); Globulin 3.8 g/dL; Glucose 121 mg/dL (74-106); HDL Cholesterol 57 mg/dL (40-60); Potassium 4.0 mmol/L (3.5-5.1); Sodium 140 mmol/L (136-145); Thyroid Stimulating Hormone 3.368 uIU/mL (0.358-3.740); Total Protein 7.9 g/dL (6.4-8.2); Triglycerides 92 mg/dL (<=150); VLDL CHOLESTEROL 18.4 mg/dL
== END 2025-04-12 07:19 | disposition home or self-care (01) ==
PROVIDERS: PCP Internal Medicine; Visit Provider Internal Medicine
DX: E78.00 Pure hypercholesterolemia, unspecified (principal); I10 Essential (primary) hypertension; E11.65 Type 2 diabetes mellitus with hyperglycemia; R53.83 Other fatigue
CPT/HCPCS: 36415; 80053; 80061; 82043; 82570; 83036; 84443; 85025